=== PATIENT | male | born 1935 | race Caucasian/White ===

== ENCOUNTER 2017-04-18 11:27 | Inpatient (IN) | payer MEDICARE, OTHER ==
[~2017-04-18] VITALS: Ht 167.6 cm; Wt 62.1 kg
[2017-04-18] MEDS ORDERED: FURO20TA4 PO ×2 (16:57)
[2017-04-18] MEDS ORDERED: SENN-40 PO ×2 (16:57)
[2017-04-18] MEDS ORDERED: CARV3.122 PO ×2 (16:57)
[2017-04-18] MEDS ORDERED: FERR-74 PO ×2 (16:58)
[2017-04-18] MEDS ORDERED: C250T PO ×2 (16:58)
[2017-04-18] MEDS ORDERED: PANT40TA2 PO (16:58)
[2017-04-18] MEDS ORDERED: MULT1TAB69 PO ×2 (16:58)
[2017-04-18] MEDS ORDERED: MINO100C2 PO (16:58)
[2017-04-18] MEDS ORDERED: OMEP10CA4 PO (16:58)
[2017-04-18] MEDS ORDERED: ACID1TAB PO ×2 (16:58)
[2017-04-18] MEDS ORDERED: LOVA10TA PO ×2 (16:58)
--- NOTE | 2017-04-23 13:21 | Physical Therapy Evaluation ---
PT Evaluation-General Medical Diagnosis Admission Date April 23, 2017 Medical Diagnosis: right hip fracture Onset Date: Apr 21, 2017 Therapy Diagnosis Therapy Diagnosis: generalized weakness/debility Precautions Precautions/Isolations: Standard Precautions Weight Bear Status Weight Bearing Restriction: Weight Bearing/Tolerated Location Restriction: R LE Comments THR precautions Referral Physician: Agustín Reason for Referral: Evaluation/Treatment Medical History Additional Medical History per patient report, has had increase in weakness x 6-7 wks. Current History fall at [place] while getting into bed Reviewed History: Yes Social History Home: Single Level Current Living Status: Alone Entry Into Home: Stairs With Railing PT Steps Into Home: 5 Prior/Core FIM Prior Level of Function Functional [place] Measure 0=Not Assessed/NA 4=Minimal Assistance 1=Total Assistance 5=Supervision or Setup 2=Maximal Assistance 6=Modified [place] 3=Moderate Assistance 7=Complete [place] Bed Mobility: 7 Transfers (B,C,W/C) (FIM): 7 Gait: 7 PT Evaluation-Current Subjective Patient agrees to PT. Pain Numeric Pain Scale: 3 Location: Right Location Body Site: Hip Pain Description: Acute Objective Patient Orientation: Normal For Age Problem Solving: Good Attachments: Oxygen, Mckeon Catheter ROM/Strength ROM Lower Extremities right hip precautions left LE WNL Strenght Lower Extremities right LE grossly 3-/5 left LE 4/5 grossly Integumentary/Posture Integumentary refer to nursing notes Bowel Incontinence: No Bladder Incontinence: Mckeon Cath Posture kyphotic Neuromuscular (Tone, Coordination, Reflexes) diminished coordination with activity; sensation intact Sensory Vision: Wears Glasses Hearing: Hearing Aid/Aides Sensation Right Lower Extremit: Intact Sensation Left Lower Extremity: Intact Transfers Functional [place] Measure 0=Not Assessed/NA 4=Minimal Assistance 1=Total Assistance 5=Supervision or Setup 2=Maximal Assistance 6=Modified [place] 3=Moderate Assistance 7=Complete IndependenceIRFPAI Quality Coding Scale 6 Independent with activity with or without an assistive device 5 Patient requires set up or clean up by helper. Patient completes activity by themselves 4 Supervision or touching assist (CGA). [place] provide cues , steadying assist 3 The helper provides less than half the effort to complete the activity 2 The helper provides more than half the effort to complete the activity 1 Dependent. The helper does all the effort to complete an activity 7 Patient refused to complete or attempt activity 9 The patient did not perform the activity before the current illness or injury 88 Not attempted due to Medical conditions or safety concerns Transfers (B, C, W/C) (FIM): 3 Scootin Rollin Roll Left to Right (QC): 2 Supine to/from Sit: 3 Sit to/from Stand: 3 Sit to Lying (QC): 2 Lying to Sitting/Side of Bed(Q: 2 Sit to Stand (QC): 2 Chair/Amr-dd-Lbrfy Xfer(QC): 2 Car Transfer (QC): 88 Gait Does the Patient Walk?: Yes Mode of Locomotion: Walk Anticipated Mode of Locomotion: Walk Gait (FIM): 1 Distance (FIM): 1=up to 49 ft Walk 10 feet (QC): 4 Walk 50 ft with 2 Turns(QC): 88 Walk 150 ft (QC): 88 Walking 10ft/uneven surface-QC: 88 Distance: 40' x 6 Gait Level of Assist: 3 Gait Persons Needed: 1 Gait Assistive Device: FWW Comments/Gait Description bilateral ER LE; step to gait sequence Stairs Stairs (FIM): 1 #of Steps: 1 Level of Assist: 3 1 Step (curb) (QC): 2 4 Steps (QC): 88 Assistive Device: Walker 12 Steps (QC): 88 step to sequence Balance Sitting Static: Fair Sitting Dynamic: Fair Standing Static: Fair Standing Dynamic: Fair Treatment bilateral LE exercises 10 reps x 2 sets AP,LAQ Education with patient on safety awareness and hip precautions Gait training with FWW mod assist 40' x 6 with slow step to gait sequence Assessment/Needs 82 y.o. male, will benefit from skilled PT to address functional strength and mobility to improve current LOF and to safely return to home or care facility at maximum LOF. Patient will also benefit from skilled PT to address pulmonary function with exercise and ambulation. Patient is limited with pulmonary function with minimal activity requiring 2L O2 NC. Rehab Potential: Fair Post Rehab Potential-Barriers: age/status PT Care Home Goals Care Home Goals PT Test Analyst Goals Time Frame: May 11, 2017 Transfers (B,C,W/C) (FIM): 5 Sit to Lying (QC): 5 Lying-Sitting on Side/Bed(QC): 5 Sit to Stand (QC): 5 Rollin Roll Left to Right (QC): 5 Chair/Wdf-nx-Oxymj Xfer(QC): 5 Car Transfer (QC): 5 Does the Patient Walk: Yes Gait (FIM): 2 Gait distance (FIM): 7=413-92 ft Distance: 100' Walk 10 feet (QC): 4 Walk 10ft-Uneven Surface(QC): 4 Walk 50ft with 2 Turns (QC): 4 Walk 150 ft (QC): 88 Gait Level of Assist: 5 Gait Assistive Device: FWW Stairs (FIM): 2 # of Steps: 5 1 Step (curb) (QC): 4 4 Steps (QC): 4 12 Steps (QC): 88 Stairs Level Of Assist: 5 Picking up an Object (QC): 5 PT Plan Problem List Problem List: Activity Tolerance, Functional Strength, Balance, Gait, Transfer , Bed Mobility Treatment/Plan Treatment Plan: Continue Plan of Care Treatment Plan: Bed Mobility, Education, Functional Activity Garrett, Functional Strength, Group Therapy, Gait, Safety, Therapeutic Exercise, Transfers Treatment Duration: May 11, 2017 Frequency: At least 5-7 days/Wk (IRF) Estimated Hrs Per Day: 1.5 hours per day Patient and/or Family Agrees t: Yes Safety Risks/Education Patient Education: Correct Positioning, Safety Issues Teaching Recipient: Patient Teaching Methods: Demonstration, Discussion Response to Teaching: Verbalize Understanding, Return Demonstration Discharge Recommendations Therapy D/C Recommendations: Assisted Living, Half-Way Placement Time/GCodes Time In: 1220 Time Out: 1305 Total Billed Treatment Time: 45 Total Billed Treatment 1 visit EVLowC 25 min FA 20 min G Codes Necessary: EDGAR Montanez PT Apr 23, 2017 13:21
[2017-04-27] VITALS (13 sets, daily range): BP systolic 104–128; BP diastolic 65–93
--- NOTE | 2017-04-27 11:28 | History & Physical-Hospitalist ---
HPI History of Present Illness: HPI/Chief Complaint CC: Acute dyspnea HPI: This is an 82-year-old white male with a very complicated medical history with a recent hip fracture that was repaired but only after 6 consultants were managing the case due to acute on chronic renal failure, ureter stenosis with stent maintenance with chronic hematuria residual from colon cancer radiation, colon cancer with diverting colostomy maintenance and congestive heart failure that presents as a transfer up to the ICU from inpatient rehabilitation due to shortness of breath and tachypnea. He reports that he feels like his only breathing from the top part of his lungs and he has become hypoxic and uncomfortable. It is unfortunate because he had done so well even after so complicated medical problems that he has and underwent an uncomplicated hip fracture repair but today it abruptly affected his breathing was given 80 mg of Lasix IV by cardiology given 1 dose of metoprolol XL 50 mg by mouth 1 and started on an aspirin but he has had good urinary output from the 80 mg of Lasix but still not enough to be able to maintain in inpatient rehabilitation service transferred up to the ICU maintain on a partial code as he had discussed with Dr. Almanzar while he was in the ICU when he suffered a hip fracture. At this current time labs were reviewed no significant issues except for acute onset of congestive heart failure that he has ejection fraction that is suppressed. Source: patient Exam Limitations: no limitations Date Seen 04/27/17 Time Seen by Provider: 10:45 Attending Physician Rosi Gunter DO PCP Referring Physician Date of Admission Home Medications & Allergies Home Medications Reviewed patient Home Medication Reconciliation Form Allergies Allergies Coded Allergies Iodinated Contrast- Oral and IV Dye (Verified Allergy, Severe, ANAPHYLAXIS, ) patient reports throat became swollen, and code blue was called Penicillins (Verified Allergy, Mild, RASH, 04/18/17) ibuprofen (Verified Allergy, Mild, rash, 04/18/17) Past Ljfsjtd-Rxvqef-Wiammy Hx Patient Social History Marrital Status: single 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) Smoking Status: Never a Smoker Recent Foreign Travel: No Contact w/other who traveled: No Recent Hopitalizations: Yes Immunizations Up To Date Date of Pneumonia Vaccine: Apr 18, 2016 Seasonal Allergies Seasonal Allergies: No Surgeries HX Surgeries: Yes Surgeries: Abdominal Respiratory Hx Respiratory Disorders: No Cardiovascular Hx Cardiovascular Disorders: Yes Cardiac Disorders: Cardiomyopathy, Chronic Edema/Swelling, High Cholesterol, Hypertension Neurological Hx Neurological Disorders: Yes Neurological Disorders: Dementia Genitourinary Hx Genitourinary Disorders: Yes Genitourinary Disorders: Bladder Infection, Renal Failure, UTI-Chronic Gastrointestinal Hx Gastrointestinal Disorders: Yes Gastrointestinal Disorders: Gastroesophageal Reflux Musculoskeletal Hx Musculoskeletal Disorders: Yes Musculoskeletal Disorders: Arthritis Endocrine Hx Endocrine Disorders: No HEENT HX ENT Disorders: No Hearing Impairment: Hard of Hearing Cancer Hx Cancer: Yes Cancer: Colon Psychosocial Hx Psychiatric Problems: No Blood Transfusions Adverse Reaction to a Blood Tr: No Family Medical History Family Hx: Patient reports no known family medical history. Review of Systems Constitutional: see HPI, weakness EENTM: no symptoms reported Respiratory: dyspnea on exertion, short of breath, wheezing Cardiovascular: no symptoms reported Gastrointestinal: no symptoms reported Genitourinary: no symptoms reported Musculoskeletal: back pain Skin: no symptoms reported Psychiatric/Neurological: No Symptoms Reported All Other Systems Reviewed Negative Unless Noted: Yes Physical Exam Physical Exam Vital Signs Capillary Refill : General Appearance: WD/WN, Chronically ill, Mild Distress (due to tachypnea) Eyes: Bilateral Eye Normal Inspection, Bilateral Eye PERRL HEENT: PERRL/EOMI, Normal ENT Inspection, Pharynx Normal Neck: Full Range of Motion, Normal Inspection, Non Tender, Supple, Carotid Bruit Respiratory: Chest Non Tender, Lungs Clear, No Accessory Muscle Use, No Respiratory Distress, Decreased Breath Sounds Cardiovascular: No Edema, No Gallop, No JVD, No Murmur, Normal Peripheral Pulses, Tachycardia Gastrointestinal: Normal Bowel Sounds, No Organomegaly, No Pulsatile Mass, Non Tender, Soft Back: Normal Inspection, No CVA Tenderness, No Vertebral Tenderness Extremity: Normal Capillary Refill, Normal Inspection, Normal Range of Motion, Non Tender, No Calf Tenderness, No Pedal Edema Neurologic/Psychiatric: Alert, Oriented x3, No Motor/Sensory Deficits, Normal Mood/Affect Skin: Normal Color, Warm/Dry Lymphatic: No Adenopathy Assessment/Plan Admission Diagnosis Assessment: Acute on chronic congestive heart failure with volume overload and tachypnea and hypoxia Tachycardia with telemetry evidence of paroxysmal atrial fibrillation versus sinus tachycardia with PACs following hip surgery while in ICU Chronic renal failure creatinine usual 2.4-3.4 due to ureter stenosis status post stent placement complication from radiation treatment from colon cancer Colon cancer in remission from 10 years ago and status post revision with subsequent colostomy 4 years ago Chronic lower extremity edema Mild dementia Anemia of chronic illness and kidney disease Anemia of acute blood loss status post 2 units while in the ICU following hip fracture surgery Assessment and Plan Plan: Maintain partial code as he has maintained during hospital stay at via [facility] Oxygen Check ABG Check chest x-ray Monitor labs closely Maintain catheter and colostomy Prognosis guarded ROSI GUNTER DO Apr 27, 2017 11:28
[2017-04-27] MEDS ORDERED: CATHETER FLUSH 10 ML SYR IV PRN (13:45)
--- NOTE | 2017-04-27 14:22 | Diagnostic Imaging Report ---
INDICATION: Shortness of breath. Comparison with 04/22/2017 portable chest. FINDINGS: Very dense bilateral alveolar perihilar infiltrates remain present. There has been perhaps slight increase in density infiltrate when compared with previous exam. The heart remains mildly enlarged. I could not exclude small pleural effusion. IMPRESSION: 1. Dense perihilar alveolar infiltrate which do appear to be slightly more dense today than on previous exam. Dictated by: Dictated on workstation # [id number]
--- NOTE | 2017-04-27 14:23 | Progress Note-Cardiology ---
Cardiology SOAP Progress Note Subjective: Transferred to ICU per medical services this morning d/t sudden onset of increasing shortness of breath. He states he continues to feel short of breath , but feels it has improved from this morning. No c/o CP or palpitations. Objective: I&O/Vital Signs Vital Sign - Last 12Hours 04/27/17 04/27/17 04/27/17 04/27/17 12:40 12:40 12:47 13:00 Temp 99.0 Pulse 102 102 101 Resp 28 33 B/P (MAP) 108/65 108/65 Pulse Ox 94 97 O2 Delivery Nasal Cannula Nasal Cannula Nasal Cannula O2 Flow Rate 2.00 2.00 2.00 04/27/17 04/27/17 04/27/17 04/27/17 13:47 14:00 15:00 16:00 Temp 98.2 Pulse 108 115 Resp 31 28 B/P (MAP) 104/71 109/74 Pulse Ox 97 95 O2 Delivery Nasal Cannula Nasal Cannula Nasal Cannula O2 Flow Rate 2.00 3.00 3.00 04/27/17 04/27/17 04/27/17 16:00 16:21 16:25 Temp 98.6 Pulse 116 102 Resp 29 B/P (MAP) 112/93 Pulse Ox 95 93 O2 Delivery Nasal Cannula O2 Flow Rate 3.00 FiO2 32 Weight (Pounds): 151 Weight (Ounces): 3.0 Weight (Calculated Kilograms): 68.111818 Constitutional: AAO x 3 Respiratory: accessory muscle use, other (diminished lower lobes bilat) Cardiovascular: regular rate-rhythm, S1 and S2, systolic murmur Gastrointestional: No tender, soft, audible bowel sounds Genital/Rectal: other (urinary catheter to DD; clear yellow) Extremities: significant edema (bilat pitting lower extremity edema) Neurologic/Psychiatric: grossly intact Skin: No rash, ulcerations Results/Procedures: Labs Laboratory Tests 04/27/17 14:25: Blood Gas Puncture Site R RAD, Blood Gas Patient Temperature 98.2, Arterial Blood pH 7.44H, Arterial Blood Partial Pressure CO2 38, Arterial Blood Partial Pressure O2 64L, Arterial Blood HCO3 26, Arterial Blood Total CO2 26.9, Arterial Blood Oxygen Saturation 95, Arterial Blood Base Excess 1.9, Efrain Test YES-POS, Blood Gas Ventilator Setting NO, Blood Gas Inspired Oxygen 2 A/P: Assessment: Acute systolic CHF, worse today Sinus tach with PACs Echocardiogram of 04-19-[address] Biggs showed LVEF 20-25%. Hypokinesis of apical septal, apical lateral, apical myocardium. Mild MR. Mild to mod TR. PASP 65mmHg. Carried out during tachycardia. Not a suitable candidate for MONY (-) or ARB d/t existing stage III-IV CKD Right hip fracture, - s/p surgery Mildly positive cardiac enzymes (04-19-17 to 04-21-17) : serial troponin shows same level of troponin. [place] to be unlikely d/t ACS. Since mild elevation of troponin can occur in CHF especially with CKD and in a patient with tachycardia. Per Dr. Biggs CKD stage III-IV Tachycardia vs a-fib per EKG of 04-19-17 - felt to be tachycardia by 's note - treated with BB H/O colovesicular fistula d/t colon CA L ureteral stent - Dr. Alves following Plan: Decompensated systolic CHF - continue IV diuretics Monitor lab closely Sinus tachycardia - continue BB CXR pending ABG - pending Physician Assessment Physician Assessment Lungs: good air entry, but diminished at the bases Cor: reg Legs: mild edema A&R * As documented in out note above, that I updated at the time of this writing ( italics), and as documented below * There has been a deterioration in clinical status * Increase bb. Continue antiplatelet therapy. Increase diuretics * Monitor labs closely * I spoke with him in detail and answered questions LINDA GUERRERO ADVANCED MANUFACTURING TECHNICIAN Apr 27, 2017 14:22 NIKUNJ HOLM MD FACP [facility] Apr 27, 2017 18:26
[2017-04-27 14:31] LABS: ABG BASE EXCESS 1.9 MMOL/L (-2.5-2.5); ABG HCO3 26 MMOL/L (23-27); ABG OXYGEN SATURATION 95 % (94-100); ABG PCO2 38 MMHG (35-45); ABG PH 7.44 (7.37-7.43); ABG PO2 64 MMHG (79-93); ABG TCO2 26.9 MMOL/L (21.0-31.0)
[2017-04-27 14:32] LABS: ALLENS TEST YES-POS; PATIENT TEMP 98.2
[2017-04-27] MEDS ORDERED: RT-ALBUTEROL SULF 2.5 MG/3 ML PRE-MIX VIAL IH PRN (16:45)
[2017-04-27] MEDS: FUROSEMIDE 40 MG/4 ML INJ (LASIX) IVP SCH (17:07)
[2017-04-27] MEDS: CATHETER FLUSH 10 ML SYR IV SCH ×2 (17:07→21:00)
[2017-04-27] MEDS: RT-ALBUTEROL/IPRATROPIUM 3 ML (DUONEB) VIAL INH SCH ×2 (18:25→21:52)
[2017-04-27] MEDS ORDERED: meTOproloL SUCCINATE 50 MG (TOPROL XL) TAB PO NR (18:30)
[2017-04-27] MEDS ORDERED: ASPIRIN 81 MG CHEW (CHILDREN'S ASA) PO NR (18:30)
[2017-04-28] VITALS (25 sets, daily range): BP systolic 98–115; BP diastolic 59–84
[2017-04-28] MEDS: RT-ALBUTEROL/IPRATROPIUM 3 ML (DUONEB) VIAL INH SCH ×6 (02:03→23:22)
[2017-04-28 03:49] LABS: BASOPHILS % (AUTO) 0 % (0-10); EOSINOPHILS # (AUTO) 0.1 10^3/uL (0.0-0.3); EOSINOPHILS % (AUTO) 2 % (0-10); LYMPHOCYTES # (AUTO) 0.8 X 10^3 (1.0-4.0); LYMPHOCYTES % (AUTO) 10 % (12-44); MEAN CORPUSCULAR HEMOGLOBIN 30 PG (25-34); MEAN CORPUSCULAR HGB CONC 32 G/DL (32-36); MEAN CORPUSCULAR VOLUME 93 FL (80-99); MEAN PLATELET VOLUME 10.9 FL (7.4-10.4); MONOCYTES % (AUTO) 13 % (0-12); NEUTROPHILS # (AUTO) 5.7 X 10^3 (1.8-7.8); NEUTROPHILS % (AUTO) 75 % (42-75); PLATELET COUNT 399 10^3/uL (130-400); RED BLOOD COUNT 3.38 10^6/uL (4.35-5.85); RED CELL DISTRIBUTION WIDTH 17.4 % (10.0-14.5); WHITE BLOOD COUNT 7.6 10^3/uL (4.3-11.0)
[2017-04-28 04:07] LABS: ALBUMIN 2.5 GM/DL (3.2-4.5); BILIRUBIN,TOTAL 0.3 MG/DL (0.1-1.0); CREATININE SERUM 2.33 MG/DL (0.60-1.30); MAGNESIUM 1.7 MG/DL (1.8-2.4); PHOSPHORUS 4.2 MG/DL (2.3-4.7); POTASSIUM 4.1 MMOL/L (3.6-5.0); TOTAL PROTEIN 5.9 GM/DL (6.4-8.2)
[2017-04-28] MEDS: POTASSIUM CL 10MEQ/50ML IVPB 50 ML IV SCH (05:14)
[2017-04-28] MEDS: KCL 20 MEQ TAB (K-DUR) PO SCH (05:15)
[2017-04-28] MEDS: MAGNESIUM 1 GM/100 ML IVPB 100 ML IV SCH (05:15)
[2017-04-28] MEDS: CATHETER FLUSH 10 ML SYR IV SCH ×3 (06:00→21:20)
[2017-04-28] MEDS: FUROSEMIDE 40 MG/4 ML INJ (LASIX) IVP SCH ×2 (06:00→16:32)
--- NOTE | 2017-04-28 09:05 | Diagnostic Imaging Report ---
INDICATION: CHF COMPARISON: 04/27/17 FINDINGS: Single view of the chest demonstrates slightly worsening bilateral pulmonary infiltrates. Small effusions are stable. Heart remains enlarged. There is no pneumothorax. IMPRESSION: 1. Slightly worsening bilateral pulmonary infiltrates 2. Stable small effusions Dictated by: Dictated on workstation # [id number]
[2017-04-28] MEDS: meTOproloL SUCCINATE 50 MG (TOPROL XL) TAB PO SCH (09:59)
[2017-04-28] MEDS: ENOXAPARIN 30 MG/0.3 ML (LOVENOX) SYR SC SCH (09:59)
[2017-04-28] MEDS: ASPIRIN 81 MG CHEW (CHILDREN'S ASA) PO SCH (10:00)
--- NOTE | 2017-04-28 10:12 | Progress Note-Cardiology ---
Cardiology SOAP Progress Note Subjective: Still quite short of breath. No cp or palp or syncope Feels weak and tired Objective: I&O/Vital Signs Vital Sign - Last 12Hours 04/27/17 04/28/17 04/28/17 04/28/17 23:00 00:00 00:00 01:00 Temp 98.5 Pulse 110 109 105 Resp 23 B/P (MAP) 111/75 107/67 104/69 Pulse Ox 99 96 99 98 O2 Delivery Nasal Cannula Nasal Cannula Nasal Cannula Nasal Cannula O2 Flow Rate 3.00 3.00 3.00 3.00 04/28/17 04/28/17 04/28/17 04/28/17 01:00 02:00 02:03 03:00 Pulse 105 105 101 Resp 19 B/P (MAP) 103/64 110/65 Pulse Ox 99 97 100 O2 Delivery Nasal Cannula Nasal Cannula Nasal Cannula O2 Flow Rate 3.00 3.00 3.00 04/28/17 04/28/17 04/28/17 04/28/17 04:00 04:00 04:00 05:00 Temp 98.9 Pulse 105 101 Resp 24 B/P (MAP) 98/68 99/59 Pulse Ox 98 96 95 O2 Delivery Nasal Cannula Nasal Cannula Nasal Cannula O2 Flow Rate 3.00 3.00 3.00 04/28/17 04/28/17 04/28/17 04/28/17 06:00 06:40 07:00 07:00 Pulse 112 121 121 Resp 28 34 B/P (MAP) 104/70 115/84 Pulse Ox 99 96 96 O2 Delivery Nasal Cannula Nasal Cannula Nasal Cannula O2 Flow Rate 3.00 3.00 3.00 Intake and Output 04/28/17 00:00 Intake Total 480 ml Output Total 2325 ml Balance -1845 ml Weight (Pounds): 143 Weight (Ounces): 1.0 Weight (Calculated Kilograms): 64.899426 Constitutional: AAO x 3 Respiratory: accessory muscle use, other (diminished lower lobes bilat) Cardiovascular: regular rate-rhythm, S1 and S2, systolic murmur Gastrointestional: No tender, soft, audible bowel sounds Genital/Rectal: other (urinary catheter to DD; clear yellow) Extremities: significant edema (bilat pitting lower extremity edema) Neurologic/Psychiatric: grossly intact Skin: No rash, ulcerations Results/Procedures: Labs Laboratory Tests 04/27/17 14:25: Blood Gas Puncture Site R RAD, Blood Gas Patient Temperature 98.2, Arterial Blood pH 7.44H, Arterial Blood Partial Pressure CO2 38, Arterial Blood Partial Pressure O2 64L, Arterial Blood HCO3 26, Arterial Blood Total CO2 26.9, Arterial Blood Oxygen Saturation 95, Arterial Blood Base Excess 1.9, Efrain Test YES-POS, Blood Gas Ventilator Setting NO, Blood Gas Inspired Oxygen 2 04/28/17 03:29: White Blood Count 7.6, Red Blood Count 3.38L, Hemoglobin 10.0L, Hematocrit 31L, Mean Corpuscular Volume 93, Mean Corpuscular Hemoglobin 30, Mean Corpuscular Hemoglobin Concent 32, Red Cell Distribution Width 17.4H, Platelet Count 399, Mean Platelet Volume 10.9H, Neutrophils (%) (Auto) 75, Lymphocytes (%) (Auto) 10L, Monocytes (%) (Auto) 13H, Eosinophils (%) (Auto) 2, Basophils (%) (Auto) 0 , Neutrophils # (Auto) 5.7, Lymphocytes # (Auto) 0.8L, Monocytes # (Auto) 1.0, Eosinophils # (Auto) 0.1, Basophils # (Auto) 0.0, Sodium Level 138, Potassium Level 4.1, Chloride Level 102, Carbon Dioxide Level 22, Anion Gap 14, Blood Urea Nitrogen 51H, Creatinine 2.33H, Estimat Glomerular Filtration Rate 27, BUN/ Creatinine Ratio 22, Glucose Level 100, Calcium Level 8.0L, Phosphorus Level 4.2 , Magnesium Level 1.7L, Total Bilirubin 0.3, Aspartate Amino Transf (AST/SGOT) 32, Alanine Aminotransferase (ALT/SGPT) 25, Alkaline Phosphatase 74, Total Protein 5.9L, Albumin 2.5L Laboratory Tests 04/28/17 03:29 A/P: Assessment: Acute systolic CHF Sinus tach with PACs Echocardiogram of 04-19-[address] Biggs showed LVEF 20-25%. Hypokinesis of apical septal, apical lateral, apical myocardium. Mild MR. Mild to mod TR. PASP 65mmHg. Carried out during tachycardia. Not a suitable candidate for MONY (-) or ARB d/t existing stage III-IV CKD Right hip fracture, - s/p surgery Mildly positive cardiac enzymes (04-19-17 to 04-21-17) : serial troponin shows same level of troponin. [place] to be unlikely d/t ACS. Since mild elevation of troponin can occur in CHF especially with CKD and in a patient with tachycardia. Per Dr. Biggs CKD stage III-IV Tachycardia vs a-fib per EKG of 04-19-17 - felt to be tachycardia by 's note - treated with BB H/O colovesical fistula d/t colon CA L ureteral stent - Dr. Alves following Plan: Management complex due to multiple comorbidities (see above) Remain in decompensated acute CHF Renal function stable to slightly worse Conservative management appears to be the best option at time Continue heart failure treatment and treatment for suspected CAD Monitor lab closely Replenish lytes as needed NIKUNJ HOLM MD FACP [facility] Apr 28, 2017 10:12
[2017-04-28] MEDS ORDERED: MAGNESIUM 1 GM/100 ML IVPB 100 ML IV ONE (10:15)
--- NOTE | 2017-04-28 11:01 | Progress Note-Hospitalist ---
Subjective HPI/CC On Admission Date Seen by Provider: Apr 28, 2017 Time Seen by Provider: 08:45 CC: Acute dyspnea HPI: This is an 82-year-old white male with a very complicated medical history with a recent hip fracture that was repaired but only after 6 consultants were managing the case due to acute on chronic renal failure, ureter stenosis with stent maintenance with chronic hematuria residual from colon cancer radiation, colon cancer with diverting colostomy maintenance and congestive heart failure that presents as a transfer up to the ICU from inpatient rehabilitation due to shortness of breath and tachypnea. He reports that he feels like his only breathing from the top part of his lungs and he has become hypoxic and uncomfortable. It is unfortunate because he had done so well even after so complicated medical problems that he has and underwent an uncomplicated hip fracture repair but today it abruptly affected his breathing was given 80 mg of Lasix IV by cardiology given 1 dose of metoprolol XL 50 mg by mouth 1 and started on an aspirin but he has had good urinary output from the 80 mg of Lasix but still not enough to be able to maintain in inpatient rehabilitation service transferred up to the ICU maintain on a partial code as he had discussed with Dr. Almanzar while he was in the ICU when he suffered a hip fracture. At this current time labs were reviewed no significant issues except for acute onset of congestive heart failure that he has ejection fraction that is suppressed. Subjective/Events-last exam although still short of breath the patient reports this symptom has improved compared to yesterday. He denies chest pain. He has a cough that has been nonproductive. he denies chills or fever. Objective Exam Vital Signs Vital Sign - Last 12Hours 04/27/17 04/27/17 12:40 16:21 Temp 99.0 Pulse 102 Resp 28 B/P (MAP) 108/65 Pulse Ox 94 O2 Delivery Nasal Cannula O2 Flow Rate 2.00 FiO2 32 Capillary Refill : General Appearance: Anxious, Chronically ill, Cachetic, Mild Distress Respiratory: Other (rales the upper lung anderson noted without wheezing. Patient is a neck Restoril rate 22. At rest he is not using accessory muscles of respiration.) Cardiovascular: Other (heart sounds somewhat distant and difficult to hear over rales rhythm is regular no murmurs S3 or S4 appreciated.) Extremity: Other (Andrew edema with crinkling of the skin over the tibia suggesting recent severe edema and corroborated by the patient. Anus insufficiency changes noted with some erythema but no evidence for ulceration extremities are warm unable to appreciate pulses.) Neurologic/Psychiatric: Alert Results/Procedures Lab Laboratory Tests 04/28/17 03:29 Assessment/Plan Assessment and Plan Assess & Plan/Chief Complaint 1. Acute on chronic systolic heart failure due to underlying ischemic cardiomyopathy. There has been no evidence for acute coronary syndrome. In addition to an ejection fraction in 2024 percent patient did have findings compatible with severe pulmonary artery hypertension at the time of the study with a pulmonary artery systolic pressure estimated around 70 mmHg. 2. Stage IV chronic renal disease 3. Dehability multi-factorial. 4. History of colon cancer with colovesicular fistula and left ureteral stent. 5. Severe medical complexity due to severe renal and cardiac disease. Prognosis is poor OLGA LIDIA MENDOZA MD Apr 28, 2017 11:01
[2017-04-28] MEDS ORDERED: MELATONIN 3 MG TABLET PO ONE (22:29)
[2017-04-28] MEDS ORDERED: MELATONIN 3 MG TABLET PO PRN (23:45)
[2017-04-29] VITALS (23 sets, daily range): BP systolic 87–109; BP diastolic 50–82
[2017-04-29] MEDS: RT-ALBUTEROL/IPRATROPIUM 3 ML (DUONEB) VIAL INH SCH ×6 (03:10→21:44)
[2017-04-29 03:53] LABS: BASOPHILS % (AUTO) 0 % (0-10); EOSINOPHILS # (AUTO) 0.2 10^3/uL (0.0-0.3); EOSINOPHILS % (AUTO) 3 % (0-10); LYMPHOCYTES # (AUTO) 0.7 X 10^3 (1.0-4.0); LYMPHOCYTES % (AUTO) 10 % (12-44); MEAN CORPUSCULAR HEMOGLOBIN 29 PG (25-34); MEAN CORPUSCULAR HGB CONC 31 G/DL (32-36); MEAN CORPUSCULAR VOLUME 94 FL (80-99); MEAN PLATELET VOLUME 10.9 FL (7.4-10.4); MONOCYTES # (AUTO) 1.3 X 10^3 (0.0-1.0); MONOCYTES % (AUTO) 17 % (0-12); NEUTROPHILS # (AUTO) 5.2 X 10^3 (1.8-7.8); NEUTROPHILS % (AUTO) 70 % (42-75); PLATELET COUNT 383 10^3/uL (130-400); RED BLOOD COUNT 3.25 10^6/uL (4.35-5.85); RED CELL DISTRIBUTION WIDTH 17.3 % (10.0-14.5); WHITE BLOOD COUNT 7.4 10^3/uL (4.3-11.0)
[2017-04-29 04:15] LABS: CREATININE SERUM 2.25 MG/DL (0.60-1.30); MAGNESIUM 1.7 MG/DL (1.8-2.4); PHOSPHORUS 4.7 MG/DL (2.3-4.7); POTASSIUM 3.8 MMOL/L (3.6-5.0)
[2017-04-29] MEDS: POTASSIUM CL 10MEQ/50ML IVPB 50 ML IV SCH (05:23)
[2017-04-29] MEDS: KCL 20 MEQ TAB (K-DUR) PO SCH (05:24)
[2017-04-29] MEDS: FUROSEMIDE 40 MG/4 ML INJ (LASIX) IVP SCH ×2 (06:18→17:50)
[2017-04-29] MEDS: MAGNESIUM 1 GM/100 ML IVPB 100 ML IV SCH (06:18)
[2017-04-29] MEDS: CATHETER FLUSH 10 ML SYR IV SCH ×3 (06:18→22:30)
[2017-04-29] MEDS: ENOXAPARIN 30 MG/0.3 ML (LOVENOX) SYR SC SCH (09:58)
[2017-04-29] MEDS: ASPIRIN 81 MG CHEW (CHILDREN'S ASA) PO SCH (09:58)
[2017-04-29] MEDS: meTOproloL SUCCINATE 50 MG (TOPROL XL) TAB PO SCH (09:58)
--- NOTE | 2017-04-29 11:03 | Progress Note-Hospitalist ---
Subjective HPI/CC On Admission Date Seen by Provider: Apr 29, 2017 Time Seen by Provider: 07:50 CC: Acute dyspnea HPI: This is an 82-year-old white male with a very complicated medical history with a recent hip fracture that was repaired but only after 6 consultants were managing the case due to acute on chronic renal failure, ureter stenosis with stent maintenance with chronic hematuria residual from colon cancer radiation, colon cancer with diverting colostomy maintenance and congestive heart failure that presents as a transfer up to the ICU from inpatient rehabilitation due to shortness of breath and tachypnea. He reports that he feels like his only breathing from the top part of his lungs and he has become hypoxic and uncomfortable. It is unfortunate because he had done so well even after so complicated medical problems that he has and underwent an uncomplicated hip fracture repair but today it abruptly affected his breathing was given 80 mg of Lasix IV by cardiology given 1 dose of metoprolol XL 50 mg by mouth 1 and started on an aspirin but he has had good urinary output from the 80 mg of Lasix but still not enough to be able to maintain in inpatient rehabilitation service transferred up to the ICU maintain on a partial code as he had discussed with Dr. Almanzar while he was in the ICU when he suffered a hip fracture. At this current time labs were reviewed no significant issues except for acute onset of congestive heart failure that he has ejection fraction that is suppressed. Subjective/Events-last exam Mr. Lowery reports feeling better with no shortness of breath at rest improved from yesterday. He denies chest pain and reports improved appetite. He had a reasonable breakfast with no nausea. Objective Exam Vital Signs Vital Sign - Last 12Hours 04/27/17 04/27/17 12:40 16:21 Temp 99.0 Pulse 102 Resp 28 B/P (MAP) 108/65 Pulse Ox 94 O2 Delivery Nasal Cannula O2 Flow Rate 2.00 FiO2 32 Capillary Refill : Less Than 3 Seconds General Appearance: No Apparent Distress, Chronically ill Respiratory: Chest Non Tender, No Accessory Muscle Use, No Respiratory Distress , Other (tachypnea moderating fine rales to mid lung anderson noted definitely less respiratory distress and yesterday.) Cardiovascular: No Gallop, No Murmur, Tachycardia (sinus rate in the low 100 range) Skin: Pallor Results/Procedures Lab Laboratory Tests 04/29/17 03:36 Assessment/Plan Assessment and Plan Assess & Plan/Chief Complaint 1. Acute on chronic systolic heart failure due to underlying ischemic cardiomyopathy improving with resolving pedal edema.. There has been no evidence for acute coronary syndrome. In addition to an ejection fraction in 20 -25 percent patient did have findings compatible with severe pulmonary artery hypertension at the time of the study with a pulmonary artery systolic pressure estimated around 70 mmHg. 2. Stage IV chronic renal disease 3. Dehability multi-factorial. 4. History of colon cancer with colovesicular fistula and left ureteral stent. 5. Severe medical complexity due to severe renal and cardiac disease. Prognosis is poor plan up in chair today possible discharge back to acute rehabilitation tomorrow. OLGA LIDIA MENDOZA MD Apr 29, 2017 11:03
--- NOTE | 2017-04-29 11:42 | Diagnostic Imaging Report ---
INDICATION: CHF EXAMINATION: Chest 04/29/2017 Comparison is made to 04/28/2017 FINDINGS: Cardiomegaly and pulmonary vascular congestion is noted. Findings of edema seen throughout both lungs. Bibasilar infiltrates, right worse than left, as well as effusions are noted and slightly increased from previous imaging. No pneumothorax. IMPRESSION: 1. Pulmonary edema 2. Bibasilar infiltrates and effusions slightly increased from previous imaging. Dictated by: Dictated on workstation # [id number]
--- NOTE | 2017-04-29 12:24 | Progress Note-Cardiology ---
Cardiology SOAP Progress Note Subjective: Shortness of breath somewhat better No cp or palp or syncope Objective: I&O/Vital Signs Vital Sign - Last 12Hours 04/29/17 04/29/17 04/29/17 04/29/17 01:00 01:00 02:00 03:00 Pulse 102 104 102 98 Resp 27 26 27 B/P (MAP) 103/63 100/82 100/64 Pulse Ox 98 98 98 O2 Delivery Vapotherm Vapotherm Vapotherm O2 Flow Rate 40.00 40.00 40.00 15.00 15.00 15.00 04/29/17 04/29/17 04/29/17 04/29/17 03:10 04:00 04:00 05:00 Temp 98.0 Pulse 97 102 Resp 19 28 B/P (MAP) 94/66 102/63 Pulse Ox 92 98 O2 Delivery Vapotherm Vapotherm Vapotherm O2 Flow Rate 15.00 13.00 40.00 40.00 13.00 13.00 FiO2 40 40 04/29/17 04/29/17 04/29/17 04/29/17 06:00 06:42 07:00 08:00 Pulse 101 107 Resp 25 B/P (MAP) 107/68 Pulse Ox 95 98 O2 Delivery Vapotherm Vapotherm Vapotherm O2 Flow Rate 40.00 13.00 10.00 13.00 FiO2 40 40 04/29/17 04/29/17 04/29/17 04/29/17 08:00 09:00 10:00 10:20 Temp 98.9 Pulse 105 108 99 Resp 22 29 21 B/P (MAP) 102/64 101/61 102/66 Pulse Ox 100 100 100 100 O2 Delivery Vapotherm Vapotherm Nasal Cannula Vapotherm O2 Flow Rate 40.00 40.00 3.00 10.00 10.00 10.00 FiO2 40 04/29/17 04/29/17 04/29/17 11:00 11:55 12:00 Temp 98.4 Pulse 97 96 Resp 22 26 B/P (MAP) 104/65 89/58 Pulse Ox 100 100 O2 Delivery Nasal Cannula Nasal Cannula Nasal Cannula O2 Flow Rate 3.00 3.00 3.00 Intake and Output 04/29/17 00:00 Intake Total 900 ml Output Total 1375 ml Balance -475 ml Weight (Pounds): 143 Weight (Ounces): 9.0 Weight (Calculated Kilograms): [id number] Constitutional: AAO x 3 Respiratory: accessory muscle use, other (diminished lower lobes bilat) Cardiovascular: regular rate-rhythm, S1 and S2, systolic murmur Gastrointestional: No tender, soft, audible bowel sounds Genital/Rectal: other (urinary catheter to DD; clear yellow) Extremities: significant edema (bilat pitting lower extremity edema) Neurologic/Psychiatric: grossly intact Skin: No rash, ulcerations Results/Procedures: Labs Laboratory Tests 04/29/17 03:36: White Blood Count 7.4, Red Blood Count 3.25L, Hemoglobin 9.4L, Hematocrit 30L, Mean Corpuscular Volume 94, Mean Corpuscular Hemoglobin 29, Mean Corpuscular Hemoglobin Concent 31L, Red Cell Distribution Width 17.3H, Platelet Count 383, Mean Platelet Volume 10.9H, Neutrophils (%) (Auto) 70, Lymphocytes (%) (Auto) 10L, Monocytes (%) (Auto) 17H, Eosinophils (%) (Auto) 3, Basophils (%) (Auto) 0 , Neutrophils # (Auto) 5.2, Lymphocytes # (Auto) 0.7L, Monocytes # (Auto) 1.3H, Eosinophils # (Auto) 0.2, Basophils # (Auto) 0.0, Sodium Level 139, Potassium Level 3.8, Chloride Level 102, Carbon Dioxide Level 29, Anion Gap 8, Blood Urea Nitrogen 52H, Creatinine 2.25H, Estimat Glomerular Filtration Rate 28, BUN/ Creatinine Ratio 23, Glucose Level 102, Calcium Level 8.0L, Phosphorus Level 4.7 , Magnesium Level 1.7L Laboratory Tests 04/28/17 03:29 04/29/17 03:36 A/P: Assessment: Acute systolic CHF Sinus tach with PACs Echocardiogram of 04-19-[address] Biggs showed LVEF 20-25%. Hypokinesis of apical septal, apical lateral, apical myocardium. Mild MR. Mild to mod TR. PASP 65mmHg. Carried out during tachycardia. Not a suitable candidate for MONY (-) or ARB d/t existing stage III-IV CKD Right hip fracture, - s/p surgery Mildly positive cardiac enzymes (04-19-17 to 04-21-17) : serial troponin shows same level of troponin. [place] to be unlikely d/t ACS. Since mild elevation of troponin can occur in CHF especially with CKD and in a patient with tachycardia. Per Dr. Biggs CKD stage III-IV Tachycardia vs a-fib per EKG of 04-19-17 - felt to be tachycardia by 's note - treated with BB H/O colovesical fistula d/t colon CA L ureteral stent - Dr. Alves following Electrolyte abnormalities, likely due to diuretics Plan: Management complex due to multiple comorbidities (see above) Remain in decompensated acute CHF, with slow improvement Renal function seems relatively stable Replenish lytes Conservative management appears to be the best option at time Continue heart failure treatment and treatment for suspected CAD Monitor lab closely NIKUNJ HOLM MD FACP FAC CCDS Apr 29, 2017 12:24
[2017-04-30] VITALS (15 sets, daily range): BP systolic 86–113; BP diastolic 52–87
[2017-04-30] MEDS: RT-ALBUTEROL/IPRATROPIUM 3 ML (DUONEB) VIAL INH SCH ×6 (02:40→22:36)
[2017-04-30 05:07] LABS: BASOPHILS % (AUTO) 0 % (0-10); EOSINOPHILS # (AUTO) 0.2 10^3/uL (0.0-0.3); EOSINOPHILS % (AUTO) 3 % (0-10); LYMPHOCYTES # (AUTO) 0.7 X 10^3 (1.0-4.0); LYMPHOCYTES % (AUTO) 11 % (12-44); MEAN CORPUSCULAR HEMOGLOBIN 29 PG (25-34); MEAN CORPUSCULAR HGB CONC 31 G/DL (32-36); MEAN CORPUSCULAR VOLUME 93 FL (80-99); MEAN PLATELET VOLUME 10.7 FL (7.4-10.4); MONOCYTES # (AUTO) 1.1 X 10^3 (0.0-1.0); MONOCYTES % (AUTO) 18 % (0-12); NEUTROPHILS # (AUTO) 4.4 X 10^3 (1.8-7.8); NEUTROPHILS % (AUTO) 69 % (42-75); PLATELET COUNT 375 10^3/uL (130-400); RED BLOOD COUNT 3.32 10^6/uL (4.35-5.85); RED CELL DISTRIBUTION WIDTH 17.1 % (10.0-14.5); WHITE BLOOD COUNT 6.4 10^3/uL (4.3-11.0)
[2017-04-30 05:26] LABS: CALCIUM 7.6 MG/DL (8.5-10.1); CREATININE SERUM 1.99 MG/DL (0.60-1.30); MAGNESIUM 1.4 MG/DL (1.8-2.4); PHOSPHORUS 4.2 MG/DL (2.3-4.7); POTASSIUM 3.3 MMOL/L (3.6-5.0)
[2017-04-30] MEDS: POTASSIUM CL 10MEQ/50ML IVPB 50 ML IV SCH (06:00)
[2017-04-30] MEDS: KCL 20 MEQ TAB (K-DUR) PO SCH (06:00)
[2017-04-30] MEDS: MAGNESIUM 1 GM/100 ML IVPB 100 ML IV SCH ×2 (06:00→08:04)
[2017-04-30] MEDS: FUROSEMIDE 40 MG/4 ML INJ (LASIX) IVP SCH ×2 (07:11→17:19)
[2017-04-30] MEDS: CATHETER FLUSH 10 ML SYR IV SCH ×4 (07:11→22:08)
--- NOTE | 2017-04-30 07:12 | Pulmonary Consultation ---
History of Present Illness History of Present Illness Date of Consultation 04/30/17 07:05 Time Seen by Provider: 07:05 Date of Admission History of Present Illness 82yo WM with hx of colon cancer, CHF, and recent hip fracture presented to ICU from rehab secondary to CHFAE, and SOB. He has been on lasix 40mg daily while in rehab. He has been increased to lasix 80mg IV BID from lasix 40mg daily since ICU admission and his respiratory distress is now much improved. PT is planning on going back to rehab today. CXR and labs reviewed. I am consulted for pulmonary management. Allergies and Home Medications Allergies Coded Allergies: Iodinated Contrast- Oral and IV Dye (Verified Allergy, Severe, ANAPHYLAXIS , 04/18/17) patient reports throat became swollen, and code blue was called Penicillins (Verified Allergy, Mild, RASH, 04/18/17) ibuprofen (Verified Allergy, Mild, rash, 04/18/17) Home Medications Ascorbic Acid 250 Mg Tab, 250 MG PO DAILY, (Reported) Aspirin 81 Mg Tab.chew, 81 MG PO DAILY, #30 Prescribed by: PAULA GANDHI on 04/30/17951 Carvedilol 3.125 Mg Tablet, 3.125 MG PO DAILY, (Reported) Enoxaparin Sodium 30 Mg/0.3 Ml Syringe, 30 MG SC DAILY@0900 for 30 Days Prescribed by: PAULA GANDHI on 04/30/17951 Ferrous Sulfate 325 Mg Tablet, 325 MG PO DAILY, (Reported) Furosemide 20 Mg Tablet, 20 MG PO DAILY, (Reported) Furosemide 80 Mg Tablet, 80 MG PO BID for 30 Days Prescribed by: PAULA GANDHI on 04/30/17951 Ipratropium/Albuterol Sulfate 3 Ml Ampul.neb, 3 ML INH RTQ4HR for 30 Days Prescribed by: PAULA GANDHI on 04/30/17951 L. Acidophilus/Bulgaricus 1 Each Tablet, 2 TAB PO DAILY, (Reported) Lovastatin 10 Mg Tablet, 10 MG PO 1800, (Reported) Melatonin 3 Mg Tablet, 3 MG PO HS PRN for INSOMNIA for 30 Days Prescribed by: PAULA GANDHI on 04/30/17951 Metoprolol Succinate 50 Mg Tab.er.24h, 50 MG PO DAILY, #30 Prescribed by: PAULA GANDHI on 04/30/17951 Multivitamin 1 Each Tablet, 1 TAB PO DAILY, (Reported) Potassium Chloride 20 Meq Tab.er.prt, 40 MEQ PO DAILY@0600, #30 Prescribed by: PAULA GANDHI on 04/30/1752 Sennosides/Docusate Sodium 1 Each Tablet, 8.6 MG PO BID, (Reported) Past Fpphinz-Oilnmk-Ukrupw Hx Patient Social History Alcohol Use: Denies Use Recreational Drug Use: No Smoking Status: Never a Smoker Recent Foreign Travel: No Contact w/Someone Who Travel: No Recent Infectious Disease Expo: No Recent Hopitalizations: Yes Physical Abuse Screen: No Sexual Abuse: No Immunizations Up To Date Date of Pneumonia Vaccine: Apr 18, 2016 Seasonal Allergies Seasonal Allergies: No Surgeries HX Surgeries: Yes Surgeries: Abdominal Respiratory Hx Respiratory Disorders: No Cardiovascular Hx Cardiac Disorders: Yes Cardiac Disorders: Cardiomyopathy, Chronic Edema/Swelling, High Cholesterol, Hypertension Neurological Hx Neurological Disorders: Yes Neurological Disorders: Dementia Genitourinary Hx Genitourinary Disorders: Yes Genitourinary Disorders: Bladder Infection, Renal Failure, UTI-Chronic Gastrointestinal Hx Gastrointestinal Disorders: Yes Gastrointestinal Disorders: Gastroesophageal Reflux Musculoskeletal Hx Musculoskeletal Disorders: Yes Musculoskeletal Disorders: Arthritis Endocrine Hx Endocrine Disorders: No HEENT HX ENT Disorders: No Hearing Impairment: Hard of Hearing Cancer Hx Cancer: Yes Cancer: Colon Psychosocial Hx Psychiatric Problems: No Blood Transfusions Adverse Reaction to a Blood Tr: No Family Medical History Family Medial History: Patient reports no known family medical history. Review of Systems Time Seen by Provider: 07:28 Constitutional: Malaise, Weakness, No: Chills, Fever, Other, Sweats Eyes: No: Conjunctivae inflammation, Eyelid inflammation, Other, Pain, Redness , Vision change ENT: No: Ear discharge, Ear pain, Mouth pain, Mouth swelling, Nose congestion, Nose discharge, Nose pain, Other, Throat pain, Throat swelling Respiratory: Cough, Dry, SOB with excertion, Shortness of breath, Wheezing Cardiovascular: Edema, Orthopnea, Paroxysmal Noc. Dyspnea, No: Chest Pain, Lt Headedness, Other, Palpitations Gastrointestinal: No: Abdominal Pain, Constipation, Diarrhea, Hematochezia, Melena, Nausea, Other, Vomiting Neurological: Incoordination, Weakness Exam Exam Vital Signs Date Time Temp Pulse Resp B/P (MAP) Pulse Ox O2 Delivery O2 Flow Rate FiO2 7/31/17 06:58 100 Nasal Cannula 1.50 04/30/17 06:00 96 22 89/52 100 Nasal Cannula 1.00 04/30/17 05:00 94 22 86/53 100 Nasal Cannula 1.00 04/30/17 04:00 97.2 98 23 94/58 100 Nasal Cannula 1.00 04/30/17 04:00 Nasal Cannula 1.00 04/30/17 03:00 98 22 88/53 98 Nasal Cannula 1.00 04/30/17 02:40 100 Nasal Cannula 1.50 04/30/17 02:00 93 24 88/53 100 Nasal Cannula 1.50 04/30/17 01:00 96 04/30/17 01:00 95 20 91/55 100 Nasal Cannula 1.50 04/30/17 00:00 97.8 97 20 98/54 100 Nasal Cannula 1.50 04/30/17 00:00 Nasal Cannula 1.50 04/29/17 23:00 98 20 104/62 100 Nasal Cannula 1.50 04/29/17 22:00 101 28 106/61 100 Nasal Cannula 1.50 04/29/17 21:44 100 Nasal Cannula 2.00 04/29/17 21:00 97.8 114 20 106/63 100 Nasal Cannula 2.00 04/29/17 20:00 Nasal Cannula 2.00 04/29/17 20:00 101 31 98/59 100 Nasal Cannula 2.00 04/29/17 19:00 104 04/29/17 19:00 Nasal Cannula 2.00 04/29/17 19:00 101 28 91/57 100 Nasal Cannula 2.00 04/29/17 18:51 100 Nasal Cannula 3.00 04/29/17 18:00 102 26 109/70 100 Nasal Cannula 3.00 04/29/17 18:00 105 26 109/70 100 Nasal Cannula 3.00 04/29/17 17:00 99 30 107/71 100 Nasal Cannula 3.00 04/29/17 16:00 97.8 98 27 95/62 100 Nasal Cannula 3.00 04/29/17 15:52 Nasal Cannula 3.00 04/29/17 15:00 99 20 101/53 100 Nasal Cannula 3.00 04/29/17 14:05 95 Nasal Cannula 3.00 04/29/17 14:00 96 18 87/50 100 Nasal Cannula 3.00 04/29/17 13:00 93 17 109/53 100 Nasal Cannula 3.00 04/29/17 13:00 102 04/29/17 12:27 Nasal Cannula 3.00 04/29/17 12:00 98.4 96 26 89/58 100 Nasal Cannula 3.00 04/29/17 11:55 Nasal Cannula 3.00 04/29/17 11:00 97 22 104/65 100 Nasal Cannula 3.00 04/29/17 10:20 100 Vapotherm 10.00 40 04/29/17 10:00 99 21 102/66 100 Nasal Cannula 3.00 04/29/17 09:00 108 29 101/61 100 Vapotherm 40.00 10.00 04/29/17 08:00 98.9 105 22 102/64 100 Vapotherm 40.00 10.00 04/29/17 08:00 Vapotherm 10.00 40 I & O 04/30/17 07:00 Intake Total 1550 ml Output Total 2500 ml Balance -950 ml General Appearance: No Apparent Distress, Chronically ill HEENT: PERRL/EOMI, Normal ENT Inspection, Pharynx Normal Neck: Full Range of Motion, Normal Inspection, Non Tender, Supple, Carotid Bruit Respiratory: Chest Non Tender, No Accessory Muscle Use, No Respiratory Distress , Other (tachypnea moderating fine rales to mid lung anderson noted definitely less respiratory distress and yesterday.) Cardiovascular: No Gallop, No Murmur, Tachycardia (sinus rate in the low 100 range) Capillary Refill: Less Than 3 Seconds Gastrointestinal: non tender, soft, no pulsatile mass Extremity: Other (Andrew edema with crinkling of the skin over the tibia suggesting recent severe edema and corroborated by the patient. Anus insufficiency changes noted with some erythema but no evidence for ulceration extremities are warm unable to appreciate pulses.) Neurologic/Psychiatric: Alert, Oriented x3 Skin: Normal Color, Warm/Dry, Pallor Lymphatic: No Adenopathy Results Lab Laboratory Tests 04/29/17 03:36 04/30/17 04:50 Assessment/Plan Assessment/Plan CHFAE EF 20-25% -lasix 80mg BID -cardiology following S/P respiratory distress now improved. -Monitor S/p right hip fracture with repair CKD III-IV -monitor Hx of colovesicular fistula secondary to hx of colon ca Hypomagnesium, hypokalemia -replace 254 Clinical Quality Measures DVT/VTE Risk/Contraindication: Risk Factor Score Per Nursin RFS Level Per Nursing on Admit: 4+=Very High LILIANA MIJARES DO Apr 30, 2017 07:12
[2017-04-30] MEDS ORDERED: POTASSIUM CL 10MEQ/50ML IVPB 50 ML IV SCH (07:15)
--- NOTE | 2017-04-30 07:19 | Diagnostic Imaging Report ---
INDICATION: Congestive heart failure. 0421 hours Portable upright view of the chest is obtained with comparison made study of one day earlier. FINDINGS: Similar to previous study, there is bilateral airspace disease with central predominance with blunting of both costophrenic sulci. No pneumothorax is identified. Overall, there has been slight interval improvement in aeration of lungs. IMPRESSION: Bilateral airspace disease and pleural fluid likely related to congestive heart failure. Overall, there may be slight interval improvement in the degree of pulmonary edema. Dictated by: Dictated on workstation # [id number]
[2017-04-30] MEDS ORDERED: KCL 20 MEQ TAB (K-DUR) PO ONE (08:00)
[2017-04-30] MEDS: ENOXAPARIN 30 MG/0.3 ML (LOVENOX) SYR SC SCH (08:03)
[2017-04-30] MEDS: ASPIRIN 81 MG CHEW (CHILDREN'S ASA) PO SCH (08:03)
[2017-04-30] MEDS: meTOproloL SUCCINATE 50 MG (TOPROL XL) TAB PO SCH (08:03)
--- NOTE | 2017-04-30 09:12 | Progress Note-Cardiology ---
Cardiology SOAP Progress Note Subjective: Breathing much improved No cp or palp or syncope Objective: I&O/Vital Signs Vital Sign - Last 12Hours 04/29/17 04/29/17 04/29/17 04/30/17 21:44 22:00 23:00 00:00 Pulse 101 98 Resp 28 20 B/P (MAP) 106/61 104/62 Pulse Ox 100 100 100 O2 Delivery Nasal Cannula Nasal Cannula Nasal Cannula Nasal Cannula O2 Flow Rate 2.00 1.50 1.50 1.50 04/30/17 04/30/17 04/30/17 04/30/17 00:00 01:00 01:00 02:00 Temp 97.8 Pulse 97 95 96 93 Resp 20 20 24 B/P (MAP) 98/54 91/55 88/53 Pulse Ox 100 100 100 O2 Delivery Nasal Cannula Nasal Cannula Nasal Cannula O2 Flow Rate 1.50 1.50 1.50 04/30/17 04/30/17 04/30/17 04/30/17 02:40 03:00 04:00 04:00 Temp 97.2 Pulse 98 98 Resp 22 23 B/P (MAP) 88/53 94/58 Pulse Ox 100 98 100 O2 Delivery Nasal Cannula Nasal Cannula Nasal Cannula Nasal Cannula O2 Flow Rate 1.50 1.00 1.00 1.00 04/30/17 04/30/17 04/30/17 04/30/17 05:00 06:00 06:58 07:00 Pulse 94 96 96 Resp 22 22 B/P (MAP) 86/53 89/52 Pulse Ox 100 100 100 O2 Delivery Nasal Cannula Nasal Cannula Nasal Cannula O2 Flow Rate 1.00 1.00 1.50 04/30/17 04/30/17 07:15 08:03 Temp 98.2 B/P (MAP) O2 Delivery Nasal Cannula Nasal Cannula O2 Flow Rate 1.00 1.00 Intake and Output 04/30/17 00:00 Intake Total 1040 ml Output Total 1550 ml Balance -510 ml Weight (Pounds): 138 Weight (Ounces): 12.8 Weight (Calculated Kilograms): 62.008602 Constitutional: AAO x 3 Respiratory: accessory muscle use, other (diminished lower lobes bilat) Cardiovascular: regular rate-rhythm, S1 and S2, systolic murmur Gastrointestional: No tender, soft, audible bowel sounds Genital/Rectal: other (urinary catheter to DD; clear yellow) Extremities: significant edema (bilat pitting lower extremity edema) Neurologic/Psychiatric: grossly intact Skin: No rash, ulcerations Results/Procedures: Labs Laboratory Tests 04/30/17 04:50: White Blood Count 6.4, Red Blood Count 3.32L, Hemoglobin 9.6L, Hematocrit 31L, Mean Corpuscular Volume 93, Mean Corpuscular Hemoglobin 29, Mean Corpuscular Hemoglobin Concent 31L, Red Cell Distribution Width 17.1H, Platelet Count 375, Mean Platelet Volume 10.7H, Neutrophils (%) (Auto) 69, Lymphocytes (%) (Auto) 11L, Monocytes (%) (Auto) 18H, Eosinophils (%) (Auto) 3, Basophils (%) (Auto) 0 , Neutrophils # (Auto) 4.4, Lymphocytes # (Auto) 0.7L, Monocytes # (Auto) 1.1H, Eosinophils # (Auto) 0.2, Basophils # (Auto) 0.0, Sodium Level 139, Potassium Level 3.3L, Chloride Level 101, Carbon Dioxide Level 25, Anion Gap 13, Blood Urea Nitrogen 49H, Creatinine 1.99H, Estimat Glomerular Filtration Rate 32, BUN/ Creatinine Ratio 25, Glucose Level 104, Calcium Level 7.6L, Phosphorus Level 4.2 , Magnesium Level 1.4L Laboratory Tests 04/29/17 03:36 04/30/17 04:50 A/P: Assessment: Acute systolic CHF, improving Sinus tach with PACs, improving CKD stage III-IV, stable/ improving Elec abn due to diuretic therapy Echocardiogram of 04-19-[address] Biggs showed LVEF 20-25%. Hypokinesis of apical septal, apical lateral, apical myocardium. Mild MR. Mild to mod TR. PASP 65mmHg. Carried out during tachycardia. Not a suitable candidate for MONY (-) or ARB d/t existing stage III-IV CKD Right hip fracture, s/p surgery Mildly positive cardiac enzymes (04-19-17 to 04-21-17) : serial troponin shows same level of troponin. [place] to be unlikely d/t ACS. Since mild elevation of troponin can occur in CHF especially with CKD and in a patient with tachycardia. Per Dr. Biggs Tachycardia vs a-fib per EKG of 7-20-17 - felt to be tachycardia by 's note - treated with BB H/O colovesical fistula d/t colon CA L ureteral stent - Dr. Alves following Plan: Management complex due to multiple comorbidities (see above) Renal function seems relatively stable Replenish lytes Conservative management appears to be the best option at time Continue heart failure treatment and treatment for suspected CAD Increase ambulation NIKUNJ HOLM [facility] CCD[facility] Apr 30, 2017 09:12
[2017-04-30] MEDS ORDERED: IPRA3AMP INH ×2 (09:52)
[2017-04-30] MEDS ORDERED: FURO80TA83 PO ×2 (09:52)
[2017-04-30] MEDS ORDERED: ASPI-999 PO ×2 (09:52)
[2017-04-30] MEDS ORDERED: MELA3TAB PO ×2 (09:52)
[2017-04-30] MEDS ORDERED: ENOX30DI4 SC ×2 (09:52)
[2017-04-30] MEDS ORDERED: METO-272 PO ×2 (09:52)
[2017-04-30] MEDS ORDERED: POTA20TA8 PO ×2 (09:52)
--- NOTE | 2017-04-30 09:58 | Discharge Summary-Hospitalist ---
Diagnosis/Chief Complaint Date of Admission Apr 27, 2017 at 12:40 Date of Discharge Discharge Date: Apr 30, 2017 Admission Diagnosis Assessment: Acute on chronic congestive heart failure with volume overload and tachypnea and hypoxia Tachycardia with telemetry evidence of paroxysmal atrial fibrillation versus sinus tachycardia with PACs following hip surgery while in ICU Chronic renal failure creatinine usual 2.4-3.4 due to ureter stenosis status post stent placement complication from radiation treatment from colon cancer Colon cancer in remission from 10 years ago and status post revision with subsequent colostomy 4 years ago Chronic lower extremity edema Mild dementia Anemia of chronic illness and kidney disease Anemia of acute blood loss status post 2 units while in the ICU following hip fracture surgery Discharge Diagnosis Pt doing much better since moved to ICU from rehab. Increased his Lasix dose to 80mg PO BID so hopefully this will prevent volume overload in the future Pt denies any pain Colostomy working well Checked meds and labs and put DC orders in for IRU Lovenox for DVT Px AFVSS, Pleasant, O x 3, frail, thin Tachy 103 bpm, CTAB diminished in bases No edema Laboratory Tests 04/30/17 04:50 Assessment: Acute on chronic congestive heart failure with volume overload and tachypnea and hypoxia EF 25% on last ECHO Tachycardia with telemetry evidence of paroxysmal atrial fibrillation versus sinus tachycardia with PACs following hip surgery while in ICU Chronic renal failure creatinine usual 2.4-3.4 due to ureter stenosis status post stent placement complication from radiation treatment from colon cancer today 1.99 Colon cancer in remission from 10 years ago and status post revision 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 Chronic lower extremity edema Mild dementia Anemia of chronic illness and kidney disease Anemia of acute blood loss status post 2 units while in the ICU following hip fracture surgery Hypokalemia Plan: Maintain partial code as he has maintained during hospital stay at [facility] Lasix higher dose in IRU Maintain catheter and colostomy Prognosis guarded Reason Hospital Visit/Course CC: Acute dyspnea HPI: This is an 82-year-old white male with a very complicated medical history with a recent hip fracture that was repaired but only after 6 consultants were managing the case due to acute on chronic renal failure, ureter stenosis with stent maintenance with chronic hematuria residual from colon cancer radiation, colon cancer with diverting colostomy maintenance and congestive heart failure that presents as a transfer up to the ICU from inpatient rehabilitation due to shortness of breath and tachypnea. He reports that he feels like his only breathing from the top part of his lungs and he has become hypoxic and uncomfortable. It is unfortunate because he had done so well even after so complicated medical problems that he has and underwent an uncomplicated hip fracture repair but today it abruptly affected his breathing was given 80 mg of Lasix IV by cardiology given 1 dose of metoprolol XL 50 mg by mouth 1 and started on an aspirin but he has had good urinary output from the 80 mg of Lasix but still not enough to be able to maintain in inpatient rehabilitation service transferred up to the ICU maintain on a partial code as he had discussed with Dr. Almanzar while he was in the ICU when he suffered a hip fracture. At this current time labs were reviewed no significant issues except for acute onset of congestive heart failure that he has ejection fraction that is suppressed. Hospital course: Patient a brief hospital course over the weekend in the ICU due to volume overload and severe tachypnea. ABG reviewed and patient was maintain on high-dose IV Lasix of 80 MG twice daily along with oxygen and nebulized treatments. Laboratory was monitored closely and all remained stable including creatinine improved at 1.99. Overall his prognosis remains poor that he was deemed stable for inpatient rehabilitation transfer and those orders were completed. Discharge Summary Discharge Physical Examination Allergies: Coded Allergies: Iodinated Contrast- Oral and IV Dye (Verified Allergy, Severe, ANAPHYLAXIS , 04/18/17) patient reports throat became swollen, and code blue was called Penicillins (Verified Allergy, Mild, RASH, 04/18/17) ibuprofen (Verified Allergy, Mild, rash, 04/18/17) Vitals & I&Os Vital Signs Date Time Temp Pulse Resp B/P (MAP) Pulse Ox O2 Delivery O2 Flow Rate FiO2 04/30/17 08:03 Nasal Cannula 1.00 04/30/17 07:15 98.2 04/30/17 07:00 96 04/30/17 06:58 100 04/30/17 06:00 22 04/29/17 10:20 40 Hospital Course Labs (last 24 hrs) Laboratory Tests 04/30/17 04:50: White Blood Count 6.4, Red Blood Count 3.32L, Hemoglobin 9.6L, Hematocrit 31L, Mean Corpuscular Volume 93, Mean Corpuscular Hemoglobin 29, Mean Corpuscular Hemoglobin Concent 31L, Red Cell Distribution Width 17.1H, Platelet Count 375, Mean Platelet Volume 10.7H, Neutrophils (%) (Auto) 69, Lymphocytes (%) (Auto) 11L, Monocytes (%) (Auto) 18H, Eosinophils (%) (Auto) 3, Basophils (%) (Auto) 0 , Neutrophils # (Auto) 4.4, Lymphocytes # (Auto) 0.7L, Monocytes # (Auto) 1.1H, Eosinophils # (Auto) 0.2, Basophils # (Auto) 0.0, Sodium Level 139, Potassium Level 3.3L, Chloride Level 101, Carbon Dioxide Level 25, Anion Gap 13, Blood Urea Nitrogen 49H, Creatinine 1.99H, Estimat Glomerular Filtration Rate 32, BUN/ Creatinine Ratio 25, Glucose Level 104, Calcium Level 7.6L, Phosphorus Level 4.2 , Magnesium Level 1.4L Pending Labs Laboratory Tests 04/30/17 04:50: White Blood Count 6.4, Red Blood Count 3.32, Hemoglobin 9.6, Hematocrit 31, Mean Corpuscular Volume 93, Mean Corpuscular Hemoglobin 29, Mean Corpuscular Hemoglobin Concent 31, Red Cell Distribution Width 17.1, Platelet Count 375, Mean Platelet Volume 10.7, Neutrophils (%) (Auto) 69, Lymphocytes (%) (Auto) 11 , Monocytes (%) (Auto) 18, Eosinophils (%) (Auto) 3, Basophils (%) (Auto) 0, Neutrophils # (Auto) 4.4, Lymphocytes # (Auto) 0.7, Monocytes # (Auto) 1.1, Eosinophils # (Auto) 0.2, Basophils # (Auto) 0.0, Sodium Level 139, Potassium Level 3.3, Chloride Level 101, Carbon Dioxide Level 25, Anion Gap 13, Blood Urea Nitrogen 49, Creatinine 1.99, Estimat Glomerular Filtration Rate 32, BUN/ Creatinine Ratio 25, Glucose Level 104, Calcium Level 7.6, Phosphorus Level 4.2 , Magnesium Level 1.4 Discharge Home Medications: Active Scripts Active Lasix (Furosemide) 80 Mg Tablet 80 Mg PO BID 30 Days Melatonin 3 Mg Tablet 3 Mg PO HS PRN 30 Days Klor-Con M20 (Potassium Chloride) 20 Meq Tab.er.prt 40 Meq PO DAILY@0600 Aspirin 81 Mg Tab.chew 81 Mg PO DAILY Iprat-Albut 0.5-3(2.5) mg/3 ml (Ipratropium/Albuterol Sulfate) 3 Ml Ampul.neb 3 Ml INH RTQ4HR 30 Days Enoxaparin Sodium 30 Mg/0.3 Ml Syringe 30 Mg SC DAILY@0900 30 Days Metoprolol Succinate 50 Mg Tab.er.24h 50 Mg PO DAILY Reported Lovastatin 10 Mg Tablet 10 Mg PO 1800 Multivitamins (Multivitamin) 1 Each Tablet 1 Tab PO DAILY Floranex Tablet (L. Acidophilus/Bulgaricus) 1 Each Tablet 2 Tab PO DAILY Ferrous Sulfate 325 Mg Tablet 325 Mg PO DAILY Vitamin C (Ascorbic Acid) 250 Mg Tab 250 Mg PO DAILY Senokot-S Tablet (Sennosides/Docusate Sodium) 1 Each Tablet 8.6 Mg PO BID Furosemide 20 Mg Tablet 20 Mg PO DAILY Carvedilol 3.125 Mg Tablet 3.125 Mg PO DAILY Instructions to patient/family Please see electonic discharge instructions given to patient. Clinical Quality Measures DVT/VTE Risk/Contraindication: Risk Factor Score Per Nursin RFS Level Per Nursing on Admit: 4+=Very High PAULA GANDHI DO Apr 30, 2017 09:58
--- NOTE | 2017-04-30 13:58 | Physical Therapy Evaluation ---
PT Evaluation-General Medical Diagnosis Admission Date Apr 27, 2017 at 12:40 Medical Diagnosis: right hip fracture Onset Date: Apr 21, 2017 Therapy Diagnosis Therapy Diagnosis: general debility/weakness Height/Weight Height (Feet): 5 Height (Inches): 6.00 Weight (Pounds): 138 Weight (Ounces): 12.8 Precautions Precautions/Isolations: Fall Prevention, Standard Precautions Weight Bear Status Weight Bearing Restriction: Weight Bearing/Tolerated Location Restriction: R LE Referral Physician: Julio Cesar Reason for Referral: Evaluation/Treatment Medical History Pertinent Medical History: Arthritis, Dementia, GERD, Heart Failure, HTN, Renal Insufficiency Additional Medical History recent ARU stay Current History increase in SOA and HR resulting in transfer to ICU due to CHF Reviewed History: Yes Social History Home: Single Level Current Living Status: Alone Entry Into Home: Stairs With Railing PT Steps Into Home: 5 Prior/Core FIM Prior Level of Function Functional [place] Measure 0=Not Assessed/NA 4=Minimal Assistance 1=Total Assistance 5=Supervision or Setup 2=Maximal Assistance 6=Modified [place] 3=Moderate Assistance 7=Complete [place] Bed Mobility: 4 Transfers (B,C,W/C) (FIM): 4 Gait: 4 PT Evaluation-Current Subjective Patient reports he still does not have much energy. Pain Numeric Pain Scale: 5-Moderate Pain Location: Right Location Body Site: Hip Pain Description: Acute Objective Patient Orientation: Normal For Age Problem Solving: Fair Attachments: Oxygen, Mckeon Catheter ROM/Strength ROM Lower Extremities bilateral LE WNL Strenght Lower Extremities bilateral LE 3/5 grossly Integumentary/Posture Integumentary refer to nursing notes Bowel Incontinence: No Bladder Incontinence: Mckeon Cath Posture kyphotic Neuromuscular (Tone, Coordination, Reflexes) diminished coordination due to inactivity and weakness Sensory Vision: Wears Glasses Hearing: Hearing Aid/Aides Sensation Right Lower Extremit: Intact Sensation Left Lower Extremity: Intact Transfers Functional [place] Measure 0=Not Assessed/NA 4=Minimal Assistance 1=Total Assistance 5=Supervision or Setup 2=Maximal Assistance 6=Modified [place] 3=Moderate Assistance 7=Complete [place] Transfers (B, C, W/C) (FIM): 4 Scootin Rollin Supine to/from Sit: 4 Sit to/from Stand: 4 Gait Mode of Locomotion: Walk Anticipated Mode of Locomotion: Walk Gait (FIM): 4 Distance (FIM): 3=150 ft Distance: 150' Gait Level of Assist: 4 Gait Persons Needed: 1 Gait Assistive Device: FWW Comments/Gait Description noted increase in SOA with minimal activity/functional gait sequence with frequent standing recovery periods due to SOA. Balance Sitting Static: Fair Sitting Dynamic: Fair Standing Static: Fair Standing Dynamic: Fair Assessment/Needs 82 y.o. male, will benefit from skilled PT to address functional strength and mobility. Per report, patient will transfer to [facility] in a.m. for continued care. Rehab Potential: Guarded Post Rehab Potential-Barriers: heart failure PT Polymerization Kettle Operator Goals Polymerization Kettle Operator Goals PT Shelter Goals Time Frame: May 11, 2017 Transfers (B,C,W/C) (FIM): 5 Gait (FIM): 5 Gait distance (FIM): 2=056-19 ft Distance: 200' Gait Level of Assist: 5 Gait Assistive Device: FWW Stairs (FIM): 2 # of Steps: 5 Stairs Level Of Assist: 5 PT Plan Problem List Problem List: Activity Tolerance, Functional Strength, Balance, Gait, Transfer , Bed Mobility Treatment/Plan Treatment Plan: Continue Plan of Care Treatment Plan: Bed Mobility, Education, Functional Activity Garrett, Functional Strength, Group Therapy, Gait, Safety, Therapeutic Exercise, Transfers Treatment Duration: May 11, 2017 Frequency: Twice Daily Estimated Hrs Per Day: .5 hour per day Patient and/or Family Agrees t: Yes Time/GCodes Time In: 1305 Time Out: 1335 Total Billed Treatment Time: 30 Total Billed Treatment 1 visit EVModC 30 min EDGAR KERNS PT Apr 30, 2017 13:58
[2017-05-01] VITALS: BP 101/60
[2017-05-01] MEDS: RT-ALBUTEROL/IPRATROPIUM 3 ML (DUONEB) VIAL INH SCH ×2 (02:44→06:50)
[2017-05-01 04:00] VITALS: BP 97/81
[2017-05-01 04:11] LABS: BASOPHILS % (AUTO) 0 % (0-10); EOSINOPHILS # (AUTO) 0.2 10^3/uL (0.0-0.3); EOSINOPHILS % (AUTO) 2 % (0-10); LYMPHOCYTES # (AUTO) 0.8 X 10^3 (1.0-4.0); LYMPHOCYTES % (AUTO) 11 % (12-44); MEAN CORPUSCULAR HEMOGLOBIN 29 PG (25-34); MEAN CORPUSCULAR HGB CONC 31 G/DL (32-36); MEAN CORPUSCULAR VOLUME 93 FL (80-99); MEAN PLATELET VOLUME 10.9 FL (7.4-10.4); MONOCYTES # (AUTO) 1.2 X 10^3 (0.0-1.0); MONOCYTES % (AUTO) 17 % (0-12); NEUTROPHILS # (AUTO) 4.9 X 10^3 (1.8-7.8); NEUTROPHILS % (AUTO) 70 % (42-75); PLATELET COUNT 446 10^3/uL (130-400); RED BLOOD COUNT 3.64 10^6/uL (4.35-5.85); RED CELL DISTRIBUTION WIDTH 17.1 % (10.0-14.5)
[2017-05-01 04:30] LABS: CREATININE SERUM 1.88 MG/DL (0.60-1.30); MAGNESIUM 1.9 MG/DL (1.8-2.4); PHOSPHORUS 3.7 MG/DL (2.3-4.7); POTASSIUM 3.8 MMOL/L (3.6-5.0)
[2017-05-01] MEDS: KCL 20 MEQ TAB (K-DUR) PO SCH (06:29)
[2017-05-01] MEDS: POTASSIUM CL 10MEQ/50ML IVPB 50 ML IV SCH (06:29)
[2017-05-01] MEDS: CATHETER FLUSH 10 ML SYR IV SCH (06:29)
[2017-05-01] MEDS: MAGNESIUM 1 GM/100 ML IVPB 100 ML IV SCH (06:29)
[2017-05-01] MEDS: FUROSEMIDE 40 MG/4 ML INJ (LASIX) IVP SCH (06:36)
[2017-05-01 06:51] VITALS: BP 97/81
--- NOTE | 2017-05-01 07:34 | Pulmonary Progress Note ---
Subjective Time Seen by Provider: 07:32 Subjective/Events-last exam PT feels improved and wants to go back to rehab. Exam Exam Vital Signs Date Time Temp Pulse Resp B/P (MAP) Pulse Ox O2 Delivery O2 Flow Rate FiO2 05/01/17 06:51 90 Room Air 05/01/17 04:00 Room Air 05/01/17 04:00 101 26 97/81 Room Air 05/01/17 02:44 100 Room Air 05/01/17 01:00 101 05/01/17 00:00 100 18 101/60 Room Air 05/01/17 00:00 Room Air 04/30/17 22:36 95 Room Air 04/30/17 20:00 Room Air 04/30/17 20:00 100 27 96/66 97 Room Air 04/30/17 19:00 102 04/30/17 18:52 100 Room Air 04/30/17 16:00 104 24 110/66 100 Room Air 04/30/17 16:00 Room Air 04/30/17 14:11 100 Nasal Cannula 1.00 04/30/17 13:37 95 04/30/17 12:10 97.2 Nasal Cannula 1.00 04/30/17 12:10 Nasal Cannula 1.00 04/30/17 12:00 105 31 107/81 100 Nasal Cannula 1.00 04/30/17 11:00 98 17 93/67 Nasal Cannula 1.00 04/30/17 10:32 100 Nasal Cannula 1.50 04/30/17 10:00 108 113/72 100 Nasal Cannula 1.00 04/30/17 09:00 101 31 95/87 100 Nasal Cannula 1.00 04/30/17 08:03 Nasal Cannula 1.00 04/30/17 08:00 108 24 99/72 100 Nasal Cannula 1.00 I & O 05/01/17 07:00 Intake Total 1320 ml Output Total 2650 ml Balance -1330 ml General Appearance: No Apparent Distress, Chronically ill HEENT: PERRL/EOMI, Normal ENT Inspection, Pharynx Normal Neck: Full Range of Motion, Normal Inspection, Non Tender, Supple, Carotid Bruit Respiratory: Chest Non Tender, No Accessory Muscle Use, No Respiratory Distress , Other (tachypnea moderating fine rales to mid lung anderson noted definitely less respiratory distress and yesterday.) Cardiovascular: No Gallop, No Murmur, Tachycardia (sinus rate in the low 100 range) Capillary Refill: Less Than 3 Seconds Gastrointestinal: non tender, soft, no pulsatile mass Extremity: Other (Andrew edema with crinkling of the skin over the tibia suggesting recent severe edema and corroborated by the patient. Anus insufficiency changes noted with some erythema but no evidence for ulceration extremities are warm unable to appreciate pulses.) Neurologic/Psychiatric: Alert, Oriented x3 Skin: Normal Color, Warm/Dry, Pallor Lymphatic: No Adenopathy Results Lab Laboratory Tests 04/30/17 04:50 05/01/17 03:52 Assessment/Plan Assessment/Plan CHFAE EF 20-25% -lasix 80mg BID -cardiology following S/P respiratory distress now improved. 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
[2017-05-01 08:00] VITALS: BP 103/57
[2017-05-01] MEDS: ASPIRIN 81 MG CHEW (CHILDREN'S ASA) PO SCH (08:03)
[2017-05-01] MEDS: meTOproloL SUCCINATE 50 MG (TOPROL XL) TAB PO SCH (08:03)
[2017-05-01] MEDS: ENOXAPARIN 30 MG/0.3 ML (LOVENOX) SYR SC SCH (08:03)
[2017-05-01] MEDS ORDERED: LOVA10TA PO (15:14)
[2017-05-01] MEDS ORDERED: FERR-65 PO (15:14)
[2017-05-01] MEDS ORDERED: MINO100C2 PO (15:14)
[2017-05-01] MEDS ORDERED: PANT40TA2 PO (15:14)
[2017-05-01] MEDS ORDERED: FURO20TA4 PO (15:14)
[2017-05-01] MEDS ORDERED: CARV3.122 PO (15:14)
[2017-05-01] MEDS ORDERED: OMEP10CA4 PO (15:14)
== END 2017-05-01 08:15 | DRG 292 ==
LOC: MERGE 15:12 → ICU 04-27 12:40
PROVIDERS: ADMIT Internal Medicine; ATTEND Internal Medicine
DX: I50.23 Acute on chronic systolic (congestive) heart failure (principal); I25.5 Ischemic cardiomyopathy; I12.9 Hypertensive chronic kidney disease with stage 1 through stage 4 chronic kidney disease, or unspecified chronic kidney disease; N18.4 Chronic kidney disease, stage 4 (severe); N32.1 Vesicointestinal fistula; N13.5 Crossing vessel and stricture of ureter without hydronephrosis; I25.10 Atherosclerotic heart disease of native coronary artery without angina pectoris; I49.1 Atrial premature depolarization; I08.1 Rheumatic disorders of both mitral and tricuspid valves; E78.00 Pure hypercholesterolemia, unspecified; E87.6 Hypokalemia; E83.42 Hypomagnesemia; I27.2 Other secondary pulmonary hypertension; D63.1 Anemia in chronic kidney disease; D63.8 Anemia in other chronic diseases classified elsewhere; F03.90 Unspecified dementia, unspecified severity, without behavioral disturbance, psychotic disturbance, mood disturbance, and anxiety; K21.9 Gastro-esophageal reflux disease without esophagitis; M19.91 Primary osteoarthritis, unspecified site; H91.90 Unspecified hearing loss, unspecified ear; T50.1X5A Adverse effect of loop [high-ceiling] diuretics, initial encounter; W88.1XXS Exposure to radioactive isotopes, sequela; Z85.038 Personal history of other malignant neoplasm of large intestine; Z93.3 Colostomy status; Z96.0 Presence of urogenital implants; Z98.890 Other specified postprocedural states
CPT/HCPCS: 36415; 71010; 80048; 80053; 82805; 83735; 84100; 85025; 85027; 93005; 94640; 94664; 94760

== ENCOUNTER 2017-04-18 15:43 | Inpatient (IN) | payer MEDICARE, OTHER ==
[~2017-04-18] VITALS: Ht 167.6 cm; Wt 64.9 kg
[2017-04-18] MEDS ORDERED: fentaNYL INJECTION 100 MCG/2 ML AMP IVP PRN (16:00)
[2017-04-18] MEDS ORDERED: ONDANSETRON 4 MG/2 ML (SDV) Z0FRAN IVP PRN (16:00)
[2017-04-18] MEDS ORDERED: ALPRAZolam 0.25 MG (XANAX) TAB PO PRN (16:00)
[2017-04-18 16:32] LABS: BASOPHILS % (AUTO) 0 % (0-10); EOSINOPHILS % (AUTO) 0 % (0-10); LYMPHOCYTES # (AUTO) 1.3 X 10^3 (1.0-4.0); LYMPHOCYTES % (AUTO) 10 % (12-44); MEAN CORPUSCULAR HEMOGLOBIN 29 PG (25-34); MEAN CORPUSCULAR HGB CONC 31 G/DL (32-36); MEAN CORPUSCULAR VOLUME 93 FL (80-99); MEAN PLATELET VOLUME 10.5 FL (7.4-10.4); MONOCYTES # (AUTO) 2.1 X 10^3 (0.0-1.0); MONOCYTES % (AUTO) 16 % (0-12); NEUTROPHILS # (AUTO) 9.9 X 10^3 (1.8-7.8); NEUTROPHILS % (AUTO) 75 % (42-75); PLATELET COUNT 470 10^3/uL (130-400); RED CELL DISTRIBUTION WIDTH 18.3 % (10.0-14.5); WHITE BLOOD COUNT 13.3 10^3/uL (4.3-11.0)
[2017-04-18 16:53] LABS: ALBUMIN 3.1 GM/DL (3.2-4.5); BILIRUBIN,TOTAL 0.4 MG/DL (0.1-1.0); CALCIUM 7.5 MG/DL (8.5-10.1); CREATININE SERUM 3.45 MG/DL (0.60-1.30); POTASSIUM 4.4 MMOL/L (3.6-5.0); TOTAL PROTEIN 7.5 GM/DL (6.4-8.2)
[2017-04-18] MEDS ORDERED: SENN-40 PO (16:57)
[2017-04-18] MEDS ORDERED: FURO20TA4 PO (16:57)
[2017-04-18] MEDS ORDERED: CARV3.122 PO (16:57)
[2017-04-18] MEDS ORDERED: FERR-74 PO (16:58)
[2017-04-18] MEDS ORDERED: OMEP10CA4 PO (16:58)
[2017-04-18] MEDS ORDERED: LOVA10TA PO (16:58)
[2017-04-18] MEDS ORDERED: C250T PO (16:58)
[2017-04-18] MEDS ORDERED: PANT40TA2 PO (16:58)
[2017-04-18] MEDS ORDERED: MINO100C2 PO (16:58)
[2017-04-18] MEDS ORDERED: ACID1TAB PO (16:58)
[2017-04-18] MEDS ORDERED: MULT1TAB69 PO (16:58)
[2017-04-18] MEDS ORDERED: CATHETER FLUSH 10 ML SYR IV PRN (17:00)
[2017-04-18] MEDS: NS IV 1000 ML 1,000 ML IV SCH (17:12)
[2017-04-18] MEDS: SIMvastatin 10 MG (ZOCOR) TAB PO SCH (18:00)
[2017-04-18] MEDS ORDERED: NON-FORMULARY MEDICATION 1 EA EA (Lovastatin 10 MG) PO SCH (18:00)
--- NOTE | 2017-04-18 18:35 | Diagnostic Imaging Report ---
EXAM: CHEST 1 VIEW, AP/PA ONLY INDICATION: Shortness of air. COMPARISON: Chest radiograph 07/23/2013. FINDINGS: Consolidation in the right lung base. Normal heart size and pulmonary vascularity. Small right pleural effusion. Calcified aorta. No pneumothorax. Chronic left rib fractures. No acute osseous findings. IMPRESSION: Consolidation in the right lung base and small right pleural effusion are new since prior exam. Dictated by: Dictated on workstation # [id number]
--- NOTE | 2017-04-18 19:14 | Diagnostic Imaging Report ---
EXAM: ABDOMEN/KUB 1VIEW INDICATION: Ureteral stent. COMPARISON: Abdominal radiograph 03/09/2014. FINDINGS: There is a left ureteral stent. Comparing to the 2014 exam, the superior loop of the stent is located inferiorly compared to the prior exam. This is currently located at the L3-L4 level, previously the L2-L3 level. Nonspecific bowel gas pattern. Advanced degenerative changes in the visualized spine. IMPRESSION: A left ureteral stent is located lower in position than on the comparison 2014 ureteral stent radiograph described above. Dictated by: Dictated on workstation # [id number]
[2017-04-18] MEDS: RT-ALBUTEROL SULF 2.5 MG/3 ML PRE-MIX VIAL IH SCH (20:00)
[2017-04-18] MEDS ORDERED: HYDROcodone/APAP 7.5 MG/325 MG (LORTAB, LORCET PLUS) TABLET PO PRN (20:15)
[2017-04-18] MEDS: SENNA W/DOCUSATE (SENOKOT S) TABLET PO SCH (20:28)
[2017-04-18] MEDS: fentaNYL INJECTION 100 MCG/2 ML AMP IVP PRN ×2 (20:28→21:51)
[2017-04-18 20:50] VITALS: BP 90/51
[2017-04-18] MEDS: CATHETER FLUSH 10 ML SYR IV SCH (21:00)
[2017-04-18] MEDS ORDERED: CIPROFLOXACIN IV 400MG/200ML 200 ML IV SCH (21:00)
[2017-04-18] MEDS: metroNIDAZOLE 500MG/100ML IVPB 100 ML IV SCH (21:51)
[2017-04-19] VITALS (35 sets, daily range): BP systolic 87–113; BP diastolic 50–76
[2017-04-19 04:44] LABS: BASOPHILS % (AUTO) 0 % (0-10); EOSINOPHILS # (AUTO) 0.2 10^3/uL (0.0-0.3); EOSINOPHILS % (AUTO) 2 % (0-10); LYMPHOCYTES # (AUTO) 0.7 X 10^3 (1.0-4.0); LYMPHOCYTES % (AUTO) 9 % (12-44); MEAN CORPUSCULAR HEMOGLOBIN 29 PG (25-34); MEAN CORPUSCULAR HGB CONC 32 G/DL (32-36); MEAN CORPUSCULAR VOLUME 92 FL (80-99); MEAN PLATELET VOLUME 10.8 FL (7.4-10.4); MONOCYTES # (AUTO) 1.4 X 10^3 (0.0-1.0); MONOCYTES % (AUTO) 17 % (0-12); NEUTROPHILS % (AUTO) 72 % (42-75); PLATELET COUNT 337 10^3/uL (130-400); RED BLOOD COUNT 2.63 10^6/uL (4.35-5.85); RED CELL DISTRIBUTION WIDTH 17.8 % (10.0-14.5); WHITE BLOOD COUNT 8.3 10^3/uL (4.3-11.0)
[2017-04-19 04:58] LABS: ALBUMIN 2.6 GM/DL (3.2-4.5); BILIRUBIN,TOTAL 0.5 MG/DL (0.1-1.0); CALCIUM 7.3 MG/DL (8.5-10.1); CREATININE SERUM 3.45 MG/DL (0.60-1.30); POTASSIUM 4.1 MMOL/L (3.6-5.0); TOTAL PROTEIN 6.4 GM/DL (6.4-8.2)
[2017-04-19] MEDS: CATHETER FLUSH 10 ML SYR IV SCH ×3 (06:12→23:03)
--- NOTE | 2017-04-19 06:44 | Pulmonary Consultation ---
History of Present Illness History of Present Illness Date of Consultation 04/19/17 06:35 Time Seen by Provider: 06:36 Date of Admission History of Present Illness 82yo from [facility] admitted to 4th floor secondary to fall resulting in hip fracture. Pt was transferred to ICU secondary to Afib RVR and hypotension last night. Currently HR is 120 and BP responded to IVF. Pt denies pain and does not appear to be in any distress. Surgery is planned for tomorrow morning. Pt has a hx of colovesicular fistula, and colon cancer which is currently in remission. Allergies and Home Medications Allergies Coded Allergies: Iodinated Contrast- Oral and IV Dye (Verified Allergy, Severe, ANAPHYLAXIS , 04/18/17) patient reports throat became swollen, and code blue was called Penicillins (Verified Allergy, Mild, RASH, 04/18/17) ibuprofen (Verified Allergy, Mild, rash, 04/18/17) Home Medications Ascorbic Acid 250 Mg Tab, 250 MG PO DAILY, (Reported) Carvedilol 3.125 Mg Tablet, 3.125 MG PO DAILY, (Reported) Ferrous Sulfate 325 Mg Tablet, 325 MG PO DAILY, (Reported) Furosemide 20 Mg Tablet, 20 MG PO DAILY, (Reported) L. Acidophilus/Bulgaricus 1 Each Tablet, 2 TAB PO DAILY, (Reported) Lovastatin 10 Mg Tablet, 10 MG PO 1800, (Reported) Minocycline HCl 100 Mg Capsule, 100 MG PO DAILY, (Reported) Multivitamin 1 Each Tablet, 1 TAB PO DAILY, (Reported) Omeprazole 10 Mg Capsule.dr, 10 MG PO DAILY, (Reported) Pantoprazole Sodium 40 Mg Tablet.dr, 40 MG PO DAILY, (Reported) Sennosides/Docusate Sodium 1 Each Tablet, 8.6 MG PO BID, (Reported) Past Gglkmrf-Hkrcyo-Yeixhc Hx Patient Social History Alcohol Use: Occasionally Uses Recreational Drug Use: No Smoking Status: Never a Smoker Recent Foreign Travel: No Contact w/Someone Who Travel: No Recent Infectious Disease Expo: No Recent Hopitalizations: Yes Physical Abuse Screen: No Sexual Abuse: No Immunizations Up To Date Date of Pneumonia Vaccine: Apr 18, 2016 Seasonal Allergies Seasonal Allergies: No Genitourinary Genitourinary Disorders: Renal Failure, UTI-Chronic Gastrointestinal Gastrointestinal Disorders: Gastroesophageal Reflux Musculoskeletal Musculoskeletal Disorders: Arthritis HEENT Hearing Impairment: Hard of Hearing Cancer Cancer: Colon Blood Transfusions Adverse Reaction to a Blood Tr: No Review of Systems Constitutional: Malaise, Weakness, No: Chills, Fever, Other, Sweats Eyes: No: Conjunctivae inflammation, Eyelid inflammation, Other, Pain, Redness , Vision change ENT: No: Ear discharge, Ear pain, Mouth pain, Mouth swelling, Nose congestion, Nose discharge, Nose pain, Other, Throat pain, Throat swelling Respiratory: No: Cough, Dry, Hemoptysis, Other, Pleuritic Pain, SOB with excertion, Shortness of breath, Sputum, Wheezing, Wheezing Cardiovascular: Palpitations, No: Chest Pain, Orthopnea, Paroxysmal Noc. Dyspnea Exam Exam Vital Signs Date Time Temp Pulse Resp B/P (MAP) Pulse Ox O2 Delivery O2 Flow Rate FiO2 04/19/17 05:00 120 24 106/69 96 Nasal Cannula 3.50 04/19/17 04:30 120 27 103/66 95 Nasal Cannula 3.50 04/19/17 04:00 123 29 100/64 96 Nasal Cannula 3.50 04/19/17 04:00 Nasal Cannula 3.50 04/19/17 03:30 131 25 108/65 95 Nasal Cannula 3.50 04/19/17 03:00 122 22 97/62 96 Nasal Cannula 3.50 04/19/17 02:45 115 26 93/68 96 Nasal Cannula 3.50 04/19/17 02:30 118 30 94/60 96 Nasal Cannula 3.50 04/19/17 02:15 121 26 102/63 96 Nasal Cannula 3.50 04/19/17 02:00 122 27 98/64 97 Nasal Cannula 3.50 04/19/17 01:45 133 28 100/66 96 Nasal Cannula 3.50 04/19/17 01:30 123 27 97/68 96 Nasal Cannula 3.50 04/19/17 01:15 125 30 94/70 95 Nasal Cannula 3.50 04/19/17 01:00 134 36 102/68 94 Nasal Cannula 3.50 04/19/17 00:15 134 19 87/50 94 Nasal Cannula 4.00 04/19/17 00:00 97.4 133 19 87/54 94 Nasal Cannula 4.00 04/18/17 20:50 99.4 129 30 90/51 94 Nasal Cannula 4.00 04/18/17 20:30 Nasal Cannula 2.00 04/18/17 20:26 151 04/18/17 20:00 97 Nasal Cannula 2.50 04/18/17 17:01 92 Nasal Cannula 4.00 04/18/17 16:26 83 I & O 04/19/17 07:00 Intake Total 360 ml Balance 360 ml General Appearance: No Apparent Distress, WD/WN Respiratory: Chest Non Tender, Lungs Clear, Normal Breath Sounds, No Accessory Muscle Use, No Respiratory Distress Cardiovascular: Regular Rate, Rhythm, No Edema, No Gallop, No JVD Gastrointestinal: normal bowel sounds, non tender Extremity: Normal Capillary Refill, Normal Inspection, Non Tender, No Calf Tenderness Neurologic/Psychiatric: Alert, Oriented x3 Results Lab Laboratory Tests 04/18/17 16:20 04/19/17 04:05 Assessment/Plan Assessment/Plan s/p hip fracture - s/p fall last Sunday -Pain control - pt states that he has no pain -Orthopedic surgery following - plan is for surgery tomorrow morning Sepsis with pneumonia RLL and probable UTI -irizarry cultures -UA with C&S -Continue cipro and flagyl Atlectasis with small right pleural effusion -monitor -IS, SVNs Afib RVR with elevated troponin -Cardiology is following -Echo pending Hypotension - improved with IVF Anemia -Transfuse one unit and repeat H&H -Monitor -occult stool chronic (?acute on chronic) renal failure with metabolic acidosis -gentle hydration -Will place on bicarb gtt 1/2 NS with 2amps of HC03 at 75cc/hr -Lactic acid is normal -Dr. Gunter is working on obtaining previous records from [facility] colovesicular fistula with probable chronic UTI Hx of colon cancer - currently in remission - Left ureteral stent secondary to complications of radiation hx -Urology is consulted I discussed with patient, Fr. Haresh Higuera (DOPA), and Dr. Gunter regarding patients current medical condition and medical plan. Surgery is currently planned for tomorrow morning. Dr. Gunter said she is going to be discussing surgical options with Dr. Marie. Pt is a No CODE BLUE (No chest compressions , No shocking) he is ok with short term ventilation if required for surgery and post op. 120min spent with patient and medical team. - Clinical Quality Measures DVT/VTE Risk/Contraindication: Risk Factor Score Per Nursin RFS Level Per Nursing on Admit: 4+=Very High Contraindications-Pharm: Other *list below* Other: surgery LILIANA MIJARES DO Apr 19, 2017 06:44
[2017-04-19] MEDS ORDERED: PANTOPRAZOLE 20 MG TABLET (PROTONIX) PO SCH ×2 (07:00)
[2017-04-19] MEDS: NS IV 1000 ML 1,000 ML IV SCH (07:13)
[2017-04-19 07:59] LABS: BILIRUBIN,URINE NEGATIVE (NEGATIVE); KETONES,URINE 1+ (NEGATIVE); LEUKOCYTE ESTERASE ,URINE 3+ (NEGATIVE); NITRITE,URINE NEGATIVE (NEGATIVE); PH,URINE 6 (5-9); PROTEIN,URINE 3+ (NEGATIVE); UROBILINOGEN,URINE NORMAL (NORMAL)
[2017-04-19 08:07] LABS: WBC,URINE TNTC /HPF
[2017-04-19] MEDS: SODIUM BICARBONATE 8.4% VIAL 100 MEQ in 1/2 NS IV SOLUTION 1,000 ML IV SCH ×2 (08:40→21:40)
[2017-04-19] MEDS: MULTIVIT W/MINERALS TAB (THERAGRAN M) PO SCH (08:41)
[2017-04-19] MEDS: ASCORBIC ACID (VIT C) 500 MG TABLET PO SCH (08:41)
[2017-04-19] MEDS: PANTOPRAZOLE 40 MG (PROTONIX) TAB PO SCH (08:41)
[2017-04-19] MEDS: FERROUS SULF 325 MG (IRON) TAB PO SCH (08:42)
--- NOTE | 2017-04-19 08:43 | Diagnostic Imaging Report ---
INDICATION: Dyspnea. Exam compared 04/18/2017. FINDINGS: There has likely been increased vascular congestion and pulmonary edema. More localized infiltrate in the right lung base could reflect an element of pneumonia superimposed. Correlate clinically. Small pleural effusions not grossly changed. IMPRESSION: Increased edema and likely increased pleural fluid. Dictated by: Dictated on workstation # [id number]
[2017-04-19] MEDS: RT-ALBUTEROL SULF 2.5 MG/3 ML PRE-MIX VIAL IH SCH ×3 (08:58→19:47)
[2017-04-19] MEDS: FUROSEMIDE 20 MG (LASIX) TAB PO SCH (08:59)
[2017-04-19] MEDS: CARVEDILOL 3.125 MG (COREG) TABLET PO SCH (08:59)
[2017-04-19] MEDS: LACTOBACILLUS Acidoph/Bulgar (LACTINEX/FLORANEX) TAB PO SCH (08:59)
[2017-04-19] MEDS ORDERED: NON-FORMULARY MEDICATION 1 EA EA (Minocycline HCl 100 MG) PO SCH (09:00)
[2017-04-19] MEDS ORDERED: LEVOFLOXACIN 750 MG/150 ML IV 150 ML IV NR (09:00)
--- NOTE | 2017-04-19 09:17 | CONSULTATION REPORT ---
DATE OF ADMISSION: 04/18/2017 DATE OF CONSULTATION: 04/18/2017 ADMITTING PHYSICIAN: Dr. Gunter ATTENDING PRIMARY CARE PHYSICIAN: Dr. Smith in [place], [place]. 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 This gentleman has had a Parish in [place] as well as in surrounding areas, however, did retire approximately 15 years ago. He states that he is originally from [place], [place]; however, has been residing [place], [place] for the past several years. He reports that approximately 6 weeks ago he developed nausea and vomiting and it sounds as though he had some form of partial small bowel obstruction and after IV fluids and NG tube decompression this resolved on its own. This gentleman also has a history of colon cancer and underwent what sounds to be a low anterior colorectal resection around 2006 at [facility] in [place]. After the surgery he also underwent 6 weeks of chemotherapy as well as radiation. Over time, he developed what sounds to be a stricture and underwent an end colostomy, as well as a Viky pouch. This was done in 2012 due to the radiation. He also developed ureteral stricture requiring placement of left ureteral stent. This was done approximately 2015. He also has had recurrent urinary tract infections and was evaluated by gastroenterology in [place] and found to have a colovesicular fistula. He reports that he does have intermittent episodes of cloudy urine, as well as urinary tract infections. Due to these recurrent infections as well as general debility he was eventually admitted for rehabilitation. During the process of rehabilitation he felt weak and fell on his right side and sustained a right femur fracture. Upon further questioning he does report that he does have a significant amount of rectal anal drainage. He reports that he has a clear drainage by having a bowel movement approximately 4 times a day, as well as mild amount of blood, which is abnormal for a small Viky pouch. He states that this has not been evaluated in the past. At this time, his clinical course is complex. With his colovesicular fistula there is always a risk of infection. He also does have a right hip fracture, which he would like to have repaired. We feel that after adequate work-up and no infection, as well as asepsis is identified, as well as clearance from internal medicine as well as cardiology he may then proceed with repair of the fracture. He states that with his work-up and [place] with his physicians he was scheduled to have replacement of the left ureteral stent, as well as repair of the colovesicular fistula. While in patient he was offered further evaluation of the Viky pouch drainage either through contrast enema, gastrografin contrast enema through the Viky pouch as well as a CT scan. For right now we will keep him comfortable and continue with IV hydration as well as nutritional support to increase his protein stores, as well as antibiotics to treat or prevent any potential infections. PAST MEDICAL HISTORY: 1. Left-sided colon cancer. 2. Recurrent urinary tract infections. 3. Left ureteral stricture. 4. Hypertension. 5. Hypercholesterolemia. 6. Peripheral vascular disease. PAST SURGERIES: 1. Left colon resection 2006 followed by 6 weeks of chemotherapy and radiation. 2. End colostomy 2012. 3. Left ureteral stent placement 2015. 4. Tonsillectomy. 5. Right carotid endarterectomy. ALLERGIES: 1. PENICILLIN 2. IBUPROFEN. 3. IVP DYE SOCIAL HISTORY: Negative smoke. He does drink one glass of wine daily. FAMILY HISTORY: Brother brain cancer. Father coronary artery disease in his 50s. MEDICATIONS: 1. Carvedilol 3.125 mg daily. 2. Iron 325 mg daily. 3. Furosemide 20 mg daily. 4. Lovastatin 10 mg daily. 5. Minocycline 100 mg daily. 6. Protonix 40 mg daily. 7. Senokot b.i.d. 8. Vitamin C daily. VITAL SIGNS: Pulse oximetry 92% on 4 liters nasal cannula. REVIEW OF SYSTEMS: This is a well-nourished elderly male who is awake and alert. He is not experiencing any shortness of breath or difficulty breathing. No cough or sputum production. No nausea, vomiting, no hematemesis, or coffee-ground emesis. 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 This was easily reducible. No fever, chills, with some weight loss in the past several weeks. All other review of systems negative. PHYSICAL EXAMINATION: CHEST: Good breath sounds bilaterally. Clear. HEART: Regular. No murmurs. EXTREMITIES: No lower extremity edema. Negative Homans sign. HEENT: No scleral icterus. No cervical lymphadenopathy. ABDOMEN: Soft. There is a functional colostomy with a parastomal hernia which is easily reducible. SKIN: Warm and dry. LABS: WBC 13.3, hemoglobin 9.0, hematocrit 29, platelets 470, BUN 59, creatinine 3.45. ASSESSMENT AND PLAN: This is an 82-year-old male with multiple medical problems. He has a history of colon cancer requiring what sounds to be a low anterior resection following radiation chemotherapy. He developed anastomotic stricture requiring an end colostomy as well as Viky pouch. He has had issues with nausea and vomiting approximately 6 weeks ago and had a partial small bowel obstruction. However, resolved on its own with medical management. He has also had recurrent urinary tract infections and was recently worked up and found to have what sounds to be a colovesicular fistula. He also reports copious amounts of Viky pouch and drainage anus 4 times a day, which is usually with small amounts of blood tinge on occasion. He was eventually transferred to rehab; however, recently fell and sustained a right hip fracture. At this time, we will await the recommendations of further consultants, including cardiology, orthopedic surgery as well as urology. He also does have a right ureteral stricture with a stent placed. He also does have underlying renal insufficiency, as well as history of peripheral vascular disease. If there is no contraindications to surgery or no signs of infection from an orthopedic standpoint, this may be addressed. He states that the colovesicular fistula has been worked up and there were plans to proceed with the repair of this as well as replacement of the ureteral stent in the near future. The copious Green pouch anal drainage has not been addressed, which may indicate some form of fistulization, however, cannot exclude the presence of a recurrent cancer. This may be of further evaluated by CT scan, followed by a small amount of contrast in the anus. If this does not yield anything a flexible sigmoidoscopy versus proctoscope may be warranted. For now we will proceed with pain control, as well as infection prophylaxis with IV antibiotics. Job ID: [id number] Dictated Date: 04/18/2017 20:11:44 Laboratory Director Date: 04/19/2017 08:48:53/onel MULTANI
[2017-04-19] MEDS ORDERED: FUROSEMIDE 40 MG/4 ML INJ (LASIX) IVP NR ×2 (09:45→12:00)
--- NOTE | 2017-04-19 10:14 | Consultation-Cardiology ---
HPI-Cardiology Cardiology Consultation: Date of Consultation 04/19/17 Date of Admission Attending Physician Rosi Gunter DO Admitting Physician Unknown Consulting Physician Cyndee BIGGS MD HPI: Time Seen by Provider: 09:30 Chief Complaint: Hip fracture This is a 82-year-old gentleman who had a fall on Sunday night. She did not seek medical attention. He presented yesterday. He has history of congestive heart failure. He presented with shortness of breath. He also has previous history of CK D. The patient denies any chest pain, syncope, near syncope, palpitation. Review of Systems-Cardiology Review of Systems Constitutional: No As described under HPI, No no symptoms reported, No chills, No fever, No lightheadedness, No malaise, No tiredness, No weight loss, No weight gain, No other Eyes: No As described under HPI, No no symptoms reported, No blindness, No blurred vision, No contact lenses, No drainage, No decreased acuity, No foreign body sensation, No glasses, No inflammation, No pain, No photophobia, No previous injury, No shadows, No tunnel vision, No other, No vision change Ears/Nose/Throat: No As described under HPI, No no symptoms reported, No chronic hearing loss, No epistaxis, No ear discharge, No ear pain, No loose teeth, No mouth pain, No mouth swelling, No nasal drainage, No nose pain, No recent hearing loss, No throat pain, No throat swelling, No ulcerations, No other Respiratory: shortness of breath Cardiovascular: No no symptoms reported, No As described under HPI, No chest pain, No edema, No irregular heart rate, No lightheadedness, No palpitations, No syncope, No other Gastrointestinal: No no symptoms reported, No As described under HPI, No abdomen distended, No abdominal pain, No blood streaked bowels, No constipation , No diarrhea, No difficulty swallowing, No nausea, No poor appetite, No poor fluid intake, No rectal bleeding, No vomiting, No other, No nausea/vomiting/ diarrhea, No stool coloration changes Genitourinary: No no symptoms reported, No As described under HPI, No burning, No dysuria, No discharge, No frequency, No flank pain, No hematuria, No incontinence, No pain, No urgency, No other, No urine frequency changes, No urine coloration changes Musculoskeletal: joint pain Skin: No no symptoms reported, No As described under HPI, No change in color, No change in hair/nails, No dryness, No lesions, No lumps, No rash, No other, No skin related problems, No ulcerations, No rash on exposed areas, No ulcerations on exposed areas Psychiatric/Neurological: No As described under HPI, No anxiety, No depression , No emotional problems, No focal weakness, No headache, No no symptoms reported , No numbness, No other, No pre-existing deficit, No seizure, No syncope, No tingling, No tremors, No weakness KNB-Mdnxer-Glbilx Hx Patient Social History Alcohol Use: Occasionally Uses Recreational Drug Use: No Smoking Status: Never a Smoker Recent Foreign Travel: No Recent Infectious Disease Expo: No Hospitalization with Isolation: Denies Physical Abuse Screen: No Sexual Abuse: No Immunizations Up To Date Date of Pneumonia Vaccine: Apr 18, 2016 Past Medical History PMH As described under Assessment. Allergies and Home Medications Allergies Coded Allergies: Iodinated Contrast- Oral and IV Dye (Verified Allergy, Severe, ANAPHYLAXIS , 04/18/17) patient reports throat became swollen, and code blue was called Penicillins (Verified Allergy, Mild, RASH, 04/18/17) ibuprofen (Verified Allergy, Mild, rash, 04/18/17) Home Medications Ascorbic Acid 250 Mg Tab, 250 MG PO DAILY, (Reported) Carvedilol 3.125 Mg Tablet, 3.125 MG PO DAILY, (Reported) Ferrous Sulfate 325 Mg Tablet, 325 MG PO DAILY, (Reported) Furosemide 20 Mg Tablet, 20 MG PO DAILY, (Reported) L. Acidophilus/Bulgaricus 1 Each Tablet, 2 TAB PO DAILY, (Reported) Lovastatin 10 Mg Tablet, 10 MG PO 1800, (Reported) Minocycline HCl 100 Mg Capsule, 100 MG PO DAILY, (Reported) Multivitamin 1 Each Tablet, 1 TAB PO DAILY, (Reported) Omeprazole 10 Mg Capsule.dr, 10 MG PO DAILY, (Reported) Pantoprazole Sodium 40 Mg Tablet.dr, 40 MG PO DAILY, (Reported) Sennosides/Docusate Sodium 1 Each Tablet, 8.6 MG PO BID, (Reported) Physical Exam-Cardiology Physical Exam Vital Signs/I&O Vital Sign - Last 12Hours 04/19/17 04/19/17 04/19/17 04/19/17 03:30 04:00 04:00 04:30 Pulse 131 123 120 Resp 25 29 27 B/P (MAP) 108/65 100/64 103/66 Pulse Ox 95 96 95 O2 Delivery Nasal Cannula Nasal Cannula Nasal Cannula Nasal Cannula O2 Flow Rate 3.50 3.50 3.50 3.50 04/19/17 04/19/17 04/19/17 04/19/17 05:00 06:00 07:00 07:00 Pulse 120 118 130 130 Resp 24 22 28 B/P (MAP) 106/69 108/67 106/64 Pulse Ox 96 95 94 O2 Delivery Nasal Cannula Nasal Cannula Nasal Cannula O2 Flow Rate 3.50 3.50 3.50 04/19/17 04/19/17 04/19/17 04/19/17 08:00 08:58 09:00 10:00 Pulse 126 122 122 Resp 27 23 32 B/P (MAP) 108/73 105/71 107/65 Pulse Ox 94 96 98 91 O2 Delivery Nasal Cannula Nasal Cannula Nasal Cannula Nasal Cannula O2 Flow Rate 3.50 4.00 3.50 3.50 04/19/17 04/19/17 04/19/17 10:38 10:53 14:52 Temp 98.0 97.6 Pulse 114 110 Resp 20 24 B/P (MAP) 107/65 94/65 Pulse Ox 96 100 96 O2 Delivery Nasal Cannula Nasal Cannula Nasal Cannula O2 Flow Rate 4.00 4.00 4.00 Intake and Output 04/19/17 00:00 Intake Total 360 ml Balance 360 ml Capillary Refill : Less Than 3 Seconds Constitutional: No appears stated age, No AAO x 3, No apparent distress, No PERRL, No well-developed, No well-nourished, No other HEENT: No PERRL, No normal ENT inspection, No TMs normal, No pharynx normal, No scleral icterus (R), No scleral icterus (L), No pale conjunctivae (R), No pale conjunctivae (L), No photophobia, No TM abnormal (R), No TM abnormal (L), No pharyngeal erythema, No tonsillar exudate, No other, No discharge, No EOMI, No hearing is well preserved, No hard of hearing, No oral hygience is good, No ulceration, No xanthelasmas are seen Neck: No non-tender, No full range of motion, No supple, No normal inspection, No carotid bruit, No limited range of motion, No lymphadenopathy (R), No lymphadenopathy (L), No tender lateral, No tender midline, No thyromegaly, No other, No carotid pulses are 2 + bilaterally, No with good upstrokes Respiratory: other (mild crackles) Cardiovascular: tachycardia, S1 and S2 Gastrointestinal: No tender, No soft, No round, No distended, No pulsatile mass , No organomegaly, No guarding, No rebound, No tenderness, No hernia, No mass, No audible bowel sounds, No abnormal bowel sounds, No abdominal bruits, No spleenomegaly, No other Rectal: deferred Extremities: No normal range of motion, No non-tender, No normal inspection, No pedal edema, No calf tenderness, No normal capillary refill, No pelvis stable , No calf tenderness, No inflammation, No pedal edema, No slow capillary refill , No swelling, No other, No abrasion, No clubbing, No cyanosis, No ecchymosis, No laceration, No no lower extremity edema bilateral, No significant edema, No tenderness, No wound Neurologic/Psychiatric: No art sales consultant II-XII nml as tested, No no motor/sensory deficits, No alert, No normal mood/affect, No oriented x 3, No abnormal cerebellar tests, No abnormal art sales consultant II-XII, No abnormal gait, No aphasia, No EOM palsy, No facial droop, No motor weakness, No sensory deficit, No depressed affect, No disoriented x 3, No other, No grossly intact, No power is 5/5 both on sides Skin: No normal color, No warm/dry, No cyanosis, No cool, No diaphoresis, No damp, No ecchymosis, No jaundice, No mottled, No pallor, No rash, No tattoos/ piercings, No ulcerations, No rash on exposed areas, No ulcerations on exposed areas, No other Data Review Labs Laboratory Tests 04/18/17 16:20: White Blood Count 13.3H, Red Blood Count 3.10L, Hemoglobin 9.0L, Hematocrit 29L , Mean Corpuscular Volume 93, Mean Corpuscular Hemoglobin 29, Mean Corpuscular Hemoglobin Concent 31L, Red Cell Distribution Width 18.3H, Platelet Count 470H, Mean Platelet Volume 10.5H, Neutrophils (%) (Auto) 75, Lymphocytes (%) (Auto) 10L, Monocytes (%) (Auto) 16H, Eosinophils (%) (Auto) 0, Basophils (%) (Auto) 0 , Neutrophils # (Auto) 9.9H, Lymphocytes # (Auto) 1.3, Monocytes # (Auto) 2.1H, Eosinophils # (Auto) 0.0, Basophils # (Auto) 0.0, Sodium Level 137, Potassium Level 4.4, Chloride Level 105, Carbon Dioxide Level 14L, Anion Gap 18H, Blood Urea Nitrogen 59H, Creatinine 3.45H, Estimat Glomerular Filtration Rate 17, BUN/ Creatinine Ratio 17, Glucose Level 165H, Calcium Level 7.5L, Total Bilirubin 0.4 , Aspartate Amino Transf (AST/SGOT) 113H, Alanine Aminotransferase (ALT/SGPT) 65H, Alkaline Phosphatase 128, B-Type Natriuretic Peptide 6116.2H, Total Protein 7.5, Albumin 3.1L 04/19/17 01:08: Lactic Acid Level 1.45, Troponin I 0.93*H 04/19/17 04:05: White Blood Count 8.3, Red Blood Count 2.63L, Hemoglobin 7.6L, Hematocrit 24L, Mean Corpuscular Volume 92, Mean Corpuscular Hemoglobin 29, Mean Corpuscular Hemoglobin Concent 32, Red Cell Distribution Width 17.8H, Platelet Count 337, Mean Platelet Volume 10.8H, Neutrophils (%) (Auto) 72, Lymphocytes (%) (Auto) 9L , Monocytes (%) (Auto) 17H, Eosinophils (%) (Auto) 2, Basophils (%) (Auto) 0, Neutrophils # (Auto) 6.0, Lymphocytes # (Auto) 0.7L, Monocytes # (Auto) 1.4H, Eosinophils # (Auto) 0.2, Basophils # (Auto) 0.0, Sodium Level 136, Potassium Level 4.1, Chloride Level 107, Carbon Dioxide Level 13L, Anion Gap 16H, Blood Urea Nitrogen 59H, Creatinine 3.45H, Estimat Glomerular Filtration Rate 17, BUN/ Creatinine Ratio 17, Glucose Level 103, Calcium Level 7.3L, Total Bilirubin 0.5 , Aspartate Amino Transf (AST/SGOT) 92H, Alanine Aminotransferase (ALT/SGPT) 59H , Alkaline Phosphatase 115, Total Protein 6.4, Albumin 2.6L 04/19/17 06:30: Urine Color BROWNH, Urine Clarity VERY CLOUDYH, Urine pH 6, Urine Specific [place] 1.015L, Urine Protein 3+H, Urine Glucose (UA) NEGATIVE, Urine Ketones 1+ H, Urine Nitrite NEGATIVE, Urine Bilirubin NEGATIVE, Urine Urobilinogen NORMAL, Urine Leukocyte Esterase 3+H, Urine RBC (Auto) 5+H, Urine RBC 50-100H, Urine WBC TNTCH, Urine Crystals NONE, Urine Bacteria MODERATEH, Urine Casts NONE, Urine Mucus NEGATIVE, Urine Culture Indicated YES 04/19/17 08:20: D-Dimer 3.79H, Lactic Acid Level 1.84, Troponin I 0.90*H 04/19/17 14:10: Troponin I 0.78*H ECG Impression ECG Comment difficult to discern p waves - differential include atrial fibrillation vs ectopic atrial tachycardia vs sinus tachycardia A/P-Cardiology Assessment/Admission Diagnosis Right hip fracture, pending surgery. Congestive heart failure. Positive cardiac enzymes. CKD tachycardia Plan Right hip fracture, pending surgery. The patient will be considered to be at moderate to high risk for perioperative major adverse cardiac events undergoing a moderate risk noncardiac surgery. Acute systolic Congestive heart failure: IV lasix 40mg now. Significantly elevated BNP. Echocardiogram shows severe LV systolic dysfunction. with IV lasix 40mg , no significant increase in urine output. I have recommended a bear catheter and giving lasix iv 80mg. Due to CKD her kidneys are resistent to low dose lasix, therefore we may have to give higher doses. strict I/O. may require lasix infusion, if no significant response to 80mg. Positive cardiac enzymes: serial troponin shows same level of troponin. this is very unlikely ACS. Since mild elevation of troponin can occur in CHF especially with CKD and in a patient with tachycardia. CKD: defer to primary team. previous creatinine from [facility] was also 3. tachycardia: unclear etiology on EKG. P waves are difficult discern. Differential include afib vs atrial tachycardia vs sinus tachycardia. positive D dimer: will defer to IM and Pulmonary. PE/DVT needs to be ruled out. Thank you for your consultation. Please call me if you have any questions. Ramírez Biggs MD, FACP, FACC, FSCAI, FHRS, CCDS Interventional Cardiology Cardiac Electrophysiology Vascular Medicine and Endovascular Interventions Clinical Quality Measures DVT/VTE Risk/Contraindication: Risk Factor Score Per Nursin RFS Level Per Nursing on Admit: 4+=Very High Contraindications-Pharm: Other *list below* Other: surgery Cyndee BIGGS MD Apr 19, 2017 10:14 am
[2017-04-19] MEDS: SENNA W/DOCUSATE (SENOKOT S) TABLET PO SCH ×2 (10:27→21:35)
[2017-04-19] MEDS: metroNIDAZOLE 500MG/100ML IVPB 100 ML IV SCH ×2 (10:27→21:35)
--- NOTE | 2017-04-19 11:08 | History & Physical-Hospitalist ---
HPI History of Present Illness: HPI/Chief Complaint CC: Right hip fracture HPI: This is a 82 yoWM pt who presents with right hip fracture. Creat 3.5 which labs show is chronically elevated, heart failure indicated, BNP 6116. Plans to relieve pain with hip fracture repair are underway patternmaker all around: Pt is on Flagyl and Levaquin empirically Dr. Biggs added troponin and d-dimer to labs. He is not yet sure on EKG b/c it appears to be sinus tachy but then P-waves disappear so may be PAF. A unit of blood will be given per Dr Almanzar Hold of on DVT anti-coagulation. Dr Marie needs consulted prior to this because spinal anesthesia will be attempted and could prevent that. Labs not received from [facility] yet Dr. Alves is on board for stent in ureter. 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 When he woke he called for help at [place] Dr. Marie will perform surgery tomorrow and Cardiology has deemed him high risk but unable to modify risk factors and the only change he has for any quality of life is the surgery. Pt was moved to ICU last night. Pt believes he has a bladder infection Pt is experiencing SOB, but has no current chest pain or palpitations. Dr. 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 Marie. Pt was informed that I am working with many different specialties to make sure he is okay. Pt denies pain currently, but confirms pain with movement. Bladder infection discussed. Pt was informed that his BP was low so I moved him to ICU Physical exam stable. BP and O2 look good Pt was informed that he will be given a unit of blood Scribed by Riya Casarez under the direct supervision of Dr. Gandhi. Source: patient Exam Limitations: no limitations Date Seen 04/19/17 Time Seen by Provider: 09:30 Attending Physician Rosi Gandhi DO PCP Unknown Referring Physician Date of Admission Apr 18, 2017 at 15:43 Home Medications & Allergies Home Medications Reviewed patient Home Medication Reconciliation Form Allergies Allergies Coded Allergies Iodinated Contrast- Oral and IV Dye (Verified Allergy, Severe, ANAPHYLAXIS, ) patient reports throat became swollen, and code blue was called Penicillins (Verified Allergy, Mild, RASH, 04/18/17) ibuprofen (Verified Allergy, Mild, rash, 04/18/17) Past [id number] Hx Patient Social History Marrital Status: single 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) Alcohol Use: Occasionally Uses Recreational Drug Use: No Smoking Status: Never a Smoker Physical Abuse Screen: No Sexual Abuse: No Recent Foreign Travel: No Contact w/other who traveled: No Recent Hopitalizations: Yes Recent Infectious Disease Expo: No Immunizations Up To Date Date of Pneumonia Vaccine: Apr 18, 2016 Seasonal Allergies Seasonal Allergies: No Surgeries HX Surgeries: Yes Surgeries: Abdominal (colon cancer) Respiratory Hx Respiratory Disorders: No Cardiovascular Hx Cardiovascular Disorders: Yes Cardiac Disorders: Chronic Edema/Swelling, High Cholesterol, Hypertension Neurological Hx Neurological Disorders: Yes Neurological Disorders: Dementia Genitourinary Hx Genitourinary Disorders: Yes Genitourinary Disorders: Bladder Infection, Renal Failure, UTI-Chronic Gastrointestinal Hx Gastrointestinal Disorders: Yes Gastrointestinal Disorders: Gastroesophageal Reflux Musculoskeletal Hx Musculoskeletal Disorders: Yes Musculoskeletal Disorders: Arthritis Endocrine Hx Endocrine Disorders: No HEENT HX ENT Disorders: No Hearing Impairment: Hard of Hearing Cancer Hx Cancer: Yes Cancer: Colon Psychosocial Hx Psychiatric Problems: No Blood Transfusions Adverse Reaction to a Blood Tr: No Reviewed Nursing Assessment Reviewed/Agree w Nursing PMH: Yes Review of Systems Constitutional: see HPI EENTM: no symptoms reported Respiratory: short of breath Cardiovascular: edema Gastrointestinal: no symptoms reported Genitourinary: hesitancy Musculoskeletal: joint pain Skin: no symptoms reported Psychiatric/Neurological: Anxiety All Other Systems Reviewed Negative Unless Noted: Yes Physical Exam Physical Exam Vital Signs Vital Sign - Last 12Hours 04/18/17 04/18/17 04/18/17 04/18/17 16:26 17:01 20:26 20:50 Temp 99.4 Pulse 151 Resp 30 B/P (MAP) 90/51 Pulse Ox 83 O2 Delivery Nasal Cannula O2 Flow Rate 4.00 Capillary Refill : Less Than 3 Seconds General Appearance: No Apparent Distress, WD/WN, Chronically ill, Thin Eyes: Bilateral Eye Normal Inspection, Bilateral Eye PERRL HEENT: PERRL/EOMI, Normal ENT Inspection, Pharynx Normal Neck: Full Range of Motion, Normal Inspection, Non Tender, Supple, Carotid Bruit Respiratory: Chest Non Tender, Lungs Clear, Normal Breath Sounds, No Accessory Muscle Use, No Respiratory Distress Cardiovascular: No Gallop, No JVD, No Murmur, Normal Peripheral Pulses, Irregularly Irregular Gastrointestinal: Normal Bowel Sounds, No Organomegaly, No Pulsatile Mass, Non Tender, Soft Back: Normal Inspection, No CVA Tenderness, No Vertebral Tenderness Extremity: Normal Capillary Refill, Normal Inspection, Normal Range of Motion ( decreased due to hip pain right), Non Tender, No Calf Tenderness, No Pedal Edema Neurologic/Psychiatric: Alert, Oriented x3, No Motor/Sensory Deficits, Normal Mood/Affect Skin: Normal Color, Warm/Dry Lymphatic: No Adenopathy Results Results/Procedures Lab Laboratory Tests 04/18/17 16:20 04/19/17 04:05 Assessment/Plan Admission Diagnosis Assessment: Right displaced femoral fracture due to fall 6 days ago at detention after multiple x-ray was negative for fracture 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.[address] consulting urology to evaluate the need for replacement of stent Severe volume overload causing dyspnea and elevated BNP of 6100 Colon cancer 10 years ago and resection 4 years ago currently in remission Chronic debility Severe anemia mostly due to chronic kidney disease and chronic illness but likely acute blood loss from hip fracture 6 days ago receiving 1 unit of transfusion today preoperatively Sinus tachycardia superimposed with paroxysmal atrial fibrillation Acute on chronic UTI placed on antibiotics empirically Abdominal pain highly suspicious for diverticulitis mild episode general surgery Dr. Vásquez consulted Assessment and Plan Plan: Surgery tomorrow am with Dr. Marie even though Cardiology has deemed him high risk but unable to modify risk factors and the only change he has for any quality of life is the surgery. Monitor pt closely in ICU Appreciate all consultants in the management of this very complex patient: cardiology , general surgery Dr. Vásquez, pulmonology critical care Dr. Almanzar, urology Dr. Alves. [facility] labs from 04/14/17 revealed creat 3.4 and hgb 8.2 so chronic numbers confirmed. Prognosis is very guarded and patient and DPOA are both aware but will proceed with the plan tomorrow Clinical Quality Measures DVT/VTE Risk/Contraindication: Risk Factor Score Per Nursin RFS Level Per Nursing on Admit: 4+=Very High Contraindications-Pharm: Other *list below* Other: surgery ROSI GANDHI DO Apr 19, 2017 11:08
--- NOTE | 2017-04-19 11:44 | CONSULTATION REPORT ---
DATE OF CONSULTATION: 04/19/2017 ATTENDING PHYSICIAN: Dr. Gunter. 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 He has a stent on the left side placed by urologist at [facility] in [place]. They were contemplating surgery on the stricture as well as on the fistula; however, the patient was in poor medical condition to sustain the operation and developed other medical issues. He was admitted here in the hospital and I was consulted by Dr. Gunter regarding the urological issue. 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 RECOMMENDATION: No urological intervention at this point. Once he is ready to see his urologist and general surgery in [place], refer back to them. Job ID: [id number] Dictated Date: 04/19/2017 11:21:20 Tourist Escort Date: 04/19/2017 11:37:47/emeli
--- NOTE | 2017-04-19 16:25 | Progress Note (SOAP) ---
Subjective Date Seen by Provider: Apr 19, 2017 Time Seen by Provider: 16:00 Subjective/Events-last exam Patient seen with Dr. Vásquez. Patient reports doing well. tolerating diet. No N/ V. Colostomy functioning. No fever/chills. Patient reports minimal right hip pain, mostly with movement. Does reports shortness of breathe. Scheduled for surgery tomorrow. Review of Systems General: No Chills, No Night Sweats Cardiovascular: Edema Gastrointestinal: No: Abdominal Pain, Nausea, Vomiting Musculoskeletal: other (minimal right hip pain) Objective Exam Vital Signs Date Time Temp Pulse Resp B/P (MAP) Pulse Ox O2 Delivery O2 Flow Rate FiO2 04/19/17 14:52 96 Nasal Cannula 4.00 04/19/17 14:00 97.7 114 25 99/67 97 Nasal Cannula 4.00 04/19/17 13:00 126 04/19/17 10:53 97.6 110 24 94/65 100 Nasal Cannula 4.00 04/19/17 10:38 98.0 114 20 107/65 96 Nasal Cannula 4.00 04/19/17 10:00 122 32 107/65 91 Nasal Cannula 3.50 04/19/17 09:00 122 23 105/71 98 Nasal Cannula 3.50 04/19/17 08:58 96 Nasal Cannula 4.00 04/19/17 08:00 126 27 108/73 94 Nasal Cannula 3.50 04/19/17 07:00 130 04/19/17 07:00 130 28 106/64 94 Nasal Cannula 3.50 04/19/17 06:00 118 22 108/67 95 Nasal Cannula 3.50 04/19/17 05:00 120 24 106/69 96 Nasal Cannula 3.50 04/19/17 04:30 120 27 103/66 95 Nasal Cannula 3.50 04/19/17 04:00 123 29 100/64 96 Nasal Cannula 3.50 04/19/17 04:00 Nasal Cannula 3.50 04/19/17 03:30 131 25 108/65 95 Nasal Cannula 3.50 04/19/17 03:00 122 22 97/62 96 Nasal Cannula 3.50 04/19/17 02:45 115 26 93/68 96 Nasal Cannula 3.50 04/19/17 02:30 118 30 94/60 96 Nasal Cannula 3.50 04/19/17 02:15 121 26 102/63 96 Nasal Cannula 3.50 04/19/17 02:00 122 27 98/64 97 Nasal Cannula 3.50 04/19/17 01:45 133 28 100/66 96 Nasal Cannula 3.50 04/19/17 01:30 123 27 97/68 96 Nasal Cannula 3.50 04/19/17 01:15 125 30 94/70 95 Nasal Cannula 3.50 04/19/17 01:00 134 36 102/68 94 Nasal Cannula 3.50 04/19/17 00:15 134 19 87/50 94 Nasal Cannula 4.00 04/19/17 00:00 97.4 133 19 87/54 94 Nasal Cannula 4.00 04/18/17 20:50 99.4 129 30 90/51 94 Nasal Cannula 4.00 04/18/17 20:30 Nasal Cannula 2.00 04/18/17 20:26 151 04/18/17 20:00 97 Nasal Cannula 2.50 04/18/17 17:01 92 Nasal Cannula 4.00 04/18/17 16:26 83 I & O 04/19/17 07:00 Intake Total 360 ml Balance 360 ml Capillary Refill : Less Than 3 Seconds General Appearance: No Apparent Distress, WD/WN HEENT: PERRL/EOMI Neck: Full Range of Motion, Normal Inspection, Non Tender, Supple Respiratory: Chest Non Tender, Lungs Clear, Normal Breath Sounds, No Accessory Muscle Use, No Respiratory Distress Cardiovascular: Regular Rate, Rhythm, No Murmur, Irregularly Irregular Gastrointestinal: normal bowel sounds, non tender, soft Extremity: Normal Capillary Refill, Normal Inspection, Normal Range of Motion ( limited ROM due to right hip pain.), Non Tender, No Calf Tenderness Neurologic/Psychiatric: Alert, Oriented x3 Skin: Normal Color, Warm/Dry Lymphatic: No Adenopathy Results Lab Laboratory Tests 04/19/17 01:08: Lactic Acid Level 1.45, Troponin I 0.93*H 04/19/17 04:05: White Blood Count 8.3, Red Blood Count 2.63L, Hemoglobin 7.6L, Hematocrit 24L, Mean Corpuscular Volume 92, Mean Corpuscular Hemoglobin 29, Mean Corpuscular Hemoglobin Concent 32, Red Cell Distribution Width 17.8H, Platelet Count 337, Mean Platelet Volume 10.8H, Neutrophils (%) (Auto) 72, Lymphocytes (%) (Auto) 9L , Monocytes (%) (Auto) 17H, Eosinophils (%) (Auto) 2, Basophils (%) (Auto) 0, Neutrophils # (Auto) 6.0, Lymphocytes # (Auto) 0.7L, Monocytes # (Auto) 1.4H, Eosinophils # (Auto) 0.2, Basophils # (Auto) 0.0, Sodium Level 136, Potassium Level 4.1, Chloride Level 107, Carbon Dioxide Level 13L, Anion Gap 16H, Blood Urea Nitrogen 59H, Creatinine 3.45H, Estimat Glomerular Filtration Rate 17, BUN/ Creatinine Ratio 17, Glucose Level 103, Calcium Level 7.3L, Total Bilirubin 0.5 , Aspartate Amino Transf (AST/SGOT) 92H, Alanine Aminotransferase (ALT/SGPT) 59H , Alkaline Phosphatase 115, Total Protein 6.4, Albumin 2.6L 04/19/17 06:30: Urine Color BROWNH, Urine Clarity VERY CLOUDYH, Urine pH 6, Urine Specific [place] 1.015L, Urine Protein 3+H, Urine Glucose (UA) NEGATIVE, Urine Ketones 1+ H, Urine Nitrite NEGATIVE, Urine Bilirubin NEGATIVE, Urine Urobilinogen NORMAL, Urine Leukocyte Esterase 3+H, Urine RBC (Auto) 5+H, Urine RBC 50-100H, Urine WBC TNTCH, Urine Crystals NONE, Urine Bacteria MODERATEH, Urine Casts NONE, Urine Mucus NEGATIVE, Urine Culture Indicated YES 04/19/17 08:20: Lactic Acid Level 1.84, Troponin I 0.90*H, D-Dimer 3.79H 04/19/17 14:10: Troponin I 0.78*H 04/19/17 15:43: Hemoglobin 9.2#L, Hematocrit 29L Assessment/Plan Assessment/Plan Assess & Plan/Chief Complaint An 82 year old male with Right displaced femoral fracture due to fall 6 days ago at half-way after multiple x-ray was negative for fracture. This patient does have multiple medical issues. Continue with medical management and pain medication prn. Will await surgical intervention by ortho tomorrow. Clinical Quality Measures DVT/VTE Risk/Contraindication: Risk Factor Score Per Nursin RFS Level Per Nursing on Admit: 4+=Very High Contraindications-Pharm: Other *list below* Other: surgery ERIN GIBBONS PHOTOGRAPHIC ARTIST Apr 19, 2017 16:25
[2017-04-19 16:27] LABS: INR 1.4 (0.8-1.4); PROTHROMBIN TIME PATIENT 16.6 SEC (12.2-14.7)
[2017-04-19] MEDS: SIMvastatin 10 MG (ZOCOR) TAB PO SCH (17:58)
[2017-04-20] VITALS (26 sets, daily range): BP systolic 96–139; BP diastolic 41–71
[2017-04-20 06:30] LABS: MEAN PLATELET VOLUME 10.5 FL (7.4-10.4); RED BLOOD COUNT 2.94 10^6/uL (4.35-5.85); WHITE BLOOD COUNT 7.8 10^3/uL (4.3-11.0)
[2017-04-20 06:51] LABS: ALBUMIN 2.6 GM/DL (3.2-4.5); BILIRUBIN,TOTAL 0.5 MG/DL (0.1-1.0); CALCIUM 6.9 MG/DL (8.5-10.1); CREATININE SERUM 3.12 MG/DL (0.60-1.30); PHOSPHORUS 5.5 MG/DL (2.3-4.7); POTASSIUM 3.3 MMOL/L (3.6-5.0)
[2017-04-20] MEDS: CATHETER FLUSH 10 ML SYR IV SCH ×3 (06:53→22:36)
[2017-04-20] MEDS: PANTOPRAZOLE 40 MG (PROTONIX) TAB PO SCH (06:53)
[2017-04-20] MEDS: ASCORBIC ACID (VIT C) 500 MG TABLET PO SCH (06:53)
[2017-04-20] MEDS: MULTIVIT W/MINERALS TAB (THERAGRAN M) PO SCH (06:54)
[2017-04-20 06:55] LABS: MAGNESIUM 0.9 MG/DL (1.8-2.4)
[2017-04-20] MEDS ORDERED: MAGNESIUM 1 GM/100 ML IVPB 400 ML IV ONE (06:58)
[2017-04-20] MEDS ORDERED: POTASSIUM CL 10MEQ/50ML IVPB 200 ML IV ONE (06:58)
[2017-04-20] MEDS: MAGNESIUM 1 GM/100 ML IVPB 100 ML IV SCH ×4 (07:10→08:55)
--- NOTE | 2017-04-20 07:14 | Pulmonary Progress Note ---
Subjective Time Seen by Provider: 07:14 Subjective/Events-last exam No complications noted. Pt denies symptoms. Exam Exam Vital Signs Date Time Temp Pulse Resp B/P (MAP) Pulse Ox O2 Delivery O2 Flow Rate FiO2 04/20/17 06:00 104 31 114/69 98 Nasal Cannula 3.50 04/20/17 05:00 105 27 107/68 98 Nasal Cannula 3.50 04/20/17 04:00 97.6 04/20/17 04:00 105 18 96/64 97 Nasal Cannula 3.50 04/20/17 04:00 Nasal Cannula 3.50 04/20/17 03:00 104 24 102/68 98 Nasal Cannula 3.50 04/20/17 02:00 106 28 97/71 98 Nasal Cannula 3.50 04/20/17 01:00 107 26 107/67 98 Nasal Cannula 3.50 04/20/17 01:00 101 04/20/17 00:00 98.2 04/20/17 00:00 Nasal Cannula 3.50 04/19/17 23:00 112 28 98/73 97 Nasal Cannula 3.50 04/19/17 22:00 120 37 113/70 96 Nasal Cannula 3.50 04/19/17 21:00 112 32 100/64 97 Nasal Cannula 3.50 04/19/17 20:00 Nasal Cannula 3.50 04/19/17 20:00 98.0 04/19/17 20:00 114 34 103/65 97 Nasal Cannula 3.50 04/19/17 19:47 97 Nasal Cannula 4.00 04/19/17 19:00 120 26 113/76 99 Nasal Cannula 3.50 04/19/17 19:00 118 04/19/17 18:00 118 30 104/71 99 Nasal Cannula 3.50 04/19/17 17:00 118 36 107/71 97 Nasal Cannula 3.50 04/19/17 16:00 Nasal Cannula 3.50 04/19/17 16:00 116 34 104/71 95 Nasal Cannula 3.50 04/19/17 16:00 97.0 Nasal Cannula 3.50 04/19/17 15:00 112 27 90/56 99 Nasal Cannula 3.50 04/19/17 14:52 96 Nasal Cannula 4.00 04/19/17 14:00 97.7 114 25 99/67 97 Nasal Cannula 4.00 04/19/17 14:00 115 37 99/67 97 Nasal Cannula 3.50 04/19/17 13:00 126 04/19/17 13:00 126 42 111/73 93 Nasal Cannula 3.50 04/19/17 12:00 Nasal Cannula 3.50 04/19/17 12:00 98.0 Nasal Cannula 3.50 04/19/17 12:00 112 35 87/59 100 Nasal Cannula 3.50 04/19/17 11:00 110 29 94/65 98 Nasal Cannula 3.50 04/19/17 10:53 97.6 110 24 94/65 100 Nasal Cannula 4.00 04/19/17 10:38 98.0 114 20 107/65 96 Nasal Cannula 4.00 04/19/17 10:00 122 32 107/65 91 Nasal Cannula 3.50 04/19/17 09:00 122 23 105/71 98 Nasal Cannula 3.50 04/19/17 08:58 96 Nasal Cannula 4.00 04/19/17 08:00 126 27 108/73 94 Nasal Cannula 3.50 04/19/17 08:00 Nasal Cannula 3.50 04/19/17 08:00 97.7 Nasal Cannula 3.50 I & O 04/20/17 07:00 Intake Total 1740 ml Output Total 1850 ml Balance -110 ml General Appearance: No Apparent Distress, WD/WN HEENT: PERRL/EOMI Neck: Full Range of Motion, Normal Inspection, Non Tender, Supple Respiratory: Chest Non Tender, Lungs Clear, Normal Breath Sounds, No Accessory Muscle Use, No Respiratory Distress Cardiovascular: Regular Rate, Rhythm, No Murmur, Irregularly Irregular Gastrointestinal: normal bowel sounds, non tender, soft Extremity: Normal Capillary Refill, Normal Inspection, Normal Range of Motion ( limited ROM due to right hip pain.), Non Tender, No Calf Tenderness Neurologic/Psychiatric: Alert, Oriented x3 Skin: Normal Color, Warm/Dry Lymphatic: No Adenopathy Results Lab Laboratory Tests 04/18/17 16:20 04/19/17 04:05 04/19/17 15:43 04/20/17 06:24 Assessment/Plan Assessment/Plan s/p hip fracture - s/p fall last Sunday -Pain control - pt states that he has no pain -Orthopedic surgery following - plan is for surgery this AM Sepsis with pneumonia RLL and probable UTI -irizarry cultures -UA with C&S -Continue Levaquin and flagyl Atlectasis with small right pleural effusion -monitor -IS, SVNs -KVO IVF secondary secondary to pulmonary edema Afib RVR with elevated troponin -Cardiology is following -Echo pending Severe hypomagnesium -replace 4gms over 1.5 hrs then recheck 1hr after infusion Hypokalemia -replace 40meq over 4hrs Anemia -Transfuse one unit and repeat H&H -Monitor -occult stool chronic (?acute on chronic) renal failure with metabolic acidosis -gentle hydration -Will place on bicarb gtt 1/2 NS with 2amps of HC03 at KVO -Lactic acid is normal -Dr. 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
[2017-04-20] MEDS: RT-ALBUTEROL SULF 2.5 MG/3 ML PRE-MIX VIAL IH SCH ×3 (07:28→20:12)
--- NOTE | 2017-04-20 07:45 | Diagnostic Imaging Report ---
Portable upright radiograph of the chest. INDICATION: A. fib. Shortness of breath. FINDINGS: The lungs demonstrate worsening mixed interstitial and airspace opacities suggestive of worsening pulmonary edema. The heart size is borderline enlarged. There is a small bilateral effusion. No pneumothorax. The mediastinum and benita appear stable. IMPRESSION: Worsening bilateral mixed interstitial and airspace opacities likely related to pulmonary edema. Dictated by: Dictated on workstation # [id number]
[2017-04-20] MEDS: POTASSIUM CL 10MEQ/50ML IVPB 50 ML IV SCH ×4 (07:49→10:43)
[2017-04-20] MEDS ORDERED: FUROSEMIDE 40 MG/4 ML INJ (LASIX) IVP ONE (08:45)
[2017-04-20] MEDS: SENNA W/DOCUSATE (SENOKOT S) TABLET PO SCH ×2 (09:00→21:56)
[2017-04-20] MEDS: CARVEDILOL 3.125 MG (COREG) TABLET PO SCH (09:00)
[2017-04-20] MEDS: FUROSEMIDE 20 MG (LASIX) TAB PO SCH (09:00)
[2017-04-20] MEDS: LACTOBACILLUS Acidoph/Bulgar (LACTINEX/FLORANEX) TAB PO SCH (09:00)
[2017-04-20] MEDS ORDERED: fentaNYL INJECTION 100 MCG/2 ML AMP ONE (09:06)
[2017-04-20] MEDS ORDERED: ONDANSETRON 4 MG/2 ML (SDV) Z0FRAN ONE (09:06)
[2017-04-20] MEDS ORDERED: SEVOFLURANE (ULTANE) 15 ML INHAL SOLN ONE (09:06)
[2017-04-20] MEDS ORDERED: DEXAMETHASONE PF 10 MG/ML (DECADRON) VIAL ONE (09:06)
[2017-04-20] MEDS ORDERED: proPOfol 200 MG/20 ML (DIPRIVAN) VIAL IV ONE (09:06)
[2017-04-20] MEDS ORDERED: MIDAZOLAM 2 MG/2 ML (VERSED) VIAL ONE ×2 (09:06→13:29)
[2017-04-20] MEDS ORDERED: LACTATED RINGERS 0 ML IV ONE (09:06)
[2017-04-20] MEDS ORDERED: LIDOCAINE 2% 20 ML (XYLOCAINE) VIAL ONE (09:06)
[2017-04-20] MEDS: FERROUS SULF 325 MG (IRON) TAB PO SCH (09:23)
[2017-04-20] MEDS: metroNIDAZOLE 500MG/100ML IVPB 100 ML IV SCH ×2 (09:25→21:58)
[2017-04-20] MEDS ORDERED: NEO/POLY/BAC (NEOSPORIN) OINT 15 GM TUBE ONE (10:33)
[2017-04-20] MEDS ORDERED: GENTAMICIN 40 MG/ML 2 ML INJ SDV ONE (10:33)
--- NOTE | 2017-04-20 10:45 | History & Physical-Surgical ---
HPO-Surgical History of Present Illness Chief Complaint: fell last week at assisted living facility. Was sent to Dr. Marie's office and was dx with displaced right femoral neck fracture on 04/18/17. Has multiple other co morbidities. Diagnosis/Surgical Indication: displaced right femoral neck fracture Procedure: Right hip bipolar femoral hemiarthroplasty Date of Surgery: Apr 20, 2017 Weight (Pounds): 136 Weight (Ounces): 0.4 Height (Feet): 5 Height (Inches): 6.00 Allergies and Home Medications Allergies Coded Allergies: Iodinated Contrast- Oral and IV Dye (Verified Allergy, Severe, ANAPHYLAXIS , 04/18/17) patient reports throat became swollen, and code blue was called Penicillins (Verified Allergy, Mild, RASH, 04/18/17) ibuprofen (Verified Allergy, Mild, rash, 04/18/17) Home Medications Ascorbic Acid 250 Mg Tab, 250 MG PO DAILY, (Reported) Carvedilol 3.125 Mg Tablet, 3.125 MG PO DAILY, (Reported) Ferrous Sulfate 325 Mg Tablet, 325 MG PO DAILY, (Reported) Furosemide 20 Mg Tablet, 20 MG PO DAILY, (Reported) L. Acidophilus/Bulgaricus 1 Each Tablet, 2 TAB PO DAILY, (Reported) Lovastatin 10 Mg Tablet, 10 MG PO 1800, (Reported) Minocycline HCl 100 Mg Capsule, 100 MG PO DAILY, (Reported) Multivitamin 1 Each Tablet, 1 TAB PO DAILY, (Reported) Omeprazole 10 Mg Capsule.dr, 10 MG PO DAILY, (Reported) Pantoprazole Sodium 40 Mg Tablet.dr, 40 MG PO DAILY, (Reported) Sennosides/Docusate Sodium 1 Each Tablet, 8.6 MG PO BID, (Reported) Past [id number] Hx Patient Social History Marrital Status: single Employed/Student: retired Alcohol Use: Occasionally Uses Recreational Drug Use: No Smoking Status: Never a Smoker Physical Abuse Screen: No Sexual Abuse: No Recent Foreign Travel: No Contact w/other who traveled: No Recent Hopitalizations: Yes Recent Infectious Disease Expo: No Immunizations Up To Date Date of Pneumonia Vaccine: Apr 18, 2016 Seasonal Allergies Seasonal Allergies: No Surgeries HX Surgeries: Yes Surgeries: Abdominal Respiratory Hx Respiratory Disorders: No Cardiovascular Hx Cardiovascular Disorders: Yes Cardiac Disorders: Chronic Edema/Swelling, High Cholesterol, Hypertension Neurological Hx Neurological Disorders: Yes Neurological Disorders: Dementia Genitourinary Hx Genitourinary Disorders: Yes Genitourinary Disorders: Bladder Infection, Renal Failure, UTI-Chronic Gastrointestinal Hx Gastrointestinal Disorders: Yes Gastrointestinal Disorders: Gastroesophageal Reflux Musculoskeletal Hx Musculoskeletal Disorders: Yes Musculoskeletal Disorders: Arthritis Endocrine Hx Endocrine Disorders: No HEENT HX ENT Disorders: No Hearing Impairment: Hard of Hearing Cancer Hx Cancer: Yes Cancer: Colon Psychosocial Hx Psychiatric Problems: No Blood Transfusions Adverse Reaction to a Blood Tr: No Reviewed Nursing Assessment Reviewed/Agree w Nursing PMH: Yes Exam Vital Signs Vital Signs 04/20/17 04/20/17 04/20/17 06:00 07:00 07:28 Pulse 105 Resp 31 B/P (MAP) 114/69 Pulse Ox 100 O2 Delivery Nasal Cannula O2 Flow Rate 3.00 Capillary Refill : Less Than 3 Seconds Labs Laboratory Tests Test 04/19/17 14:10 04/19/17 15:43 04/20/17 06:24 Range/Units Troponin I 0.78 *H <0.30 NG/ML Hemoglobin 9.2 #L 8.7 L 13.3-17.7 G/DL Hematocrit 29 L 26 L 40-54 % Prothrombin Time 16.6 H 12.2-14.7 SEC INR Comment 1.4 0.8-1.4 White Blood Count 7.8 4.3-11.0 10^3/uL Red Blood Count 2.94 L 4.35-5.85 10^6/uL Mean Corpuscular Volume 89 80-99 FL Mean Corpuscular Hemoglobin 30 25-34 PG Mean Corpuscular Hemoglobin Concent 33 32-36 G/DL Red Cell Distribution Width 17.0 H 10.0-14.5 % Platelet Count 351 130-400 10^3/uL Mean Platelet Volume 10.5 H 7.4-10.4 FL Sodium Level 140 135-145 MMOL/L Potassium Level 3.3 L 3.6-5.0 MMOL/L Chloride Level 107 98-107 MMOL/L Carbon Dioxide Level 14 L 21-32 MMOL/L Anion Gap 19 H 5-14 MMOL/L Blood Urea Nitrogen 63 H 7-18 MG/DL Creatinine 3.12 H 0.60-1.30 MG/DL Estimat Glomerular Filtration Rate 19 BUN/Creatinine Ratio 20 Glucose Level 82 70-105 MG/DL Calcium Level 6.9 L 8.5-10.1 MG/DL Phosphorus Level 5.5 H 2.3-4.7 MG/DL Magnesium Level 0.9 *L 1.8-2.4 MG/DL Total Bilirubin 0.5 0.1-1.0 MG/DL Aspartate Amino Transf (AST/SGOT) 55 H 5-34 U/L Alanine Aminotransferase (ALT/SGPT) 49 0-55 U/L Alkaline Phosphatase 103 40-136 U/L Total Protein 6.0 L 6.4-8.2 GM/DL Albumin 2.6 L 3.2-4.5 GM/DL General Appearance: Oriented X3 HEENT: PERRLA Cardiovascular: Regular Rate Abdominal: Soft, No Tenderness Skin: No Rashes, No Breakdown Neuro: Other (R leg shortenend and externally rotated, tenderness to right hip with swelling and ecchymosis) Psych/Mental Status: Mental Status NL Assessment/Plan Assessment and Plan A: displaced right femoral neck fracture chronic anemia chronic renal failure urinary tract infection hx of carotid stenosis hx of TIA P: right hip bipolar femoral nisreen arthroplasty, IM, and pulmonology to manage comorbidities post op in ICU. Plan to eventually transfer to the floor then hopefully [facility] or [facility]. Problems: ROSE HERNANDEZ APRN Apr 20, 2017 10:45 am
--- NOTE | 2017-04-20 10:50 | Progress Note-Pre Operative ---
Pre-Operative Progress Note H&P Reviewed The H&P was reviewed, patient examined and no changes noted. Date Seen by Provider: Apr 20, 2017 Time Seen by Provider: 10:50 Date H&P Reviewed: Apr 20, 2017 Time H&P Reviewed: 10:50 Pre-Operative Diagnosis: Displaced right femoral neck fracture TIM VALDEZ DO Apr 20, 2017 10:50 am
--- NOTE | 2017-04-20 11:14 | Progress Note-Hospitalist ---
Progress Note HPI/CC on Admission CC: Right hip fracture HPI: This is a 82 yoWM pt who presents with right hip fracture. Creat 3.5 which labs show is chronically elevated, heart failure indicated, BNP 6116. Plans to relieve pain with hip fracture repair are underway foot specialist: Pt is on Flagyl and Levaquin empirically Dr. Biggs added troponin and d-dimer to labs. He is not yet sure on EKG b/c it appears to be sinus tachy but then P-waves disappear so may be PAF. A unit of blood will be given per Dr Almanzar Hold of on DVT anti-coagulation. Dr Marie needs consulted prior to this because spinal anesthesia will be attempted and could prevent that. Labs not received from [facility] yet Dr. Alves is on board for stent in ureter. 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 When he woke he called for help at [facility] Marie will perform surgery tomorrow and Cardiology has deemed him high risk but unable to modify risk factors and the only change he has for any quality of life is the surgery. Pt was moved to ICU last night. Pt believes he has a bladder infection Pt is experiencing SOB, but has no current chest pain or palpitations. Dr. 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 Marie. Pt was informed that I am working with many different specialties to make sure he is okay. Pt denies pain currently, but confirms pain with movement. Bladder infection discussed. Pt was informed that his BP was low so I moved him to ICU Physical exam stable. BP and O2 look good Pt was informed that he will be given a unit of blood Scribed by Riya Casarez under the direct supervision of Dr. Gandhi. 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.[address] consulting urology to evaluate the need for replacement of stent Severe volume overload causing dyspnea and elevated BNP of 6100 Colon cancer 10 years ago and resection 4 years ago currently in remission Chronic debility Severe anemia mostly due to chronic kidney disease and chronic illness but likely acute blood loss from hip fracture 6 days ago receiving 1 unit of transfusion today preoperatively Sinus tachycardia superimposed with paroxysmal atrial fibrillation Acute on chronic UTI placed on antibiotics empirically Abdominal pain highly suspicious for diverticulitis mild episode general surgery Dr. Vásquez consulted Diagonsis/Assessment & Plan Patient ready for surgery and unable to modify any risk factors so we'll proceed on his plan and I appreciate all consultants help in managing their expertise due to the complexity of his medical problems I did confer with cardiology and he is deemed moderate to high risk for postoperative complications but unable to modify and lower the risk Magnesium is very low at 0.9 so being supplemented currently prior to surgery I did confer with orthopedic surgery yesterday and updated that service on the prognosis but it appears the benefits outweigh risk at this current time due to the severity of his hip fracture pain currently and after repair the pain will improve and help his quality of life although prognosis is very poor Reviewed all meds Creatinine down to 3.1 and receiving large dose of Lasix prior to surgery due to volume overload Received 1 unit of packed red blood cell transfusion yesterday hemoglobin went up to 9.2 now back to baseline at 8.7 No fever, vital signs stable, pleasant, improved, debilitated but overall in no distress Tachycardic at 110 bpm Clear to auscultation bilaterally but diminished in the bases No edema Laboratory Tests 04/19/17 15:43 04/20/17 06:24 Assessment: Right displaced femoral fracture due to fall 6 days ago at [facility] after multiple x-ray was negative for fracture proceeding on with surgery this morning per Dr Marie to have any chance of a quality of life without severe hip fracture pain 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.[address] s/p urology consultation stating to maintain stent and no changes are required Hypokalemia and Hypomagnesemia Severe volume overload causing dyspnea and elevated BNP of 6100 received large dose of Lasix this morning prior to surgery Colon cancer 10 years ago and resection 4 years ago currently in remission Chronic debility Severe anemia mostly due to chronic kidney disease and chronic illness but likely acute blood loss from hip fracture 7 days ago received 1 unit of transfusion yesterday preoperatively Sinus tachycardia superimposed with paroxysmal atrial fibrillation cardiology on board Acute on chronic UTI placed on antibiotics empirically Abdominal pain highly suspicious for diverticulitis mild episode general surgery Dr. Vásquez consulted Plan: Surgery today with Dr. Marie even though Cardiology has deemed him high risk but unable to modify risk factors and the only change he has for any quality of life is the surgery. Monitor pt closely in ICU post-operatively Appreciate all consultants in the management of this very complex patient: cardiology , general surgery Dr. Vásquez, pulmonology critical care Dr. Almanzar, urology Dr. Alves. [facility] labs from 04/14/17 revealed creat 3.4 and hgb 8.2 so chronic numbers confirmed. Prognosis is very guarded and patient and DPOA are both aware but will proceed with the plan Replaced mag and potassium PAULA GANDHI DO Apr 20, 2017 11:13
[2017-04-20] MEDS ORDERED: PHENYLEPHRINE INJ 10 MG/ML (NEO-SYNEPHRINE 1%) ONE (12:05)
[2017-04-20] MEDS ORDERED: meTOprolol 5 MG/5 ML (LOPRESSOR) VIAL ONE (12:11)
--- NOTE | 2017-04-20 12:33 | Cardiology Progress Note ---
Cardiology SOAP Progress Note Subjective: Still has mild shortness of breath Objective: I&O/Vital Signs Vital Sign - Last 12Hours 04/20/17 04/20/17 04/20/17 04/20/17 01:00 01:00 02:00 03:00 Pulse 101 107 106 104 Resp 26 28 24 B/P (MAP) 107/67 97/71 102/68 Pulse Ox 98 98 98 O2 Delivery Nasal Cannula Nasal Cannula Nasal Cannula O2 Flow Rate 3.50 3.50 3.50 04/20/17 04/20/17 04/20/17 04/20/17 04:00 04:00 04:00 05:00 Temp 97.6 Pulse 105 105 Resp 18 27 B/P (MAP) 96/64 107/68 Pulse Ox 97 98 O2 Delivery Nasal Cannula Nasal Cannula Nasal Cannula O2 Flow Rate 3.50 3.50 3.50 04/20/17 04/20/17 04/20/17 04/20/17 06:00 07:00 07:28 08:00 Pulse 104 105 Resp 31 B/P (MAP) 114/69 Pulse Ox 98 100 O2 Delivery Nasal Cannula Nasal Cannula Nasal Cannula O2 Flow Rate 3.50 3.00 3.50 04/20/17 04/20/17 08:00 12:00 Temp 98.0 O2 Delivery Nasal Cannula Nasal Cannula O2 Flow Rate 3.50 3.50 Intake and Output 04/20/17 00:00 Intake Total 540 ml Output Total 1150 ml Balance -610 ml Weight (Pounds): 136 Weight (Ounces): 0.4 Weight (Calculated Kilograms): [id number] Constitutional: No appears stated age, No AAO x 3, No apparent distress, No PERRL, No well-developed, No well-nourished, No other Respiratory: other (mild crackles) Cardiovascular: tachycardia, S1 and S2 Gastrointestional: No tender, No soft, No round, No distended, No pulsatile mass, No organomegaly, No guarding, No rebound, No tenderness, No hernia, No mass, No audible bowel sounds, No abnormal bowel sounds, No abdominal bruits, No spleenomegaly, No other Extremities: No normal range of motion, No non-tender, No normal inspection, No pedal edema, No calf tenderness, No normal capillary refill, No pelvis stable , No calf tenderness, No inflammation, No pedal edema, No slow capillary refill , No swelling, No other, No abrasion, No clubbing, No cyanosis, No ecchymosis, No laceration, No no lower extremity edema bilateral, No significant edema, No tenderness, No wound Neurologic/Psychiatric: No student outreach coordinator II-XII nml as tested, No no motor/sensory deficits, No alert, No normal mood/affect, No oriented x 3, No abnormal cerebellar tests, No abnormal student outreach coordinator II-XII, No abnormal gait, No aphasia, No EOM palsy, No facial droop, No motor weakness, No sensory deficit, No depressed affect, No disoriented x 3, No other, No grossly intact, No power is 5/5 both on sides Skin: No normal color, No warm/dry, No cyanosis, No cool, No diaphoresis, No damp, No ecchymosis, No jaundice, No mottled, No pallor, No rash, No tattoos/ piercings, No ulcerations, No rash on exposed areas, No ulcerations on exposed areas, No other Results/Procedures: Labs Laboratory Tests 04/19/17 14:10: Troponin I 0.78*H 04/19/17 15:43: Hemoglobin 9.2#L, Hematocrit 29L, Prothrombin Time 16.6H, INR Comment 1.4 04/20/17 06:24: Hemoglobin 8.7L, Hematocrit 26L, White Blood Count 7.8, Red Blood Count 2.94L, Mean Corpuscular Volume 89, Mean Corpuscular Hemoglobin 30, Mean Corpuscular Hemoglobin Concent 33, Red Cell Distribution Width 17.0H, Platelet Count 351, Mean Platelet Volume 10.5H, Sodium Level 140, Potassium Level 3.3L, Chloride Level 107, Carbon Dioxide Level 14L, Anion Gap 19H, Blood Urea Nitrogen 63H, Creatinine 3.12H, Estimat Glomerular Filtration Rate 19, BUN/Creatinine Ratio 20 , Glucose Level 82, Calcium Level 6.9L, Phosphorus Level 5.5H, Magnesium Level 0.9*L, Total Bilirubin 0.5, Aspartate Amino Transf (AST/SGOT) 55H, Alanine Aminotransferase (ALT/SGPT) 49, Alkaline Phosphatase 103, Total Protein 6.0L, Albumin 2.6L Microbiology 04/19/17 Blood Culture - Preliminary, Resulted No growth 04/19/17 Urine Culture - Preliminary, Resulted Staphylococcus Species A/P: Assessment/Dx: Right hip fracture, pending surgery. Congestive heart failure. Positive cardiac enzymes. CKD tachycardia Plan: Right hip fracture, pending surgery. The patient will be considered to be atleast moderate to high risk for perioperative major adverse cardiac events undergoing a moderate risk noncardiac surgery. Acute systolic Congestive heart failure: Mckeon catheter placed yesterday. Lasix IV 160 mg this morning. Severe LV systolic dysfunction. Positive cardiac enzymes: serial troponin shows same level of troponin. this is very unlikely ACS. Since mild elevation of troponin can occur in CHF especially with CKD and in a patient with tachycardia. CKD: defer to primary team. previous creatinine from [facility] was also 3. tachycardia: unclear etiology on EKG. P waves are difficult discern. Differential include afib vs atrial tachycardia vs sinus tachycardia. positive D dimer: will defer to IM and Pulmonary. . Thank you for your consultation. Please call me if you have any questions. Ramírez Bigsg MD, FACP, FACC, FSCAI, FHRS, CCDS Interventional Cardiology Cardiac Electrophysiology Vascular Medicine and Endovascular Interventions Cyndee BIGGS MD Apr 20, 2017 12:33
[2017-04-20] MEDS ORDERED: LACTATED RINGERS 1,000 ML IV ONE (13:07)
[2017-04-20] MEDS ORDERED: GLYCOPYRROLATE 0.2 MG/ML (ROBINUL) 2 ML VIAL ONE (13:07)
[2017-04-20] MEDS ORDERED: NEOSTIGMINE (BLOXIVERZ ) 1 MG/1ML 10 ML VIAL ONE (13:07)
[2017-04-20] MEDS ORDERED: NS (IVPB) 100 ML ONE (13:07)
[2017-04-20] MEDS ORDERED: ROCURONIUM 50 MG/5 ML (ZEMURON) VIAL IV ONE (13:29)
--- NOTE | 2017-04-20 14:07 | Progress Note-Post Operative ---
Post-Operative Progess Note Surgeon (s)/Cleaner Assistant (s) Surgeon TIM VALDEZ DO Cleaner Assistant: Chepe Titus ADVERTISING DISPLAY ROTATOR-c Pre-Operative Diagnosis Displaced right femoral neck fracture Post-Operative Diagnosis same Procedure & Operative Findings Date of Procedure 04/20/17 Procedure Performed/Findings Biomet bipolar prosthesis Anesthesia Type General Estimated Blood Loss Estimated blood loss (mL): 100 ml Specimens/Packing Specimens Removed femoral head not sent to pathology TIM VALDEZ DO Apr 20, 2017 2:07 pm
--- NOTE | 2017-04-20 14:16 | Diagnostic Imaging Report ---
INDICATION: ET tube placement. FINDINGS: An ET tube is present. The tip is approximately 1 cm above the brissa overlying the tracheal shadow. The heart is enlarged. The lungs are well-aerated. There are diffuse infiltrates throughout both lungs. There are bilateral pleural effusions. IMPRESSION: 1. The ET tube placement is in the lower trachea although is above the brissa. 2. Cardiomegaly with diffuse infiltrates throughout both lungs. Dictated by: Dictated on workstation # [id number]
[2017-04-20] MEDS: SODIUM BICARBONATE 8.4% VIAL 100 MEQ in 1/2 NS IV SOLUTION 1,000 ML IV SCH (15:20)
[2017-04-20] MEDS ORDERED: fentaNYL INJECTION 100 MCG/2 ML AMP IV PRN (15:45)
[2017-04-20 16:08] LABS: ALBUMIN 1.9 GM/DL (3.2-4.5); BILIRUBIN,TOTAL 0.5 MG/DL (0.1-1.0); CREATININE SERUM 2.04 MG/DL (0.60-1.30); POTASSIUM 3.2 MMOL/L (3.6-5.0); TOTAL PROTEIN 4.3 GM/DL (6.4-8.2)
--- NOTE | 2017-04-20 16:20 | Diagnostic Imaging Report ---
CHEST 1 VIEW, AP/PA ONLY. INDICATION: OG tube placement. COMPARISON: Earlier same day at 02:03 p.m. FINDINGS: Support Devices: Stable ET tube with tip approximately 3 cm above the brissa. Enteric tube has tip coiled in the region of the proximal stomach. Chest: Unchanged diffuse bilateral ill-defined pulmonary opacities. Probable small bilateral layering pleural effusions are unchanged. No pneumothorax. Stable mild cardiomegaly. IMPRESSION: 1. Enteric tube has tip overlying the region of the proximal stomach. 2. Unchanged diffuse bilateral pulmonary opacities and small pleural effusions suggestive of pulmonary edema. This could represent ARDS in the appropriate setting. Dictated by: Dictated on workstation # [id number]
--- NOTE | 2017-04-20 16:25 | Diagnostic Imaging Report ---
INDICATION: Status post right hip arthroplasty. COMPARISON: None available. TECHNIQUE: AP view of the pelvis. Findings: Right hip hemiarthroplasty with femoral component the position. No acute periprosthetic fracture. Expected post operative soft tissue gas and swelling along the lateral aspect of the right hip. There is a double-J nephroureteral stent visualized in the lower abdomen and pelvis. Degenerative changes in the lumbar spine are noted. IMPRESSION: Status post right hip hemiarthroplasty without evidence of immediate complication on this single frontal view of the pelvis. Dictated by: Dictated on workstation # [id number]
[2017-04-20] MEDS: PROPOFOL DRIP (ICU) 100 ML IV SCH (16:37)
[2017-04-20 16:39] LABS: ABG BASE EXCESS -8.5 MMOL/L (-2.5-2.5); ABG OXYGEN SATURATION 98 % (94-100); ABG PCO2 36 MMHG (35-45); ABG PH 7.29 (7.37-7.43); ABG PO2 115 MMHG (79-93); ABG TCO2 18.2 MMOL/L (21.0-31.0)
[2017-04-20 16:40] LABS: ABG HCO3 17 MMOL/L (23-27); PATIENT TEMP 97.1
[2017-04-20 17:52] LABS: INR 1.6 (0.8-1.4); PROTHROMBIN TIME PATIENT 18.4 SEC (12.2-14.7)
[2017-04-20 18:03] LABS: CREATININE SERUM 2.46 MG/DL (0.60-1.30); MAGNESIUM 1.5 MG/DL (1.8-2.4); POTASSIUM 3.4 MMOL/L (3.6-5.0)
[2017-04-20 18:12] LABS: CALCIUM 5.7 MG/DL (8.5-10.1)
[2017-04-20] MEDS: SIMvastatin 10 MG (ZOCOR) TAB PO SCH (19:24)
[2017-04-20] MEDS: MAGNESIUM 1 GM/D5W 100 ML IVPB IV SCH ×2 (19:41→20:48)
[2017-04-20] MEDS: POTASSIUM CL 10 MEQ/50 ML IVPB (PRE-MIX) IV SCH ×4 (19:41→21:56)
[2017-04-20] MEDS: SODIUM BICARBONATE 8.4% VIAL 150 MEQ in D5W 1000 ML IV SOLUTION 1,000 ML IV SCH (19:47)
[2017-04-20 19:51] LABS: ABG BASE EXCESS -6.8 MMOL/L (-2.5-2.5); ABG HCO3 18 MMOL/L (23-27); ABG OXYGEN SATURATION 99 % (94-100); ABG PCO2 32 MMHG (35-45); ABG PH 7.36 (7.37-7.43); ABG PO2 109 MMHG (79-93); ABG TCO2 18.8 MMOL/L (21.0-31.0)
[2017-04-20 19:52] LABS: PATIENT TEMP 97
[2017-04-20 23:50] LABS: CALCIUM 7.3 MG/DL (8.5-10.1); CREATININE SERUM 3.23 MG/DL (0.60-1.30); POTASSIUM 4.5 MMOL/L (3.6-5.0)
[2017-04-21] VITALS (29 sets, daily range): BP systolic 85–119; BP diastolic 37–69
[2017-04-21] MEDS: inSUlin (REGULAR) HUMAN 1 UNIT/0.01 ML (CHARGE PER UNIT) SC SCH ×3 (00:24→12:56)
[2017-04-21 04:29] LABS: ABG BASE EXCESS -1.8 MMOL/L (-2.5-2.5); ABG HCO3 21 MMOL/L (23-27); ABG OXYGEN SATURATION 99 % (94-100); ABG PCO2 28 MMHG (35-45); ABG PH 7.49 (7.37-7.43); ABG PO2 92 MMHG (79-93); ABG TCO2 22.1 MMOL/L (21.0-31.0); ALLENS TEST ART LINE; PATIENT TEMP 97.3
[2017-04-21 04:50] LABS: BASOPHILS % (AUTO) 0 % (0-10); EOSINOPHILS % (AUTO) 0 % (0-10); LYMPHOCYTES # (AUTO) 0.2 X 10^3 (1.0-4.0); LYMPHOCYTES % (AUTO) 2 % (12-44); MEAN CORPUSCULAR HEMOGLOBIN 29 PG (25-34); MEAN CORPUSCULAR HGB CONC 33 G/DL (32-36); MEAN CORPUSCULAR VOLUME 88 FL (80-99); MEAN PLATELET VOLUME 10.6 FL (7.4-10.4); MONOCYTES # (AUTO) 0.5 X 10^3 (0.0-1.0); MONOCYTES % (AUTO) 7 % (0-12); NEUTROPHILS # (AUTO) 7.4 X 10^3 (1.8-7.8); NEUTROPHILS % (AUTO) 92 % (42-75); PLATELET COUNT 359 10^3/uL (130-400); RED BLOOD COUNT 2.93 10^6/uL (4.35-5.85); RED CELL DISTRIBUTION WIDTH 16.8 % (10.0-14.5); WHITE BLOOD COUNT 8.1 10^3/uL (4.3-11.0)
[2017-04-21 05:17] LABS: ALBUMIN 2.4 GM/DL (3.2-4.5); BILIRUBIN,TOTAL 0.3 MG/DL (0.1-1.0); CALCIUM 7.5 MG/DL (8.5-10.1); CREATININE SERUM 3.22 MG/DL (0.60-1.30); TOTAL PROTEIN 5.7 GM/DL (6.4-8.2)
[2017-04-21] MEDS: PROPOFOL DRIP (ICU) 100 ML IV SCH (06:31)
[2017-04-21] MEDS: CATHETER FLUSH 10 ML SYR IV SCH ×2 (06:32→15:24)
[2017-04-21] MEDS: KCL 20 MEQ TAB (K-DUR) PO SCH (06:32)
[2017-04-21] MEDS: POTASSIUM CL 10MEQ/50ML IVPB 50 ML IV SCH (06:32)
[2017-04-21] MEDS: MAGNESIUM 1 GM/100 ML IVPB 100 ML IV SCH (06:32)
[2017-04-21] MEDS: RT-ALBUTEROL SULF 2.5 MG/3 ML PRE-MIX VIAL IH SCH ×3 (06:56→20:44)
[2017-04-21] MEDS: ASCORBIC ACID (VIT C) 500 MG TABLET PO SCH (07:06)
[2017-04-21] MEDS: PANTOPRAZOLE 40 MG (PROTONIX) TAB PO SCH (07:06)
[2017-04-21] MEDS: MULTIVIT W/MINERALS TAB (THERAGRAN M) PO SCH (07:06)
--- NOTE | 2017-04-21 07:51 | Diagnostic Imaging Report ---
INDICATION: Respiratory failure. Portable chest 4:46 AM. There are bilateral perihilar alveolar infiltrates which appear to be more centrally located compared to the previous day. ET tube and NG tube remain in stable position. IMPRESSION: Improving bilateral perihilar alveolar infiltrates. Dictated by: Dictated on workstation # [id number]
--- NOTE | 2017-04-21 08:00 | Pulmonary Progress Note ---
Subjective Time Seen by Provider: 08:27 Subjective/Events-last exam PT is doing well post surgery. will proceed with extubation. No complications noted. Exam Exam Vital Signs Date Time Temp Pulse Resp B/P (MAP) Pulse Ox O2 Delivery O2 Flow Rate FiO2 04/21/17 06:56 92 18 100 25 04/21/17 06:06 92 18 89/54 100 Mechanical Ventilator 30.00 04/21/17 05:06 96 20 92/55 100 Mechanical Ventilator 30.00 04/21/17 04:18 94 23 100 30 04/21/17 04:12 90 24 100 30 04/21/17 04:04 91 23 102/48 100 Mechanical Ventilator 30.00 04/21/17 04:00 Mechanical Ventilator 30 04/21/17 03:23 90 20 109/55 100 Mechanical Ventilator 30.00 100/61 04/21/17 02:19 83 18 98 30 04/21/17 02:03 85 17 103/40 100 Mechanical Ventilator 30.00 04/21/17 01:00 84 04/21/17 01:00 84 22 101/43 100 Mechanical Ventilator 30.00 04/21/17 00:33 89 19 100 30 04/21/17 00:23 93 22 100 Mechanical Ventilator 30.00 102/64 04/21/17 00:00 Mechanical Ventilator 30 04/21/17 00:00 97.0 04/20/17 23:14 92 21 105/41 98 Mechanical Ventilator 30.00 04/20/17 22:17 93 23 100 40 04/20/17 22:12 98 23 127/45 100 Mechanical Ventilator 40.00 04/20/17 21:20 91 20 112/41 100 Mechanical Ventilator 40.00 04/20/17 20:13 88 22 100 40 04/20/17 20:00 Mechanical Ventilator 40 04/20/17 20:00 97.7 04/20/17 20:00 85 17 105/46 100 Mechanical Ventilator 40.00 98/62 04/20/17 19:00 84 04/20/17 19:00 87 22 108/47 100 Mechanical Ventilator 40.00 04/20/17 18:33 89 21 100 40 04/20/17 18:13 109/49 04/20/17 18:00 89 20 107/49 100 Mechanical Ventilator 40.00 04/20/17 17:00 Mechanical Ventilator 40.00 04/20/17 17:00 90 16 113/47 100 Mechanical Ventilator 40.00 04/20/17 16:37 122/51 Mechanical Ventilator 04/20/17 16:12 98 21 100 50 04/20/17 16:00 100 18 134/55 100 Mechanical Ventilator 50.00 04/20/17 16:00 97.1 Mechanical Ventilator 50.00 04/20/17 16:00 Mechanical Ventilator 50 04/20/17 15:00 103 13 133/53 99 Mechanical Ventilator 50.00 04/20/17 14:45 105 15 100 60 04/20/17 14:45 Mechanical Ventilator 50.00 04/20/17 14:27 101 04/20/17 14:15 Mechanical Ventilator 60.00 04/20/17 14:00 93 11 108/53 100 Mechanical Ventilator 100.00 04/20/17 13:55 97.6 Mechanical Ventilator 100.00 04/20/17 13:55 Mechanical Ventilator 100.00 04/20/17 13:30 85 18 100 100 04/20/17 12:00 Nasal Cannula 3.50 04/20/17 10:00 107 27 108/65 96 Nasal Cannula 3.50 04/20/17 09:00 105 26 104/66 99 Nasal Cannula 3.50 04/20/17 08:00 103 23 103/63 100 Nasal Cannula 3.50 04/20/17 08:00 98.0 Nasal Cannula 3.50 04/20/17 08:00 Nasal Cannula 3.50 I & O 04/21/17 07:00 Intake Total 700 ml Output Total 1875 ml Balance -1175 ml General Appearance: No Apparent Distress, WD/WN HEENT: PERRL/EOMI Neck: Full Range of Motion, Normal Inspection, Non Tender, Supple Respiratory: Chest Non Tender, Lungs Clear, Normal Breath Sounds, No Accessory Muscle Use, No Respiratory Distress Cardiovascular: Regular Rate, Rhythm, No Murmur, Irregularly Irregular Capillary Refill: Less Than 3 Seconds Gastrointestinal: normal bowel sounds, non tender, soft Extremity: Normal Capillary Refill, Normal Inspection, Normal Range of Motion ( limited ROM due to right hip pain.), Non Tender, No Calf Tenderness Neurologic/Psychiatric: Alert, Oriented x3 Skin: Normal Color, Warm/Dry Lymphatic: No Adenopathy Results Lab Laboratory Tests 04/19/17 15:43 04/20/17 06:24 04/20/17 15:40 04/20/17 17:30 04/20/17 23:25 04/21/17 04:20 Assessment/Plan Assessment/Plan s/p hip fracture - s/p repair -Ventilator support post surgery -PT is doing well. Will proceed with extubation -Weaning parameters reviewed and are good -Pt is only requiring 25% Fi02 on ventilator and minimal secretions -Start CLD advance as tolerated after extubation -Pain control - pt states that he has no pain -Orthopedic surgery following - Sepsis with pneumonia RLL and probable UTI -irizarry cultures - reviewed -UA with C&S -Continue Levaquin and flagyl Metabolic acidosis -bicarb gtt with d51/2NS decrease to 50cc/hr Atlectasis with small right pleural effusion -monitor -IS, SVNs Afib RVR with elevated troponin -Cardiology is following -Echo pending Anemia s/p 1 unit of PRBC -Monitor -occult stool chronic renal failure with metabolic acidosis -gentle hydration - bicarb gtt 1/2 NS with 2amps of HC03 50cc/hr -Lactic acid is normal -Dr. 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 Marie. -SCDs labs and CXR revewed 233 Clinical Quality Measures DVT/VTE Risk/Contraindication: Risk Factor Score Per Nursin RFS Level Per Nursing on Admit: 4+=Very High Contraindications-Pharm: Other *list below* Other: surgery LILIANA MIJARES DO Apr 21, 2017 08:00
[2017-04-21] MEDS: SODIUM BICARBONATE 8.4% VIAL 150 MEQ in D5W 1000 ML IV SOLUTION 1,000 ML IV SCH (09:25)
[2017-04-21] MEDS ORDERED: ENOXAPARIN 30 MG/0.3 ML (LOVENOX) SYR SC SCH (09:45)
[2017-04-21] MEDS: LEVOFLOXACIN 500 MG/100 ML IV 100 ML IV SCH (10:05)
[2017-04-21] MEDS: SENNA W/DOCUSATE (SENOKOT S) TABLET PO SCH ×2 (10:05→21:26)
[2017-04-21] MEDS: FERROUS SULF 325 MG (IRON) TAB PO SCH (10:05)
[2017-04-21] MEDS: LACTOBACILLUS Acidoph/Bulgar (LACTINEX/FLORANEX) TAB PO SCH (10:05)
[2017-04-21] MEDS: metroNIDAZOLE 500MG/100ML IVPB 100 ML IV SCH ×2 (10:05→21:27)
[2017-04-21] MEDS: ENOXAPARIN 30 MG/0.3 ML (LOVENOX) SYR SC SCH (10:05)
[2017-04-21] MEDS: FUROSEMIDE 20 MG (LASIX) TAB PO SCH (10:54)
--- NOTE | 2017-04-21 11:00 | Progress Note (SOAP) ---
Subjective Date Seen by Provider: Apr 21, 2017 Time Seen by Provider: 10:45 Subjective/Events-last exam doing well. normal colostomy output. pain controlled. good urine output. no fever/chills Objective Exam Vital Signs Date Time Temp Pulse Resp B/P (MAP) Pulse Ox O2 Delivery O2 Flow Rate FiO2 04/21/17 08:15 98.1 Nasal Cannula 2.00 04/21/17 08:05 Nasal Cannula 2.00 04/21/17 08:02 99 Nasal Cannula 2.00 04/21/17 07:00 102 04/21/17 06:56 92 18 100 25 04/21/17 06:06 92 18 89/54 100 Mechanical Ventilator 30.00 04/21/17 05:06 96 20 92/55 100 Mechanical Ventilator 30.00 04/21/17 04:18 94 23 100 30 04/21/17 04:12 90 24 100 30 04/21/17 04:04 91 23 102/48 100 Mechanical Ventilator 30.00 04/21/17 04:00 Mechanical Ventilator 30 04/21/17 03:23 90 20 109/55 100 Mechanical Ventilator 30.00 100/61 04/21/17 02:19 83 18 98 30 04/21/17 02:03 85 17 103/40 100 Mechanical Ventilator 30.00 04/21/17 01:00 84 04/21/17 01:00 84 22 101/43 100 Mechanical Ventilator 30.00 04/21/17 00:33 89 19 100 30 04/21/17 00:23 93 22 100 Mechanical Ventilator 30.00 102/64 04/21/17 00:00 Mechanical Ventilator 30 04/21/17 00:00 97.0 04/20/17 23:14 92 21 105/41 98 Mechanical Ventilator 30.00 04/20/17 22:17 93 23 100 40 04/20/17 22:12 98 23 127/45 100 Mechanical Ventilator 40.00 04/20/17 21:20 91 20 112/41 100 Mechanical Ventilator 40.00 04/20/17 20:13 88 22 100 40 04/20/17 20:00 Mechanical Ventilator 40 04/20/17 20:00 97.7 04/20/17 20:00 85 17 105/46 100 Mechanical Ventilator 40.00 98/62 04/20/17 19:00 84 04/20/17 19:00 87 22 108/47 100 Mechanical Ventilator 40.00 04/20/17 18:33 89 21 100 40 04/20/17 18:13 109/49 04/20/17 18:00 89 20 107/49 100 Mechanical Ventilator 40.00 04/20/17 17:00 Mechanical Ventilator 40.00 04/20/17 17:00 90 16 113/47 100 Mechanical Ventilator 40.00 04/20/17 16:37 122/51 Mechanical Ventilator 04/20/17 16:12 98 21 100 50 04/20/17 16:00 100 18 134/55 100 Mechanical Ventilator 50.00 04/20/17 16:00 97.1 Mechanical Ventilator 50.00 04/20/17 16:00 Mechanical Ventilator 50 04/20/17 15:00 103 13 133/53 99 Mechanical Ventilator 50.00 04/20/17 14:45 105 15 100 60 04/20/17 14:45 Mechanical Ventilator 50.00 04/20/17 14:27 101 04/20/17 14:15 Mechanical Ventilator 60.00 04/20/17 14:00 93 11 108/53 100 Mechanical Ventilator 100.00 04/20/17 13:55 97.6 Mechanical Ventilator 100.00 04/20/17 13:55 Mechanical Ventilator 100.00 04/20/17 13:30 85 18 100 100 04/20/17 12:00 Nasal Cannula 3.50 I & O 04/21/17 07:00 Intake Total 700 ml Output Total 1875 ml Balance -1175 ml Capillary Refill : Less Than 3 SecondsLess Than 3 Seconds General Appearance: No Apparent Distress HEENT: PERRL/EOMI Neck: Full Range of Motion Respiratory: Chest Non Tender, Lungs Clear, Normal Breath Sounds Cardiovascular: Regular Rate, Rhythm Gastrointestinal: normal bowel sounds Extremity: Normal Capillary Refill Neurologic/Psychiatric: Alert, Oriented x3 Skin: Normal Color Lymphatic: No Adenopathy Results Lab Laboratory Tests 04/20/17 15:30: Blood Gas Puncture Site RT. ARTLINE, Blood Gas Patient Temperature 97.1, Arterial Blood pH 7.29*L, Arterial Blood Partial Pressure CO2 36, Arterial Blood Partial Pressure O2 115H, Arterial Blood HCO3 17*L, Arterial Blood Total CO2 18.2L, Arterial Blood Oxygen Saturation 98, Arterial Blood Base Excess -8.5L , Efrain Test NA, Blood Gas Ventilator Setting YES, Blood Gas Inspired Oxygen 50% 04/20/17 15:40: Hemoglobin 6.8#*L, Hematocrit 21L, Sodium Level 140, Potassium Level 3.2L, Chloride Level 117#H, Carbon Dioxide Level 11L, Anion Gap 12, Blood Urea Nitrogen 48H, Creatinine 2.04H, Estimat Glomerular Filtration Rate 31, BUN/ Creatinine Ratio 24, Glucose Level 121H, Calcium Level 5.0#*L, Total Bilirubin 0.5, Aspartate Amino Transf (AST/SGOT) 51H, Alanine Aminotransferase (ALT/SGPT) 43, Alkaline Phosphatase 79, Total Protein 4.3L, Albumin 1.9L 04/20/17 17:30: Hemoglobin 7.8L, Hematocrit 24L, Sodium Level 139, Potassium Level 3.4L, Chloride Level 112H, Carbon Dioxide Level 11L, Anion Gap 16H, Blood Urea Nitrogen 56H, Creatinine 2.46H, Estimat Glomerular Filtration Rate 25, BUN/ Creatinine Ratio 23, Glucose Level 137H, Calcium Level 5.7*L, Prothrombin Time 18.4H, INR Comment 1.6H, Magnesium Level 1.5L 04/20/17 19:05: Lactic Acid Level 0.68 04/20/17 19:35: Blood Gas Puncture Site ARTLINE, Blood Gas Patient Temperature 97, Arterial Blood pH 7.36L, Arterial Blood Partial Pressure CO2 32L, Arterial Blood Partial Pressure O2 109H, Arterial Blood HCO3 18L, Arterial Blood Total CO2 18.8L, Arterial Blood Oxygen Saturation 99, Arterial Blood Base Excess -6.8L, Efrain Test NA, Blood Gas Ventilator Setting YES, Blood Gas Inspired Oxygen 40% 04/20/17 23:25: Sodium Level 136, Potassium Level 4.5, Chloride Level 103, Carbon Dioxide Level 16L, Anion Gap 17H, Blood Urea Nitrogen 66H, Creatinine 3.23#H, Estimat Glomerular Filtration Rate 18, BUN/Creatinine Ratio 20, Glucose Level 229H, Calcium Level 7.3L, Magnesium Level 2.4 04/21/17 04:20: Blood Gas Puncture Site [place], Blood Gas Patient Temperature 97.3, Arterial Blood pH 7.49H, Arterial Blood Partial Pressure CO2 28L, Arterial Blood Partial Pressure O2 92, Arterial Blood HCO3 21L, Arterial Blood Total CO2 22.1, Arterial Blood Oxygen Saturation 99, Arterial Blood Base Excess -1.8, Efrain Test ART LINE, Blood Gas Ventilator Setting YES, Blood Gas Inspired Oxygen 30%, Sodium Level 137, Potassium Level 4.0, Chloride Level 101, Carbon Dioxide Level 19L, Anion Gap 17H, Blood Urea Nitrogen 66H, Creatinine 3.22H, Estimat Glomerular Filtration Rate 18, BUN/Creatinine Ratio 20, Glucose Level 245H, Calcium Level 7.5L, Magnesium Level 2.2, White Blood Count 8.1, Red Blood Count 2.93L, Hemoglobin 8.5L, Hematocrit 26L, Mean Corpuscular Volume 88, Mean Corpuscular Hemoglobin 29, Mean Corpuscular Hemoglobin Concent 33, Red Cell Distribution Width 16.8H, Platelet Count 359, Mean Platelet Volume 10.6H, Neutrophils (%) (Auto) 92H, Lymphocytes (%) (Auto) 2L, Monocytes (%) (Auto) 7, Eosinophils (%) (Auto) 0, Basophils (%) (Auto) 0, Neutrophils # (Auto) 7.4, Lymphocytes # (Auto) 0.2L, Monocytes # (Auto) 0.5, Eosinophils # (Auto) 0.0, Basophils # (Auto) 0.0, Total Bilirubin 0.3, Aspartate Amino Transf (AST/SGOT) 58H, Alanine Aminotransferase (ALT/SGPT) 49, Alkaline Phosphatase 90, Total Protein 5.7L, Albumin 2.4L 04/21/17 09:25: B-Type Natriuretic Peptide 4976.0H Microbiology 04/19/17 Blood Culture - Preliminary, Resulted No growth 04/19/17 Urine Culture - Preliminary, Resulted Staph, Coag Neg (Fresh Foods Clerk) Gram Positive Cocci Assessment/Plan Assessment/Plan Assess & Plan/Chief Complaint fall with right hip fracture s/p ORIF. colovesicular fistula and hx colon cancer. doing well. ambulate. continue current care. ok for floor per general surgery and eventual IRB Clinical Quality Measures DVT/VTE Risk/Contraindication: Risk Factor Score Per Nursin RFS Level Per Nursing on Admit: 4+=Very High Contraindications-Pharm: Other *list below* Other: surgery ALETHEA MYERS MD Apr 21, 2017 11:00
[2017-04-21] MEDS ORDERED: FUROSEMIDE 40 MG/4 ML INJ (LASIX) IVP NR (11:04)
--- NOTE | 2017-04-21 11:49 | Progress Note (SOAP) ---
Subjective Date Seen by Provider: Apr 21, 2017 Time Seen by Provider: 11:50 Subjective/Events-last exam POD 1 Patient wake and without complaints. Was in the setting in the chair earlier this morning and now back in bed. Review of Systems General: No Chills, No Night Sweats, No Fatigue, No Malaise HEENT: No Head Aches, No Eye Pain, No Ear Pain, No Dysphasia, No Sinus Congestion, No Post Nasal Drip, No Sore Throat Musculoskeletal: No: arm pain, back pain, foot pain, hand pain, leg pain, neck pain, other, shoulder pain Neurological: No: Change in speech, Confusion, Incoordination, Numbness, Other , Seizures, Weakness Objective Exam Vital Signs Date Time Temp Pulse Resp B/P (MAP) Pulse Ox O2 Delivery O2 Flow Rate FiO2 04/21/17 08:15 98.1 Nasal Cannula 2.00 04/21/17 08:05 Nasal Cannula 2.00 04/21/17 08:02 99 Nasal Cannula 2.00 04/21/17 07:00 102 04/21/17 06:56 92 18 100 25 04/21/17 06:06 92 18 89/54 100 Mechanical Ventilator 30.00 04/21/17 05:06 96 20 92/55 100 Mechanical Ventilator 30.00 04/21/17 04:18 94 23 100 30 04/21/17 04:12 90 24 100 30 04/21/17 04:04 91 23 102/48 100 Mechanical Ventilator 30.00 04/21/17 04:00 Mechanical Ventilator 30 04/21/17 03:23 90 20 109/55 100 Mechanical Ventilator 30.00 100/61 04/21/17 02:19 83 18 98 30 04/21/17 02:03 85 17 103/40 100 Mechanical Ventilator 30.00 04/21/17 01:00 84 04/21/17 01:00 84 22 101/43 100 Mechanical Ventilator 30.00 04/21/17 00:33 89 19 100 30 04/21/17 00:23 93 22 100 Mechanical Ventilator 30.00 102/64 04/21/17 00:00 Mechanical Ventilator 30 04/21/17 00:00 97.0 04/20/17 23:14 92 21 105/41 98 Mechanical Ventilator 30.00 04/20/17 22:17 93 23 100 40 04/20/17 22:12 98 23 127/45 100 Mechanical Ventilator 40.00 04/20/17 21:20 91 20 112/41 100 Mechanical Ventilator 40.00 04/20/17 20:13 88 22 100 40 04/20/17 20:00 Mechanical Ventilator 40 04/20/17 20:00 97.7 04/20/17 20:00 85 17 105/46 100 Mechanical Ventilator 40.00 98/62 04/20/17 19:00 84 04/20/17 19:00 87 22 108/47 100 Mechanical Ventilator 40.00 04/20/17 18:33 89 21 100 40 04/20/17 18:13 109/49 04/20/17 18:00 89 20 107/49 100 Mechanical Ventilator 40.00 04/20/17 17:00 Mechanical Ventilator 40.00 04/20/17 17:00 90 16 113/47 100 Mechanical Ventilator 40.00 04/20/17 16:37 122/51 Mechanical Ventilator 04/20/17 16:12 98 21 100 50 04/20/17 16:00 100 18 134/55 100 Mechanical Ventilator 50.00 04/20/17 16:00 97.1 Mechanical Ventilator 50.00 04/20/17 16:00 Mechanical Ventilator 50 04/20/17 15:00 103 13 133/53 99 Mechanical Ventilator 50.00 04/20/17 14:45 105 15 100 60 04/20/17 14:45 Mechanical Ventilator 50.00 04/20/17 14:27 101 04/20/17 14:15 Mechanical Ventilator 60.00 04/20/17 14:00 93 11 108/53 100 Mechanical Ventilator 100.00 04/20/17 13:55 97.6 Mechanical Ventilator 100.00 04/20/17 13:55 Mechanical Ventilator 100.00 04/20/17 13:30 85 18 100 100 04/20/17 12:00 Nasal Cannula 3.50 I & O 04/21/17 07:00 Intake Total 700 ml Output Total 1875 ml Balance -1175 ml Capillary Refill : Less Than 3 SecondsLess Than 3 Seconds General Appearance: No Apparent Distress Respiratory: No Respiratory Distress Peripheral Pulses: 4+ Dorsalis Pedis (R) Extremity: Other (Incision looks good, dry clean and intact. N/V/M/I) Neurologic/Psychiatric: Alert, Oriented x3, No Motor/Sensory Deficits Skin: Normal Color, Warm/Dry Results Lab Laboratory Tests 04/20/17 15:30: Blood Gas Puncture Site RT. [facility], Blood Gas Patient Temperature 97.1, Arterial Blood pH 7.29*L, Arterial Blood Partial Pressure CO2 36, Arterial Blood Partial Pressure O2 115H, Arterial Blood HCO3 17*L, Arterial Blood Total CO2 18.2L, Arterial Blood Oxygen Saturation 98, Arterial Blood Base Excess -8.5L , Efrain Test NA, Blood Gas Ventilator Setting YES, Blood Gas Inspired Oxygen 50% 04/20/17 15:40: Hemoglobin 6.8#*L, Hematocrit 21L, Sodium Level 140, Potassium Level 3.2L, Chloride Level 117#H, Carbon Dioxide Level 11L, Anion Gap 12, Blood Urea Nitrogen 48H, Creatinine 2.04H, Estimat Glomerular Filtration Rate 31, BUN/ Creatinine Ratio 24, Glucose Level 121H, Calcium Level 5.0#*L, Total Bilirubin 0.5, Aspartate Amino Transf (AST/SGOT) 51H, Alanine Aminotransferase (ALT/SGPT) 43, Alkaline Phosphatase 79, Total Protein 4.3L, Albumin 1.9L 04/20/17 17:30: Hemoglobin 7.8L, Hematocrit 24L, Sodium Level 139, Potassium Level 3.4L, Chloride Level 112H, Carbon Dioxide Level 11L, Anion Gap 16H, Blood Urea Nitrogen 56H, Creatinine 2.46H, Estimat Glomerular Filtration Rate 25, BUN/ Creatinine Ratio 23, Glucose Level 137H, Calcium Level 5.7*L, Prothrombin Time 18.4H, INR Comment 1.6H, Magnesium Level 1.5L 04/20/17 19:05: Lactic Acid Level 0.68 04/20/17 19:35: Blood Gas Puncture Site [facility], Blood Gas Patient Temperature 97, Arterial Blood pH 7.36L, Arterial Blood Partial Pressure CO2 32L, Arterial Blood Partial Pressure O2 109H, Arterial Blood HCO3 18L, Arterial Blood Total CO2 18.8L, Arterial Blood Oxygen Saturation 99, Arterial Blood Base Excess -6.8L, Efrain Test NA, Blood Gas Ventilator Setting YES, Blood Gas Inspired Oxygen 40% 04/20/17 23:25: Sodium Level 136, Potassium Level 4.5, Chloride Level 103, Carbon Dioxide Level 16L, Anion Gap 17H, Blood Urea Nitrogen 66H, Creatinine 3.23#H, Estimat Glomerular Filtration Rate 18, BUN/Creatinine Ratio 20, Glucose Level 229H, Calcium Level 7.3L, Magnesium Level 2.4 04/21/17 04:20: Blood Gas Puncture Site [facility], Blood Gas Patient Temperature 97.3, Arterial Blood pH 7.49H, Arterial Blood Partial Pressure CO2 28L, Arterial Blood Partial Pressure O2 92, Arterial Blood HCO3 21L, Arterial Blood Total CO2 22.1, Arterial Blood Oxygen Saturation 99, Arterial Blood Base Excess -1.8, Efrain Test ART LINE, Blood Gas Ventilator Setting YES, Blood Gas Inspired Oxygen 30%, Sodium Level 137, Potassium Level 4.0, Chloride Level 101, Carbon Dioxide Level 19L, Anion Gap 17H, Blood Urea Nitrogen 66H, Creatinine 3.22H, Estimat Glomerular Filtration Rate 18, BUN/Creatinine Ratio 20, Glucose Level 245H, Calcium Level 7.5L, Magnesium Level 2.2, White Blood Count 8.1, Red Blood Count 2.93L, Hemoglobin 8.5L, Hematocrit 26L, Mean Corpuscular Volume 88, Mean Corpuscular Hemoglobin 29, Mean Corpuscular Hemoglobin Concent 33, Red Cell Distribution Width 16.8H, Platelet Count 359, Mean Platelet Volume 10.6H, Neutrophils (%) (Auto) 92H, Lymphocytes (%) (Auto) 2L, Monocytes (%) (Auto) 7, Eosinophils (%) (Auto) 0, Basophils (%) (Auto) 0, Neutrophils # (Auto) 7.4, Lymphocytes # (Auto) 0.2L, Monocytes # (Auto) 0.5, Eosinophils # (Auto) 0.0, Basophils # (Auto) 0.0, Total Bilirubin 0.3, Aspartate Amino Transf (AST/SGOT) 58H, Alanine Aminotransferase (ALT/SGPT) 49, Alkaline Phosphatase 90, Troponin I 0.43*H, Total Protein 5.7L, Albumin 2.4L 04/21/17 09:25: B-Type Natriuretic Peptide 4976.0H Microbiology 04/19/17 Blood Culture - Preliminary, Resulted No growth 04/19/17 Urine Culture - Preliminary, Resulted Staph, Coag Neg (Doctor Assistant) Gram Positive Cocci Assessment/Plan Assessment/Plan Assess & Plan/Chief Complaint A: S/P right MISSY P: will continue working with ambulation and daily dressing changes. Clinical Quality Measures DVT/VTE Risk/Contraindication: Risk Factor Score Per Nursin RFS Level Per Nursing on Admit: 4+=Very High Contraindications-Pharm: Other *list below* Other: surgery PAGE HAND Apr 21, 2017 11:49
[2017-04-21] MEDS: meTOprolol TARTRATE 25 MG (LOPRESSOR) TABLET PO SCH ×2 (12:08→21:26)
[2017-04-21] MEDS: ACETAMINOPHEN 500 MG TAB (TYLENOL) PO PRN (12:10)
--- NOTE | 2017-04-21 12:41 | Progress Note-Hospitalist ---
Progress Note HPI/CC on Admission CC: Right hip fracture HPI: This is a 82 yoWM pt who presents with right hip fracture. Creat 3.5 which labs show is chronically elevated, heart failure indicated, BNP 6116. Plans to relieve pain with hip fracture repair are underway tester sound: Pt is on Flagyl and Levaquin empirically Dr. Biggs added troponin and d-dimer to labs. He is not yet sure on EKG b/c it appears to be sinus tachy but then P-waves disappear so may be PAF. A unit of blood will be given per Dr Almanzar Hold of on DVT anti-coagulation. Dr Marie needs consulted prior to this because spinal anesthesia will be attempted and could prevent that. Labs not received from [facility] yet Dr. Alves is on board for stent in ureter. 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 When he woke he called for help at [facility] Dr. Marie will perform surgery tomorrow and Cardiology has deemed him high risk but unable to modify risk factors and the only change he has for any quality of life is the surgery. Pt was moved to ICU last night. Pt believes he has a bladder infection Pt is experiencing SOB, but has no current chest pain or palpitations. Dr. 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 Marie. Pt was informed that I am working with many different specialties to make sure he is okay. Pt denies pain currently, but confirms pain with movement. Bladder infection discussed. Pt was informed that his BP was low so I moved him to ICU Physical exam stable. BP and O2 look good Pt was informed that he will be given a unit of blood Scribed by Riya Casarez under the direct supervision of Dr. Gandhi. 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.[address] consulting urology to evaluate the need for replacement of stent Severe volume overload causing dyspnea and elevated BNP of 6100 Colon cancer 10 years ago and resection 4 years ago currently in remission Chronic debility Severe anemia mostly due to chronic kidney disease and chronic illness but likely acute blood loss from hip fracture 6 days ago receiving 1 unit of transfusion today preoperatively Sinus tachycardia superimposed with paroxysmal atrial fibrillation Acute on chronic UTI placed on antibiotics empirically Abdominal pain highly suspicious for diverticulitis mild episode general surgery Dr. Vásquez consulted Diagonsis/Assessment & Plan Patient had an uncomplicated hip fracture repair in late yesterday afternoon and remain intubated but now extubated without difficulty Dr. Almanzar updated me and was pleased with his recovery Up in chair and doing much better Denies any pain Labs reviewed Creatinine noted to be stable BNP 4000 No fever, vital signs stable, pleasant, improved, debilitated but overall in no distress Tachycardic at 110 bpm Clear to auscultation bilaterally but diminished in the bases No edema Laboratory Tests 04/20/17 15:40 04/20/17 17:30 04/20/17 23:25 04/21/17 04:20 Assessment: Right displaced femoral fracture due to fall 7 days ago at halfway after multiple x-ray was negative for fracture proceeding on with surgery yesterday per Dr Marie uncomplicated to have any chance of a quality of life without severe hip fracture pain Respiratory failure requiring reintubation and maintained intubation overnight and extubated without difficulties by Dr. 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 and Flagyl empirically Hypokalemia and Hypomagnesemia Severe volume overload causing dyspnea and elevated BNP of 6100 received large dose of Lasix yesterday morning prior to surgery now 4600 Colon cancer 10 years ago and resection 4 years ago currently in remission Chronic debility Severe anemia mostly due to chronic kidney disease and chronic illness but likely acute blood loss from hip fracture 7 days ago received 1 unit of transfusion 2 days ago preoperatively Sinus tachycardia superimposed with paroxysmal atrial fibrillation cardiology on board Acute on chronic UTI placed on antibiotics empirically Abdominal pain highly suspicious for fistula infection mild episode general surgery Dr. Vásquez consulted Plan: Monitor pt closely in ICU today likely move out tomorrow Appreciate all consultants in the management of this very complex patient: cardiology , general surgery Dr. Vásquez, pulmonology critical care Dr. Almanzar, urology Dr. Alves. [facility] labs from 04/14/17 revealed creat 3.4 and hgb 8.2 so chronic numbers confirmed. Prognosis is very guarded and patient and DPOA are both aware but will proceed with the plan Replaced mag and potassium OOB with PT IS PAULA GANDHI DO Apr 21, 2017 12:41
--- NOTE | 2017-04-21 13:05 | Physical Therapy Evaluation ---
PT Evaluation-General Medical Diagnosis Admission Date Apr 18, 2017 at 15:43 Medical Diagnosis: right MISSY Onset Date: Apr 20, 2017 Therapy Diagnosis Therapy Diagnosis: impaired mobility, strength, endurance Height/Weight Height (Feet): 5 Height (Inches): 6.00 Weight (Pounds): 143 Weight (Ounces): 0.4 Precautions Precautions/Isolations: Fall Prevention, Standard Precautions Weight Bear Status Weight Bearing Restriction: Weight Bearing/Tolerated Location Restriction: R LE Comments patient has total hip precautions Referral Physician: Chepe Titus APRN Reason for Referral: Evaluation/Treatment Medical History Pertinent Medical History: Arthritis, Dementia, GERD, HTN Additional Medical History chronic edema, high cholesterol, bladder infection, renal failure, UTI-chronic, TAKOTNA, surg (abdominal) Current History right total hip arthroplasty Reviewed History: Yes Social History Home: Single Level Current Living Status: Alone Entry Into Home: Stairs With Railing PT Steps Into Home: 5 Prior/Core FIM Prior Level of Function Functional [place] Measure 0=Not Assessed/NA 4=Minimal Assistance 1=Total Assistance 5=Supervision or Setup 2=Maximal Assistance 6=Modified [place] 3=Moderate Assistance 7=Complete [place] Bed Mobility: 6 Transfers (B,C,W/C) (FIM): 6 Gait: 6 Patient states that at one point he was using a single point cane PT Evaluation-Current Subjective Patient in bed pre tx, agrees to PT. He has no complaints of pain. His nurse states that she just put him back to bed, he had been sitting in the chair for quite a while, she said it was difficult to get him back to bed and she would like him to go back to bed when we were done. Pt/Family Goals to be able to go back home and take care of himself Objective Patient Orientation: Person, Place, Situation Attachments: Mckeon Catheter, IV patient has an abduction pillow ROM/Strength ROM Lower Extremities NT Strenght Lower Extremities NT Integumentary/Posture Bladder Incontinence: Mckeon Cath Neuromuscular (Tone, Coordination, Reflexes) WNL Sensory Vision: Wears Glasses Hearing: Impaired Sensation Right Lower Extremit: Intact Sensation Left Lower Extremity: Intact Sensation Lower Extremities Patient states that he has no numbness or tingling. Transfers Functional [place] Measure 0=Not Assessed/NA 4=Minimal Assistance 1=Total Assistance 5=Supervision or Setup 2=Maximal Assistance 6=Modified [place] 3=Moderate Assistance 7=Complete [place] Transfers (B, C, W/C) (FIM): 2 Scootin Rollin Supine to/from Sit: 2 Sit to/from Stand: 4 Patient performed bed mobility and supine to sit with max assist but was able to stand with min assist. Gait Mode of Locomotion: Walk Anticipated Mode of Locomotion: Walk Gait (FIM): 1 Distance: 10' Gait Level of Assist: 4 Gait Persons Needed: 1 Gait Assistive Device: FWW Comments/Gait Description Patient was able to ambulate forward and back about 10' total, he was able to bear weight on his right leg, slow and antalgic ambulation, he did need some assist with balance because he was a little retropulsive but he says he had no dizziness. Balance Sitting Static: Fair Sitting Dynamic: Fair Standing Static: Poor Standing Dynamic: Poor Treatment seated exercises x15 (AP, LAQ) Assessment/Needs Patient has impaired mobility, strength, endurance post right MISSY Rehab Potential: Fair PT Long-Term Goals Long-Term Goals PT Long-Term Goals Time Frame: Apr 28, 2017 Transfers (B,C,W/C) (FIM): 4 Gait (FIM): 2 Distance: 50' Gait Level of Assist: 4 Gait Assistive Device: FWW PT Plan Problem List Problem List: Activity Tolerance, Functional Strength, Safety, Balance, Gait, Transfer, Bed Mobility, ROM Treatment/Plan Treatment Plan: Continue Plan of Care Treatment Plan: Bed Mobility, Education, Functional Activity Garrett, Functional Strength, Gait, Safety, Therapeutic Exercise, Transfers Treatment Duration: Apr 28, 2017 Frequency: Twice Daily (except just once daily on the weekends) Estimated Hrs Per Day: .25 hour per day (15-30 min per day) Patient and/or Family Agrees t: Yes Safety Risks/Education Patient Education: Gait Training, Transfer Techniques, Correct Positioning, Safety Issues Teaching Recipient: Patient Teaching Methods: Demonstration, Discussion Response to Teaching: Reinforcement Needed Discharge Recommendations Plan Patient will perform bed mobility and transfer training, balance and endurance training, functional strengthening, stair training, gait training, and education to improve functional mobility and independence at home. Therapy D/C Recommendations: Home w/ Family Support, [facility] Time/GCodes Time In: 1235 Time Out: 1255 Total Billed Treatment Time: 20 Total Billed Treatment 1 visit EVL 20' CRISTEL PINO PT Apr 21, 2017 13:04
--- NOTE | 2017-04-21 13:09 | Cardiology Progress Note ---
Cardiology SOAP Progress Note Subjective: post surgery. feeling better Objective: I&O/Vital Signs Vital Sign - Last 12Hours 04/21/17 04/21/17 04/21/17 04/21/17 02:03 02:19 03:23 04:00 Pulse 85 83 90 Resp 17 18 20 B/P (MAP) 103/40 109/55 100/61 Pulse Ox 100 98 100 O2 Delivery Mechanical Ventilator Mechanical Ventilator Mechanical Ventilator O2 Flow Rate 30.00 30.00 FiO2 30 30 04/21/17 04/21/17 04/21/17 04/21/17 04:04 04:12 04:18 05:06 Pulse 91 90 94 96 Resp 23 24 23 20 B/P (MAP) 102/48 92/55 Pulse Ox 100 100 100 100 O2 Delivery Mechanical Ventilator Mechanical Ventilator O2 Flow Rate 30.00 30.00 FiO2 30 30 04/21/17 04/21/17 04/21/17 04/21/17 06:06 06:56 07:00 07:00 Pulse 92 92 102 92 Resp 18 18 19 B/P (MAP) 89/54 85/38 Pulse Ox 100 100 100 O2 Delivery Mechanical Ventilator Mechanical Ventilator O2 Flow Rate 30.00 30.00 FiO2 25 04/21/17 04/21/17 04/21/17 04/21/17 08:00 08:02 08:05 08:15 Temp 98.1 Pulse 98 Resp 29 B/P (MAP) 87/67 100/66 Pulse Ox 97 99 O2 Delivery Mechanical Ventilator Nasal Cannula Nasal Cannula Nasal Cannula O2 Flow Rate 30.00 2.00 2.00 2.00 04/21/17 04/21/17 04/21/17 04/21/17 09:00 10:00 11:00 12:39 Pulse 105 111 116 Resp 25 22 38 B/P (MAP) 114/65 99/60 90/58 Pulse Ox 99 96 98 O2 Delivery Nasal Cannula Nasal Cannula Nasal Cannula Room Air O2 Flow Rate 2.00 2.00 2.00 Intake and Output 04/21/17 00:00 Intake Total 50 ml Output Total 825 ml Balance -775 ml Weight (Pounds): 143 Weight (Ounces): 0.4 Weight (Calculated Kilograms): [id number] Constitutional: No appears stated age, No AAO x 3, No apparent distress, No PERRL, No well-developed, No well-nourished, No other Respiratory: No accessory muscle use, No respiratory distress, No chest tender , No chest expansion is symmetric, No chest is bilaterally symmetric, No lungs clear to percussion, No lungs clear to auscultation, No crackles, No rhonchi, No rales, No stridor, No wheezing, No pleural rub, other (mild crackles) Cardiovascular: regular rate-rhythm, tachycardia, S1 and S2 Gastrointestional: No tender, No soft, No round, No distended, No pulsatile mass, No organomegaly, No guarding, No rebound, No tenderness, No hernia, No mass, No audible bowel sounds, No abnormal bowel sounds, No abdominal bruits, No spleenomegaly, No other Extremities: No normal range of motion, No non-tender, No normal inspection, No pedal edema, No calf tenderness, No normal capillary refill, No pelvis stable , No calf tenderness, No inflammation, No pedal edema, No slow capillary refill , No swelling, No other, No abrasion, No clubbing, No cyanosis, No ecchymosis, No laceration, No no lower extremity edema bilateral, No significant edema, No tenderness, No wound Neurologic/Psychiatric: No journeyman lineman II-XII nml as tested, No no motor/sensory deficits, No alert, No normal mood/affect, No oriented x 3, No abnormal cerebellar tests, No abnormal journeyman lineman II-XII, No abnormal gait, No aphasia, No EOM palsy, No facial droop, No motor weakness, No sensory deficit, No depressed affect, No disoriented x 3, No other, No grossly intact, No power is 5/5 both on sides Skin: No normal color, No warm/dry, No cyanosis, No cool, No diaphoresis, No damp, No ecchymosis, No jaundice, No mottled, No pallor, No rash, No tattoos/ piercings, No ulcerations, No rash on exposed areas, No ulcerations on exposed areas, No other Results/Procedures: Labs Laboratory Tests 04/20/17 15:30: Blood Gas Puncture Site RT. ARTLINE, Blood Gas Patient Temperature 97.1, Arterial Blood pH 7.29*L, Arterial Blood Partial Pressure CO2 36, Arterial Blood Partial Pressure O2 115H, Arterial Blood HCO3 17*L, Arterial Blood Total CO2 18.2L, Arterial Blood Oxygen Saturation 98, Arterial Blood Base Excess -8.5L , Efrain Test NA, Blood Gas Ventilator Setting YES, Blood Gas Inspired Oxygen 50% 04/20/17 15:40: Hemoglobin 6.8#*L, Hematocrit 21L, Sodium Level 140, Potassium Level 3.2L, Chloride Level 117#H, Carbon Dioxide Level 11L, Anion Gap 12, Blood Urea Nitrogen 48H, Creatinine 2.04H, Estimat Glomerular Filtration Rate 31, BUN/ Creatinine Ratio 24, Glucose Level 121H, Calcium Level 5.0#*L, Total Bilirubin 0.5, Aspartate Amino Transf (AST/SGOT) 51H, Alanine Aminotransferase (ALT/SGPT) 43, Alkaline Phosphatase 79, Total Protein 4.3L, Albumin 1.9L 04/20/17 17:30: Hemoglobin 7.8L, Hematocrit 24L, Sodium Level 139, Potassium Level 3.4L, Chloride Level 112H, Carbon Dioxide Level 11L, Anion Gap 16H, Blood Urea Nitrogen 56H, Creatinine 2.46H, Estimat Glomerular Filtration Rate 25, BUN/ Creatinine Ratio 23, Glucose Level 137H, Calcium Level 5.7*L, Prothrombin Time 18.4H, INR Comment 1.6H, Magnesium Level 1.5L 04/20/17 19:05: Lactic Acid Level 0.68 04/20/17 19:35: Blood Gas Puncture Site [facility], Blood Gas Patient Temperature 97, Arterial Blood pH 7.36L, Arterial Blood Partial Pressure CO2 32L, Arterial Blood Partial Pressure O2 109H, Arterial Blood HCO3 18L, Arterial Blood Total CO2 18.8L, Arterial Blood Oxygen Saturation 99, Arterial Blood Base Excess -6.8L, Efrain Test NA, Blood Gas Ventilator Setting YES, Blood Gas Inspired Oxygen 40% 04/20/17 23:25: Sodium Level 136, Potassium Level 4.5, Chloride Level 103, Carbon Dioxide Level 16L, Anion Gap 17H, Blood Urea Nitrogen 66H, Creatinine 3.23#H, Estimat Glomerular Filtration Rate 18, BUN/Creatinine Ratio 20, Glucose Level 229H, Calcium Level 7.3L, Magnesium Level 2.4 04/21/17 04:20: Blood Gas Puncture Site [facility], Blood Gas Patient Temperature 97.3, Arterial Blood pH 7.49H, Arterial Blood Partial Pressure CO2 28L, Arterial Blood Partial Pressure O2 92, Arterial Blood HCO3 21L, Arterial Blood Total CO2 22.1, Arterial Blood Oxygen Saturation 99, Arterial Blood Base Excess -1.8, Efrain Test ART LINE, Blood Gas Ventilator Setting YES, Blood Gas Inspired Oxygen 30%, Sodium Level 137, Potassium Level 4.0, Chloride Level 101, Carbon Dioxide Level 19L, Anion Gap 17H, Blood Urea Nitrogen 66H, Creatinine 3.22H, Estimat Glomerular Filtration Rate 18, BUN/Creatinine Ratio 20, Glucose Level 245H, Calcium Level 7.5L, Magnesium Level 2.2, White Blood Count 8.1, Red Blood Count 2.93L, Hemoglobin 8.5L, Hematocrit 26L, Mean Corpuscular Volume 88, Mean Corpuscular Hemoglobin 29, Mean Corpuscular Hemoglobin Concent 33, Red Cell Distribution Width 16.8H, Platelet Count 359, Mean Platelet Volume 10.6H, Neutrophils (%) (Auto) 92H, Lymphocytes (%) (Auto) 2L, Monocytes (%) (Auto) 7, Eosinophils (%) (Auto) 0, Basophils (%) (Auto) 0, Neutrophils # (Auto) 7.4, Lymphocytes # (Auto) 0.2L, Monocytes # (Auto) 0.5, Eosinophils # (Auto) 0.0, Basophils # (Auto) 0.0, Total Bilirubin 0.3, Aspartate Amino Transf (AST/SGOT) 58H, Alanine Aminotransferase (ALT/SGPT) 49, Alkaline Phosphatase 90, Troponin I 0.43*H, Total Protein 5.7L, Albumin 2.4L 04/21/17 09:25: B-Type Natriuretic Peptide 4976.0H 04/21/17 12:52: Glucometer 181H Microbiology 04/19/17 Blood Culture - Preliminary, Resulted No growth 04/19/17 Urine Culture - Preliminary, Resulted Staph, Coag Neg (Health Officer) Gram Positive Cocci A/P: Assessment/Dx: Right hip fracture, pending surgery. Congestive heart failure. Positive cardiac enzymes. CKD tachycardia Plan: Right hip fracture, - surgery performed yesterday. Acute systolic Congestive heart failure: Mckeon catheter placed yesterday. Severe LV systolic dysfunction. Continue lasix 160mg iv daily. better BNP. lungs better on auscultation. Oxygen saturation 94% on RA. Positive cardiac enzymes: serial troponin shows same level of troponin. this is very unlikely ACS. Since mild elevation of troponin can occur in CHF especially with CKD and in a patient with tachycardia. CKD: defer to primary team. previous creatinine from [facility] was also 3. tachycardia: unclear etiology on EKG. P waves are difficult discern. Differential include afib vs atrial tachycardia vs sinus tachycardia. change coreg to metoprolol 25mg twice daily. Thank you for your consultation. Please call me if you have any questions. Ramírez Biggs MD, FACP, FACC, FSCAI, FHRS, CCDS Interventional Cardiology Cardiac Electrophysiology Vascular Medicine and Endovascular Interventions Cyndee BIGGS MD Apr 21, 2017 1:09 pm
--- NOTE | 2017-04-21 14:00 | Anesthesia-General Post-Op ---
General Patient Condition Mental Status/LOC: Same as Preop Cardiovascular: Satisfactory Nausea/Vomiting: Absent Respiratory: Satisfactory Pain: Controlled Complications: Absent Post Op Complications Complications None Follow Up Care/Instructions Patient Instructions None needed. Anesthesia/Patient Condition Patient Condition Patient is doing well, no complaints, stable vital signs, no apparent adverse anesthesia problems. No complications reported per nursing. SILVESTRE LOVE CRNA Apr 21, 2017 13:59
[2017-04-21] MEDS: SIMvastatin 10 MG (ZOCOR) TAB PO SCH (21:26)
[2017-04-22] VITALS (22 sets, daily range): BP systolic 76–107; BP diastolic 48–77
[2017-04-22] MEDS: ACETAMINOPHEN 500 MG TAB (TYLENOL) PO PRN ×2 (00:19→08:57)
[2017-04-22] MEDS ORDERED: NS IV 500 ML 500 ML IV SCH (03:15)
[2017-04-22] MEDS: CATHETER FLUSH 10 ML SYR IV SCH ×4 (04:01→20:33)
[2017-04-22 04:18] LABS: BASOPHILS % (AUTO) 0 % (0-10); EOSINOPHILS % (AUTO) 0 % (0-10); LYMPHOCYTES # (AUTO) 0.6 X 10^3 (1.0-4.0); LYMPHOCYTES % (AUTO) 5 % (12-44); MEAN CORPUSCULAR HEMOGLOBIN 29 PG (25-34); MEAN CORPUSCULAR HGB CONC 33 G/DL (32-36); MEAN CORPUSCULAR VOLUME 89 FL (80-99); MEAN PLATELET VOLUME 10.8 FL (7.4-10.4); MONOCYTES # (AUTO) 1.1 X 10^3 (0.0-1.0); MONOCYTES % (AUTO) 10 % (0-12); NEUTROPHILS # (AUTO) 8.8 X 10^3 (1.8-7.8); NEUTROPHILS % (AUTO) 84 % (42-75); PLATELET COUNT 351 10^3/uL (130-400); RED BLOOD COUNT 2.67 10^6/uL (4.35-5.85); RED CELL DISTRIBUTION WIDTH 16.8 % (10.0-14.5); WHITE BLOOD COUNT 10.4 10^3/uL (4.3-11.0)
[2017-04-22 04:33] LABS: ALBUMIN 2.4 GM/DL (3.2-4.5); BILIRUBIN,TOTAL 0.3 MG/DL (0.1-1.0); CALCIUM 7.3 MG/DL (8.5-10.1); CREATININE SERUM 3.13 MG/DL (0.60-1.30); POTASSIUM 3.2 MMOL/L (3.6-5.0); TOTAL PROTEIN 5.4 GM/DL (6.4-8.2)
[2017-04-22] MEDS: MAGNESIUM 1 GM/100 ML IVPB 100 ML IV SCH (05:53)
[2017-04-22] MEDS: POTASSIUM CL 10MEQ/50ML IVPB 50 ML IV SCH ×5 (05:53→08:58)
[2017-04-22] MEDS: KCL 20 MEQ TAB (K-DUR) PO SCH (05:53)
[2017-04-22] MEDS: inSUlin (REGULAR) HUMAN 1 UNIT/0.01 ML (CHARGE PER UNIT) SC SCH ×4 (06:33→18:34)
[2017-04-22] MEDS: MULTIVIT W/MINERALS TAB (THERAGRAN M) PO SCH (06:35)
[2017-04-22] MEDS: PANTOPRAZOLE 40 MG (PROTONIX) TAB PO SCH (06:35)
[2017-04-22] MEDS: ASCORBIC ACID (VIT C) 500 MG TABLET PO SCH (06:35)
[2017-04-22] MEDS: SODIUM BICARBONATE 8.4% VIAL 150 MEQ in D5W 1000 ML IV SOLUTION 1,000 ML IV SCH (06:35)
[2017-04-22] MEDS: RT-ALBUTEROL SULF 2.5 MG/3 ML PRE-MIX VIAL IH SCH ×4 (08:12→19:16)
--- NOTE | 2017-04-22 08:39 | Progress Note (SOAP) ---
Subjective Date Seen by Provider: Apr 22, 2017 Time Seen by Provider: 08:34 Subjective/Events-last exam POD 2: Patient doing well no pain. Sitting in bed reading his bible with no complaints. Review of Systems General: No Chills, No Night Sweats, No Fatigue, No Malaise HEENT: No Head Aches, No Eye Pain, No Ear Pain, No Dysphasia, No Sinus Congestion, No Post Nasal Drip, No Sore Throat Pulmonary: No Dyspnea, No Cough, No Pleuritic Chest Pain Cardiovascular: No: Chest Pain, Edema, Lt Headedness, Orthopnea, Palpitations, Paroxysmal Noc. Dyspnea Gastrointestinal: No: Abdominal Pain, Constipation, Diarrhea, Hematochezia, Melena, Nausea, Vomiting Genitourinary: No Dysuria, No Frequency, No Incontinence, No Hematuria, No Retention Musculoskeletal: No: arm pain, back pain, foot pain, hand pain, leg pain, neck pain, other, shoulder pain Neurological: No: Change in speech, Confusion, Incoordination, Numbness, Other , Seizures, Weakness Objective Exam Vital Signs Date Time Temp Pulse Resp B/P (MAP) Pulse Ox O2 Delivery O2 Flow Rate FiO2 04/22/17 08:17 100 04/22/17 08:12 100 Room Air 04/22/17 08:00 102 27 102/64 100 Room Air 04/22/17 07:00 97 22 93/58 100 Room Air 04/22/17 07:00 97 04/22/17 06:00 91 20 96/59 100 Room Air 04/22/17 05:00 93 24 95/68 100 Room Air 04/22/17 04:00 87 18 91/58 100 Room Air 04/22/17 04:00 98 Room Air 04/22/17 03:00 86 88/55 100 Room Air 04/22/17 02:00 90 87/61 100 Room Air 04/22/17 01:00 95 87/57 100 Room Air 04/22/17 01:00 95 04/22/17 00:00 98 Room Air 04/22/17 00:00 93 89/57 100 Room Air 04/21/17 23:00 98 94/50 100 Room Air 04/21/17 22:00 103 29 100/65 100 Room Air 04/21/17 21:00 107 27 98/60 95 Room Air 04/21/17 20:44 91 Room Air 04/21/17 20:00 97.8 04/21/17 20:00 109 15 87/55 98 Room Air 04/21/17 20:00 98 Room Air 04/21/17 19:00 119 23 97/64 96 Room Air 04/21/17 19:00 119 04/21/17 18:00 106 30 101/63 91 Room Air 04/21/17 17:00 102 22 94/65 94 Room Air 04/21/17 16:38 98.0 Room Air 04/21/17 16:02 98 Room Air 04/21/17 16:00 100 25 90/59 90 Room Air 04/21/17 15:00 98 22 94/60 94 Room Air 04/21/17 14:30 94 Room Air 04/21/17 14:00 94 19 93/68 90 Room Air 04/21/17 13:00 94 04/21/17 13:00 111 32 102/63 94 Room Air 04/21/17 12:39 98 Room Air 04/21/17 12:20 98.2 Room Air 04/21/17 12:00 112 23 105/69 96 Room Air 04/21/17 11:00 116 38 99/60 96 Nasal Cannula 2.00 04/21/17 10:00 111 22 114/65 Nasal Cannula 2.00 04/21/17 09:00 105 25 99 Nasal Cannula 2.00 90/58 I & O 04/22/17 07:00 Intake Total 2200 ml Output Total 1705 ml Balance 495 ml Capillary Refill : Less Than 3 SecondsLess Than 3 Seconds General Appearance: No Apparent Distress, WD/WN Neck: Full Range of Motion Respiratory: No Respiratory Distress Peripheral Pulses: 4+ Dorsalis Pedis (R) Gastrointestinal: non tender, soft Extremity: Other (Incision looks good. D/C/I , M/V/M/I. ) Neurologic/Psychiatric: Alert, Oriented x3 Skin: Normal Color, Warm/Dry Results Lab Laboratory Tests 04/21/17 09:25: B-Type Natriuretic Peptide 4976.0H 04/21/17 12:52: Glucometer 181H 04/21/17 17:06: Glucometer 144H 04/22/17 03:42: White Blood Count 10.4, Red Blood Count 2.67L, Hemoglobin 7.8L, Hematocrit 24L, Mean Corpuscular Volume 89, Mean Corpuscular Hemoglobin 29, Mean Corpuscular Hemoglobin Concent 33, Red Cell Distribution Width 16.8H, Platelet Count 351, Mean Platelet Volume 10.8H, Neutrophils (%) (Auto) 84H, Lymphocytes (%) (Auto) 5L, Monocytes (%) (Auto) 10, Eosinophils (%) (Auto) 0, Basophils (%) (Auto) 0, Neutrophils # (Auto) 8.8H, Lymphocytes # (Auto) 0.6L, Monocytes # (Auto) 1.1H, Eosinophils # (Auto) 0.0, Basophils # (Auto) 0.0, Sodium Level 138, Potassium Level 3.2L, Chloride Level 98, Carbon Dioxide Level 21, Anion Gap 19H, Blood Urea Nitrogen 69H, Creatinine 3.13H, Estimat Glomerular Filtration Rate 19, BUN/ Creatinine Ratio 22, Glucose Level 131H, Calcium Level 7.3L, Magnesium Level 1.8 , Total Bilirubin 0.3, Aspartate Amino Transf (AST/SGOT) 35H, Alanine Aminotransferase (ALT/SGPT) 40, Alkaline Phosphatase 85, Total Protein 5.4L, Albumin 2.4L Microbiology 04/19/17 Blood Culture - Preliminary, Resulted No growth 04/19/17 Urine Culture - Preliminary, Resulted Staph, Coag Neg (Program Technician) Gram Positive Cocci Assessment/Plan Assessment/Plan Assess & Plan/Chief Complaint A: S/P right MISSY P: will continue working with ambulation and daily dressing changes. Clinical Quality Measures DVT/VTE Risk/Contraindication: Risk Factor Score Per Nursin RFS Level Per Nursing on Admit: 4+=Very High Contraindications-Pharm: Other *list below* Other: surgery PAGE HAND Apr 22, 2017 08:39
[2017-04-22] MEDS: SENNA W/DOCUSATE (SENOKOT S) TABLET PO SCH ×2 (08:57→20:26)
[2017-04-22] MEDS: FERROUS SULF 325 MG (IRON) TAB PO SCH (08:57)
[2017-04-22] MEDS: LACTOBACILLUS Acidoph/Bulgar (LACTINEX/FLORANEX) TAB PO SCH (08:57)
[2017-04-22] MEDS: meTOprolol TARTRATE 25 MG (LOPRESSOR) TABLET PO SCH ×2 (08:57→20:26)
[2017-04-22] MEDS: ENOXAPARIN 30 MG/0.3 ML (LOVENOX) SYR SC SCH (08:58)
[2017-04-22] MEDS ORDERED: RT-ALBUTEROL SULF 2.5 MG/3 ML PRE-MIX VIAL IH PRN (09:00)
--- NOTE | 2017-04-22 09:21 | Physical Therapy Daily Note ---
PT Daily Note-Current Subjective Patient in bed pre tx, agrees to PT, denies any pain. Appearance Patient in chair at bedside post tx, legs elevated, has nurse call, phone, tray , all needs met. Mental Status Patient Orientation: Person, Place, Situation Attachments: Mckeon Catheter, IV Transfers Functional [place] Measure 0=Not Assessed/NA 4=Minimal Assistance 1=Total Assistance 5=Supervision or Setup 2=Maximal Assistance 6=Modified [place] 3=Moderate Assistance 7=Complete IndependenceIRFPAI Quality Coding Scale 6 Independent with activity with or without an assistive device 5 Patient requires set up or clean up by helper. Patient completes activity by themselves 4 Supervision or touching assist (CGA). [place] provide cues , steadying assist 3 The helper provides less than half the effort to complete the activity 2 The helper provides more than half the effort to complete the activity 1 Dependent. The helper does all the effort to complete an activity 7 Patient refused to complete or attempt activity 9 The patient did not perform the activity before the current illness or injury 88 Not attempted due to Medical conditions or safety concerns Transfers (B, C, W/C) (FIM): 2 Scootin Rollin Supine to/from Sit: 2 Sit to/from Stand: 4 Patient performed bed mobility and supine to sit with max assist but was able to stand with min assist Gait Training Gait (FIM): 1 Distance: 20' Gait Level of Assist: 4 Gait Persons Needed: 1 Gait Assistive Device: FWW slow, antalgic, does not flex right knee Exercises Seated Therapy Exercises: Ankle pumps, Long arc quads, Hip abd/add Seated Reps: 10 Treatments bed mobility and transfers, ambulation, functional strengthening Assessment Current Status: Fair Progress improved ambulation PT Group Home Goals Contractor [employer] Hauling Goals PT Contractor Field Hauling Goals Time Frame: Apr 28, 2017 Transfers (B,C,W/C) (FIM): 4 Gait (FIM): 2 Distance: 50' Gait Level of Assist: 4 Gait Assistive Device: FWW PT Plan Problem List Problem List: Activity Tolerance, Functional Strength, Safety, Balance, Gait, Transfer, Bed Mobility, ROM Treatment/Plan Treatment Plan: Continue Plan of Care Treatment Plan: Bed Mobility, Education, Functional Activity [place], Functional Strength, Gait, Safety, Therapeutic Exercise, Transfers Treatment Duration: Apr 28, 2017 Frequency: Twice Daily (except just once daily on the weekends) Estimated Hrs Per Day: .25 hour per day (15-30 min per day) Patient and/or Family Agrees t: Yes Safety Risks/Education Patient Education: Gait Training, Transfer Techniques, Correct Positioning, Safety Issues Teaching Recipient: Patient Teaching Methods: Demonstration, Discussion Response to Teaching: Reinforcement Needed Time/GCodes Time In: 905 Time Out: 920 Total Billed Treatment Time: 15 Total Billed Treatment 1 visit GT 15' CRISTEL PINO PT Apr 22, 2017 09:21
--- NOTE | 2017-04-22 09:37 | Progress Note (SOAP) ---
Subjective Date Seen by Provider: Apr 22, 2017 Time Seen by Provider: 09:30 Subjective/Events-last exam Patient seen with Dr. Vásquez. Patient reports doing well. Denies any pain. No N/ V. No Fever/chills. Ambulating. Tolerating diet. functioning colostomy. Review of Systems General: No Chills, No Night Sweats Gastrointestinal: No: Abdominal Pain, Nausea, Vomiting Objective Exam Vital Signs Date Time Temp Pulse Resp B/P (MAP) Pulse Ox O2 Delivery O2 Flow Rate FiO2 04/22/17 08:17 100 04/22/17 08:12 100 Room Air 04/22/17 08:00 102 27 102/64 100 Room Air 04/22/17 07:00 97 22 93/58 100 Room Air 04/22/17 07:00 97 04/22/17 06:00 91 20 96/59 100 Room Air 04/22/17 05:00 93 24 95/68 100 Room Air 04/22/17 04:00 87 18 91/58 100 Room Air 04/22/17 04:00 98 Room Air 04/22/17 03:00 86 88/55 100 Room Air 04/22/17 02:00 90 87/61 100 Room Air 04/22/17 01:00 95 87/57 100 Room Air 04/22/17 01:00 95 04/22/17 00:00 98 Room Air 04/22/17 00:00 93 89/57 100 Room Air 04/21/17 23:00 98 94/50 100 Room Air 04/21/17 22:00 103 29 100/65 100 Room Air 04/21/17 21:00 107 27 98/60 95 Room Air 04/21/17 20:44 91 Room Air 04/21/17 20:00 97.8 04/21/17 20:00 109 15 87/55 98 Room Air 04/21/17 20:00 98 Room Air 04/21/17 19:00 119 23 97/64 96 Room Air 04/21/17 19:00 119 04/21/17 18:00 106 30 101/63 91 Room Air 04/21/17 17:00 102 22 94/65 94 Room Air 04/21/17 16:38 98.0 Room Air 04/21/17 16:02 98 Room Air 04/21/17 16:00 100 25 90/59 90 Room Air 04/21/17 15:00 98 22 94/60 94 Room Air 04/21/17 14:30 94 Room Air 04/21/17 14:00 94 19 93/68 90 Room Air 04/21/17 13:00 94 04/21/17 13:00 111 32 102/63 94 Room Air 04/21/17 12:39 98 Room Air 04/21/17 12:20 98.2 Room Air 04/21/17 12:00 112 23 105/69 96 Room Air 04/21/17 11:00 116 38 99/60 96 Nasal Cannula 2.00 04/21/17 10:00 111 22 114/65 Nasal Cannula 2.00 I & O 04/22/17 07:00 Intake Total 2200 ml Output Total 1705 ml Balance 495 ml Capillary Refill : Less Than 3 SecondsLess Than 3 Seconds General Appearance: No Apparent Distress, WD/WN HEENT: PERRL/EOMI Neck: Full Range of Motion, Normal Inspection, Non Tender, Supple Respiratory: Chest Non Tender, Normal Breath Sounds, No Accessory Muscle Use, No Respiratory Distress Cardiovascular: Regular Rate, Rhythm, No Murmur Gastrointestinal: normal bowel sounds, non tender, soft Extremity: Normal Capillary Refill, Normal Inspection, Normal Range of Motion, Non Tender, No Calf Tenderness, No Pedal Edema Neurologic/Psychiatric: Alert, Oriented x3 Skin: Normal Color, Warm/Dry Results Lab Laboratory Tests 04/21/17 12:52: Glucometer 181H 04/21/17 17:06: Glucometer 144H 04/22/17 03:42: White Blood Count 10.4, Red Blood Count 2.67L, Hemoglobin 7.8L, Hematocrit 24L, Mean Corpuscular Volume 89, Mean Corpuscular Hemoglobin 29, Mean Corpuscular Hemoglobin Concent 33, Red Cell Distribution Width 16.8H, Platelet Count 351, Mean Platelet Volume 10.8H, Neutrophils (%) (Auto) 84H, Lymphocytes (%) (Auto) 5L, Monocytes (%) (Auto) 10, Eosinophils (%) (Auto) 0, Basophils (%) (Auto) 0, Neutrophils # (Auto) 8.8H, Lymphocytes # (Auto) 0.6L, Monocytes # (Auto) 1.1H, Eosinophils # (Auto) 0.0, Basophils # (Auto) 0.0, Sodium Level 138, Potassium Level 3.2L, Chloride Level 98, Carbon Dioxide Level 21, Anion Gap 19H, Blood Urea Nitrogen 69H, Creatinine 3.13H, Estimat Glomerular Filtration Rate 19, BUN/ Creatinine Ratio 22, Glucose Level 131H, Calcium Level 7.3L, Magnesium Level 1.8 , Total Bilirubin 0.3, Aspartate Amino Transf (AST/SGOT) 35H, Alanine Aminotransferase (ALT/SGPT) 40, Alkaline Phosphatase 85, Total Protein 5.4L, Albumin 2.4L Microbiology 04/19/17 Blood Culture - Preliminary, Resulted No growth 04/19/17 Urine Culture - Preliminary, Resulted Staph, Coag Neg (Marriage Counselor) Gram Positive Cocci Assessment/Plan Assessment/Plan Assess & Plan/Chief Complaint An 82 year old male s/p fall with right hip fracture s/p ORIF. colovesicular fistula and hx colon cancer. doing well. ambulate. continue current care. ok for floor per general surgery and eventual IRB Clinical Quality Measures DVT/VTE Risk/Contraindication: Risk Factor Score Per Nursin RFS Level Per Nursing on Admit: 4+=Very High Contraindications-Pharm: Other *list below* Other: surgery ERIN GIBBONS [employer] Apr 22, 2017 09:37
--- NOTE | 2017-04-22 10:04 | Diagnostic Imaging Report ---
INDICATION: Respiratory failure. EXAM: Portable chest at 5:31 AM FINDINGS: Heart size and pulmonary vascularity are normal. There are bilateral perihilar alveolar infiltrates which have improved from the previous day. IMPRESSION: Improving bilateral perihilar infiltrates which likely represent pulmonary edema. Dictated by: Dictated on workstation # [id number]
[2017-04-22] MEDS ORDERED: NS IV 500 ML 500 ML ONE (10:14)
[2017-04-22] MEDS: NS IV 500 ML 500 ML IV SCH (10:15)
--- NOTE | 2017-04-22 10:19 | Cardiology Progress Note ---
Cardiology SOAP Progress Note Subjective: He does not c/o any significant shortness of breath Objective: I&O/Vital Signs Vital Sign - Last 12Hours 04/21/17 04/22/17 04/22/17 04/22/17 23:00 00:00 00:00 01:00 Pulse 98 93 95 B/P (MAP) 94/50 89/57 Pulse Ox 100 100 98 O2 Delivery Room Air Room Air Room Air 04/22/17 04/22/17 04/22/17 04/22/17 01:00 02:00 03:00 04:00 Pulse 95 90 86 B/P (MAP) 87/57 87/61 88/55 Pulse Ox 100 100 100 98 O2 Delivery Room Air Room Air Room Air Room Air 04/22/17 04/22/17 04/22/17 04/22/17 04:00 05:00 06:00 07:00 Pulse 87 93 91 97 Resp 18 24 20 B/P (MAP) 91/58 95/68 96/59 Pulse Ox 100 100 100 O2 Delivery Room Air Room Air Room Air 04/22/17 04/22/17 04/22/17 04/22/17 07:00 08:00 08:12 08:17 Pulse 97 102 Resp 22 27 B/P (MAP) 93/58 102/64 Pulse Ox 100 100 100 100 O2 Delivery Room Air Room Air Room Air Intake and Output 04/22/17 00:00 Intake Total 800 ml Output Total 1005 ml Balance -205 ml Weight (Pounds): 145 Weight (Ounces): 0.4 Weight (Calculated Kilograms): 65.830246 Constitutional: No appears stated age, No AAO x 3, No apparent distress, No PERRL, No well-developed, No well-nourished, No other Respiratory: No accessory muscle use, No respiratory distress, No chest tender , No chest expansion is symmetric, No chest is bilaterally symmetric, No lungs clear to percussion, No lungs clear to auscultation, No crackles, No rhonchi, No rales, No stridor, No wheezing, No pleural rub, other (coarse breath sounds) Cardiovascular: regular rate-rhythm, S1 and S2 Gastrointestional: No tender, No soft, No round, No distended, No pulsatile mass, No organomegaly, No guarding, No rebound, No tenderness, No hernia, No mass, No audible bowel sounds, No abnormal bowel sounds, No abdominal bruits, No spleenomegaly, No other Extremities: No normal range of motion, No non-tender, No normal inspection, No pedal edema, No calf tenderness, No normal capillary refill, No pelvis stable , No calf tenderness, No inflammation, No pedal edema, No slow capillary refill , No swelling, No other, No abrasion, No clubbing, No cyanosis, No ecchymosis, No laceration, No no lower extremity edema bilateral, No significant edema, No tenderness, No wound Neurologic/Psychiatric: No outside cutter hand II-XII nml as tested, No no motor/sensory deficits, No alert, No normal mood/affect, No oriented x 3, No abnormal cerebellar tests, No abnormal outside cutter hand II-XII, No abnormal gait, No aphasia, No EOM palsy, No facial droop, No motor weakness, No sensory deficit, No depressed affect, No disoriented x 3, No other, No grossly intact, No power is 5/5 both on sides Skin: No normal color, No warm/dry, No cyanosis, No cool, No diaphoresis, No damp, No ecchymosis, No jaundice, No mottled, No pallor, No rash, No tattoos/ piercings, No ulcerations, No rash on exposed areas, No ulcerations on exposed areas, No other Results/Procedures: Labs Laboratory Tests 04/21/17 12:52: Glucometer 181H 04/21/17 17:06: Glucometer 144H 04/22/17 03:42: White Blood Count 10.4, Red Blood Count 2.67L, Hemoglobin 7.8L, Hematocrit 24L, Mean Corpuscular Volume 89, Mean Corpuscular Hemoglobin 29, Mean Corpuscular Hemoglobin Concent 33, Red Cell Distribution Width 16.8H, Platelet Count 351, Mean Platelet Volume 10.8H, Neutrophils (%) (Auto) 84H, Lymphocytes (%) (Auto) 5L, Monocytes (%) (Auto) 10, Eosinophils (%) (Auto) 0, Basophils (%) (Auto) 0, Neutrophils # (Auto) 8.8H, Lymphocytes # (Auto) 0.6L, Monocytes # (Auto) 1.1H, Eosinophils # (Auto) 0.0, Basophils # (Auto) 0.0, Sodium Level 138, Potassium Level 3.2L, Chloride Level 98, Carbon Dioxide Level 21, Anion Gap 19H, Blood Urea Nitrogen 69H, Creatinine 3.13H, Estimat Glomerular Filtration Rate 19, BUN/ Creatinine Ratio 22, Glucose Level 131H, Calcium Level 7.3L, Magnesium Level 1.8 , Total Bilirubin 0.3, Aspartate Amino Transf (AST/SGOT) 35H, Alanine Aminotransferase (ALT/SGPT) 40, Alkaline Phosphatase 85, Total Protein 5.4L, Albumin 2.4L Microbiology 04/19/17 Blood Culture - Preliminary, Resulted No growth 04/19/17 Urine Culture - Preliminary, Resulted Staph, Coag Neg (Furnace Tender) Gram Positive Cocci A/P: Assessment/Dx: Right hip fracture, pending surgery. Congestive heart failure. Positive cardiac enzymes. CKD tachycardia Plan: Right hip fracture, - s/p surgery Acute systolic Congestive heart failure: Severe LV systolic dysfunction. Improved shortness of breath. Oxygen saturation 98% on RA. Continue PO lasix. better BNP. lungs better on auscultation. I/O slightly negative yesterday. Positive cardiac enzymes: serial troponin shows same level of troponin. this is very unlikely ACS. Since mild elevation of troponin can occur in CHF especially with CKD and in a patient with tachycardia. CKD: defer to primary team. previous creatinine from [facility] was also 3. tachycardia: better controlled. continue metoprolol. Thank you for your consultation. Please call me if you have any questions. Ramírez Biggs MD, FACP, FACC, FSCAI, FHRS, CCDS Interventional Cardiology Cardiac Electrophysiology Vascular Medicine and Endovascular Interventions Cyndee BIGGS MD Apr 22, 2017 10:19 am
--- NOTE | 2017-04-22 12:45 | Progress Note-Hospitalist ---
Progress Note HPI/CC on Admission CC: Right hip fracture HPI: This is a 82 yoWM pt who presents with right hip fracture. Creat 3.5 which labs show is chronically elevated, heart failure indicated, BNP 6116. Plans to relieve pain with hip fracture repair are underway communications consultant: Pt is on Flagyl and Levaquin empirically Dr. Biggs added troponin and d-dimer to labs. He is not yet sure on EKG b/c it appears to be sinus tachy but then P-waves disappear so may be PAF. A unit of blood will be given per Dr Almanzar Hold of on DVT anti-coagulation. Dr Marie needs consulted prior to this because spinal anesthesia will be attempted and could prevent that. Labs not received from [facility] yet Dr. Alves is on board for stent in ureter. 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 When he woke he called for help at [place] Dr. Marie will perform surgery tomorrow and Cardiology has deemed him high risk but unable to modify risk factors and the only change he has for any quality of life is the surgery. Pt was moved to ICU last night. Pt believes he has a bladder infection Pt is experiencing SOB, but has no current chest pain or palpitations. Dr. 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 Marie. Pt was informed that I am working with many different specialties to make sure he is okay. Pt denies pain currently, but confirms pain with movement. Bladder infection discussed. Pt was informed that his BP was low so I moved him to ICU Physical exam stable. BP and O2 look good Pt was informed that he will be given a unit of blood Scribed by Riya Casarez under the direct supervision of Dr. Gandhi. 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.[address] consulting urology to evaluate the need for replacement of stent Severe volume overload causing dyspnea and elevated BNP of 6100 Colon cancer 10 years ago and resection 4 years ago currently in remission Chronic debility Severe anemia mostly due to chronic kidney disease and chronic illness but likely acute blood loss from hip fracture 6 days ago receiving 1 unit of transfusion today preoperatively Sinus tachycardia superimposed with paroxysmal atrial fibrillation Acute on chronic UTI placed on antibiotics empirically Abdominal pain highly suspicious for diverticulitis mild episode general surgery Dr. Vásquez consulted Diagonsis/Assessment & Plan Patient doing much better but blood pressure was low prompting 1 unit of transfusion that is almost completed Transferring to the floor Reviewed labs and all are about stable except for low hemoglobin Checked meds and tanning consultant's notes No colostomy production so will start bowel regimen No fever, vital signs stable, pleasant, improved, debilitated but overall in no distress, sitting in chair Tachycardic at 94 bpm Clear to auscultation bilaterally but diminished in the bases No edema Laboratory Tests 04/22/17 03:42 Assessment: Right displaced femoral fracture due to fall 8 days ago at [facility]term after multiple x-ray was negative for fracture proceeding on with surgery Sunday per Dr Marie uncomplicated to have any chance of a quality of life without severe hip fracture pain Respiratory failure requiring reintubation and maintained intubation night of surgery s/p extubated yesterday morning without difficulties by Dr. 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 and Flagyl empirically Hypokalemia and Hypomagnesemia Severe volume overload causing dyspnea and elevated BNP of 6100 received large dose of Lasix prior to surgery Colon cancer 10 years ago and resection 4 years ago currently in remission Chronic debility Severe anemia mostly due to chronic kidney disease and chronic illness but likely acute blood loss from hip fracture 8 days ago received 1 unit of transfusion 3 days ago preoperatively and repeating transfusion today Sinus tachycardia superimposed with paroxysmal atrial fibrillation cardiology on board Acute on chronic UTI placed on antibiotics empirically Abdominal pain highly suspicious for fistula infection mild episode general surgery Dr. Vásquez consulted Plan: Monitor pt closely and move to floor today Appreciate all consultants in the management of this very complex patient: cardiology , general surgery Dr. Vásquez, pulmonology critical care Dr. Almanzar, urology Dr. Alves. [facility] from 04/14/17 revealed creat 3.4 and hgb 8.2 so chronic numbers confirmed. Prognosis is very guarded and patient and DPOA are both aware Replaced mag and potassium OOB with PT IS Dispo soon PAULA GANDHI DO Apr 22, 2017 12:45
[2017-04-22] MEDS: metroNIDAZOLE 500MG/100ML IVPB 100 ML IV SCH ×2 (13:07→20:26)
[2017-04-22] MEDS: FUROSEMIDE 20 MG (LASIX) TAB PO SCH (15:21)
[2017-04-22 15:55] LABS: CALCIUM IONIZED 0.82 mmol/L (1.16-1.32); CORRECTED IONIZED CALCIUM 0.79 mmol/L (1.16-1.32)
[2017-04-22] MEDS: SIMvastatin 10 MG (ZOCOR) TAB PO SCH (18:32)
[2017-04-23] VITALS: BP 100/65
[2017-04-23] MEDS: inSUlin (REGULAR) HUMAN 1 UNIT/0.01 ML (CHARGE PER UNIT) SC SCH ×2 (00:46→05:46)
[2017-04-23 04:00] VITALS: BP 96/52
[2017-04-23] MEDS: NS IV 500 ML 500 ML IV SCH (04:17)
[2017-04-23] MEDS: MAGNESIUM 1 GM/100 ML IVPB 100 ML IV SCH (04:56)
[2017-04-23] MEDS: KCL 20 MEQ TAB (K-DUR) PO SCH (04:56)
[2017-04-23] MEDS: POTASSIUM CL 10MEQ/50ML IVPB 50 ML IV SCH (04:56)
[2017-04-23 04:57] LABS: BASOPHILS % (AUTO) 0 % (0-10); EOSINOPHILS # (AUTO) 0.1 10^3/uL (0.0-0.3); EOSINOPHILS % (AUTO) 1 % (0-10); LYMPHOCYTES # (AUTO) 0.5 X 10^3 (1.0-4.0); LYMPHOCYTES % (AUTO) 6 % (12-44); MEAN CORPUSCULAR HEMOGLOBIN 29 PG (25-34); MEAN CORPUSCULAR HGB CONC 32 G/DL (32-36); MEAN CORPUSCULAR VOLUME 90 FL (80-99); MEAN PLATELET VOLUME 10.8 FL (7.4-10.4); MONOCYTES % (AUTO) 12 % (0-12); NEUTROPHILS # (AUTO) 7.1 X 10^3 (1.8-7.8); NEUTROPHILS % (AUTO) 82 % (42-75); PLATELET COUNT 339 10^3/uL (130-400); RED BLOOD COUNT 3.31 10^6/uL (4.35-5.85); RED CELL DISTRIBUTION WIDTH 17.4 % (10.0-14.5); WHITE BLOOD COUNT 8.7 10^3/uL (4.3-11.0)
[2017-04-23 05:23] LABS: ALBUMIN 2.4 GM/DL (3.2-4.5); BILIRUBIN,TOTAL 0.3 MG/DL (0.1-1.0); CALCIUM 7.5 MG/DL (8.5-10.1); CREATININE SERUM 3.05 MG/DL (0.60-1.30); MAGNESIUM 1.7 MG/DL (1.8-2.4); POTASSIUM 3.4 MMOL/L (3.6-5.0); TOTAL PROTEIN 5.6 GM/DL (6.4-8.2)
[2017-04-23] MEDS: MULTIVIT W/MINERALS TAB (THERAGRAN M) PO SCH (06:15)
[2017-04-23] MEDS: ASCORBIC ACID (VIT C) 500 MG TABLET PO SCH (06:15)
[2017-04-23] MEDS: PANTOPRAZOLE 40 MG (PROTONIX) TAB PO SCH (06:15)
[2017-04-23] MEDS: CATHETER FLUSH 10 ML SYR IV SCH (06:15)
[2017-04-23] MEDS: RT-ALBUTEROL SULF 2.5 MG/3 ML PRE-MIX VIAL IH SCH ×2 (07:14→11:13)
--- NOTE | 2017-04-23 07:17 | Pulmonary Progress Note ---
Subjective Time Seen by Provider: 07:14 Subjective/Events-last exam Pt is doing much better. Exam Exam Vital Signs Date Time Temp Pulse Resp B/P (MAP) Pulse Ox O2 Delivery O2 Flow Rate FiO2 04/23/17 04:00 97.7 92 18 96/52 97 Nasal Cannula 2.00 04/23/17 01:00 105 04/23/17 00:00 98.0 104 20 100/65 95 Nasal Cannula 2.00 04/22/17 23:44 95 Nasal Cannula 2.00 04/22/17 21:00 Room Air 04/22/17 20:33 109 101/63 04/22/17 20:14 95 Nasal Cannula 2.00 04/22/17 20:02 98.6 100 36 87/51 90 Room Air 04/22/17 19:18 95 Room Air 04/22/17 19:00 113 04/22/17 16:15 98.6 96 36 101/59 94 Room Air 04/22/17 15:00 98 24 98/60 95 Room Air 04/22/17 14:48 100 Room Air 04/22/17 14:00 100 26 100/58 100 Room Air 04/22/17 13:00 98 28 107/66 100 Room Air 04/22/17 13:00 100 04/22/17 12:59 100 Room Air 04/22/17 12:30 97.7 Room Air 04/22/17 12:25 97.2 93 23 92/58 100 Room Air 04/22/17 12:00 92 26 91/58 100 Room Air 04/22/17 11:00 89 18 86/57 100 Room Air 04/22/17 10:40 97.7 90 16 83/54 100 Room Air 04/22/17 10:22 98.1 91 15 76/48 100 Room Air 04/22/17 10:00 92 25 78/51 100 Room Air 04/22/17 09:00 104 24 96/77 100 Room Air 04/22/17 08:57 100 Room Air 04/22/17 08:17 100 04/22/17 08:12 100 Room Air 04/22/17 08:00 102 27 102/64 100 Room Air 04/22/17 08:00 98.4 Room Air I & O 04/23/17 07:00 Intake Total 1240 ml Output Total 1250 ml Balance -10 ml General Appearance: No Apparent Distress, WD/WN HEENT: PERRL/EOMI Neck: Full Range of Motion, Normal Inspection, Non Tender, Supple Respiratory: Chest Non Tender, Normal Breath Sounds, No Accessory Muscle Use, No Respiratory Distress Cardiovascular: Regular Rate, Rhythm, No Murmur Capillary Refill: Less Than 3 Seconds Peripheral Pulses: 4+ Dorsalis Pedis (R) Gastrointestinal: normal bowel sounds, non tender, soft Extremity: Normal Capillary Refill, Normal Inspection, Normal Range of Motion, Non Tender, No Calf Tenderness, No Pedal Edema Neurologic/Psychiatric: Alert, Oriented x3 Skin: Normal Color, Warm/Dry Lymphatic: No Adenopathy Results Lab Laboratory Tests 04/22/17 03:42 04/23/17 04:27 Assessment/Plan Assessment/Plan S/p hip fracture - s/p repair Sepsis with pneumonia RLL and probable UTI -irizarry cultures - reviewed -UA with C&S -Continue Levaquin and flagyl Atlectasis with small right pleural effusion -monitor -IS, SVNs Afib RVR with elevated troponin -Cardiology is following -Echo pending chronic renal failure with metabolic acidosis -gentle hydration 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 Marie. -SCDs labs and CXR reviewed 232 Clinical Quality Measures DVT/VTE Risk/Contraindication: Risk Factor Score Per Nursin RFS Level Per Nursing on Admit: 4+=Very High Contraindications-Pharm: Other *list below* Other: surgery LILIANA MIJARES DO Apr 23, 2017 07:17
[2017-04-23 08:00] VITALS: BP 103/59
[2017-04-23 08:03] LABS: CALCIUM PH 7.35
[2017-04-23] MEDS: LEVOFLOXACIN 500 MG/100 ML IV 100 ML IV SCH (09:55)
[2017-04-23] MEDS: metroNIDAZOLE 500MG/100ML IVPB 100 ML IV SCH (09:55)
[2017-04-23] MEDS: ENOXAPARIN 30 MG/0.3 ML (LOVENOX) SYR SC SCH (09:55)
[2017-04-23] MEDS: FERROUS SULF 325 MG (IRON) TAB PO SCH (09:55)
[2017-04-23] MEDS: SENNA W/DOCUSATE (SENOKOT S) TABLET PO SCH (09:59)
[2017-04-23] MEDS: meTOprolol TARTRATE 25 MG (LOPRESSOR) TABLET PO SCH (09:59)
[2017-04-23] MEDS: FUROSEMIDE 20 MG (LASIX) TAB PO SCH (09:59)
[2017-04-23] MEDS: LACTOBACILLUS Acidoph/Bulgar (LACTINEX/FLORANEX) TAB PO SCH (09:59)
--- NOTE | 2017-04-23 10:37 | Progress Note (SOAP) ---
Subjective Date Seen by Provider: Apr 23, 2017 Time Seen by Provider: 10:33 Subjective/Events-last exam Awake and aler No complaints Review of Systems Dressing dry right hip Objective Exam Vital Signs Date Time Temp Pulse Resp B/P (MAP) Pulse Ox O2 Delivery O2 Flow Rate FiO2 04/23/17 08:00 98.4 115 24 103/59 95 Nasal Cannula 2.00 04/23/17 07:14 94 Nasal Cannula 2.00 04/23/17 04:00 97.7 92 18 96/52 97 Nasal Cannula 2.00 04/23/17 01:00 105 04/23/17 00:00 98.0 104 20 100/65 95 Nasal Cannula 2.00 04/22/17 23:44 95 Nasal Cannula 2.00 04/22/17 21:00 Room Air 04/22/17 20:33 109 101/63 04/22/17 20:14 95 Nasal Cannula 2.00 04/22/17 20:02 98.6 100 36 87/51 90 Room Air 04/22/17 19:18 95 Room Air 04/22/17 19:00 113 04/22/17 16:15 98.6 96 36 101/59 94 Room Air 04/22/17 15:00 98 24 98/60 95 Room Air 04/22/17 14:48 100 Room Air 04/22/17 14:00 100 26 100/58 100 Room Air 04/22/17 13:00 98 28 107/66 100 Room Air 04/22/17 13:00 100 04/22/17 12:59 100 Room Air 04/22/17 12:30 97.7 Room Air 04/22/17 12:25 97.2 93 23 92/58 100 Room Air 04/22/17 12:00 92 26 91/58 100 Room Air 04/22/17 11:00 89 18 86/57 100 Room Air 04/22/17 10:40 97.7 90 16 83/54 100 Room Air I & O 04/23/17 07:00 Intake Total 1240 ml Output Total 1250 ml Balance -10 ml Capillary Refill : Less Than 3 SecondsLess Than 3 Seconds General Appearance: No Apparent Distress Peripheral Pulses: 2+ Dorsalis Pedis (R) (Right hip dressing dry) Results Lab Laboratory Tests 04/22/17 18:33: Glucometer 103 04/22/17 22:15: Stool Occult Blood Immunoassay NEGATIVE 04/23/17 00:28: Glucometer 118H 04/23/17 04:27: White Blood Count 8.7, Red Blood Count 3.31L, Hemoglobin 9.5#L, Hematocrit 30L, Mean Corpuscular Volume 90, Mean Corpuscular Hemoglobin 29, Mean Corpuscular Hemoglobin Concent 32, Red Cell Distribution Width 17.4H, Platelet Count 339, Mean Platelet Volume 10.8H, Neutrophils (%) (Auto) 82H, Lymphocytes (%) (Auto) 6L, Monocytes (%) (Auto) 12, Eosinophils (%) (Auto) 1, Basophils (%) (Auto) 0, Neutrophils # (Auto) 7.1, Lymphocytes # (Auto) 0.5L, Monocytes # (Auto) 1.0, Eosinophils # (Auto) 0.1, Basophils # (Auto) 0.0, Sodium Level 139, Potassium Level 3.4L, Chloride Level 100, Carbon Dioxide Level 25, Anion Gap 14, Blood Urea Nitrogen 72H, Creatinine 3.05H, Estimat Glomerular Filtration Rate 20, BUN/ Creatinine Ratio 24, Glucose Level 96, Calcium Level 7.5L, Magnesium Level 1.7L , Total Bilirubin 0.3, Aspartate Amino Transf (AST/SGOT) 28, Alanine Aminotransferase (ALT/SGPT) 33, Alkaline Phosphatase 82, Total Protein 5.6L, Albumin 2.4L Microbiology 04/19/17 Blood Culture - Preliminary, Resulted No growth 04/19/17 Urine Culture - Final, Complete Nonenterococcus (Chains Cocci) Staph, Coag Neg (Anesthesiology Faculty) Procedures Status post bipolar femoral hemiarthroplasty right hip Assessment/Plan Assessment/Plan Assess & Plan/Chief Complaint Status post bipolar femoral hemiarthroplasty right hip Final Diagnosis Displaced femoral neck fx right hip Clinical Quality Measures DVT/VTE Risk/Contraindication: Risk Factor Score Per Nursin RFS Level Per Nursing on Admit: 4+=Very High Contraindications-Pharm: Other *list below* Other: surgery TIM VALDEZ DO Apr 23, 2017 10:37 am
--- NOTE | 2017-04-23 11:09 | Cardiology Progress Note ---
Cardiology SOAP Progress Note Subjective: Improved shortness of breath Objective: I&O/Vital Signs Vital Sign - Last 12Hours 04/22/17 04/23/17 04/23/17 04/23/17 23:44 00:00 01:00 04:00 Temp 98.0 97.7 Pulse 104 105 92 Resp 20 18 B/P (MAP) 100/65 96/52 Pulse Ox 95 95 97 O2 Delivery Nasal Cannula Nasal Cannula Nasal Cannula O2 Flow Rate 2.00 2.00 2.00 04/23/17 04/23/17 04/23/17 07:14 08:00 08:00 Temp 98.4 Pulse 115 Resp 24 B/P (MAP) 103/59 Pulse Ox 94 95 95 O2 Delivery Nasal Cannula Nasal Cannula Room Air O2 Flow Rate 2.00 2.00 2.00 Intake and Output 04/23/17 00:00 Intake Total 690 ml Output Total 625 ml Balance 65 ml Weight (Pounds): 143 Weight (Ounces): 0.4 Weight (Calculated Kilograms): 64.240873 Constitutional: No appears stated age, No AAO x 3, No apparent distress, No PERRL, No well-developed, No well-nourished, No other Respiratory: No accessory muscle use, No respiratory distress, No chest tender , No chest expansion is symmetric, No chest is bilaterally symmetric, No lungs clear to percussion, No lungs clear to auscultation, No crackles, No rhonchi, No rales, No stridor, No wheezing, No pleural rub, other (coarse breath sounds) Cardiovascular: regular rate-rhythm, S1 and S2 Gastrointestional: No tender, No soft, No round, No distended, No pulsatile mass, No organomegaly, No guarding, No rebound, No tenderness, No hernia, No mass, No audible bowel sounds, No abnormal bowel sounds, No abdominal bruits, No spleenomegaly, No other Extremities: No normal range of motion, No non-tender, No normal inspection, No pedal edema, No calf tenderness, No normal capillary refill, No pelvis stable , No calf tenderness, No inflammation, No pedal edema, No slow capillary refill , No swelling, No other, No abrasion, No clubbing, No cyanosis, No ecchymosis, No laceration, No no lower extremity edema bilateral, No significant edema, No tenderness, No wound Neurologic/Psychiatric: No manager regional II-XII nml as tested, No no motor/sensory deficits, No alert, No normal mood/affect, No oriented x 3, No abnormal cerebellar tests, No abnormal manager regional II-XII, No abnormal gait, No aphasia, No EOM palsy, No facial droop, No motor weakness, No sensory deficit, No depressed affect, No disoriented x 3, No other, No grossly intact, No power is 5/5 both on sides Skin: No normal color, No warm/dry, No cyanosis, No cool, No diaphoresis, No damp, No ecchymosis, No jaundice, No mottled, No pallor, No rash, No tattoos/ piercings, No ulcerations, No rash on exposed areas, No ulcerations on exposed areas, No other Results/Procedures: Labs Laboratory Tests 04/22/17 18:33: Glucometer 103 04/22/17 22:15: Stool Occult Blood Immunoassay NEGATIVE 04/23/17 00:28: Glucometer 118H 04/23/17 04:27: White Blood Count 8.7, Red Blood Count 3.31L, Hemoglobin 9.5#L, Hematocrit 30L, Mean Corpuscular Volume 90, Mean Corpuscular Hemoglobin 29, Mean Corpuscular Hemoglobin Concent 32, Red Cell Distribution Width 17.4H, Platelet Count 339, Mean Platelet Volume 10.8H, Neutrophils (%) (Auto) 82H, Lymphocytes (%) (Auto) 6L, Monocytes (%) (Auto) 12, Eosinophils (%) (Auto) 1, Basophils (%) (Auto) 0, Neutrophils # (Auto) 7.1, Lymphocytes # (Auto) 0.5L, Monocytes # (Auto) 1.0, Eosinophils # (Auto) 0.1, Basophils # (Auto) 0.0, Sodium Level 139, Potassium Level 3.4L, Chloride Level 100, Carbon Dioxide Level 25, Anion Gap 14, Blood Urea Nitrogen 72H, Creatinine 3.05H, Estimat Glomerular Filtration Rate 20, BUN/ Creatinine Ratio 24, Glucose Level 96, Calcium Level 7.5L, Magnesium Level 1.7L , Total Bilirubin 0.3, Aspartate Amino Transf (AST/SGOT) 28, Alanine Aminotransferase (ALT/SGPT) 33, Alkaline Phosphatase 82, Total Protein 5.6L, Albumin 2.4L Microbiology 04/19/17 Blood Culture - Preliminary, Resulted No growth 04/19/17 Urine Culture - Final, Complete Nonenterococcus (Chains Cocci) Staph, Coag Neg (Clerical And Office Support Workers) A/P: Assessment/Dx: Right hip fracture, pending surgery. Congestive heart failure. Positive cardiac enzymes. CKD tachycardia Plan: Right hip fracture, - s/p surgery Acute systolic Congestive heart failure: Severe LV systolic dysfunction. Improved shortness of breath. Oxygen saturation 98% on RA. Continue PO lasix. better BNP. lungs better on auscultation. I/O slightly negative yesterday. Positive cardiac enzymes: serial troponin shows same level of troponin. this is very unlikely ACS. Since mild elevation of troponin can occur in CHF especially with CKD and in a patient with tachycardia. CKD: defer to primary team. previous creatinine from [facility] was also 3. tachycardia: better controlled. continue metoprolol. Thank you for your consultation. Please call me if you have any questions. Ramírez Biggs MD, FACP, FACC, FSCAI, FHRS, CCDS Interventional Cardiology Cardiac Electrophysiology Vascular Medicine and Endovascular Interventions Cyndee BIGGS MD Apr 23, 2017 11:09
--- NOTE | 2017-04-23 11:45 | Progress Note-Hospitalist ---
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.[address] consulting urology to evaluate the need for replacement of stent Severe volume overload causing dyspnea and elevated BNP of 6100 Colon cancer 10 years ago and resection 4 years ago currently in remission Chronic debility Severe anemia mostly due to chronic kidney disease and chronic illness but likely acute blood loss from hip fracture 6 days ago receiving 1 unit of transfusion today preoperatively Sinus tachycardia superimposed with paroxysmal atrial fibrillation Acute on chronic UTI placed on antibiotics empirically Abdominal pain highly suspicious for diverticulitis mild episode general surgery Dr. 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 Multiple plain films have been taken of the hip without clear diagnosis of fracture. He underwent operative repair of a femoral neck fracture and had an eventful postoperative period including several days in the ICU and ventilator requirements. He is fragile but has been making progress and will be dismissed and admitted to the inpatient rehabilitation facility today. Physical exam: He is in his room and working with physical therapist William. He has just stood from the bed and is using the walker. He is pleasant but very hard of hearing. Lungs show distant breath sounds. CV is poorly heard. Ankles show no pedal edema. Impression: Status post operative repair right femoral neck fracture. 2.COPD. 3.multiple morbidities. Plan: Discharge and transfer to [facility]. [employer] Labs Laboratory Tests 04/22/17 03:42 04/23/17 04:27 JAYSON ARANDA MD Apr 23, 2017 11:45
--- NOTE | 2017-04-23 11:47 | OPERATIVE REPORT ---
PROCEDURE PHYSICIAN: TIM MARIE DATE OF PROCEDURE: 04/20/2017 DICTATING PHYSICIAN: Tim Marie DO. PREOPERATIVE DIAGNOSIS: Displaced femoral neck fracture, right hip. POSTOPERATIVE DIAGNOSIS: 1. Displaced femoral neck fracture, right hip. 2. Chronic abductor tendon tear, right hip. PROCEDURE: 1. Bipolar femoral hemiarthroplasty, right hip. 2. Repair abductor tendons, right hip. SURGEON: Frank ORNELASMANAGER STORE: MAJO Mcmahan Surgical nurse's assistant duties Chepe Titus surgical garment fitter was utilized throughout the entire procedure patient positioning, retraction, placement of metallic implants, wound closure, dressing application and patient transfer. ANESTHESIA: General. INDICATIONS AND FINDINGS: The patient is an 82-year-old male who was at [facility] when he slipped and fell on the Sunday prior preceding this Sunday exam. He continued to have persistent pain in the mobile unit. X-rays were obtained of the right hip revealing a displaced femoral neck fracture on the right. The patient has a number of medical problems that were treated. He was taken to surgery where a bipolar femoral hemiarthroplasty was performed on the right utilizing the Biomet hip system with a 14 mm press-fit Taperloc primary femoral press-fit stem with a 52 mm outer diameter RingLoc bipolar acetabular cuff with A -6 mm Biomet modular head component. On entering the patient's hip he had chronic tearing of this gluteus medius tendon from the trochanter. This was repaired utilizing multiple drill holes through the trochanter. PROCEDURE IN DETAIL: The patient was transported the operating room, where general inhalation anesthetic was performed after placing arterial line palpation in the patient. The patient was placed in a left lateral decubitus position secured the operating table with the pegboard system. A ChloraPrep and sterile drape of the right hip and the right lower extremity was performed. A ChloraPrep and sterile drape of the right hip and the right lower extremity was performed. A lateral longitudinal incision was then made centered over the greater trochanter at the right hip. The incision was deepened down to the iliotibial band which was divided longitudinally under direct visualization. The patient demonstrated chronic tearing of the gluteus medius tendon from the abductor. A modified Fair approach was then performed utilizing electrocautery dividing the vastus lateralis fascia as well as the gluteus minimus tendon reflecting the capsule off the anterior aspect of the femoral head and neck. The fracture was identified. The hip was externally rotated and flexed. The femoral head was then harvested from the acetabulum with an awl and measured 52.5 mm in diameter. The fracture extended down into the inferior aspect of the femoral neck and a box chisel was used to open the proximal femur. A canal finder was then used and the proximal femur was broached up to a 14 mm stem. The hip was provisionally reduced with a -6 mm modular head component and a 52 mm head and was found to be stable with satisfactory soft tissue balancing and symmetric leg lengths. The broach was removed. A 14 mm Taperloc stem was impacted into position. Bone was harvested from the head and used to graft the area proximal femur anterior to the femoral stem. The bipolar components were then assembled and cold welded onto the stem. The hip was reduced taken through a range of motion and found to be stable. Throughout the procedure, the hip was irrigated extensively with normal saline solution containing gentamicin. Multiple drill holes were then placed in the greater tuberosity. Number 2 Tycron suture was then placed through the drill holes in a [id number] fashion pulling the medius tendon back down to the greater trochanter. The division through the vastus lateralis was closed with interrupted as well as a running suture of number 2 Tycron. The iliotibial band was closed with a running suture of number 1 Vicryl. The subcutaneous tissues were closed with 0 and 2-0 Vicryl suture and the skin was closed with stainless steel samantha. An Adaptic Neosporin bulky dressing was placed about the right hip. The patient was awakened and was transported to ICU in satisfactory condition. Job ID: [id number] Dictated Date: 04/23/2017 10:05:02 Experimental Machinist Date: 04/23/2017 11:27:54 / onel
--- NOTE | 2017-04-23 11:54 | Physical Therapy Daily Note ---
PT Daily Note-Current Subjective Patient agrees to PT. Pain Numeric Pain Scale: 5-Moderate Pain Location: Right Location Body Site: Hip Pain Description: Acute Mental Status Patient Orientation: Normal For Age Attachments: Oxygen, Mckeon Catheter, IV Transfers Functional Millen Measure 0=Not Assessed/NA 4=Minimal Assistance 1=Total Assistance 5=Supervision or Setup 2=Maximal Assistance 6=Modified Millen 3=Moderate Assistance 7=Complete IndependenceIRFPAI Quality Coding Scale 6 Independent with activity with or without an assistive device 5 Patient requires set up or clean up by helper. Patient completes activity by themselves 4 Supervision or touching assist (CGA). [place] provide cues , steadying assist 3 The helper provides less than half the effort to complete the activity 2 The helper provides more than half the effort to complete the activity 1 Dependent. The helper does all the effort to complete an activity 7 Patient refused to complete or attempt activity 9 The patient did not perform the activity before the current illness or injury 88 Not attempted due to Medical conditions or safety concerns Transfers (B, C, W/C) (FIM): 3 Scootin Rollin Supine to/from Sit: 3 Sit to/from Stand: 3 Weight Bearing Weight Bearing Restriction: Weight Bearing/Tolerated Location Restriction: R LE Gait Training Gait (FIM): 1 Distance (FIM): 1=up to 49 ft Distance: 30' Gait Level of Assist: 3 Gait Persons Needed: 1 Gait Assistive Device: FWW slight retropulsion in stand and ambulating with FWW; mod assist for safety; step to gait sequence Exercises Supine Ex: Ankle pumps, Quad Set, Heel Slides Supine Reps: 10 (AAROM right LE) Seated Therapy Exercises: Ankle pumps, Long arc quads Seated Reps: 10 Assessment Patient tolerated minimal activity and is up in w/c with needs met. Patient will transfer to ARU on this date. PT Assistant Technician Goals Assisted Goals PT Assisted Goals Time Frame: Apr 28, 2017 Transfers (B,C,W/C) (FIM): 4 Gait (FIM): 2 Distance: 50' Gait Level of Assist: 4 Gait Assistive Device: FWW PT Plan Treatment/Plan Treatment Plan: Continue Plan of Care Treatment Plan: Bed Mobility, Education, Functional Activity Garrett, Functional Strength, Gait, Safety, Therapeutic Exercise, Transfers Treatment Duration: Apr 28, 2017 Frequency: Twice Daily (except just once daily on the weekends) Estimated Hrs Per Day: .25 hour per day (15-30 min per day) Patient and/or Family Agrees t: Yes Time/GCodes Time In: 1105 Time Out: 1130 Total Billed Treatment Time: 25 Total Billed Treatment 1 visit GT 15 min EX 10 min EDGAR KERNS PT Apr 23, 2017 11:54
[2017-04-23 12:30] VITALS: BP 103/59
== END 2017-04-23 12:30 | DRG 469 ==
LOC: 4TH 15:43 → ICU 04-19 00:50 → 4TH 04-22 13:30
PROVIDERS: ADMIT Internal Medicine; ATTEND Internal Medicine
PROC: 0LQJ0ZZ Repair Right Hip Tendon, Open Approach (ICD-10-PCS; 2017-04-20)
PROC: 5A1935Z Respiratory Ventilation, Less than 24 Consecutive Hours (ICD-10-PCS; 2017-04-20)
PROC: 0SRR01A Replacement of Right Hip Joint, Femoral Surface with Metal Synthetic Substitute, Uncemented, Open Approach (ICD-10-PCS; principal; 2017-04-20 10:55)
DX: S72.001A Fracture of unspecified part of neck of right femur, initial encounter for closed fracture (principal); A41.9 Sepsis, unspecified organism; J18.9 Pneumonia, unspecified organism; I13.0 Hypertensive heart and chronic kidney disease with heart failure and stage 1 through stage 4 chronic kidney disease, or unspecified chronic kidney disease; I50.21 Acute systolic (congestive) heart failure; D62 Acute posthemorrhagic anemia; N39.0 Urinary tract infection, site not specified; N32.1 Vesicointestinal fistula; J98.11 Atelectasis; N18.9 Chronic kidney disease, unspecified; I48.0 Paroxysmal atrial fibrillation; E78.00 Pure hypercholesterolemia, unspecified; K21.9 Gastro-esophageal reflux disease without esophagitis; M19.91 Primary osteoarthritis, unspecified site; F41.9 Anxiety disorder, unspecified; H91.90 Unspecified hearing loss, unspecified ear; F03.90 Unspecified dementia, unspecified severity, without behavioral disturbance, psychotic disturbance, mood disturbance, and anxiety; D63.1 Anemia in chronic kidney disease; D63.8 Anemia in other chronic diseases classified elsewhere; N13.5 Crossing vessel and stricture of ureter without hydronephrosis; R00.0 Tachycardia, unspecified; E87.6 Hypokalemia; E83.42 Hypomagnesemia; W88.1XXS Exposure to radioactive isotopes, sequela; W19.XXXA Unspecified fall, initial encounter; Y92.129 Unspecified place in nursing home as the place of occurrence of the external cause; Z85.038 Personal history of other malignant neoplasm of large intestine; Z93.3 Colostomy status; Z96.0 Presence of urogenital implants
CPT/HCPCS: 36415; 71010; 72170; 74000; 80048; 80053; 81000; 82274; 82330; 82805; 82962; 83605; 83735; 83880; 84100; 84484; 85014; 85018; 85025; 85027; 85379; 85610; 86850; 86900; 86901; 86920; 87040; 87088; 93005; 93306; 94002; 94003; 94640; 94664; 94760

== ENCOUNTER 2017-04-23 12:31 | Inpatient (IN) | payer MEDICARE, OTHER ==
[~2017-04-23] VITALS: Ht 167.6 cm; Wt 68.6 kg
[~2017-04-23 12:31] MED LIST: ACID1TAB PO; C250T PO; CARV3.122 PO; FERR-74 PO; FURO20TA4 PO; LOVA10TA PO; MINO100C2 PO; MULT1TAB69 PO; OMEP10CA4 PO; PANT40TA2 PO; SENN-40 PO
[2017-04-23 12:40] VITALS: BP 123/69
[2017-04-23] MEDS ORDERED: HYDROcodone/APAP 7.5 MG/325 MG (LORTAB, LORCET PLUS) TABLET PO PRN (14:15)
[2017-04-23] MEDS ORDERED: RT-ALBUTEROL SULF 2.5 MG/3 ML PRE-MIX VIAL IH PRN (14:15)
[2017-04-23] MEDS ORDERED: ACETAMINOPHEN 500 MG TAB (TYLENOL) PO PRN (14:15)
[2017-04-23] MEDS ORDERED: ALPRAZolam 0.25 MG (XANAX) TAB PO PRN (14:15)
[2017-04-23] MEDS ORDERED: ONDANSETRON 4 MG/2 ML (SDV) Z0FRAN IVP PRN (14:15)
--- NOTE | 2017-04-23 14:27 | Occ Therapy Progress Note ---
Therapy Progress Note OT evaluation has been initiated prior to 1:00. OK for pt to go to OT/PT group. ELIO DELGADO OT Apr 23, 2017 14:27
[2017-04-23] MEDS ORDERED: CATHETER FLUSH 10 ML SYR IV PRN (15:15)
--- NOTE | 2017-04-23 15:30 | Occupational Therapy Eval ---
OT Evaluation-General/PLF Medical Diagnosis Admission Date Apr 23, 2017 at 12:31 Medical Diagnosis: R hip fx Onset Date: Apr 18, 2017 Therapy Diagnosis Therapy Diagnosis: decr self care, weakness, decr funct mobility, decr activity mason Height/Weight Height (Feet): 5 Height (Inches): 6.00 Weight (Pounds): 143 Weight (Ounces): 0.4 Precautions Precautions/Isolations: Fall Prevention, Standard Precautions Weight Bear Status Weight Bearing Restriction: Weight Bearing/Tolerated Location Restriction: R LE HIP PRECAUTIONS Referral Physician: Agustín Referral Reason: Evaluation/Treatment Medical History Pertinent Medical History: Arthritis, Dementia, GERD, HTN Additional Medical History Hx colon cancer 10 years ago, colostomy 4 years ago. 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 Chronic edema, chronic UTI. Dementia Current History Pt wa at [facility] for debility after a recent illness. Admitted there April 14 - that night he fell. Hip fx diagnosed and he was admitted to acute care on 04-18-17. Surgery 04-20 for R total hip arthroplasty. Reviewed History: Yes Social History Home: Single Level Current Living Status: Alone ADL-Prior Level of Function ADL PLOF Comments Pt reported that he was previously able to manage all of his basic self care needs. He cooked, cleaned, did laundry. Still drove. 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 No pain mentioned. Appearance Alert, cooperative Mental Status/Objective Patient Orientation: Person, Place, Time, Situation Attachments: Central Line, Colostomy/Ileostomy, Mckeon Catheter, Oxygen, Telemetry Current Glasses/Contacts: Yes Hearing Aids: Yes Dentures/Partials: No Hand Dominance: Right Upper Extremity ROM Grossly WFl bilat. Arthritic changes in fingers Upper Extremity Coordination WFL per pt report Upper Extremity Strength grossly 4/5 bilat ADL-Treatment ADL-Current Pt has colostomy but reported oozing from rectum and said he usually wears paper briefs because f this. He also has a Mckeon catheter. BSC in room for toilet transfers if needed. Pt is able to feed himself without difficulty, per his report. Pt would prefer to shower and dress in am. Functional [place] Measure 0=Not Assessed/NA 4=Minimal Assistance 1=Total Assistance 5=Supervision or Setup 2=Maximal Assistance 6=Modified [place] 3=Moderate Assistance 7=Complete IndependenceIRFPAI Quality Coding Scale 6 Independent with activity with or without an assistive device 5 Patient requires set up or clean up by helper. Patient completes activity by themselves 4 Supervision or touching assist (CGA). [place] provide cues , steadying assist 3 The helper provides less than half the effort to complete the activity 2 The helper provides more than half the effort to complete the activity 1 Dependent. The helper does all the effort to complete an activity 7 Patient refused to complete or attempt activity 9 The patient did not perform the activity before the current illness or injury 88 Not attempted due to Medical conditions or safety concerns Eating (FIM): 7 Eating (QC): 6 Other Treatments Pt left up in recliner, all needs met. Education OT Patient Education: Purpose of tx/functional activities, Reviewed precautions (Hip precautions, written), Rehab process Teaching Recipient: Patient Teaching Methods: Demonstration, Discussion Response to Teaching: Verbalize Understanding, Reinforcement Needed OT Short Term Goals Short Term Goals Time Frame: Apr 30, 2017 Grooming(FIM): 6 Lower Body Dressing(FIM): 3 Toilet/Commode Transfer(FIM): 3 Additional Short Term Goals: 1-Demonstrate ADL Tasks, 2-Verbalize Understanding , 3-ImproveStrength/Garrett 1=Demonstrate adherence to instructed precautions during ADL tasks. 2=Patient will verbalize/demonstrate understanding of assistive devices/ modifications for ADL. 3=Patient will improve strength/tolerance for activity to enable patient to perform ADL's. OT Nursing Home Goals Licensed Funeral Director Goals Time Frame: May 14, 2017 Eating (FIM): 7 Eating (QC): 6 Groomin Oral Hygiene (QC): 6 Bathing(FIM): 6 Shower/Bathe Self (QC): 6 Upper Body Dressing(FIM): 6 Upper Body Dressing (QC): 6 Lower Body Dressing(FIM): 6 Lower Body Dressing (QC): 6 On/Off Footwear (QC): 6 Toileting(FIM): 6 Toileting Hygiene (QC): 6 Toilet/Commode Transfer(FIM): 6 Toilet/Commode Transfer (QC): 6 Shower Transfer(FIM): 6 Additional Goals: 1-Demonstrate ADL Tasks, 2-Verbalize Understanding, 3- ImproveStrength/Garrett 1=Demonstrate adherence to instructed precautions during ADL tasks. 2=Patient will verbalize/demonstrate understanding of assistive devices/ modifications for ADL. 3=Patient will improve strength/tolerance for activity to enable patient to perform ADL's. OT Education/Plan Problem List/Assessment Assessment: Decreased Activ Tolerance, Decreased UE Strength, Dependent Transfers, Impaired Funct Balance, Impaired Self-Care Skills Pt would benefit from skilled OT to increase his independence in basic self care to allow him to safely return to his home. Discharge Recommendations Plan/Recommendations: Continue POC Barriers to Progress hip precautions Target Placement home Treatment Plan/Plan of Care Treatment,Training & Education: Yes Patient would benefit from OT for education, treatment and training to promote independence in ADL's, mobility, safety and/or upper extremity function for ADL' s. Plan of Care: ADL Retraining, Functional Mobility, Group Exercise/Act as Ind ( education, exercise, funct mobility, activ tolerance, funct activities), UE Funct Exercise/Act, UE Neuromus Re-Ed/Coord Treatment Duration: May 14, 2017 Frequency: Twice Daily (5-6 days a week) Estimated Hrs Per Day: 1.5 hours per day Agreement: Yes Rehab Potential: Fair Time/GCodes Start Time: 14:35 Stop Time: 15:20 Total Time Billed (hr/min): 45 Billed Treatment Time visit, evaluation moderate intensity 15 minutes, ADL 30 minutes ELIO DELGADO OT Apr 23, 2017 15:30
[2017-04-23] MEDS: RT-ALBUTEROL SULF 2.5 MG/3 ML PRE-MIX VIAL IH SCH ×2 (15:32→19:45)
--- NOTE | 2017-04-23 15:50 | Therapy Group Daily Note ---
Therapy Daily Group Note Patient Education Topic Other List Below (pain) Exercises LE Seated Exercise, UE Exercise, Other (breathing) Other/Notes Pt transported to OT/PT group via w/c. OT/PT group consisted of introductions ( name, place living, what do you do to relax), speaker for pain education, breathing techniques and UE/LE seated exercises. Pt was attentive throughout group. Contributed to discussions by giving personal examples of how to work through pain. Pt was appropriate with introductions and interactions with other group members. Pt verbalized understanding of pain education. Pt was able to complete breathing techniques appropriately. Able to complete UE/LE seated exercises. After therapy, mod A for transfers to recliner. Call light/ phone in reach. All needs met in room. Start Time: 13:00 Stop Time: 14:05 Total Billed Treatment Time: 65 Total Billed Treatment 1-GRP MARY MATHEW Apr 23, 2017 15:50
--- NOTE | 2017-04-23 16:11 | Physical Therapy Daily Note ---
PT Daily Note-Current Subjective Pt. ready to return to room after group agrees to gait and TRFs. Pt. states he is fatigued Pain Numeric Pain Scale: 0-No Pain Mental Status Patient Orientation: Normal For Age Attachments: Mckeon Catheter Transfers Functional [place] Measure 0=Not Assessed/NA 4=Minimal Assistance 1=Total Assistance 5=Supervision or Setup 2=Maximal Assistance 6=Modified [place] 3=Moderate Assistance 7=Complete IndependenceIRFPAI Quality Coding Scale 6 Independent with activity with or without an assistive device 5 Patient requires set up or clean up by helper. Patient completes activity by themselves 4 Supervision or touching assist (CGA). [place] provide cues , steadying assist 3 The helper provides less than half the effort to complete the activity 2 The helper provides more than half the effort to complete the activity 1 Dependent. The helper does all the effort to complete an activity 7 Patient refused to complete or attempt activity 9 The patient did not perform the activity before the current illness or injury 88 Not attempted due to Medical conditions or safety concerns Transfers (B, C, W/C) (FIM): 3 Scootin Rollin Supine to/from Sit: 3 Sit to/from Stand: 3 lists left and requires mod assist for gait and TRFs Gait Training Does the Patient Walk?: Yes Gait (FIM): 1 Distance (FIM): 1=up to 49 ft (12ftx2) Gait Level of Assist: 3 Gait Persons Needed: 1 Gait Assistive Device: FWW needs assist of 2nd person to push w/c Exercises Seated Therapy Exercises: Ankle pumps, Sit to stand, Long arc quads Seated Reps: 10 Treatments emphasis on TRFs stephanie sit to stand Assessment Current Status: Fair Progress PT Plan Treatment/Plan Treatment Plan: Continue Plan of Care Treatment Plan: Bed Mobility, Education, Functional Activity Garrett, Functional Strength, Group Therapy, Gait, Safety, Therapeutic Exercise, Transfers Treatment Duration: May 18, 2017 Frequency: At least 5-7 days/Wk (IRF) Estimated Hrs Per Day: 1.5 hours per day Patient and/or Family Agrees t: Yes Safety Risks/Education Patient Education: Gait Training, Transfer Techniques, Correct Positioning, Safety Issues Teaching Recipient: Patient Teaching Methods: Demonstration, Discussion Response to Teaching: Verbalize Understanding, Return Demonstration, Reinforcement Needed Time/GCodes Time In: 1305 Time Out: 1335 Total Billed Treatment Time: 30 Total Billed Treatment 1,FA 30m G Codes Necessary: No LUEBBER, CORNELL A FOLDER INSPECTOR Apr 23, 2017 16:11
[2017-04-23 18:23] VITALS: BP 111/63
[2017-04-23] MEDS: SIMvastatin 10 MG (ZOCOR) TAB PO SCH (18:43)
[2017-04-23] MEDS: SENNA W/DOCUSATE (SENOKOT S) TABLET PO SCH (20:36)
[2017-04-23] MEDS: metroNIDAZOLE 500MG/100ML IVPB 100 ML IV SCH (20:36)
[2017-04-23] MEDS: CATHETER FLUSH 10 ML SYR IV SCH (20:36)
[2017-04-23] MEDS: meTOprolol TARTRATE 25 MG (LOPRESSOR) TABLET PO SCH (20:36)
[2017-04-24 04:15] VITALS: BP 107/69
[2017-04-24] MEDS: RT-ALBUTEROL SULF 2.5 MG/3 ML PRE-MIX VIAL IH SCH ×4 (06:26→19:06)
[2017-04-24] MEDS: MULTIVIT W/MINERALS TAB (THERAGRAN M) PO SCH (06:43)
[2017-04-24] MEDS: CATHETER FLUSH 10 ML SYR IV SCH ×3 (06:45→21:08)
[2017-04-24] MEDS: ASCORBIC ACID (VIT C) 500 MG TABLET PO SCH (06:45)
[2017-04-24 07:26] LABS: BASOPHILS % (AUTO) 0 % (0-10); EOSINOPHILS # (AUTO) 0.2 10^3/uL (0.0-0.3); EOSINOPHILS % (AUTO) 2 % (0-10); LYMPHOCYTES % (AUTO) 10 % (12-44); MEAN CORPUSCULAR HEMOGLOBIN 29 PG (25-34); MEAN CORPUSCULAR HGB CONC 31 G/DL (32-36); MEAN CORPUSCULAR VOLUME 92 FL (80-99); MEAN PLATELET VOLUME 10.9 FL (7.4-10.4); MONOCYTES # (AUTO) 1.2 X 10^3 (0.0-1.0); MONOCYTES % (AUTO) 13 % (0-12); NEUTROPHILS # (AUTO) 7.2 X 10^3 (1.8-7.8); NEUTROPHILS % (AUTO) 75 % (42-75); PLATELET COUNT 405 10^3/uL (130-400); RED BLOOD COUNT 3.95 10^6/uL (4.35-5.85); RED CELL DISTRIBUTION WIDTH 17.6 % (10.0-14.5); WHITE BLOOD COUNT 9.6 10^3/uL (4.3-11.0)
[2017-04-24 07:47] LABS: ALBUMIN 2.9 GM/DL (3.2-4.5); BILIRUBIN,TOTAL 0.4 MG/DL (0.1-1.0); CREATININE SERUM 2.77 MG/DL (0.60-1.30); POTASSIUM 3.3 MMOL/L (3.6-5.0); TOTAL PROTEIN 6.7 GM/DL (6.4-8.2)
[2017-04-24 08:06] VITALS: BP 109/61
[2017-04-24] MEDS: metroNIDAZOLE 500MG/100ML IVPB 100 ML IV SCH (08:11)
[2017-04-24] MEDS: FERROUS SULF 325 MG (IRON) TAB PO SCH (08:12)
[2017-04-24] MEDS: meTOprolol TARTRATE 25 MG (LOPRESSOR) TABLET PO SCH ×2 (08:12→21:08)
[2017-04-24] MEDS: FUROSEMIDE 20 MG (LASIX) TAB PO SCH (08:12)
[2017-04-24] MEDS: LACTOBACILLUS Acidoph/Bulgar (LACTINEX/FLORANEX) TAB PO SCH (08:12)
[2017-04-24] MEDS: ENOXAPARIN 30 MG/0.3 ML (LOVENOX) SYR SC SCH (08:13)
[2017-04-24] MEDS: SENNA W/DOCUSATE (SENOKOT S) TABLET PO SCH ×2 (08:14→21:08)
--- NOTE | 2017-04-24 08:16 | PM&R Post Admission Assessment ---
Post Admission Physician Asses The preadmission screen agrees with the post admission assessment that the patient is a good candidate for inpatient rehabilitation. The patient will have a comprehensive program of inpatient rehabilitation with a goal of maximizing level of functional independence prior to [facility] to [facility] or to a [facility]. The patient will have PT/OT ninety minutes per day, each discipline, five days a week for gait, strengthening, conditioning, balance, ADLs, any patient/family/caregiver training as necessary. Speech therapy to do cognitive assessment and treat as indicated. Rehabilitation nursing to assist with bowel, bladder, skin, wound care, medication administration, pain management. Sales Research Analyst to assist with discharge planning, community reentry. SCD's for DVT prophylaxis. He appears to be well motivated to participate in three hours of therapy a day. He should be able to tolerate three hours of therapy a day from a medical and surgical standpoint. He should benefit from the three hours of therapy a day. He has a reasonable discharge plan, reasonable discharge rehabilitation goals and a supportive rastafarian family. He has various comorbidities that need to be closely monitored with medications and treatments adjusted on a daily basis as needed. 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 Risks for this patient include: 1. Fall 2. Fracture 3. DVT 4. Pulmonary embolism 5. Wound infection 6. Skin breakdown 7. Contractures 8. Poorly controlled pain 9. Urinary retention 10. UTI 11. Respiratory infection 12. Aspiration 13. Worsening Resp failure 14. Poorly controlled HTN 15. CHF 16. Tachycardia Estimated Length of Stay: []days Prognosis: Rehab prognosis appears good for goal of discharge home with [family ] modified independent to supervision for ADLs and mobility skills. SHAHIDA VANEGAS MD Apr 24, 2017 08:16
[2017-04-24] MEDS ORDERED: CARVEDILOL 3.125 MG (COREG) TABLET PO SCH (09:00)
--- NOTE | 2017-04-24 10:08 | ST Cognitive Linguistic Eval ---
Speech Evaluation-General Medical Diagnosis R Hip Fx Onset Date: Apr 18, 2017 Therapy Diagnosis Therapy Diagnosis: Cognitive Linguistic Skills WNL Precautions Precautions/Isolations: Fall Prevention, Standard Precautions, Pressure Ulcer Referral Referring Physician: Dr. Jorge Randolph Reason for Referral: Evaluation/Treatment Cognitive Evaluation Medical History Pertinent Medical History: Arthritis, Dementia, GERD, HTN Reviewed History: Yes Social History Current Living Status: Alone Speech PLF-Current Status Prior Level of Function The patient denied challenges with cognition, speech, or language prior to or following his recent hospitalization. Subjective The patient was recently admitted to [facility] with a diagnosis of a right hip fracture. The patient greeted the clinician appropriately and was agreeable to participation in the cognitive evaluation. Language Eval: Auditory Comprehends Simple Yes/No Ques: Functional Indent/Objects Multiple Aguirre: Functional Ident/Pics in Multiple Aguirre: Functional Follows 1-Step Commands: Functional Follows Complex Directions: Functional Follows General Conversations: Functional Language Eval: Verbal Language Completes Spontaneous Greeting: Functional Produces Auto, Serial Info: Functional Imitates Simple Words/Phrases: Functional Word Finding: Functional Requests Basic Needs: Functional States Basic Personal Info: Functional Expresses Complex Ideas: Functional Cognitive Patient Orientation The patient is oriented to month, day, date, and year (independently). Objective Cognitive Domain Attention: WNL Memory: Mild Problem Solving: Functional Objective Impression The patient demonstrated cognitive linguistic skills grossly within normal limits and appropriate for completion of ADL's. Communication/Social Cognition Comprehension: 6 Expression: 6 Social Interaction: 6 Problem Solvin Memory: 5 Speech Patient Assess Expression of Ideas/Wants: Expression (4) Understanding Vebal Content: Understands (4) Brief Interview-Mental Status: Yes Repetition of Three Words: Three (3) Temporal Orientation: Year: Correct (3) Temporal Orientation: Month: Accurate within 5 days(2) Temporal Orientation: Day: Correct (1) Recall : Wear to say "Sock": Yes,after cueing (1) Recall : Color: Yes, no cue required (2) Recall : Bed: Yes,after cueing (1) Speech-Plan Treatment Plan Speech Therapy Treatment Plan: Discontinue ST Evaluation, only. Frequency: Modified Program (IRF) Estimated Hrs Per Day: .25 hour per day (The patient will not receive skilled speech pathology services throughout his admission.) Rehab Potential: Fair Safety Risks/Education Teaching Recipient: Patient Teaching Methods: Discussion Response to Teaching: Verbalize Understanding Education Topics Provided: Results, Recommendations, Plan of Care Time Speech Therapy Time In: 08:54 Speech Therapy Time Out: 09:09 Total Billed Time: 15 Billed Treatment Time 1, TRISTEN DOVE Apr 24, 2017 10:08
--- NOTE | 2017-04-24 10:39 | Progress Note-Hospitalist ---
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.[address] s/p urology consultation Severe volume overload causing dyspnea and elevated BNP of 6100 Colon cancer 10 years ago and resection 4 years ago currently in remission Chronic debility Severe anemia mostly due to chronic kidney disease and chronic illness but likely acute blood loss from hip fracture 6 days ago receiving 1 unit of transfusion today preoperatively Sinus tachycardia superimposed with paroxysmal atrial fibrillation Acute on chronic UTI s/p antibiotics empirically Abdominal pain highly suspicious for diverticulitis mild episode general surgery Dr. Vásquez consulted Plan: Doing well PAULA DURON DO Apr 24, 2017 10:39
--- NOTE | 2017-04-24 11:30 | HISTORY AND PHYSICAL ---
DATE OF ADMISSION: 04/23/2017 CHIEF COMPLAINT: Difficulty with walking. 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 He went to [facility] in [place] for ongoing therapies. Unfortunately, the evening of his admission, he fell and sustained a displaced femoral neck fracture of the right hip. 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 He underwent a bipolar femoral hemiarthroplasty and a repair of the abductor tendon, right hip with Dr. Marie on 04/28/2017. He was followed by cardiology and pulmonology and hospitalist service due to medical concerns including postoperative anemia as well as acute systolic congestive heart failure, severe anemia, most likely due to chronic kidney disease but with exacerbation due to acute blood loss from the hip fracture, sinus tachycardia superimposed with paroxysmal atrial fibrillation and acute on chronic UTI, placed on antibiotics empirically. He does have a colovesicalar ostomy status post surgery for colon cancer in the past. He was seen by Dr. Alves as well urologist. He has had a decline in his functional independence due to all of this and is now referred to Inpatient Rehabilitation Unit. He is right-hand dominant. He has arthritic changes in his fingers but functional wellness consultant strength. He is modified independent for eating and grooming. Mod assist for lower body dressing. He is mod assist for transfers, and ambulation short distances with a front wheeled walker. PAST MEDICAL HISTORY: 1. Chronic kidney disease. 2. Congestive heart failure. 3. Colon cancer. 4. Status post colostomy. PAST SURGICAL HISTORY: As per above. ALLERGIES: 1. Iodinated contrast. 2. Oral and IV dye. 3. Penicillin. 4. Ibuprofen. FAMILY HISTORY: Noncontributory. SOCIAL HISTORY: Occasional alcohol. No tobacco. 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 REVIEW OF SYSTEMS: Ten-point review of systems significant for hip pain, falls. Currently on O2, postoperatively. Some shortness of breath. Some slight bowel incontinence leakage. MEDICATIONS: 1. Levaquin IV every 48 hours. 2. Lovenox 30 mg subcutaneous daily for DVT prophylaxis. 3. Furosemide 20 mg p.o. daily. 4. Lactinex 2 tablets p.o. daily. 5. Ferrous sulfate 325 mg p.o. daily. 6. Vitamin C 250 mg p.o. daily. 7. Multivitamins with minerals 1 tablet p.o. daily. 8. Metronidazole or Flagyl every 12 hours. 9. Senokot-S 1 tablet p.o. b.i.d. 10. Lopressor 25 mg p.o. b.i.d. 11. Zocor 5 mg p.o. at bedtime. 12. Proventil inhalations q.i.d. 13. Xanax 0.25 mg p.o. q.8 hours p.r.n. anxiety. 14. Tylenol 500 mg p.o. q.4 hours p.r.n. mild pain. 15. Hydrocodone APAP. 16. Lortab 1 tablet p.o. q.4 hours p.r.n. moderate pain. PHYSICAL EXAMINATION: Significant for a pleasant male, appearing his stated age, alert and oriented in no acute distress. VITAL SIGNS: He is afebrile. Pulse is 99, respirations 18, blood pressure 111/63, O2 sat 95% on 3 liters O2 by nasal cannula. HEENT: Vision, speech, hearing, grossly intact. No oral lesion is noted. O2 by nasal cannula placed. NECK: Supple. No mass. HEART: Regular rhythm. LUNGS: Clear. ABDOMEN: Soft, nontender. Bowel sounds present. Colostomy site intact, functioning. EXTREMITIES: Trace edema right ankle. No calf tenderness. MUSCULOSKELETAL: He has 4/5 strength both upper extremities with some arthritic changes in both hands but with functional wellness consultant. Strength of the left lower extremity 4/5. Right lower extremity limited with some guarding at the right hip due to recent fracture and repair good 4-4/5 strength. Cognition appears grossly intact. Sensation intact to touch in all 4 limbs. IMPRESSION: 1. Ambulatory dysfunction secondary to fall, fracture, status post fall with displaced femoral neck fracture, right hip and chronic abductor tendon tear, right hip, status post bipolar femoral hemiarthroplasty right hip and repair, Dr. Marie 04/18/2017, weight-bearing as tolerated. 2. History of colon cancer, status post colostomy. 3. Postoperative anemia. 4. Postop tachycardia, resolved. 5. Acute systolic congestive heart failure associated with Severe LV systolic dysfunction, treated by Dr. Biggs. 6. Tachycardia related to above, improving. 7. 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 8. Acute on chronic UTI on antibiotic. 9. Osteoarthritis of the hands. PLAN: The patient is admitted to Inpatient Rehabilitation Unit for a comprehensive program of orthopedic rehabilitation with goal of maximizing level of functional independence prior to discharge, most likely back to [facility] nursing unit. The patient will have PT/OT 90 minutes per day, each discipline, 5 days a week for 2 weeks for gait, strengthening, conditioning, balance, ADLs, any patient/family/caregiver training necessary, any adaptive equipment and training necessary. Speech therapy do cognitive assessment and treat as indicated. Rehabilitation nursing to assist with bowel, bladder, colostomy care, pain management, medication administration. 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 It may certainly be difficult for him to return home to [place], [place] unless it is a group type situation. Follow-up with Dr. Gunter, Long, Jenelle, Dian, and Frank as per their schedules. ESTIMATED LENGTH OF STAY: Two weeks. PROGNOSIS: Rehab prognosis appears good for goal of discharging hopefully at modified independent to supervision level for ADLs and mobility skills. DIET: Regular. CODE STATUS: Full code. Job ID: [id number] Dictated Date: 04/23/2017 19:08:12 Loss Control Manager Date: 04/24/2017 10:56:41/emeli MULTANI
--- NOTE | 2017-04-24 11:59 | Physical Therapy Daily Note ---
PT Daily Note-Current Subjective Patient in recliner pre tx, agrees to PT, patient states he has no pain. Appearance Patient in recliner post tx with nurse call, phone, tray, all needs met. Mental Status Patient Orientation: Normal For Age Transfers Functional Danese Measure 0=Not Assessed/NA 4=Minimal Assistance 1=Total Assistance 5=Supervision or Setup 2=Maximal Assistance 6=Modified Danese 3=Moderate Assistance 7=Complete IndependenceIRFPAI Quality Coding Scale 6 Independent with activity with or without an assistive device 5 Patient requires set up or clean up by helper. Patient completes activity by themselves 4 Supervision or touching assist (CGA). [place] provide cues , steadying assist 3 The helper provides less than half the effort to complete the activity 2 The helper provides more than half the effort to complete the activity 1 Dependent. The helper does all the effort to complete an activity 7 Patient refused to complete or attempt activity 9 The patient did not perform the activity before the current illness or injury 88 Not attempted due to Medical conditions or safety concerns Transfers (B, C, W/C) (FIM): 4 Sit to/from Stand: 4 Bed to/from Chair: 4 Patient needs min assist for sit to stand, he tends to be retropulsive, needs more assist from lower surfaces. Needs cues for safety and hand placement. Gait Training Gait (FIM): 2 Distance: 100', 30x2' Gait Level of Assist: 4 Gait Persons Needed: 1 Gait Assistive Device: FWW Wheelchair follow. Patient ambulates very slowly and with a stiff right leg, very little knee flexion. He tends to lean a lot to the left side. Wheelchair Training Does the Pt Use a Wheelchair?: Yes Wheelchair (FIM): 5 Distance: 150' Wheelchair Level of Assist: 5 Type of Wheelchair: Manual Exercises Standing: Hip Abduction, Hamstring curls, Heel/toe raises, Mini squats Standing Reps: 15 LAQ alternating for 5 min Treatments transfers, ambulation, wheelchair mobility, functional strengthening Assessment Current Status: Fair Progress improving endurance PT Correction Goals Correction Goals Rollin PT Plan Problem List Problem List: Activity Tolerance, Functional Strength, Safety, Balance, Gait, Transfer, Bed Mobility, ROM Treatment/Plan Treatment Plan: Continue Plan of Care Treatment Plan: Bed Mobility, Education, Functional Activity Garrett, Functional Strength, Group Therapy, Gait, Safety, Therapeutic Exercise, Transfers Treatment Duration: May 18, 2017 Frequency: At least 5-7 days/Wk (IRF) Estimated Hrs Per Day: 1.5 hours per day Patient and/or Family Agrees t: Yes Safety Risks/Education Patient Education: Gait Training, Transfer Techniques, Correct Positioning, W/ C Management, Safety Issues Teaching Recipient: Patient Teaching Methods: Demonstration, Discussion Response to Teaching: Reinforcement Needed Time/GCodes Time In: 1100 Time Out: 1200 Total Billed Treatment Time: 60 Total Billed Treatment 1 visit GT 30' WC 10' EX 20' CRISTEL PINO PT Apr 24, 2017 11:59
--- NOTE | 2017-04-24 12:48 | Cardiology Progress Note ---
Cardiology SOAP Progress Note Subjective: Improved shortness of breath Objective: I&O/Vital Signs Vital Sign - Last 12Hours 04/24/17 04/24/17 04/24/17 04/24/17 01:00 04:15 06:26 08:06 Temp 97.8 Pulse 91 94 89 Resp 18 20 B/P (MAP) 107/69 109/61 Pulse Ox 94 95 96 O2 Delivery Nasal Cannula Nasal Cannula Nasal Cannula O2 Flow Rate 3.00 2.00 1.00 04/24/17 04/24/17 08:24 10:23 Pulse Ox 95 O2 Delivery Nasal Cannula Room Air O2 Flow Rate 1.00 Intake and Output 04/24/17 00:00 Intake Total 700 ml Output Total 650 ml Balance 50 ml Weight (Pounds): 143 Weight (Ounces): 0.4 Weight (Calculated Kilograms): [id number] Constitutional: No appears stated age, No AAO x 3, No apparent distress, No PERRL, No well-developed, No well-nourished, No other Respiratory: No accessory muscle use, No respiratory distress, No chest tender , No chest expansion is symmetric, No chest is bilaterally symmetric, No lungs clear to percussion, No lungs clear to auscultation, No crackles, No rhonchi, No rales, No stridor, No wheezing, No pleural rub, No other Cardiovascular: No regular rate-rhythm, No irregularly irregular, No extra beats, No parasternal heave is noted, No JVD, No edema, No bradycardia, No tachycardia, No point of maximal impulse, No cardiac thrills are palpable, No S1 and S2, No gallop/S3, No gallop/S4, No diastolic murmur, No systolic murmur, No friction rub, No click, No other Gastrointestional: No tender, No soft, No round, No distended, No pulsatile mass, No organomegaly, No guarding, No rebound, No tenderness, No hernia, No mass, No audible bowel sounds, No abnormal bowel sounds, No abdominal bruits, No spleenomegaly, No other Extremities: No normal range of motion, No non-tender, No normal inspection, pedal edema, No calf tenderness, No normal capillary refill, No pelvis stable, No calf tenderness, No inflammation, No pedal edema, No slow capillary refill, No swelling, No other, No abrasion, No clubbing, No cyanosis, No ecchymosis, No laceration, No no lower extremity edema bilateral, No significant edema, No tenderness, No wound Neurologic/Psychiatric: No dining room maid II-XII nml as tested, No no motor/sensory deficits, No alert, No normal mood/affect, No oriented x 3, No abnormal cerebellar tests, No abnormal dining room maid II-XII, No abnormal gait, No aphasia, No EOM palsy, No facial droop, No motor weakness, No sensory deficit, No depressed affect, No disoriented x 3, No other, No grossly intact, No power is 5/5 both on sides Skin: No normal color, No warm/dry, No cyanosis, No cool, No diaphoresis, No damp, No ecchymosis, No jaundice, No mottled, No pallor, No rash, No tattoos/ piercings, No ulcerations, No rash on exposed areas, No ulcerations on exposed areas, No other Results/Procedures: Labs Laboratory Tests 04/24/17 07:00: White Blood Count 9.6, Red Blood Count 3.95L, Hemoglobin 11.4L, Hematocrit 36L, Mean Corpuscular Volume 92, Mean Corpuscular Hemoglobin 29, Mean Corpuscular Hemoglobin Concent 31L, Red Cell Distribution Width 17.6H, Platelet Count 405H, Mean Platelet Volume 10.9H, Neutrophils (%) (Auto) 75, Lymphocytes (%) (Auto) 10L, Monocytes (%) (Auto) 13H, Eosinophils (%) (Auto) 2, Basophils (%) (Auto) 0 , Neutrophils # (Auto) 7.2, Lymphocytes # (Auto) 1.0, Monocytes # (Auto) 1.2H, Eosinophils # (Auto) 0.2, Basophils # (Auto) 0.0, Sodium Level 138, Potassium Level 3.3L, Chloride Level 100, Carbon Dioxide Level 22, Anion Gap 16H, Blood Urea Nitrogen 63H, Creatinine 2.77H, Estimat Glomerular Filtration Rate 22, BUN/ Creatinine Ratio 23, Glucose Level 92, Calcium Level 8.0L, Total Bilirubin 0.4, Aspartate Amino Transf (AST/SGOT) 31, Alanine Aminotransferase (ALT/SGPT) 32, Alkaline Phosphatase 91, Total Protein 6.7, Albumin 2.9L A/P: Assessment/Dx: Assessment/Dx: Right hip fracture,post surgery Congestive heart failure. Positive cardiac enzymes. CKD tachycardia Plan: Plan: Right hip fracture, - s/p surgery Acute systolic Congestive heart failure: Severe LV systolic dysfunction. Improved shortness of breath. Oxygen saturation 98% on RA. Continue PO lasix. better BNP. lungs better on auscultation. I/O slightly negative yesterday. Mild swelling noted lower extremities. Continue Lasix. Positive cardiac enzymes: serial troponin shows same level of troponin. this is very unlikely ACS. Since mild elevation of troponin can occur in CHF especially with CKD and in a patient with tachycardia. CKD: defer to primary team. previous creatinine from [facility] was also 3. tachycardia: better controlled. continue metoprolol. Thank you for your consultation. Please call me if you have any questions. Ramírez Biggs MD, FACP, FACC, FSCAI, FHRS, CCDS Interventional Cardiology Cardiac Electrophysiology Vascular Medicine and Endovascular Interventions Cyndee BIGGS MD Apr 24, 2017 12:48
--- NOTE | 2017-04-24 12:49 | Physical Therapy Evaluation ---
PT Evaluation-General Medical Diagnosis Admission Date Apr 23, 2017 at 12:31 Medical Diagnosis: R Hip Fx Onset Date: Apr 18, 2017 Therapy Diagnosis Therapy Diagnosis: generalized weakness/debility Height/Weight Height (Feet): 5 Height (Inches): 6.00 Weight (Pounds): 143 Weight (Ounces): 0.4 Precautions Precautions/Isolations: Fall Prevention, Standard Precautions, Pressure Ulcer Weight Bear Status Weight Bearing Restriction: Weight Bearing/Tolerated Location Restriction: R LE Referral Physician: Agustín Reason for Referral: Evaluation/Treatment Medical History Pertinent Medical History: Arthritis, Dementia, GERD, HTN Additional Medical History per patient report, has had increase in weakness x 6-7 wks Current History fall at [facility] while getting in bed Reviewed History: Yes Social History Home: Single Level Current Living Status: Alone Entry Into Home: Stairs With Railing PT Steps Into Home: 5 Prior/Core FIM Prior Level of Function Functional [place] Measure 0=Not Assessed/NA 4=Minimal Assistance 1=Total Assistance 5=Supervision or Setup 2=Maximal Assistance 6=Modified [place] 3=Moderate Assistance 7=Complete [place] Bed Mobility: 7 Transfers (B,C,W/C) (FIM): 7 Gait: 7 PT Evaluation-Current Subjective Agrees to PT. Pain Numeric Pain Scale: 3 Location: Right Location Body Site: Hip Pain Description: Acute Objective Patient Orientation: Normal For Age Problem Solving: Good Attachments: Oxygen, Mckeon Catheter ROM/Strength ROM Lower Extremities left LE WNL right hip precautions Strenght Lower Extremities right LE grossly 3-/5 left LE 4/5 grossly Integumentary/Posture Integumentary refer to nursing notes Bowel Incontinence: No Posture slightly kyphotic Neuromuscular (Tone, Coordination, Reflexes) diminished coordination with activity; sensation intact Sensory Vision: Wears Glasses Hearing: Hearing Aid/Aides Hand Dominance: Right Sensation Right Lower Extremit: Intact Sensation Left Lower Extremity: Intact Transfers Functional Forest Measure 0=Not Assessed/NA 4=Minimal Assistance 1=Total Assistance 5=Supervision or Setup 2=Maximal Assistance 6=Modified [place] 3=Moderate Assistance 7=Complete IndependenceIRFPAI Quality Coding Scale 6 Independent with activity with or without an assistive device 5 Patient requires set up or clean up by helper. Patient completes activity by themselves 4 Supervision or touching assist (CGA). [place] provide cues , steadying assist 3 The helper provides less than half the effort to complete the activity 2 The helper provides more than half the effort to complete the activity 1 Dependent. The helper does all the effort to complete an activity 7 Patient refused to complete or attempt activity 9 The patient did not perform the activity before the current illness or injury 88 Not attempted due to Medical conditions or safety concerns Transfers (B, C, W/C) (FIM): 3 Scootin Rollin Roll Left to Right (QC): 2 Supine to/from Sit: 3 Sit to/from Stand: 3 Sit to Lying (QC): 2 Lying to Sitting/Side of Bed(Q: 2 Sit to Stand (QC): 2 Chair/Lsl-si-Mvijd Xfer(QC): 2 Car Transfer (QC): 88 Gait Does the Patient Walk?: Yes Mode of Locomotion: Walk Anticipated Mode of Locomotion: Walk Gait (FIM): 1 Distance (FIM): 1=up to 49 ft Walk 10 feet (QC): 4 Walk 50 ft with 2 Turns(QC): 88 Walk 150 ft (QC): 88 Walking 10ft/uneven surface-QC: 88 Distance: 40' x 6 Gait Level of Assist: 3 Gait Persons Needed: 1 Gait Assistive Device: FWW Comments/Gait Description bilateral ER LE; step to gait sequence Stairs Stairs (FIM): 1 #of Steps: 1 Level of Assist: 3 1 Step (curb) (QC): 2 4 Steps (QC): 88 Assistive Device: Walker 12 Steps (QC): 88 Balance Sitting Static: Fair Sitting Dynamic: Fair Standing Static: Fair Standing Dynamic: Fair Treatment bilateral LE exercises 10 reps x 2 sets AP, LAQ Education with patient on safety awareness and hip precautions Gait training with FWW mod assist 40' x 6 with slow, step to gait sequence Assessment/Needs 82 y.o. male, will benefit from skilled PT to address functional strength and mobility to improve current LOF and to safely return to home or care facility at maximum LOF. Patient will also benefit from skilled PT to address pulmonary function with exercise and ambulation. Patient is limited with pulmonary function with minimal activity requiring 2L O2 NC. Rehab Potential: Fair Post Rehab Potential-Barriers: age/status PT Short Term Goals Short Term Goals Wheelchair Distance: 150' PT Snf Goals Snf Goals PT Snf Goals Time Frame: May 18, 2017 Transfers (B,C,W/C) (FIM): 5 Sit to Lying (QC): 5 Lying-Sitting on Side/Bed(QC): 5 Sit to Stand (QC): 5 Rollin Roll Left to Right (QC): 5 Chair/Pro-aw-Grzxh Xfer(QC): 5 Car Transfer (QC): 5 Does the Patient Walk: Yes Gait (FIM): 3 Gait distance (FIM): 3=150 ft Distance: 150' Walk 10 feet (QC): 5 Walk 10ft-Uneven Surface(QC): 5 Walk 50ft with 2 Turns (QC): 5 Walk 150 ft (QC): 5 Gait Level of Assist: 5 Gait Assistive Device: FWW Stairs (FIM): 2 # of Steps: 5 1 Step (curb) (QC): 4 4 Steps (QC): 4 12 Steps (QC): 88 Stairs Level Of Assist: 5 Picking up an Object (QC): 5 PT Plan Problem List Problem List: Activity Tolerance, Functional Strength, Safety, Balance, Gait, Transfer, Bed Mobility Treatment/Plan Treatment Plan: Continue Plan of Care Treatment Plan: Bed Mobility, Education, Functional Activity Garrett, Functional Strength, Group Therapy, Gait, Safety, Therapeutic Exercise, Transfers Treatment Duration: May 18, 2017 Frequency: At least 5-7 days/Wk (IRF) Estimated Hrs Per Day: 1.5 hours per day Patient and/or Family Agrees t: Yes Safety Risks/Education Patient Education: Correct Positioning, Safety Issues Teaching Recipient: Patient Teaching Methods: Demonstration, Discussion Response to Teaching: Verbalize Understanding, Return Demonstration Discharge Recommendations Therapy D/C Recommendations: Assisted Living, Fdc Placement Time/GCodes Time In: 1220 Time Out: 1305 Total Billed Treatment Time: 45 Total Billed Treatment 1 visit EVLowC 25 min FA 20 min Evaluation was performed and written 04/23/17 (on the wrong pre-account) and rewritten on this date on correct account. EDGAR KERNS PT Apr 24, 2017 12:49
--- NOTE | 2017-04-24 13:45 | Occupational Ther Daily Note ---
OT Current Status-Daily Note Subjective No pain reported. Appearance Pt. agreed to shower. Mental Status/Objective Patient Orientation: Person, Place Functional Gordon Measure 0=Not Assessed/NA 4=Minimal Assistance 1=Total Assistance 5=Supervision or Setup 2=Maximal Assistance 6=Modified [place] 3=Moderate Assistance 7=Complete [place] Attachments: Colostomy/Ileostomy, Mckeon Catheter, IV ADL-Treatment Functional [place] Measure 0=Not Assessed/NA 4=Minimal Assistance 1=Total Assistance 5=Supervision or Setup 2=Maximal Assistance 6=Modified [place] 3=Moderate Assistance 7=Complete IndependenceIRFPAI Quality Coding Scale 6 Independent with activity with or without an assistive device 5 Patient requires set up or clean up by helper. Patient completes activity by themselves 4 Supervision or touching assist (CGA). [place] provide cues , steadying assist 3 The helper provides less than half the effort to complete the activity 2 The helper provides more than half the effort to complete the activity 1 Dependent. The helper does all the effort to complete an activity 7 Patient refused to complete or attempt activity 9 The patient did not perform the activity before the current illness or injury 88 Not attempted due to Medical conditions or safety concerns Grooming (FIM): 5 (Set up to comb hair.) Bathing (FIM): 4 (Min assist to wash rear erin area in stance.) Shower/Bathe Self (QC): 4 Lower Body Dressing (FIM): 3 (Pt. able to doff socks with AE, but required assistance to don them. Did not have room to don socks in shower, and fatigued after shower.) Lower Body Dressing (QC): 3 On/Off Footwear (QC): 2 Transfers (B, C, W/C) (FIM): 4 Other Treatment Pt. tolerated treatment well. Stated, "this shower feels good." No street clothing available. Education OT Patient Education: Correct positioning, Energy conservation, Modified ADL techniques, Progress toward Goal/Update tx plan, Purpose of tx/functional activities, Reviewed precautions, Rehab process, Transfer techniques, Use of adapted equipment Teaching Recipient: Patient Teaching Methods: Demonstration, Discussion Response to Teaching: Verbalize Understanding, Return Demonstration OT Short Term Goals Short Term Goals Time Frame: Apr 30, 2017 Grooming(FIM): 6 Lower Body Dressing(FIM): 3 Toilet/Commode Transfer(FIM): 3 Additional Short Term Goals: 1-Demonstrate ADL Tasks, 2-Verbalize Understanding , 3-ImproveStrength/Garrett 1=Demonstrate adherence to instructed precautions during ADL tasks. 2=Patient will verbalize/demonstrate understanding of assistive devices/ modifications for ADL. 3=Patient will improve strength/tolerance for activity to enable patient to perform ADL's. OT Retirement Goals Cell Cleaner Goals Time Frame: May 14, 2017 Eating (FIM): 7 Eating (QC): 6 Groomin Oral Hygiene (QC): 6 Bathing(FIM): 6 Shower/Bathe Self (QC): 6 Upper Body Dressing(FIM): 6 Upper Body Dressing (QC): 6 Lower Body Dressing(FIM): 6 Lower Body Dressing (QC): 6 On/Off Footwear (QC): 6 Toileting(FIM): 6 Toileting Hygiene (QC): 6 Toilet/Commode Transfer(FIM): 6 Toilet/Commode Transfer (QC): 6 Shower Transfer(FIM): 6 Additional Goals: 1-Demonstrate ADL Tasks, 2-Verbalize Understanding, 3- ImproveStrength/Garrett 1=Demonstrate adherence to instructed precautions during ADL tasks. 2=Patient will verbalize/demonstrate understanding of assistive devices/ modifications for ADL. 3=Patient will improve strength/tolerance for activity to enable patient to perform ADL's. OT Education/Plan Problem List/Assessment Assessment: Decreased Activ Tolerance, Decreased UE Strength, Impaired Bed Mobility, Impaired Funct Balance, Impaired I ADL's, Impaired Self-Care Skills Pt would benefit from skilled OT to increase his independence in basic self care to allow him to safely return to his home. Discharge Recommendations Plan/Recommendations: Continue POC Therapy D/C Recommendations: Home w/ Family Support, Occupational Therapy Home Care Equpiment Recommendations-D/C: Hip Kit Treatment Plan/Plan of Care Treatment,Training & Education: Yes Patient would benefit from OT for education, treatment and training to promote independence in ADL's, mobility, safety and/or upper extremity function for ADL' s. Plan of Care: ADL Retraining, Functional Mobility, Group Exercise/Act as Ind ( education, exercise, funct mobility, activ tolerance, funct activities), UE Funct Exercise/Act, UE Neuromus Re-Ed/Coord Treatment Duration: May 14, 2017 Frequency: At least 5-7 days/Wk (IRF) (5-6 days a week) Estimated Hrs Per Day: 1.5 hours per day Agreement: Yes Rehab Potential: Good Time/GCodes Start Time: 09:20 Stop Time: 10:20 Total Time Billed (hr/min): 60 Billed Treatment Time 1, ADL x 4 LENA GUEVARA OT Apr 24, 2017 13:44
--- NOTE | 2017-04-24 14:17 | PM & R (SOAP) Progress Note ---
Subjective Time Seen by Provider: 08:05 Subjective/Events-last exam Patient was seen in his room this AM Adfjusting well to unit Serum K low Replacement ordered Appreciate DR Ribera note Patient min assist for transfers Bladder managed with Indwelling Mckeon catheter Review of Systems Pulmonary: Dyspnea Musculoskeletal: leg pain Objective Exam Last Set of Vital Signs Vital Signs Date Time Temp Pulse Resp B/P (MAP) Pulse Ox O2 Delivery O2 Flow Rate FiO2 04/24/17 10:23 95 Room Air 04/24/17 08:24 1.00 04/24/17 08:06 89 20 109/61 04/24/17 04:15 97.8 Capillary Refill : I&O Bad tableGeneral: Alert, Oriented X3, Cooperative, No Acute Distress HEENT: Atraumatic, PERRLA, EOMI, Mucous Memb Moist/[place] Neck: Supple, No JVD Lungs: Clear to Auscultation Heart: Regular Rate Abdomen: Normal Bowel Sounds, Soft, No Tenderness, Other (colovesicular ostomy funftioning) Extremities: Other (trace edema in ankles) Neuro: Other (Strength RLE 3-/5 groosly and Left LE 4/5) Results Lab Laboratory Tests 04/24/17 07:00: White Blood Count 9.6, Red Blood Count 3.95L, Hemoglobin 11.4L, Hematocrit 36L, Mean Corpuscular Volume 92, Mean Corpuscular Hemoglobin 29, Mean Corpuscular Hemoglobin Concent 31L, Red Cell Distribution Width 17.6H, Platelet Count 405H, Mean Platelet Volume 10.9H, Neutrophils (%) (Auto) 75, Lymphocytes (%) (Auto) 10L, Monocytes (%) (Auto) 13H, Eosinophils (%) (Auto) 2, Basophils (%) (Auto) 0 , Neutrophils # (Auto) 7.2, Lymphocytes # (Auto) 1.0, Monocytes # (Auto) 1.2H, Eosinophils # (Auto) 0.2, Basophils # (Auto) 0.0, Sodium Level 138, Potassium Level 3.3L, Chloride Level 100, Carbon Dioxide Level 22, Anion Gap 16H, Blood Urea Nitrogen 63H, Creatinine 2.77H, Estimat Glomerular Filtration Rate 22, BUN/ Creatinine Ratio 23, Glucose Level 92, Calcium Level 8.0L, Total Bilirubin 0.4, Aspartate Amino Transf (AST/SGOT) 31, Alanine Aminotransferase (ALT/SGPT) 32, Alkaline Phosphatase 91, Total Protein 6.7, Albumin 2.9L Assessment/Plan Assessment s/p repair rt displaced femoral neck frx s/p fall Dr Mraie CRI s/p ureter stent secondary to stenosis s/p RT for Colon ca Colvesicular Ostomy Recurrent UTIS with Mckeon catheter in place to dependent drainage at this time Postop anemia Postop tachycardia follwed by Dr Biggs on metoprolol Acute on chronic Systolic CHF treated being treated by Dr Biggs Resp insufficiency on supplemental o2 Plan Continue PT/OT ST has signed off Team Conference tomorrow F/U with CArdiology,and Hospitalist and DR Alves as per their schedule SHAHIDA VANEGAS MD Apr 24, 2017 14:16
--- NOTE | 2017-04-24 15:20 | Therapy Group Daily Note ---
Therapy Daily Group Note Patient Education Topic Home Safety Other/Notes Pt was propelled to Group in [facility]. Group consisted of Introduction (Name, Where you are from and what you use to make home safer or easier to accomplish tasks) , ARU meeting description and Home Safety education and discussion. Education consisted of ambulating stairs and how to do so safely, how to ambulate around house & avoid tripping hazards as well as proper/safe way to sit or stand from seated surface. Pt participated in group discussion. Pt was propelled back to room to rest, SPT into recliner at end of Group with all needs met. Start Time: 13:00 Stop Time: 14:15 Total Billed Treatment Time: 75 Total Billed Treatment 1,GRP YOLANDA KRAUSE [employer] Apr 24, 2017 15:20
[2017-04-24] MEDS: SIMvastatin 10 MG (ZOCOR) TAB PO SCH (17:41)
[2017-04-24 18:29] VITALS: BP 121/78
[2017-04-25 06:10] VITALS: BP 102/60
[2017-04-25] MEDS: MULTIVIT W/MINERALS TAB (THERAGRAN M) PO SCH (06:34)
[2017-04-25] MEDS: KCL 20 MEQ TAB (K-DUR) PO SCH (06:34)
[2017-04-25] MEDS: CATHETER FLUSH 10 ML SYR IV SCH ×3 (06:34→20:51)
[2017-04-25] MEDS: ASCORBIC ACID (VIT C) 500 MG TABLET PO SCH (06:34)
[2017-04-25] MEDS: RT-ALBUTEROL SULF 2.5 MG/3 ML PRE-MIX VIAL IH SCH ×4 (07:06→18:53)
--- NOTE | 2017-04-25 08:09 | PM & R (SOAP) Progress Note ---
Subjective Time Seen by Provider: 07:40 Subjective/Events-last exam Patient was seen in his room this AMPatient had some concerns re anal leakage which is long standing since Colon surgery.Patient uses paper for protection Patient Min assist for transfers Appreciate DR Ramírez note Objective Exam Last Set of Vital Signs Vital Signs Date Time Temp Pulse Resp B/P (MAP) Pulse Ox O2 Delivery O2 Flow Rate FiO2 04/25/17 07:06 Room Air 04/25/17 06:10 98.9 69 18 102/60 92 04/24/17 08:24 1.00 Capillary Refill : I&O Intake and Output 04/25/17 00:00 Intake Total 1450 ml Output Total 2120 ml Balance -670 ml Intake Oral 1450 ml Output Urine Total 1370 ml Stool Total 750 ml General: Alert, Oriented X3, Cooperative, No Acute Distress HEENT: Atraumatic, PERRLA, EOMI, Mucous Memb Moist/[place] Neck: Supple, No JVD Lungs: Clear to Auscultation Heart: Regular Rate Abdomen: Normal Bowel Sounds, Soft, No Tenderness, Other (colovesicular ostomy funftioning) Extremities: Other (trace edema in ankles) Neuro: Other (Strength RLE 3-/5 groosly and Left LE 4/5) Results Lab Laboratory Tests 04/24/17 07:00: White Blood Count 9.6, Red Blood Count 3.95L, Hemoglobin 11.4L, Hematocrit 36L, Mean Corpuscular Volume 92, Mean Corpuscular Hemoglobin 29, Mean Corpuscular Hemoglobin Concent 31L, Red Cell Distribution Width 17.6H, Platelet Count 405H, Mean Platelet Volume 10.9H, Neutrophils (%) (Auto) 75, Lymphocytes (%) (Auto) 10L, Monocytes (%) (Auto) 13H, Eosinophils (%) (Auto) 2, Basophils (%) (Auto) 0 , Neutrophils # (Auto) 7.2, Lymphocytes # (Auto) 1.0, Monocytes # (Auto) 1.2H, Eosinophils # (Auto) 0.2, Basophils # (Auto) 0.0, Sodium Level 138, Potassium Level 3.3L, Chloride Level 100, Carbon Dioxide Level 22, Anion Gap 16H, Blood Urea Nitrogen 63H, Creatinine 2.77H, Estimat Glomerular Filtration Rate 22, BUN/ Creatinine Ratio 23, Glucose Level 92, Calcium Level 8.0L, Total Bilirubin 0.4, Aspartate Amino Transf (AST/SGOT) 31, Alanine Aminotransferase (ALT/SGPT) 32, Alkaline Phosphatase 91, Total Protein 6.7, Albumin 2.9L Assessment/Plan Assessment s/p repair rt displaced femoral neck frx s/p fall Dr Marie CRI s/p ureter stent secondary to stenosis s/p RT for Colon ca Colvesicular Ostomy Recurrent UTIS with Mckeon catheter in place to dependent drainage at this time Postop anemia Postop tachycardia follwed by Dr Biggs on metoprolol Acute on chronic Systolic CHF treated being treated by Dr Biggs Resp insufficiency on supplemental o2 Plan Continue PT/OT ST has signed off Team Conference later today-See report for full funmctional update and POC and ELOS F/U with CArdiology,and Hospitalist and DR Alves as per their schedule F/U when Mckeon catheter can be d/cd and duration of antibiotic SHAHIDA VANEGAS MD Apr 25, 2017 08:09
--- NOTE | 2017-04-25 08:19 | Individualized Plan of Care ---
Individualized Plan of Care Rehab Nursing IPOC Order Admission Date Apr 23, 2017 at 12:31 Current Orders Orders Patient Visit (04/24/17 ) Speech Sound Lang Comp (04/24/17 ) Patient Visit (04/24/17 ) Gait Training, Ea 15 Min (04/24/17 ) Exercise Therap, Ea 15 Min (04/24/17 ) Wheelchair Mgmt/Propulsn 15min (04/24/17 ) Patient Visit (04/24/17 ) Therapeutic, Group (04/24/17 ) Other Nursing Orders: Mckeon catheter care PT IPOC Problem List: Activity Tolerance, Functional Strength, Safety, Balance, Gait, Transfer, Bed Mobility Treatment Plan: Continue Plan of Care Bed Mobility, Education, Functional Activity Garrett, Functional Strength, Group Therapy, Gait, Safety, Therapeutic Exercise, Transfers Treatment Duration: May 18, 2017 Frequency: At least 5-7 days/Wk (IRF) Estimated Hrs Per Day: 1.5 hours per day OT IPOC Problems: Decreased Activ Tolerance, Decreased UE Strength, Impaired Bed Mobility, Impaired Funct Balance, Impaired I ADL's, Impaired Self-Care Skills OT Problems Pt would benefit from skilled OT to increase his independence in basic self care to allow him to safely return to his home. Plan of Care: ADL Retraining, Functional Mobility, Group Exercise/Act as Ind ( education, exercise, funct mobility, activ tolerance, funct activities), UE Funct Exercise/Act, UE Neuromus Re-Ed/Coord Treatment Duration: May 14, 2017 Frequency: At least 5-7 days/Wk (IRF) (5-6 days a week) Estimated Hrs Per Day: 1.[address] IPOC Speech Therapy Treatment Plan: Discontinue ST Frequency: Modified Program (IRF) Estimated Hrs Per Day: .25 hour per day (The patient will not receive skilled speech pathology services throughout his admission.) Physician IPOC Medical Issues being managed closely and that require the 24 hour availability of a physician: Acute on chronic uti,Post op anemia, Chronic renal insufficiency Medical Issues: Bowel/Bladder Function, DVT Prophylaxis, Falls Precautions, Fluid/Electrolyte/Nutrition Balance, Infection Protection, Pain Management, Wound Care, Other (List) (as per above) Brief Synthesis of Preadmission Screen, Post-Admission Evaluation, and Therapy Evaluations: 82 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 with a recent admission to [facility] for ongoing care who fell at that facility with a resulting rt hip frx repaired by Orthopedics.Currently with Indwelling Mckeon catheter due to recurrent UTIS and on IV Levaquin being followed by .Also being followed by Hospitalist and Cardiology for CHF now compensated PMH significant for colon CA s/p Colovesicular ostomy with 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 SHAHIDA VANEGAS MD Apr 25, 2017 08:19
[2017-04-25] MEDS: FERROUS SULF 325 MG (IRON) TAB PO SCH (08:58)
[2017-04-25] MEDS: ENOXAPARIN 30 MG/0.3 ML (LOVENOX) SYR SC SCH (08:58)
[2017-04-25] MEDS: meTOprolol TARTRATE 25 MG (LOPRESSOR) TABLET PO SCH ×2 (08:59→20:51)
[2017-04-25] MEDS: FUROSEMIDE 20 MG (LASIX) TAB PO SCH (08:59)
[2017-04-25] MEDS: LACTOBACILLUS Acidoph/Bulgar (LACTINEX/FLORANEX) TAB PO SCH (08:59)
[2017-04-25] MEDS ORDERED: LEVOFLOXACIN 500 MG/100 ML IV 100 ML IV SCH (09:00)
[2017-04-25] MEDS: SENNA W/DOCUSATE (SENOKOT S) TABLET PO SCH ×2 (09:26→20:51)
--- NOTE | 2017-04-25 10:39 | Occupational Ther Daily Note ---
OT Current Status-Daily Note Subjective No pain reported. Appearance Pt. up in chair. Pt. declines showering, as he did this yesterday. However, agrees to get dressed with AE. Mental Status/Objective Patient Orientation: Person, Place, Time Functional [place] Measure 0=Not Assessed/NA 4=Minimal Assistance 1=Total Assistance 5=Supervision or Setup 2=Maximal Assistance 6=Modified [place] 3=Moderate Assistance 7=Complete [place] ADL-Treatment Functional [place] Measure 0=Not Assessed/NA 4=Minimal Assistance 1=Total Assistance 5=Supervision or Setup 2=Maximal Assistance 6=Modified [place] 3=Moderate Assistance 7=Complete IndependenceIRFPAI Quality Coding Scale 6 Independent with activity with or without an assistive device 5 Patient requires set up or clean up by helper. Patient completes activity by themselves 4 Supervision or touching assist (CGA). [place] provide cues , steadying assist 3 The helper provides less than half the effort to complete the activity 2 The helper provides more than half the effort to complete the activity 1 Dependent. The helper does all the effort to complete an activity 7 Patient refused to complete or attempt activity 9 The patient did not perform the activity before the current illness or injury 88 Not attempted due to Medical conditions or safety concerns Grooming (FIM): 5 (Pt. is able to comb hair from wheelchair level at sink.) Upper Body (FIM): 5 Upper Body Dressing (QC): 5 Lower Body Dressing (FIM): 3 (Pt. utilized adaptive equipment. Required mod assistance to don socks with AE. Was able to doff socks with dressing stick. Required min assistance overall to don pants with dressing stick. Min assist in stance to trap puller hips.) Lower Body Dressing (QC): 3 On/Off Footwear (QC): 3 Toileting (FIM): 1 (Pt. is dependent with colostomy and catheter.) Transfers (B, C, W/C) (FIM): 4 (Pt. requires min assistance to stand out of chair, and to transfer to wheelchair. Min assist for supine-sit.) Other Treatment After ADLs, pt. ambulated to wheelchair with min assist, (10 feet) with walker. Went to therapy gym. Tolerated 11 minutes on armbike to increase overall strength and endurance, and then donned 1 lb. wrist weights and completed UE activity with arm arc back and forth. Pt. educated need to continue with UE strength due to providing assist with transfers. Pt. verbalizes understanding. Went back to room via wheelchair. All needs met. Pt. is able to follow hip precautions throughout treatment. Education OT Patient Education: Correct positioning, Exercise program, Modified ADL techniques, Progress toward Goal/Update tx plan, Purpose of tx/functional activities, Reviewed precautions, Rehab process, Transfer techniques Teaching Recipient: Patient Teaching Methods: Demonstration, Discussion Response to Teaching: Verbalize Understanding, Return Demonstration OT Short Term Goals Short Term Goals Time Frame: Apr 30, 2017 Grooming(FIM): 6 Lower Body Dressing(FIM): 3 Toilet/Commode Transfer(FIM): 3 Additional Short Term Goals: 1-Demonstrate ADL Tasks, 2-Verbalize Understanding , 3-ImproveStrength/Garrett 1=Demonstrate adherence to instructed precautions during ADL tasks. 2=Patient will verbalize/demonstrate understanding of assistive devices/ modifications for ADL. 3=Patient will improve strength/tolerance for activity to enable patient to perform ADL's. OT Loading Dock Hand Goals Jail Goals Time Frame: May 14, 2017 Eating (FIM): 7 Eating (QC): 6 Groomin Oral Hygiene (QC): 6 Bathing(FIM): 6 Shower/Bathe Self (QC): 6 Upper Body Dressing(FIM): 6 Upper Body Dressing (QC): 6 Lower Body Dressing(FIM): 6 Lower Body Dressing (QC): 6 On/Off Footwear (QC): 6 Toileting(FIM): 6 Toileting Hygiene (QC): 6 Toilet/Commode Transfer(FIM): 6 Toilet/Commode Transfer (QC): 6 Shower Transfer(FIM): 6 Additional Goals: 1-Demonstrate ADL Tasks, 2-Verbalize Understanding, 3- ImproveStrength/Garrett 1=Demonstrate adherence to instructed precautions during ADL tasks. 2=Patient will verbalize/demonstrate understanding of assistive devices/ modifications for ADL. 3=Patient will improve strength/tolerance for activity to enable patient to perform ADL's. OT Education/Plan Problem List/Assessment Assessment: Decreased Activ Tolerance, Decreased UE Strength, Dependent Transfers, Impaired Bed Mobility, Impaired Funct Balance, Impaired I ADL's, Impaired Self-Care Skills Pt would benefit from skilled OT to increase his independence in basic self care to allow him to safely return to his home. Discharge Recommendations Plan/Recommendations: Continue POC Therapy D/C Recommendations: Assisted Living, Occupational Therapy Home Care Equpiment Recommendations-D/C: Bath Chair, Hip Kit Target Placement Pt. plans to return home. States that his goal is to return home independently. Treatment Plan/Plan of Care Treatment,Training & Education: Yes Patient would benefit from OT for education, treatment and training to promote independence in ADL's, mobility, safety and/or upper extremity function for ADL' s. Plan of Care: ADL Retraining, Functional Mobility, Group Exercise/Act as Ind ( education, exercise, funct mobility, activ tolerance, funct activities), UE Funct Exercise/Act, UE Neuromus Re-Ed/Coord Treatment Duration: May 14, 2017 Frequency: At least 5-7 days/Wk (IRF) (5-6 days a week) Estimated Hrs Per Day: 1.5 hours per day Agreement: Yes Rehab Potential: Good Time/GCodes Start Time: 08:15 Stop Time: 09:15 Total Time Billed (hr/min): 60 Billed Treatment Time 1, ADL x 30minutes, Ex x 30minutes LENA GUEVARA OT Apr 25, 2017 10:39
--- NOTE | 2017-04-25 10:40 | Progress Note-Cardiology ---
Cardiology SOAP Progress Note Subjective: Sitting up in a chair at the bedside. States he feels good this morning. Legs are still swollen, but he feels they have improved. No c/o CP, palpitations, syncope or near syncope. Objective: I&O/Vital Signs Vital Sign - Last 12Hours 04/25/17 04/25/17 04/25/17 04/25/17 01:00 06:10 07:06 10:23 Temp 98.9 Pulse 101 69 Resp 18 B/P (MAP) 102/60 Pulse Ox 92 O2 Delivery Room Air Room Air Intake and Output 04/25/17 00:00 Intake Total 850 ml Output Total 1070 ml Balance -220 ml Weight (Pounds): 143 Weight (Ounces): 0.4 Weight (Calculated Kilograms): [id number] Constitutional: AAO x 3 Respiratory: chest expansion is symmetric, chest is bilaterally symmetric, lungs clear to auscultation Cardiovascular: regular rate-rhythm Gastrointestional: tender, soft, audible bowel sounds Genital/Rectal: other (Urinary catheter to DD; clear, yellow) Extremities: pedal edema, significant edema (bilat 3 (+) LE edema) Neurologic/Psychiatric: grossly intact Skin: No rash, No ulcerations Results/Procedures: Labs Laboratory Tests 04/25/17 11:15: White Blood Count 9.1, Red Blood Count 3.69L, Hemoglobin 10.7L, Hematocrit 34L, Mean Corpuscular Volume 92, Mean Corpuscular Hemoglobin 29, Mean Corpuscular Hemoglobin Concent 31L, Red Cell Distribution Width 17.8H, Platelet Count 440H, Mean Platelet Volume 10.4 A/P: Assessment: Right hip fracture, - s/p surgery Echocardiogram of 04-19-[address] Biggs showed LVEF 20-25%. Hypokinesis of apical septal, apical lateral, apical myocardium. Mild MR. Mild to mod TR. PASP 65mmHg. Carried out during tachycardia. Systolic CHF - clinically improved Not a suitable candidate for MONY (-) or ARB d/t existing stage III-IV CKD Mildly positive cardiac enzymes (04-19-17 to 04-21-17) : serial troponin shows same level of troponin. [place] to be unlikely d/t ACS. Since mild elevation of troponin can occur in CHF especially with CKD and in a patient with tachycardia. Per Dr. Biggs CKD stage III-IV Tachycardia vs a-fib per EKG of 04-19-17 - felt to be tachycardia by 's note - treated with BB H/O colovesicular fistula d/t colon CA L ureteral stent - Dr. Alves following Plan: Complex management issue Systolic CHF of new onset of undetermined etiology - unable to treat with MONY or ARB d/t existing CKD stage III-IV - diuretics are being given as low dose at this point with some improvement in swelling Need to consider further cardiac work up with MPI at a later date We will give IV Lasix today Add ASA 81mg daily Follow lab closely LINDA GUERRERO Apr 25, 2017 10:40
[2017-04-25 11:26] LABS: MEAN PLATELET VOLUME 10.4 FL (7.4-10.4); RED BLOOD COUNT 3.69 10^6/uL (4.35-5.85); RED CELL DISTRIBUTION WIDTH 17.8 % (10.0-14.5); WHITE BLOOD COUNT 9.1 10^3/uL (4.3-11.0)
[2017-04-25] MEDS ORDERED: ASPIRIN E.C. 81 MG (ECOTRIN) TAB PO NR (11:45)
[2017-04-25] MEDS ORDERED: FUROSEMIDE 40 MG/4 ML INJ (LASIX) IVP NR (11:45)
[2017-04-25 11:47] LABS: CALCIUM 7.9 MG/DL (8.5-10.1); CREATININE SERUM 2.71 MG/DL (0.60-1.30); MAGNESIUM 1.4 MG/DL (1.8-2.4); POTASSIUM 4.4 MMOL/L (3.6-5.0)
--- NOTE | 2017-04-25 12:03 | Physical Therapy Daily Note ---
PT Daily Note-Current Subjective Pt. states he was indep before this incident and hopes to be again but is open to change if needed. No c/o pain this date Pain Numeric Pain Scale: 0-No Pain Mental Status Patient Orientation: Normal For Age Attachments: Mckeon Catheter urine cloudy and darker in color, bloody clots Transfers Functional [place] Measure 0=Not Assessed/NA 4=Minimal Assistance 1=Total Assistance 5=Supervision or Setup 2=Maximal Assistance 6=Modified [place] 3=Moderate Assistance 7=Complete IndependenceIRFPAI Quality Coding Scale 6 Independent with activity with or without an assistive device 5 Patient requires set up or clean up by helper. Patient completes activity by themselves 4 Supervision or touching assist (CGA). [place] provide cues , steadying assist 3 The helper provides less than half the effort to complete the activity 2 The helper provides more than half the effort to complete the activity 1 Dependent. The helper does all the effort to complete an activity 7 Patient refused to complete or attempt activity 9 The patient did not perform the activity before the current illness or injury 88 Not attempted due to Medical conditions or safety concerns Transfers (B, C, W/C) (FIM): 3 Scootin Rollin Supine to/from Sit: 3 Sit to/from Stand: 4 Weight Bearing Weight Bearing Restriction: Weight Bearing/Tolerated Location Restriction: R LE Gait Training Does the Patient Walk?: Yes Gait (FIM): 2 Distance (FIM): 4=381-38 ft (50,25,15) Gait Level of Assist: 3 Gait Persons Needed: 1 Gait Assistive Device: FWW narrow LISETH, T formation turns, lists to left Wheelchair Training Does the Pt Use a Wheelchair?: Yes Wheelchair (FIM): 4 Wheelchair Distance: 3=150 ft Wheelchair Level of Assist: 4 Type of Wheelchair: Manual Exercises Supine Ex: Ankle pumps, Quad Set, Rolling, Glut sets, Heel Slides, Short Arc Quads, Scooting, Straight leg raise (assist), Hip abd/add (assist) Supine Reps: 12 Seated Therapy Exercises: Ankle pumps, Sit to stand, Long arc quads Seated Reps: 12 Assessment Current Status: Good Progress balance deficit, at risk for falls PT Short Term Goals Short Term Goals Wheelchair Distance: 150' PT Assisted Goals Contribution Solicitor Goals PT Assisted Goals Time Frame: May 18, 2017 Transfers (B,C,W/C) (FIM): 5 Sit to Lying (QC): 5 Lying-Sitting on Side/Bed(QC): 5 Sit to Stand (QC): 5 Rollin Roll Left to Right (QC): 5 Chair/Jct-hm-[place] Xfer(QC): 5 Car Transfer (QC): 5 Does the Patient Walk: Yes Gait (FIM): 3 Gait distance (FIM): 3=150 ft Distance: 150' Walk 10 feet (QC): 5 Walk 10ft-Uneven Surface(QC): 5 Walk 50ft with 2 Turns (QC): 5 Walk 150 ft (QC): 5 Gait Level of Assist: 5 Gait Assistive Device: FWW Stairs (FIM): 2 # of Steps: 5 1 Step (curb) (QC): 4 4 Steps (QC): 4 12 Steps (QC): 88 Stairs Level Of Assist: 5 Picking up an Object (QC): 5 PT Plan Treatment/Plan Treatment Plan: Continue Plan of Care Treatment Plan: Bed Mobility, Education, Functional Activity [place], Functional Strength, Group Therapy, Gait, Safety, Therapeutic Exercise, Transfers Treatment Duration: May 18, 2017 Frequency: At least 5-7 days/Wk (IRF) Estimated Hrs Per Day: 1.5 hours per day Patient and/or Family Agrees t: Yes Safety Risks/Education Patient Education: Gait Training, Transfer Techniques, Correct Positioning, Disease Process, Safety Issues Teaching Recipient: Patient Teaching Methods: Demonstration, Discussion Response to Teaching: Verbalize Understanding, Return Demonstration, Reinforcement Needed Time/GCodes Time In: 1100 Time Out: 1200 Total Billed Treatment Time: 60 Total Billed Treatment 1,GT25m,FA20m,EX15m G Codes Necessary: CORNELL Pop [employer] ADMINISTRATOR Apr 25, 2017 12:03
--- NOTE | 2017-04-25 13:42 | Occupational Ther Daily Note ---
OT Current Status-Daily Note Subjective Pt sitting in chair, agrees to treatment. Pt denies pain at this time. Mental Status/Objective Functional [place] Measure 0=Not Assessed/NA 4=Minimal Assistance 1=Total Assistance 5=Supervision or Setup 2=Maximal Assistance 6=Modified [place] 3=Moderate Assistance 7=Complete [place] ADL-Treatment Reviewed use of adaptive equipment for LE dressing. Pt doffed socks with SBA and increased time using dressing stick. Skilled cues for technique. Pt donned left sock with minimal assistance using sock aid. Moderate assistance required to don right sock with sock aid. Pt requires increased time for task completion. Functional [place] Measure 0=Not Assessed/NA 4=Minimal Assistance 1=Total Assistance 5=Supervision or Setup 2=Maximal Assistance 6=Modified [place] 3=Moderate Assistance 7=Complete IndependenceIRFPAI Quality Coding Scale 6 Independent with activity with or without an assistive device 5 Patient requires set up or clean up by helper. Patient completes activity by themselves 4 Supervision or touching assist (CGA). [place] provide cues , steadying assist 3 The helper provides less than half the effort to complete the activity 2 The helper provides more than half the effort to complete the activity 1 Dependent. The helper does all the effort to complete an activity 7 Patient refused to complete or attempt activity 9 The patient did not perform the activity before the current illness or injury 88 Not attempted due to Medical conditions or safety concerns On/Off Footwear (QC): 3 Other Treatment Pt completed bilateral UE exercises to increase strength needed for ADLs and transfers. Pt completed shoulder flexion, forward press, biceps curls, and wrist flex/ext x10 reps with 1# dowel ria. Rest breaks between exercises. Pt sitting in chair with needs met after session. OT Short Term Goals Short Term Goals Time Frame: Apr 30, 2017 Grooming(FIM): 6 Lower Body Dressing(FIM): 3 Toilet/Commode Transfer(FIM): 3 Additional Short Term Goals: 1-Demonstrate ADL Tasks, 2-Verbalize Understanding , 3-ImproveStrength/Garrett 1=Demonstrate adherence to instructed precautions during ADL tasks. 2=Patient will verbalize/demonstrate understanding of assistive devices/ modifications for ADL. 3=Patient will improve strength/tolerance for activity to enable patient to perform ADL's. OT Custodial Goals Custodial Goals Time Frame: May 14, 2017 Eating (FIM): 7 Eating (QC): 6 Groomin Oral Hygiene (QC): 6 Bathing(FIM): 6 Shower/Bathe Self (QC): 6 Upper Body Dressing(FIM): 6 Upper Body Dressing (QC): 6 Lower Body Dressing(FIM): 6 Lower Body Dressing (QC): 6 On/Off Footwear (QC): 6 Toileting(FIM): 6 Toileting Hygiene (QC): 6 Toilet/Commode Transfer(FIM): 6 Toilet/Commode Transfer (QC): 6 Shower Transfer(FIM): 6 Additional Goals: 1-Demonstrate ADL Tasks, 2-Verbalize Understanding, 3- ImproveStrength/Garrett 1=Demonstrate adherence to instructed precautions during ADL tasks. 2=Patient will verbalize/demonstrate understanding of assistive devices/ modifications for ADL. 3=Patient will improve strength/tolerance for activity to enable patient to perform ADL's. OT Education/Plan Problem List/Assessment Pt would benefit from skilled OT to increase his independence in basic self care to allow him to safely return to his home. Discharge Recommendations Plan/Recommendations: Continue POC Treatment Plan/Plan of Care Patient would benefit from OT for education, treatment and training to promote independence in ADL's, mobility, safety and/or upper extremity function for ADL' s. Plan of Care: ADL Retraining, Functional Mobility, Group Exercise/Act as Ind ( education, exercise, funct mobility, activ tolerance, funct activities), UE Funct Exercise/Act, UE Neuromus Re-Ed/Coord Treatment Duration: May 14, 2017 Frequency: At least 5-7 days/Wk (IRF) (5-6 days a week) Estimated Hrs Per Day: 1.5 hours per day Agreement: Yes Rehab Potential: Good Time/GCodes Start Time: 13:15 Stop Time: 13:45 Total Time Billed (hr/min): 30 Billed Treatment Time 1 visit, ADL(15minutes), EX(15minutes) CHRISTIANNE THOMPSON OT Apr 25, 2017 13:42
--- NOTE | 2017-04-25 14:29 | Physical Therapy Daily Note ---
PT Daily Note-Current Subjective Pt. up in recliner asleep. somewhat difficult to awaken. c/o he is tired from the days activities. Agrees to Rx then wants in bed after Pain Numeric Pain Scale: 0-No Pain Mental Status Patient Orientation: Normal For Age Attachments: Mckeon Catheter Transfers Functional [place] Measure 0=Not Assessed/NA 4=Minimal Assistance 1=Total Assistance 5=Supervision or Setup 2=Maximal Assistance 6=Modified [place] 3=Moderate Assistance 7=Complete IndependenceIRFPAI Quality Coding Scale 6 Independent with activity with or without an assistive device 5 Patient requires set up or clean up by helper. Patient completes activity by themselves 4 Supervision or touching assist (CGA). [place] provide cues , steadying assist 3 The helper provides less than half the effort to complete the activity 2 The helper provides more than half the effort to complete the activity 1 Dependent. The helper does all the effort to complete an activity 7 Patient refused to complete or attempt activity 9 The patient did not perform the activity before the current illness or injury 88 Not attempted due to Medical conditions or safety concerns uses lift recline for sit to stand, TRFs sit to sup mod to min assist. Gait Training Gait Assistive Device: FWW gait improved this afternoon, 25ft FWW min to CGA Exercises Supine Ex: Ankle pumps, Quad Set, Rolling, Glut sets, Heel Slides, Scooting, Hip abd/add Supine Reps: 12 Assessment Current Status: Good Progress fatigued this pm PT Short Term Goals Short Term Goals Wheelchair Distance: 150' PT Group Home Goals Group Home Goals PT Group Home Goals Time Frame: May 18, 2017 Transfers (B,C,W/C) (FIM): 5 Sit to Lying (QC): 5 Lying-Sitting on Side/Bed(QC): 5 Sit to Stand (QC): 5 Rollin Roll Left to Right (QC): 5 Chair/Plv-bl-Fopes Xfer(QC): 5 Car Transfer (QC): 5 Does the Patient Walk: Yes Gait (FIM): 3 Gait distance (FIM): 3=150 ft Distance: 150' Walk 10 feet (QC): 5 Walk 10ft-Uneven Surface(QC): 5 Walk 50ft with 2 Turns (QC): 5 Walk 150 ft (QC): 5 Gait Level of Assist: 5 Gait Assistive Device: FWW Stairs (FIM): 2 # of Steps: 5 1 Step (curb) (QC): 4 4 Steps (QC): 4 12 Steps (QC): 88 Stairs Level Of Assist: 5 Picking up an Object (QC): 5 PT Plan Treatment/Plan Treatment Plan: Continue Plan of Care Treatment Plan: Bed Mobility, Education, Functional Activity [place], Functional Strength, Group Therapy, Gait, Safety, Therapeutic Exercise, Transfers Treatment Duration: May 18, 2017 Frequency: At least 5-7 days/Wk (IRF) Estimated Hrs Per Day: 1.5 hours per day Patient and/or Family Agrees t: Yes Safety Risks/Education Patient Education: Gait Training, Transfer Techniques Teaching Recipient: Patient Teaching Methods: Demonstration, Discussion Response to Teaching: Verbalize Understanding, Return Demonstration, Reinforcement Needed Time/GCodes Time In: 1400 Time Out: 1430 Total Billed Treatment Time: 30 Total Billed Treatment 1,GT20,EX10 G Codes Necessary: CORNELL Pop MANAGER PATIENT Apr 25, 2017 14:29
[2017-04-25] MEDS: MAGNESIUM 1 GM/100 ML IVPB 100 ML IV SCH ×2 (15:05→16:06)
[2017-04-25] MEDS: SIMvastatin 10 MG (ZOCOR) TAB PO SCH (17:32)
[2017-04-25 17:55] VITALS: BP 114/68
[2017-04-26] MEDS: CATHETER FLUSH 10 ML SYR IV SCH ×3 (05:35→19:35)
[2017-04-26 05:58] LABS: CALCIUM 7.8 MG/DL (8.5-10.1); CREATININE SERUM 2.42 MG/DL (0.60-1.30); MAGNESIUM 1.7 MG/DL (1.8-2.4); POTASSIUM 3.9 MMOL/L (3.6-5.0)
[2017-04-26 06:13] VITALS: BP 101/62
[2017-04-26] MEDS: RT-ALBUTEROL SULF 2.5 MG/3 ML PRE-MIX VIAL IH SCH ×4 (06:21→19:31)
[2017-04-26] MEDS: KCL 20 MEQ TAB (K-DUR) PO SCH (06:40)
[2017-04-26] MEDS: MULTIVIT W/MINERALS TAB (THERAGRAN M) PO SCH (06:40)
[2017-04-26] MEDS: ASCORBIC ACID (VIT C) 500 MG TABLET PO SCH (06:40)
--- NOTE | 2017-04-26 09:00 | PM & R (SOAP) Progress Note ---
Subjective Time Seen by Provider: 08:15 Subjective/Events-last exam Patient was seen in his room this AM Patient Min to mod assist for transfers Mckeon remains in for now for bladder management FLACO Alves reconsulted re this. Objective Exam Last Set of Vital Signs Vital Signs Date Time Temp Pulse Resp B/P (MAP) Pulse Ox O2 Delivery O2 Flow Rate FiO2 04/26/17 06:21 91 Room Air 04/26/17 06:13 99.0 102 22 101/62 04/24/17 08:24 1.00 Capillary Refill : I&O Intake and Output 04/26/17 00:00 Intake Total 1335 ml Output Total 2025 ml Balance -690 ml Intake Oral 1335 ml Output Urine Total 1775 ml Stool Total 250 ml General: Alert, Oriented X3, Cooperative, No Acute Distress HEENT: Atraumatic, PERRLA, EOMI, Mucous Memb Moist/[place] Neck: Supple, No JVD Lungs: Clear to Auscultation Heart: Regular Rate Abdomen: Normal Bowel Sounds, Soft, No Tenderness, Other (colovesicular ostomy funftioning) Extremities: Other (trace edema in ankles) Neuro: Other (Strength RLE 3-/5 groosly and Left LE 4/5) Other physical findings Mckeon catheter to DD Results Lab Laboratory Tests 04/24/17 07:00: White Blood Count 9.6, Red Blood Count 3.95L, Hemoglobin 11.4L, Hematocrit 36L, Mean Corpuscular Volume 92, Mean Corpuscular Hemoglobin 29, Mean Corpuscular Hemoglobin Concent 31L, Red Cell Distribution Width 17.6H, Platelet Count 405H, Mean Platelet Volume 10.9H, Neutrophils (%) (Auto) 75, Lymphocytes (%) (Auto) 10L, Monocytes (%) (Auto) 13H, Eosinophils (%) (Auto) 2, Basophils (%) (Auto) 0 , Neutrophils # (Auto) 7.2, Lymphocytes # (Auto) 1.0, Monocytes # (Auto) 1.2H, Eosinophils # (Auto) 0.2, Basophils # (Auto) 0.0, Sodium Level 138, Potassium Level 3.3L, Chloride Level 100, Carbon Dioxide Level 22, Anion Gap 16H, Blood Urea Nitrogen 63H, Creatinine 2.77H, Estimat Glomerular Filtration Rate 22, BUN/ Creatinine Ratio 23, Glucose Level 92, Calcium Level 8.0L, Total Bilirubin 0.4, Aspartate Amino Transf (AST/SGOT) 31, Alanine Aminotransferase (ALT/SGPT) 32, Alkaline Phosphatase 91, Total Protein 6.7, Albumin 2.9L 04/25/17 11:15: White Blood Count 9.1, Red Blood Count 3.69L, Hemoglobin 10.7L, Hematocrit 34L, Mean Corpuscular Volume 92, Mean Corpuscular Hemoglobin 29, Mean Corpuscular Hemoglobin Concent 31L, Red Cell Distribution Width 17.8H, Platelet Count 440H, Mean Platelet Volume 10.4, Sodium Level 140, Potassium Level 4.4, Chloride Level 102, Carbon Dioxide Level 29, Anion Gap 9, Blood Urea Nitrogen 60H, Creatinine 2.71H, Estimat Glomerular Filtration Rate 23, BUN/Creatinine Ratio 22 , Glucose Level 107H, Calcium Level 7.9L, Magnesium Level 1.4L 04/26/17 05:16: Sodium Level 141, Potassium Level 3.9, Chloride Level 105, Carbon Dioxide Level 21, Anion Gap 15H, Blood Urea Nitrogen 58H, Creatinine 2.42H, Estimat Glomerular Filtration Rate 26, BUN/Creatinine Ratio 24, Glucose Level 103, Calcium Level 7.8L, Magnesium Level 1.7L Assessment/Plan Assessment s/p repair rt displaced femoral neck frx s/p fall Dr Marie CRI s/p ureter stent secondary to stenosis s/p RT for Colon ca Colvesicular Ostomy Recurrent UTIS with Mckeon catheter in place to dependent drainage at this time Postop anemia Postop tachycardia follwed by Dr Biggs on metoprolol Acute on chronic Systolic CHF treated being treated by Dr Biggs Resp insufficiency on supplemental o2 Plan Continue PT/OT ST has signed off Team Conference held yesterday-See report for full funmctional update and POC and ELOS F/U with [facility],and Hospitalist and DR Alves as per their schedule F/U with DR Alves when Mckeon catheter can be d/cd SHAHIDA VANEGAS MD Apr 26, 2017 09:00
[2017-04-26] MEDS: meTOprolol TARTRATE 25 MG (LOPRESSOR) TABLET PO SCH ×2 (09:11→19:35)
[2017-04-26] MEDS: FUROSEMIDE 20 MG (LASIX) TAB PO SCH (09:11)
[2017-04-26] MEDS: SENNA W/DOCUSATE (SENOKOT S) TABLET PO SCH ×2 (09:11→19:35)
[2017-04-26] MEDS: FERROUS SULF 325 MG (IRON) TAB PO SCH (09:11)
[2017-04-26] MEDS: ENOXAPARIN 30 MG/0.3 ML (LOVENOX) SYR SC SCH (09:11)
[2017-04-26] MEDS: LACTOBACILLUS Acidoph/Bulgar (LACTINEX/FLORANEX) TAB PO SCH (09:12)
[2017-04-26 09:16] VITALS: BP 106/63
--- NOTE | 2017-04-26 10:34 | Physical Therapy Daily Note ---
PT Daily Note-Current Subjective Pt coming out of bathroom with OT after shower. Pt agrees to PT. Pain Location: No Pain Reported Mental Status Patient Orientation: Person, Place, Time, Situation Attachments: Colostomy/Ileostomy, Bear Catheter Telemetry was removed by nurse per Dr Gunter at end of tx. Bear has more bleeding since shower and nurse was notified. Pt reports no pain. Transfers Functional [place] Measure 0=Not Assessed/NA 4=Minimal Assistance 1=Total Assistance 5=Supervision or Setup 2=Maximal Assistance 6=Modified [place] 3=Moderate Assistance 7=Complete IndependenceIRFPAI Quality Coding Scale 6 Independent with activity with or without an assistive device 5 Patient requires set up or clean up by helper. Patient completes activity by themselves 4 Supervision or touching assist (CGA). [place] provide cues , steadying assist 3 The helper provides less than half the effort to complete the activity 2 The helper provides more than half the effort to complete the activity 1 Dependent. The helper does all the effort to complete an activity 7 Patient refused to complete or attempt activity 9 The patient did not perform the activity before the current illness or injury 88 Not attempted due to Medical conditions or safety concerns Scootin Rollin Roll Left to Right (QC): 4 Supine to/from Sit: 4 Sit to/from Stand: 4 Sit to Lying (QC): 4 Sit to Stand (QC): 4 Weight Bearing Weight Bearing Restriction: Full Weight Bearing Location Restriction: LE Bilateral Wheelchair Training Does the Pt Use a Wheelchair?: Yes Wheelchair Distance: 4=597-51 ft Distance: 150' Wheelchair Level of Assist: 5 Wheel 50 ft with 2 turns (QC): 5 Wheel 150 ft (QC): 5 Type of Wheelchair: Manual Exercises Supine Ex: Ankle pumps, Quad Set, Heel Slides, Straight leg raise, Hip abd/add Supine Reps: 15 Seated Therapy Exercises: Ankle pumps, Long arc quads, Hip flexion, Kicking activity Seated Reps: 10 Treatments PT assisted nurse with pt standing with donning shorts and bandages and telemetry were applied. Pt transferred from EOB to standing using FWW at Min A. Pt transferred to [facility] and propelled to Therapy Gym. Pt completed both Supine Ex on mat as well as Seated Ex in [facility]. Pt returned to room to rest at end of tx with all needs met. Assessment Current Status: Fair Progress Pt tolerated tx well although pt had blood in bear so nurse was notified. PT Short Term Goals Short Term Goals Wheelchair Distance: 150' PT Ammunition Specialist Goals [facility] Goals PT Ammunition Specialist Goals Time Frame: May 18, 2017 Transfers (B,C,W/C) (FIM): 5 Sit to Lying (QC): 5 Lying-Sitting on Side/Bed(QC): 5 Sit to Stand (QC): 5 Rollin Roll Left to Right (QC): 5 Chair/Thm-ws-Eznzl Xfer(QC): 5 Car Transfer (QC): 5 Does the Patient Walk: Yes Gait (FIM): 3 Gait distance (FIM): 3=150 ft Distance: 150' Walk 10 feet (QC): 5 Walk 10ft-Uneven Surface(QC): 5 Walk 50ft with 2 Turns (QC): 5 Walk 150 ft (QC): 5 Gait Level of Assist: 5 Gait Assistive Device: FWW Stairs (FIM): 2 # of Steps: 5 1 Step (curb) (QC): 4 4 Steps (QC): 4 12 Steps (QC): 88 Stairs Level Of Assist: 5 Picking up an Object (QC): 5 PT Plan Problem List Problem List: Activity Tolerance, Functional Strength, Safety, Balance, Gait, Transfer, Bed Mobility Treatment/Plan Treatment Plan: Continue Plan of Care Treatment Plan: Bed Mobility, Education, Functional Activity Garrett, Functional Strength, Group Therapy, Gait, Safety, Therapeutic Exercise, Transfers Treatment Duration: May 18, 2017 Frequency: At least 5-7 days/Wk (IRF) Estimated Hrs Per Day: 1.5 hours per day Patient and/or Family Agrees t: Yes Safety Risks/Education Patient Education: Correct Positioning, Safety Issues Teaching Recipient: Patient Teaching Methods: Discussion Response to Teaching: Verbalize Understanding Time/GCodes Time In: 900 Time Out: 1010 Total Billed Treatment Time: 70 Total Billed Treatment visit, FA x2 (30m), EX x2 (30m) & WCH (10m) YOLANDA KRAUSE PROJECT MGR Apr 26, 2017 10:34
--- NOTE | 2017-04-26 10:35 | Progress Note-Hospitalist ---
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 Will confer with Dr. Alves. Catheter in place. Patient Interview: Pt feels well today Physical exam stable. 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 Vásquez consulted Plan: Doing well IRU DC telemetry Scribed by Riya Casarez under the direct supervision of Dr. Gandhi. PAULA GANDHI DO Apr 26, 2017 10:35
--- NOTE | 2017-04-26 11:50 | Occupational Ther Daily Note ---
OT Current Status-Daily Note Subjective No pain reported. Appearance Pt. in bed. Noted that pt's bed soaked. OT questioned catheter leakage. Pt. having anal leakage. Nursing notified and able to change bandages on sacrum and coccyx after shower. Mental Status/Objective Patient Orientation: Person, Place Functional [place] Measure 0=Not Assessed/NA 4=Minimal Assistance 1=Total Assistance 5=Supervision or Setup 2=Maximal Assistance 6=Modified [place] 3=Moderate Assistance 7=Complete [place] Attachments: Colostomy/Ileostomy, Mckeon Catheter, IV ADL-Treatment Functional [place] Measure 0=Not Assessed/NA 4=Minimal Assistance 1=Total Assistance 5=Supervision or Setup 2=Maximal Assistance 6=Modified [place] 3=Moderate Assistance 7=Complete IndependenceIRFPAI Quality Coding Scale 6 Independent with activity with or without an assistive device 5 Patient requires set up or clean up by helper. Patient completes activity by themselves 4 Supervision or touching assist (CGA). [place] provide cues , steadying assist 3 The helper provides less than half the effort to complete the activity 2 The helper provides more than half the effort to complete the activity 1 Dependent. The helper does all the effort to complete an activity 7 Patient refused to complete or attempt activity 9 The patient did not perform the activity before the current illness or injury 88 Not attempted due to Medical conditions or safety concerns Grooming (FIM): 5 (SBA to comb hair.) Bathing (FIM): 4 (CGA in stance for balance to wash rear erin area. Pt. utilized LH sponge to wash bilateral feet.) Shower/Bathe Self (QC): 4 Upper Body (FIM): 5 Upper Body Dressing (QC): 5 Lower Body Dressing (FIM): 2 (Pt. had difficulty getting on socks with AE. Due to time constraints, and bandage changes, pt. required assistance of OT to don socks and shorts. OT donned AMINAH hose due to bilateral LE swelling. Nursing aware.) Lower Body Dressing (QC): 2 On/Off Footwear (QC): 2 Transfers (B, C, W/C) (FIM): 3 (Pt. required mod assistance for supine-sit. Min assist for sit-stand and transfer to chair.) Shower Transfer(FIM): 4 Other Treatment Pt. agreed to shower. Able to shower with close supervision and assist for balance. Nursing came in to assess wounds on bottom. OT assisted pt. in stance while nursing changed sacral dressings. PT came in and took over for pt. Education OT Patient Education: Correct positioning, Modified ADL techniques, Progress toward Goal/Update tx plan, Purpose of tx/functional activities, Reviewed precautions, Rehab process, Transfer techniques, Use of adapted equipment Teaching Recipient: Patient Teaching Methods: Demonstration, Discussion Response to Teaching: Verbalize Understanding, Return Demonstration OT Short Term Goals Short Term Goals Time Frame: Apr 30, 2017 Grooming(FIM): 6 Lower Body Dressing(FIM): 3 Toilet/Commode Transfer(FIM): 3 Additional Short Term Goals: 1-Demonstrate ADL Tasks, 2-Verbalize Understanding , 3-ImproveStrength/Garrett 1=Demonstrate adherence to instructed precautions during ADL tasks. 2=Patient will verbalize/demonstrate understanding of assistive devices/ modifications for ADL. 3=Patient will improve strength/tolerance for activity to enable patient to perform ADL's. OT Snf Goals Mirror Painter Goals Time Frame: May 14, 2017 Eating (FIM): 7 Eating (QC): 6 Groomin Oral Hygiene (QC): 6 Bathing(FIM): 6 Shower/Bathe Self (QC): 6 Upper Body Dressing(FIM): 6 Upper Body Dressing (QC): 6 Lower Body Dressing(FIM): 6 Lower Body Dressing (QC): 6 On/Off Footwear (QC): 6 Toileting(FIM): 6 Toileting Hygiene (QC): 6 Toilet/Commode Transfer(FIM): 6 Toilet/Commode Transfer (QC): 6 Shower Transfer(FIM): 6 Additional Goals: 1-Demonstrate ADL Tasks, 2-Verbalize Understanding, 3- ImproveStrength/Garrett 1=Demonstrate adherence to instructed precautions during ADL tasks. 2=Patient will verbalize/demonstrate understanding of assistive devices/ modifications for ADL. 3=Patient will improve strength/tolerance for activity to enable patient to perform ADL's. OT Education/Plan Problem List/Assessment Assessment: Decreased Activ Tolerance, Dependent Transfers, Impaired Bed Mobility, Impaired Funct Balance, Impaired I ADL's, Impaired Self-Care Skills Pt would benefit from skilled OT to increase his independence in basic self care to allow him to safely return to his home. Discharge Recommendations Plan/Recommendations: Continue POC Therapy D/C Recommendations: Assisted Living Equpiment Recommendations-D/C: Bath Chair, Hip Kit Treatment Plan/Plan of Care Treatment,Training & Education: Yes Patient would benefit from OT for education, treatment and training to promote independence in ADL's, mobility, safety and/or upper extremity function for ADL' s. Plan of Care: ADL Retraining, Functional Mobility, Group Exercise/Act as Ind ( education, exercise, funct mobility, activ tolerance, funct activities), UE Funct Exercise/Act, UE Neuromus Re-Ed/Coord Treatment Duration: May 14, 2017 Frequency: At least 5-7 days/Wk (IRF) (5-6 days a week) Estimated Hrs Per Day: 1.5 hours per day Agreement: Yes Rehab Potential: Good Time/GCodes Start Time: 08:15 Stop Time: 09:00 Total Time Billed (hr/min): 45 Billed Treatment Time 1, ADL x 3 LENA GUEVARA OT Apr 26, 2017 11:50
--- NOTE | 2017-04-26 11:56 | Occupational Ther Daily Note ---
OT Current Status-Daily Note Subjective No pain reported. However, pt. states that he is tired. Appearance Pt. is up in chair. Explains that he is tired. States that it has been a long time since he has been outside. OT asked if he would like to go out for fresh air. Pt. states that he would, and that this would make him feel better. Mental Status/Objective Patient Orientation: Person, Place Functional [place] Measure 0=Not Assessed/NA 4=Minimal Assistance 1=Total Assistance 5=Supervision or Setup 2=Maximal Assistance 6=Modified [place] 3=Moderate Assistance 7=Complete [place] ADL-Treatment Functional [place] Measure 0=Not Assessed/NA 4=Minimal Assistance 1=Total Assistance 5=Supervision or Setup 2=Maximal Assistance 6=Modified [place] 3=Moderate Assistance 7=Complete IndependenceIRFPAI Quality Coding Scale 6 Independent with activity with or without an assistive device 5 Patient requires set up or clean up by helper. Patient completes activity by themselves 4 Supervision or touching assist (CGA). [place] provide cues , steadying assist 3 The helper provides less than half the effort to complete the activity 2 The helper provides more than half the effort to complete the activity 1 Dependent. The helper does all the effort to complete an activity 7 Patient refused to complete or attempt activity 9 The patient did not perform the activity before the current illness or injury 88 Not attempted due to Medical conditions or safety concerns Other Treatment Spoke with pt. about lift chair at home. States that he does not have one, but might like one later. OT explained that since he did not have one now, that he could practice like it was a chair at home. Transferred sit-stand with min assistance and several tries for him to stand upright out of chair. Ambulated to wheelchair, about 10 feet with CGA. Transferred to wheelchair with CGA. Went outside for fresh air. Pt. states that he feels good outside, and likes to be outside. Talked about pt's home set up. Pt. lives in [facility]. Pt. states that his goal is to go back home if possible on his own. Pt. asked many appropriate questions, and was aware of all surroundings. Went back inside and pt. requested to see the Chapel. Pt. shown this. 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 Went back to room. Able to transfer back to chair with min assistance. All needs met. Pt. tolerated treatment well. Education OT Patient Education: Correct positioning, Energy conservation, Progress toward Goal/Update tx plan, Purpose of tx/functional activities, Reviewed precautions, Rehab process, Transfer techniques Teaching Recipient: Patient Teaching Methods: Demonstration, Discussion Response to Teaching: Verbalize Understanding, Return Demonstration OT Short Term Goals Short Term Goals Time Frame: Apr 30, 2017 Grooming(FIM): 6 Lower Body Dressing(FIM): 3 Toilet/Commode Transfer(FIM): 3 Additional Short Term Goals: 1-Demonstrate ADL Tasks, 2-Verbalize Understanding , 3-ImproveStrength/Garrett 1=Demonstrate adherence to instructed precautions during ADL tasks. 2=Patient will verbalize/demonstrate understanding of assistive devices/ modifications for ADL. 3=Patient will improve strength/tolerance for activity to enable patient to perform ADL's. OT Product Mgr Goals Residential Goals Time Frame: May 14, 2017 Eating (FIM): 7 Eating (QC): 6 Groomin Oral Hygiene (QC): 6 Bathing(FIM): 6 Shower/Bathe Self (QC): 6 Upper Body Dressing(FIM): 6 Upper Body Dressing (QC): 6 Lower Body Dressing(FIM): 6 Lower Body Dressing (QC): 6 On/Off Footwear (QC): 6 Toileting(FIM): 6 Toileting Hygiene (QC): 6 Toilet/Commode Transfer(FIM): 6 Toilet/Commode Transfer (QC): 6 Shower Transfer(FIM): 6 Additional Goals: 1-Demonstrate ADL Tasks, 2-Verbalize Understanding, 3- ImproveStrength/Garrett 1=Demonstrate adherence to instructed precautions during ADL tasks. 2=Patient will verbalize/demonstrate understanding of assistive devices/ modifications for ADL. 3=Patient will improve strength/tolerance for activity to enable patient to perform ADL's. OT Education/Plan Problem List/Assessment Assessment: Decreased Activ Tolerance, Impaired Funct Balance, Impaired I ADL's , Impaired Self-Care Skills Pt would benefit from skilled OT to increase his independence in basic self care to allow him to safely return to his home. Discharge Recommendations Plan/Recommendations: Continue POC Therapy D/C Recommendations: Assisted Living Equpiment Recommendations-D/C: Bath Chair, Hip Kit Treatment Plan/Plan of Care Treatment,Training & Education: Yes Patient would benefit from OT for education, treatment and training to promote independence in ADL's, mobility, safety and/or upper extremity function for ADL' s. Plan of Care: ADL Retraining, Functional Mobility, Group Exercise/Act as Ind ( education, exercise, funct mobility, activ tolerance, funct activities), UE Funct Exercise/Act, UE Neuromus Re-Ed/Coord Treatment Duration: May 14, 2017 Frequency: At least 5-7 days/Wk (IRF) (5-6 days a week) Estimated Hrs Per Day: 1.5 hours per day Agreement: Yes Rehab Potential: Good Time/GCodes Start Time: 10:30 Stop Time: 11:15 Total Time Billed (hr/min): 45 Billed Treatment Time 1, FA x 3 LENA GUEVARA OT Apr 26, 2017 11:56
--- NOTE | 2017-04-26 12:07 | Progress Note-Cardiology ---
Cardiology SOAP Progress Note Subjective: Sitting up in a chair at the bedside. States he feels his breathing is unchanged from yesterday. Feels swelling in his legs has improved. No c/o CP or palpitations. Objective: I&O/Vital Signs Vital Sign - Last 12Hours 04/26/17 04/26/17 04/26/17 04/26/17 07:43 09:16 09:35 10:15 Pulse 117 116 B/P (MAP) 106/63 Pulse Ox 95 90 O2 Delivery Room Air Room Air Room Air 04/26/17 04/26/17 15:29 15:36 Pulse 121 B/P (MAP) 126/79 Pulse Ox 94 91 O2 Delivery Nasal Cannula Nasal Cannula O2 Flow Rate 2.00 2.00 Intake and Output 04/26/17 00:00 Intake Total 875 ml Output Total 1550 ml Balance -675 ml Weight (Pounds): 151 Weight (Ounces): 3.0 Weight (Calculated Kilograms): [id number] Constitutional: AAO x 3 Respiratory: chest expansion is symmetric, chest is bilaterally symmetric, lungs clear to auscultation Cardiovascular: regular rate-rhythm Gastrointestional: tender, soft, audible bowel sounds Genital/Rectal: other (Urinary catheter to DD; faye red in color) Extremities: pedal edema, significant edema (bilat 3 (+) LE edema) Neurologic/Psychiatric: grossly intact Skin: No rash, No ulcerations Results/Procedures: Labs Laboratory Tests 04/26/17 05:16: Sodium Level 141, Potassium Level 3.9, Chloride Level 105, Carbon Dioxide Level 21, Anion Gap 15H, Blood Urea Nitrogen 58H, Creatinine 2.42H, Estimat Glomerular Filtration Rate 26, BUN/Creatinine Ratio 24, Glucose Level 103, Calcium Level 7.8L, Magnesium Level 1.7L A/P: Assessment: Acute systolic CHF Right hip fracture, - s/p surgery Echocardiogram of 04-19-[address] Biggs showed LVEF 20-25%. Hypokinesis of apical septal, apical lateral, apical myocardium. Mild MR. Mild to mod TR. PASP 65mmHg. Carried out during tachycardia. Not a suitable candidate for MONY (-) or ARB d/t existing stage III-IV CKD Mildly positive cardiac enzymes (04-19-17 to 04-21-17) : serial troponin shows same level of troponin. [place] to be unlikely d/t ACS. Since mild elevation of troponin can occur in CHF especially with CKD and in a patient with tachycardia. Per Dr. Biggs CKD stage III-IV Tachycardia vs a-fib per EKG of 04-19-17 - felt to be tachycardia by 's note - treated with BB H/O colovesicular fistula d/t colon CA L ureteral stent - Dr. Alves following Plan: Complex management issue Systolic CHF of new onset of undetermined etiology - unable to treat with MONY or ARB d/t existing CKD stage III-IV Continue IV diuretics Renal function somewhat improved Need to consider further cardiac work up with MPI at a later date Add ASA 81mg daily Follow lab closely Physician Assessment Physician Assessment Lungs: good air entry but somewhat diminished at the bases Cor: reg Legs: no edema A&R * As documented in our note above, that I updated at the time of this dictation , and as noted below * Complex management due to multiple comorbidities * Continue CHF management while monitoring labs closely * I spoke with him and discussed his cardiomyopathy. This will require further w /u following recovery from current issues. For now conservative therapy appears best LINDA GUERRERO Apr 26, 2017 12:07 NIKUNJ HOLM MD FACP FAC CCDS Apr 26, 2017 18:28
[2017-04-26] MEDS ORDERED: FUROSEMIDE 40 MG/4 ML INJ (LASIX) IVP NR (12:15)
[2017-04-26] MEDS: MAGNESIUM 1 GM/100 ML IVPB 100 ML IV SCH ×2 (12:59→14:15)
--- NOTE | 2017-04-26 15:25 | Physical Therapy Daily Note ---
PT Daily Note-Current Subjective He appears distressed. Wound care and RN present due to wound leaking. Pain Numeric Pain Scale: 5-Moderate Pain Location: Left Location Body Site: Hip Pain Description: Acute Mental Status Patient Orientation: Normal For Age Attachments: Oxygen (patient SAO2 85% on RA, O2 2L NC placed per RN), Mckeon Catheter, IV Transfers Functional [place] Measure 0=Not Assessed/NA 4=Minimal Assistance 1=Total Assistance 5=Supervision or Setup 2=Maximal Assistance 6=Modified [place] 3=Moderate Assistance 7=Complete IndependenceIRFPAI Quality Coding Scale 6 Independent with activity with or without an assistive device 5 Patient requires set up or clean up by helper. Patient completes activity by themselves 4 Supervision or touching assist (CGA). [place] provide cues , steadying assist 3 The helper provides less than half the effort to complete the activity 2 The helper provides more than half the effort to complete the activity 1 Dependent. The helper does all the effort to complete an activity 7 Patient refused to complete or attempt activity 9 The patient did not perform the activity before the current illness or injury 88 Not attempted due to Medical conditions or safety concerns Transfers (B, C, W/C) (FIM): 3 Scootin Rollin Roll Left to Right (QC): 3 Supine to/from Sit: 3 Sit to/from Stand: 3 Sit to Lying (QC): 3 Sit to Stand (QC): 3 Chair/Fzw-sl-Bkxij Xfer(QC): 3 Bed to/from Chair: 3 mod assist required due to patient's anxiety and weakness Assessment PT addressed transfer training and mobility while RN and wound care address patient's wound drainage. Noted blood in catheter and blood leaking out of rectum. Patient is in bed and RN and wound care to continue. PT Short Term Goals Short Term Goals Wheelchair Distance: 150' PT Roof Fitter Goals Roof Fitter Goals PT Roof Fitter Goals Time Frame: May 18, 2017 Transfers (B,C,W/C) (FIM): 5 Sit to Lying (QC): 5 Lying-Sitting on Side/Bed(QC): 5 Sit to Stand (QC): 5 Rollin Roll Left to Right (QC): 5 Chair/Atq-om-Hovtx Xfer(QC): 5 Car Transfer (QC): 5 Does the Patient Walk: Yes Gait (FIM): 3 Gait distance (FIM): 3=150 ft Distance: 150' Walk 10 feet (QC): 5 Walk 10ft-Uneven Surface(QC): 5 Walk 50ft with 2 Turns (QC): 5 Walk 150 ft (QC): 5 Gait Level of Assist: 5 Gait Assistive Device: FWW Stairs (FIM): 2 # of Steps: 5 1 Step (curb) (QC): 4 4 Steps (QC): 4 12 Steps (QC): 88 Stairs Level Of Assist: 5 Picking up an Object (QC): 5 PT Plan Treatment/Plan Treatment Plan: Continue Plan of Care Treatment Plan: Bed Mobility, Education, Functional Activity [place], Functional Strength, Group Therapy, Gait, Safety, Therapeutic Exercise, Transfers Treatment Duration: May 18, 2017 Frequency: At least 5-7 days/Wk (IRF) Estimated Hrs Per Day: 1.5 hours per day Patient and/or Family Agrees t: Yes Time/GCodes Time In: 1500 Time Out: 1520 Total Billed Treatment Time: 20 Total Billed Treatment 1 visit FA 20 min EDGAR KERNS PT Apr 26, 2017 15:25
[2017-04-26 15:36] VITALS: BP 126/79
[2017-04-26] MEDS: SIMvastatin 10 MG (ZOCOR) TAB PO SCH (17:01)
[2017-04-26 18:59] VITALS: BP 125/86
[2017-04-27 04:44] VITALS: BP 110/67
[2017-04-27 05:23] LABS: MEAN PLATELET VOLUME 10.8 FL (7.4-10.4); RED BLOOD COUNT 3.42 10^6/uL (4.35-5.85); RED CELL DISTRIBUTION WIDTH 17.5 % (10.0-14.5); WHITE BLOOD COUNT 8.3 10^3/uL (4.3-11.0)
[2017-04-27 05:39] LABS: CALCIUM 7.9 MG/DL (8.5-10.1); CREATININE SERUM 2.23 MG/DL (0.60-1.30); MAGNESIUM 1.9 MG/DL (1.8-2.4); POTASSIUM 4.2 MMOL/L (3.6-5.0)
[2017-04-27] MEDS: CATHETER FLUSH 10 ML SYR IV SCH (06:02)
[2017-04-27] MEDS: KCL 20 MEQ TAB (K-DUR) PO SCH (06:04)
[2017-04-27] MEDS: ASCORBIC ACID (VIT C) 500 MG TABLET PO SCH (06:04)
[2017-04-27] MEDS: MULTIVIT W/MINERALS TAB (THERAGRAN M) PO SCH (06:04)
[2017-04-27] MEDS: RT-ALBUTEROL SULF 2.5 MG/3 ML PRE-MIX VIAL IH SCH ×2 (06:17→10:35)
[2017-04-27 08:10] VITALS: BP 112/66
[2017-04-27] MEDS: meTOprolol TARTRATE 25 MG (LOPRESSOR) TABLET PO SCH (08:12)
[2017-04-27] MEDS: SENNA W/DOCUSATE (SENOKOT S) TABLET PO SCH (08:12)
[2017-04-27] MEDS: ENOXAPARIN 30 MG/0.3 ML (LOVENOX) SYR SC SCH (08:12)
[2017-04-27] MEDS: FERROUS SULF 325 MG (IRON) TAB PO SCH (08:12)
[2017-04-27] MEDS: LACTOBACILLUS Acidoph/Bulgar (LACTINEX/FLORANEX) TAB PO SCH (08:12)
[2017-04-27] MEDS ORDERED: FUROSEMIDE 40 MG/4 ML INJ (LASIX) IVP SCH (09:00)
--- NOTE | 2017-04-27 09:04 | Progress Note-Urology ---
Progress Note-Urology Progress Notes/Assess & Plan Progress/Assessment & Plan urine yellow and clear. we will see PRN Final Diagnosis gross hematuria AMERICA LUIS MD Apr 27, 2017 9:04 am
--- NOTE | 2017-04-27 09:08 | CONSULTATION REPORT ---
DATE OF CONSULTATION: 04/26/2017 ATTENDING PHYSICIAN: Dr. Randolph. SUMMARY: I was asked by Dr. Randolph again to see Father Beverley who is an 82-year-old white man recovering from hip fracture surgery. He has a Mckeon catheter in and a stent in the left ureter because of the stricture the ureter, history of vesicocolonic fistula. He had yanked a little bit on his catheter and has some of gross hematuria. I was asked to determine the fate of both tubes. I discussed with the patient what was discussed in [facility] along with his urologist and general surgeon and their decision was to repair the fistula out along with the urethral stricture, leave stent as it is. The patient had the Mckeon catheter following his surgery; however, he wants to keep the Mckeon catheter because of mucous coming out as well as drainage from of stool from the vesicocolonic fistula and he would rather leave the catheter in. I told him he needs to drink plenty of liquids to clear his urine. IMPRESSION: 1. Gross hematuria. 2. Left ureteral stricture. PLAN: 1. Leave the stent in until further surgery at [facility] in [place]. 2. Leave the Mckeon catheter in at the request of the patient, push fluids to clear the urine. Job ID: [id number] Dictated Date: 04/26/2017 11:49:08 Gas Well Pumper Date: 04/27/2017 09:01:48/emeli
--- NOTE | 2017-04-27 09:23 | Physical Therapy Daily Note ---
PT Daily Note-Current Subjective Pt. in bed with head of bed upright, easy to see pt. is having difficulty breathing, nursing present in and out. pt. states "it started this morning". States he would not be able to walk or exercise due to this SOB. Nursing states they are in contact with Physician Pain Numeric Pain Scale: 0-No Pain Appearance SOB, O2 insitu Mental Status Patient Orientation: Normal For Age Attachments: Oxygen, Mckeon Catheter Transfers Functional [place] Measure 0=Not Assessed/NA 4=Minimal Assistance 1=Total Assistance 5=Supervision or Setup 2=Maximal Assistance 6=Modified [place] 3=Moderate Assistance 7=Complete IndependenceIRFPAI Quality Coding Scale 6 Independent with activity with or without an assistive device 5 Patient requires set up or clean up by helper. Patient completes activity by themselves 4 Supervision or touching assist (CGA). Phyllis provide cues , steadying assist 3 The helper provides less than half the effort to complete the activity 2 The helper provides more than half the effort to complete the activity 1 Dependent. The helper does all the effort to complete an activity 7 Patient refused to complete or attempt activity 9 The patient did not perform the activity before the current illness or injury 88 Not attempted due to Medical conditions or safety concerns pt. upright in bed but slumped somewhat, Max assist of 2 to pull pt. up in bed higher for possible better breathing, pt. states no different Assessment Current Status: No Treatment/Other Tests BP 108/58, HR79, O2 98%, O2 at 2L, Resp 34 PT Short Term Goals Short Term Goals Wheelchair Distance: 150' PT Longterm Goals Outside Property Agent Goals PT Outside Property Agent Goals Time Frame: May 18, 2017 Transfers (B,C,W/C) (FIM): 5 Sit to Lying (QC): 5 Lying-Sitting on Side/Bed(QC): 5 Sit to Stand (QC): 5 Rollin Roll Left to Right (QC): 5 Chair/Zby-fi-Wptny Xfer(QC): 5 Car Transfer (QC): 5 Does the Patient Walk: Yes Gait (FIM): 3 Gait distance (FIM): 3=150 ft Distance: 150' Walk 10 feet (QC): 5 Walk 10ft-Uneven Surface(QC): 5 Walk 50ft with 2 Turns (QC): 5 Walk 150 ft (QC): 5 Gait Level of Assist: 5 Gait Assistive Device: FWW Stairs (FIM): 2 # of Steps: 5 1 Step (curb) (QC): 4 4 Steps (QC): 4 12 Steps (QC): 88 Stairs Level Of Assist: 5 Picking up an Object (QC): 5 PT Plan Treatment/Plan Treatment Plan: Continue Plan of Care (s tolerated) Treatment Plan: Bed Mobility, Education, Functional Activity Garrett, Functional Strength, Group Therapy, Gait, Safety, Therapeutic Exercise, Transfers Treatment Duration: May 18, 2017 Frequency: At least 5-7 days/Wk (IRF) Estimated Hrs Per Day: 1.5 hours per day Patient and/or Family Agrees t: Yes Time/GCodes Time In: 845 Time Out: 900 Total Billed Treatment Time: 15 Total Billed Treatment 1,FA15 G Codes Necessary: CORNELL Pop FANCY STITCHER Apr 27, 2017 09:23
[2017-04-27] MEDS ORDERED: ASPIRIN 81 MG CHEW (CHILDREN'S ASA) PO NR (10:00)
[2017-04-27] MEDS ORDERED: FUROSEMIDE 40 MG/4 ML INJ (LASIX) IVP NR (10:00)
[2017-04-27] MEDS ORDERED: meTOproloL SUCCINATE 50 MG (TOPROL XL) TAB PO NR (10:00)
[2017-04-27] MEDS ORDERED: ASPIRIN 325 MG (5 GR) TABLET PO ONE (10:15)
--- NOTE | 2017-04-27 11:42 | Occ Therapy Progress Note ---
Therapy Progress Note RN states pt complaining of shortness of breath this morning. Has had a breathing treatment and medication, states okay to attempt therapy if pt is agreeable. Attempted treatment at 1030. Pt in bed, short of breath, states he doesn't feel any better and is not up to therapy this morning. RN was notified. RT in room present for breathing treatment. 1, visit CHRISTIANNE THOMPSON OT Apr 27, 2017 11:42
--- NOTE | 2017-04-27 14:35 | PM & R (SOAP) Progress Note ---
Subjective Time Seen by Provider: 12:00 Subjective/Events-last exam Contacted by RN earlier toat patient going into CHF and DR Gunter has ordered transfer back to ICU Will f/u with staff on Sunday or sooner if and when patient may return to IRU Review of Systems Pulmonary: Dyspnea Objective Exam Last Set of Vital Signs Vital Signs Date Time Temp Pulse Resp B/P (MAP) Pulse Ox O2 Delivery O2 Flow Rate FiO2 04/27/17 10:36 93 Nasal Cannula 2.00 04/27/17 08:10 113 18 112/66 04/27/17 04:44 96.6 Capillary Refill : I&O Intake and Output 04/27/17 00:00 Intake Total 2070 ml Output Total 1270 ml Balance 800 ml Intake Oral 1870 ml IV Total 200 ml Output Urine Total 1250 ml Stool Total 20 ml General: Alert, Oriented X3, Cooperative, No Acute Distress HEENT: Atraumatic, PERRLA, EOMI, Mucous Memb Moist/[place] Neck: Supple, No JVD Lungs: Clear to Auscultation Heart: Regular Rate Abdomen: Normal Bowel Sounds, Soft, No Tenderness, Other (colovesicular ostomy funftioning) Extremities: Other (trace edema in ankles) Neuro: Other (Strength RLE 3-/5 groosly and Left LE 4/5) Results Lab Laboratory Tests 04/25/17 11:15: White Blood Count 9.1, Red Blood Count 3.69L, Hemoglobin 10.7L, Hematocrit 34L, Mean Corpuscular Volume 92, Mean Corpuscular Hemoglobin 29, Mean Corpuscular Hemoglobin Concent 31L, Red Cell Distribution Width 17.8H, Platelet Count 440H, Mean Platelet Volume 10.4, Sodium Level 140, Potassium Level 4.4, Chloride Level 102, Carbon Dioxide Level 29, Anion Gap 9, Blood Urea Nitrogen 60H, Creatinine 2.71H, Estimat Glomerular Filtration Rate 23, BUN/Creatinine Ratio 22 , Glucose Level 107H, Calcium Level 7.9L, Magnesium Level 1.4L 04/26/17 05:16: Sodium Level 141, Potassium Level 3.9, Chloride Level 105, Carbon Dioxide Level 21, Anion Gap 15H, Blood Urea Nitrogen 58H, Creatinine 2.42H, Estimat Glomerular Filtration Rate 26, BUN/Creatinine Ratio 24, Glucose Level 103, Calcium Level 7.8L, Magnesium Level 1.7L 04/27/17 04:58: White Blood Count 8.3, Red Blood Count 3.42L, Hemoglobin 9.9L, Hematocrit 32L, Mean Corpuscular Volume 93, Mean Corpuscular Hemoglobin 29, Mean Corpuscular Hemoglobin Concent 31L, Red Cell Distribution Width 17.5H, Platelet Count 408H, Mean Platelet Volume 10.8H, Sodium Level 139, Potassium Level 4.2, Chloride Level 103, Carbon Dioxide Level 27, Anion Gap 9, Blood Urea Nitrogen 53H, Creatinine 2.23H, Estimat Glomerular Filtration Rate 28, BUN/Creatinine Ratio 24 , Glucose Level 115H, Calcium Level 7.9L, Magnesium Level 1.9 04/27/17 11:33: B-Type Natriuretic Peptide 3901.0H Assessment/Plan Assessment s/p repair rt displaced femoral neck frx s/p fall Dr Marie CRI s/p ureter stent secondary to stenosis s/p RT for Colon ca Colvesicular Ostomy Recurrent UTIS with Mckeon catheter in place to dependent drainage at this time Postop anemia Postop tachycardia follwed by Dr Biggs on metoprolol Acute on chronic Systolic CHF treated being treated by Dr Biggs-recurrent Resp insufficiency on supplemental o2 Plan Patient transferred to ICU as per above Will f/u with Staff on Sunday04/30/17 re possibility of return to IRU in order to complete rehab program SHAHIDA VANEGAS MD Apr 27, 2017 14:35
[2017-04-28] MEDS ORDERED: ASPIRIN 325 MG (5 GR) TABLET PO SCH (09:00)
[2017-04-28] MEDS ORDERED: ASPIRIN 81 MG CHEW (CHILDREN'S ASA) PO SCH (09:00)
[2017-04-30] MEDS ORDERED: ENOX30DI4 SC ×2 (09:52)
[2017-04-30] MEDS ORDERED: ASPI-999 PO ×2 (09:52)
[2017-04-30] MEDS ORDERED: IPRA3AMP INH ×2 (09:52)
[2017-04-30] MEDS ORDERED: POTA20TA8 PO ×2 (09:52)
[2017-04-30] MEDS ORDERED: FURO80TA83 PO ×2 (09:52)
[2017-04-30] MEDS ORDERED: METO-272 PO ×2 (09:52)
[2017-04-30] MEDS ORDERED: MELA3TAB PO ×2 (09:52)
--- NOTE | 2017-04-30 15:27 | Therapy Team Discharge Summary ---
Therapy Discharge Summary Discharge Recommendations Date of Discharge Apr 27, 2017 at 12:00 Therapy D/C Recommendations: Assisted Living Occupational Therapy Pt was seen for skilled OT to increase his independence in basic self care to allow him to safely return home with support and to decrease caregiver burden. On admission he needed setup for grooming and upper body dressing, mod assist lower body dressing, min assist bathing and transfers. He was dependant with toileting because he had a colostomy and a Mckeon catheter. He declined medically and needed max assist for lower body dressing and mod assist with transfers prior to discharge to intensive care. See tx plan for goals met. DC OT. PT Custodial Goals Custodial Goals PT Chair Inspector And Leveler Goals Time Frame: May 18, 2017 Transfers (B,C,W/C) (FIM): 5 Roll Left to Right (QC): 5 Sit to Lying (QC): 5 Lying-Sitting on Side/Bed(QC): 5 Sit to Stand (QC): 5 Chair/Alj-ha-Wltpc Xfer(QC): 5 Car Transfer (QC): 5 Does the Patient Walk: Yes Gait (FIM): 3 Gait distance (FIM): 3=150 ft Distance: 150' Walk 10 feet (QC): 5 Walk 10ft-Uneven Surface(QC): 5 Walk 50ft with 2 Turns (QC): 5 Walk 150 ft (QC): 5 Gait Level of Assist: 5 Gait Assistive Device: FWW Stairs (FIM): 2 # of Steps: 5 1 Step (curb) (QC): 4 4 Steps (QC): 4 12 Steps (QC): 88 Stairs Level Of Assist: 5 Picking up an Object (QC): 5 OT Custodial Goals Chair Inspector And Leveler Goals Time Frame: May 14, 2017 Eating (FIM): 7 (met) Eating (QC): 6 (met) Oral Hygiene (QC): 6 (not met) Grooming(FIM): 6 (not met) Bathing(FIM): 6 (not met) Shower/Bathe Self (QC): 6 (not met) Upper Body Dressing(FIM): 6 (not met) Upper Body Dressing (QC): 6 (not met) Lower Body Dressing(FIM): 6 (not met) Lower Body Dressing (QC): 6 (not met) On/Off Footwear (QC): 6 (not met) Toileting(FIM): 6 (not met) Toileting Hygiene (QC): 6 (not met) Toilet/Commode Transfer(FIM): 6 (not met) Toilet/Commode Transfer (QC): 6 (not met) Shower Transfer(FIM): 6 (not met) Additional Goals: 1-Demonstrate ADL Tasks, 2-Verbalize Understanding, 3- ImproveStrength/Garrett 1=Demonstrate adherence to instructed precautions during ADL tasks. 2=Patient will verbalize/demonstrate understanding of assistive devices/ modifications for ADL. 3=Patient will improve strength/tolerance for activity to enable patient to perform ADL's. ELIO DELGADO OT Apr 30, 2017 15:27
--- NOTE | 2017-05-01 11:30 | Therapy Team Discharge Summary ---
Therapy Discharge Summary Discharge Recommendations Date of Discharge Apr 27, 2017 at 12:00 Therapy D/C Recommendations: Assisted Living Physical Therapy This patient was transferred to ARU post repair of right hip fracture. Upon admission, he required mod assist with transfers, was able to walk approx 40 ft with FWW with assist and scored a 1 on the stairs. During his stay on this unit , he began having medical issues that required him to be transferred to ICU. therefore, he was discharged from ARU with his goals remaining unmet. Treatment has consisted of functional transfers, gait and strengthening. Recommend continued therapy services once medical status allows. DC PT from ARU due to transfer to ICU. PT Air Twister Winder Goals Mcc Goals PT Mcc Goals Time Frame: May 18, 2017 Transfers (B,C,W/C) (FIM): 5 Roll Left to Right (QC): 5 Sit to Lying (QC): 5 Lying-Sitting on Side/Bed(QC): 5 Sit to Stand (QC): 5 Chair/Onc-yv-Ftjsv Xfer(QC): 5 Car Transfer (QC): 5 Does the Patient Walk: Yes Gait (FIM): 3 Gait distance (FIM): 3=150 ft Distance: 150' Walk 10 feet (QC): 5 Walk 10ft-Uneven Surface(QC): 5 Walk 50ft with 2 Turns (QC): 5 Walk 150 ft (QC): 5 Gait Level of Assist: 5 Gait Assistive Device: FWW Stairs (FIM): 2 # of Steps: 5 1 Step (curb) (QC): 4 4 Steps (QC): 4 12 Steps (QC): 88 Stairs Level Of Assist: 5 Picking up an Object (QC): 5 OT Air Twister Winder Goals Air Twister Winder Goals Time Frame: May 14, 2017 Eating (FIM): 7 (met) Eating (QC): 6 (met) Oral Hygiene (QC): 6 (not met) Grooming(FIM): 6 (not met) Bathing(FIM): 6 (not met) Shower/Bathe Self (QC): 6 (not met) Upper Body Dressing(FIM): 6 (not met) Upper Body Dressing (QC): 6 (not met) Lower Body Dressing(FIM): 6 (not met) Lower Body Dressing (QC): 6 (not met) On/Off Footwear (QC): 6 (not met) Toileting(FIM): 6 (not met) Toileting Hygiene (QC): 6 (not met) Toilet/Commode Transfer(FIM): 6 (not met) Toilet/Commode Transfer (QC): 6 (not met) Shower Transfer(FIM): 6 (not met) Additional Goals: 1-Demonstrate ADL Tasks, 2-Verbalize Understanding, 3- ImproveStrength/Garrett 1=Demonstrate adherence to instructed precautions during ADL tasks. 2=Patient will verbalize/demonstrate understanding of assistive devices/ modifications for ADL. 3=Patient will improve strength/tolerance for activity to enable patient to perform ADL's. MARY DAVIES PT May 01, 2017 11:30
--- NOTE | 2017-05-02 08:50 | DISCHARGE SUMMARY ---
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 He was seen by his physician in [place] who apparently recommended shelter setting for ongoing therapies and care. He went to [facility] in [place] for ongoing care and therapies. Unfortunately, the evening of this admission on 04/14, he fell and sustained a displaced femoral neck fracture of the right hip. 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 He underwent bipolar femoral hemiarthroplasty and repair of the abductor tendon, right hip with Dr. Marie on 04/28/2017. After being admitted to [facility], he was followed by cardiology and pulmonology and hospitalist service due to medical concerns including postoperative anemia, as well as acute systolic congestive heart failure, severe anemia, most likely due to chronic kidney disease with an exacerbation due to acute blood loss from hip fracture. Also noted was sinus tachycardia super superimposed with paroxysmal atrial fibrillation and acute on chronic UTI. He was placed on antibiotic empirically. He does have a colovesiculostomy status post surgery for colon cancer in the past and had stenosis of the ureter secondary to radiation therapy. Bladder is currently managed with indwelling Mckeon catheter. He was then referred to Inpatient Rehabilitation Unit for ongoing therapies with goal of maximizing level of functional independence prior to discharge to a alf setting for clergy or back to shelter unit. PAST MEDICAL HISTORY: 1. Chronic kidney disease. 2. Congestive heart failure. 3. Colon cancer, status post colovesiculostomy. 4. As per above. MEDICAL COURSE: The patient was followed by hospitalist service as well as Dr. Alves who recommended a Mckeon catheter to remain in for now. He completed a course of IV antibiotics for the UTI. He was being followed by cardiology and he was making some progress, unfortunately had an acute exacerbation of congestive heart failure which required transfer back to ICU. None of his rehabilitation goals were able to be fully achieved or maintained. His CBC on 04/27 showed a WBC 8.3, hemoglobin and hematocrit 9.9/32, platelet count 408,000. Chemistry on 04/27 showed BUN 53, creatinine 2.23 improved from 04/24 which was 63/2.77, glucose on 04/27 115, calcium 7.9, magnesium improved to 1.9 from 1.4 on 04/25. His BNP was elevated at 3901 on 04/27. He was afebrile during his stay. He was tachycardic on 04/27 with a pulse of 113. Blood pressure 112/66, respirations 18, O2 sat was 93% on 2 liters of O2. He complained of increased shortness of breath and inability to participate in therapies on that day and cardiology and hospitalist service decided upon transfer to ICU as per above. REHABILITATION COURSE: None of his goals were able to be achieved or maintained due to due to his medical decline. He was assessed by speech therapy upon admission and found to be cognitively intact and they signed off. OT notes upon admission, he needed set up for grooming, upper body dressing. Mod assist for lower body dressing. Min assist for bathing, and transfers. He was dependent with toileting because he had a colostomy and a Mckeon catheter. He decline medically and needed max assist for lower body dressing and mod assist for transfers prior to discharge back to ICU. PT notes a similar decline in functional status due to medical concerns. DISCHARGE INSTRUCTIONS: The patient is discharged back to ICU to the care of hospitalist service and cardiology. He may certainly be reassessed for ongoing rehabilitation at a later time; however, I believe he may be heading back to the shelter unit upon stabilization in the ICU. Continue current diet as tolerated. Therapies are on hold. DISCHARGE MEDICATIONS: 1. ASA 325 mg p.o. daily. 2. Furosemide 40 mg IV piggyback daily. 3. KCL 20 mEq p.o. daily. 4. Lovenox 30 mg subcutaneous daily. 5. Lactinex 2 tablets p.o. daily. 6. Feosol 325 mg p.o. daily. 7. Vitamin C 250 mg p.o. daily. 8. Multivitamins with minerals 1 tablet p.o. daily. 9. Senokot-S 1 tablet p.o. b.i.d. 10. Lopressor 25 mg p.o. b.i.d. 11. Zocor 5 mg p.o. evening. 12. Albuterol treatments q.i.d. 13. Xanax 0.25 mg p.o. q.8 hours p.r.n. anxiety. 14. Tylenol 500 mg p.o. q.4 hours p.r.n. mild pain. 15. Proventil respiratory treatments q.2 hours p.r.n. shortness of breath or wheezing. 16. Lortab 7.5, 1 tablet p.o. q.4 hours p.r.n. moderate pain. 17. Zofran 4 mg q.4 hours p.r.n. for IV piggyback p.r.n. nausea, vomiting. DISCHARGE DIAGNOSES: 1. Rehabilitation ambulatory dysfunction, secondary to fall, fracture, status post displaced femoral neck fracture, right hip with chronic abductor tendon tear right hip, status post bipolar femoral hemiarthroplasty right hip and repair abductor tendon tear, Dr. Marie, 04/18/2017 weight-bearing as tolerated. 2. Recurrent acute systolic congestive heart failure associated with severe left ventricular systolic dysfunction requiring transfer back to ICU. 3. Postoperative anemia on replacement. 4. Postop tachycardia multifactorial. 5. Chronic kidney disease, due to radiation due to stenosis of the ureter with baseline creatinine 3.4, stents in place with indwelling Mckeon catheter. 6. Acute on chronic UTI had a course of IV antibiotics. 7. Osteoarthritis of the hands. 8. Mild hypocalcemia. 9. Hypomagnesemia replaced. 10. Hypoalbuminemia. CONDITION AT DISCHARGE: Unimproved but stable. PROGNOSIS: Rehab prognosis appears fair once medically stabilized for ongoing improvement with therapies. Due to his age and multiple comorbidities, he may be able to tolerate shelter therapies at a less intense level more easily. Job ID: [id number] Dictated Date: 05/01/2017 07:50:55 Pickle Pumper Date: 05/02/2017 08:21:38/emeli
--- OUTSIDE RECORDS SUMMARY | 2017-05-03 19:33 | XMS REPORT | Referral Summary ---
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 Discharge Disposition: 01-Home or Self Care Attending Physician: Eron Escudero MD Vital Signs No data available for this section Problem List Condition Effective Dates Status Health Status Informant Acute Active pain(Confirmed) At risk for Active infection(Confirmed) 1 Bowel Active dysfunction(Confirme d)2 Cancer(Confirmed) Active Hypertension(Confirm Active ed) Impaired skin Active integrity(Confirmed) 3 MRSA(Confirmed) Active 1Problem added automatically by system based on initiation of At Risk for Infection in Nutrition Plan of Care 2Problem added automatically by system based on initiation of Bowel Dysfunction Plan of Care 3Problem added automatically by system based on initiation of Impaired Skin Integrity Plan of Care Allergies, Adverse Reactions, Alerts Substance Reaction Severity Status ibuprofen GI (gastrointestinal) complaints related to Active iodine cardiac arrest Active penicillin Eczema (rash) Active Medications Benadryl 0 Refill(s) Start Date: 03/09/14 Status: Ordered calcium carbonate 550 mg oral tablet, chewable 0 Refill(s) Start Date: 03/09/14 Status: Ordered ferrous sulfate 325 mg (65 mg elemental iron) oral delayed release tablet tabs, Oral, Daily, 0 Refill(s) Start Date: 03/09/14 Status: Ordered lovastatin 40 mg oral tablet 1 tabs, Oral, Daily, # 30 tabs, 0 Refill(s) Start Date: 03/09/14 Status: Ordered Milk of Magnesia Oral, Bedtime (once a day), 0 Refill(s) Start Date: 03/09/14 Status: Ordered MiraLax oral powder for reconstitution 17 g, Oral, Daily, dissolve in water before taking, # 527 g, 0 Refill(s) Start Date: 03/09/14 Status: Ordered multivitamins oral tablet 1 tabs, Oral, Daily, # 30 tabs, 0 Refill(s) Start Date: 03/09/14 Status: Ordered Norvasc 5 mg oral tablet 1 tabs, Oral, Daily, 0 Refill(s) Start Date: 03/11/14 Status: Ordered omeprazole 10 mg oral delayed release capsule 1 caps, Oral, Daily, # 30 caps, 0 Refill(s) Start Date: 03/09/14 Status: Ordered Probiotic Formula caps, Oral, Daily, 0 Refill(s) Start Date: 03/09/14 Status: Ordered VESIcare 5 mg oral tablet 1 tabs, Oral, Daily, # 30 tabs, 0 Refill(s) Start Date: 03/09/14 Status: Ordered Results No data available for this section Immunizations No data available for this section Procedures Procedure Date Related Diagnosis Body Site Repair Hernia Parastomal1 03/09/14 Bowel Ca Carotid endarterectomy Colostomy 1auto-populated from documented surgical case Social History Social History Type Response Smoking Status Never smoker Assessment and Plan No data available for this section
--- OUTSIDE RECORDS SUMMARY | 2017-05-03 19:33 | XMS REPORT | Continuity of Care Document ---
Author Author [facility] Organization [facility] Address Unknown Phone Unavailable Allergies Active Description Code Type Severity Reaction Onset Reported/Identified Relationship to Patient Clinical Status Yes IV Contrast Drug Allergy N/A Adverse Reaction / cardiac arrest 09/26/2011 Yes Penicillins Drug Allergy N/A Eczema (rash) 09/26/2011 Yes IV Contrast Drug Allergy N/A Anaphylaxis /cardiac arrest 09/11/2013 Yes Motrin Drug Allergy Mild GI UPSET 09/11/2013 Yes No Known Food Allergies Food Allergy N/A N/A 10/22/2013 Yes iodine NKMA N/A cardiac arrest 01/29/2014 Yes penicillin NKMA N/A Eczema (rash) 01/29/2014 Yes ibuprofen NKMA N/A [id number] 03/09/2014 Medications Problems Date Dx Coded Attending Type Code Diagnosis Diagnosed By 06/06/2013 Eron Escudero MD Final 560.9 INTESTINAL OBSTR NOS 06/06/2013 Eron Escudero MD Final 569.9 INTESTINAL DISORDER NOS 06/06/2013 Eron Escudero MD Final V10.06 HX RECTAL ANAL CA 06/07/2013 Eron Escudero MD Final 272.4 HYPERLIPIDEMIA NEC NOS 06/07/2013 Eron Escudero MD Final 401.9 HYPERTENSION NOS 06/07/2013 Eron Escudero MD Final 416.8 CHR PULMON HEART DIS NEC 06/07/2013 Eron Escudero MD Final 424.1 AORTIC VALVE DISORDER 06/07/2013 Eron Escudero MD Final 558.1 RADIATION GASTROENT 06/07/2013 Eron Escudero MD Admitting 560.89 INTESTINAL OBSTR NEC 06/07/2013 Eron Escudero MD Final 569.49 RECTAL ANAL DISORD NEC 06/07/2013 Eron Escudero MD Final 591 HYDRONEPHROSIS 06/07/2013 Eron Escudero MD Final 593.4 URETERIC OBSTRUCTION NEC 06/07/2013 Eron Escudero MD Final 596.89 BLADDER DISORDER NEC 06/07/2013 Eron Escudero MD Final 909.2 LATE EFFECT OF RADIATION 06/07/2013 Eron Escudero MD External E879.2 ABN RXN-RADIOTHERAPY 07/16/2013 Eron Escudero MD Final 288.60 LEUKOCYTOSIS NOS 07/16/2013 Eron Escudero MD Final 564.00 CONSTIPATION NOS 07/16/2013 Eron Escudero MD Final 780.96 GENERALIZED PAIN 07/16/2013 Eron Escudero MD Final 787.02 NAUSEA ALONE 07/16/2013 Eron Escudero MD Final 787.3 FLATUL/ERUCT GAS PAIN 07/16/2013 Eron Escudero MD Final V44.9 ARTIF OPENING STATUS NOS 07/16/2013 Eron Escudero MD Final 038.12 MRSA SEPTICEMIA 07/16/2013 Eron Escudero MD Final 272.4 HYPERLIPIDEMIA NEC NOS 07/16/2013 Eron Escudero MD Final 275.41 HYPOCALCEMIA 07/16/2013 Eron Escudero MD Final 276.1 HYPOSMOLALITY 07/16/2013 Eron Escudero MD Final 276.8 HYPOPOTASSEMIA 07/16/2013 Eron Escudero MD Final 285.9 ANEMIA NOS 07/16/2013 Eron Escudero MD Final 403.90 HTN CKD NOS I-IV/NOS 07/16/2013 Eron Escudero MD Final 424.1 AORTIC VALVE DISORDER 07/16/2013 Eron Escudero MD Final 560.1 PARALYTIC ILEUS 07/16/2013 Eron Escudero MD Final 560.9 INTESTINAL OBSTR NOS 07/16/2013 Eron Escudero MD Final 564.00 CONSTIPATION NOS 07/16/2013 Eron Escudero MD Final 584.9 ACUTE KIDNEY FAILURE NOS 07/16/2013 Eron Escudero MD Final 585.9 CHRONIC KIDNEY DIS NOS 07/16/2013 Eron Escudero MD Final 599.0 URINARY TRACT INF NOS 07/16/2013 Eron Escudero MD Admitting 787.01 NAUSEA W VOMITING 07/16/2013 Eron Escudero MD Final 995.91 SEPSIS 09/11/2013 Miguel Angel Stanley MD Final 272.4 HYPERLIPIDEMIA NEC NOS 09/11/2013 Miguel Angel Stanley MD Final 403.90 HTN CKD NOS I-IV/NOS 09/11/2013 Miguel Angel Stanley MD Final 416.8 CHR PULMON HEART DIS NEC 09/11/2013 Miguel Angel Stanley MD Final 424.1 AORTIC VALVE DISORDER 09/11/2013 Miguel Angel Stanley MD Final 585.9 CHRONIC KIDNEY DIS NOS 09/11/2013 Miguel Angel Stanley MD Final 593.4 URETERIC OBSTRUCTION NEC 09/11/2013 Miguel Angel Stanley MD Final V53.6 FITTING URINARY DEVICES 10/22/2013 Tang Harper MD Final 787.99 OTH GI SYSTEM SYMPTOMS 10/22/2013 Tang Harper MD Admitting 787.99 OTH GI SYSTEM SYMPTOMS 11/06/2013 Admitting 553.21 INCISIONAL HERNIA 11/10/2013 Miguel Angel Stanley MD Final 593.4 URETERIC OBSTRUCTION NEC 11/10/2013 Miguel Angel Stanley MD Final 593.9 RENAL/URETER DISORD NOS 11/10/2013 Miguel Angel Stanley MD Admitting 593.4 URETERIC OBSTRUCTION NEC 09/22/2014 Grabiel Moulton DO Reason 729.5 PAIN IN LIMB 09/22/2014 Grabiel Moulton DO Final 816.12 OPEN FRACTURE OF DISTAL PHALANX OR PHALANGES OF HAND 09/22/2014 Grabiel Moulton DO Final 883.0 OPEN WOUND OF FINGERS, WITHOUT MENTION OF COMPLICATION 07/26/2015 Eron Escudero MD Final K43.5 Parastomal hernia without obstruction or gangrene 07/26/2015 Eron Escudero MD Reason K94.03 Colostomy malfunction Procedures Code Description Performed By Performed On 48.62 ANT RECT RESECT W COLOST Eron Escudero MD 06/09/2013 57.32 CYSTOSCOPY NEC Eron Escudero MD 06/09/2013 59.8 URETERAL CATHETERIZATION Eron Escudero MD 06/09/2013 87.74 RETROGRADE PYELOGRAM Eron Escudero MD 06/09/2013 38.93 VENOUS CATHETER SEBASTIAN Moran MD, Sury[employer] 07/23/2013 88222 CYSTOSCOPY AND TREATMENT Miguel Angel Stanley MD 09/11/2013 Results Encounters ACCT No. Visit Date/Time Discharge Status Pt. Type Provider Facility Loc./Unit Complaint [id number] 12/24/2013 07:30:00 2013 23:59:59 CLS Outpatient Eron Escudero MD [facility] [id number] 11/10/2013 10:20:00 2013 23:59:59 CLS Outpatient Miguel Angel Stanley MD [facility] [id number] 10/22/2013 09:00:00 2013 23:59:59 CLS Outpatient Leroy KLEIN [facility] [id number] 10/22/2013 07:28:00 2013 23:59:59 CLS Outpatient Leroy KLEIN [facility] [id number] 09/11/2013 08:27:00 2012 13:40:00 DIS Outpatient Miguel Angel Stanley MD [facility] [id number] 07/16/2013 16:16:00 2012 18:04:00 DIS Inpatient Eron Escudero MD [facility] J5W [id number] 07/16/2013 14:26:00 2012 23:59:59 CLS Outpatient Eron Escudero MD [facility] [id number] 06/07/2013 08:52:00 2012 15:00:00 DIS Inpatient Eron Escudero MD [facility] F7N [id number] 06/06/2013 09:03:00 2012 23:59:59 CLS Outpatient Eron Escudero MD [facility] [id number] 11/06/2013 15:15:00 Document Registration [id number] 09/26/2013 12:06:00 Document Registration
== END 2017-04-27 12:00 | disposition short-term general hospital (02) | DRG 559 ==
PROVIDERS: ADMIT Physical Medicine & Rehabilitation; ATTEND Physical Medicine & Rehabilitation
DX: S72.001D Fracture of unspecified part of neck of right femur, subsequent encounter for closed fracture with routine healing (principal); S76.011D Strain of muscle, fascia and tendon of right hip, subsequent encounter; D62 Acute posthemorrhagic anemia; I50.23 Acute on chronic systolic (congestive) heart failure; N18.4 Chronic kidney disease, stage 4 (severe); N13.5 Crossing vessel and stricture of ureter without hydronephrosis; N39.0 Urinary tract infection, site not specified; M19.041 Primary osteoarthritis, right hand; M19.042 Primary osteoarthritis, left hand; I48.0 Paroxysmal atrial fibrillation; E87.6 Hypokalemia; Z85.038 Personal history of other malignant neoplasm of large intestine; Z93.3 Colostomy status; R06.89 Other abnormalities of breathing; E83.51 Hypocalcemia; E83.42 Hypomagnesemia; E88.09 Other disorders of plasma-protein metabolism, not elsewhere classified; Z99.81 Dependence on supplemental oxygen; Y84.2 Radiological procedure and radiotherapy as the cause of abnormal reaction of the patient, or of later complication, without mention of misadventure at the time of the procedure
CPT/HCPCS: 36415; 80048; 80053; 83735; 83880; 85025; 85027; 93005; 94640; 94760

== ENCOUNTER 2017-05-01 08:00 | Inpatient (IN) | payer MEDICARE, OTHER ==
[~2017-05-01] VITALS: Ht 167.6 cm; Wt 60.5 kg
[2017-05-01 08:00] VITALS: BP 112/48
[~2017-05-01 08:00] MED LIST changes: +ASPI-999 PO; +ENOX30DI4 SC; +FURO80TA83 PO; +IPRA3AMP INH; +MELA3TAB PO; +METO-272 PO; +POTA20TA8 PO
--- NOTE | 2017-05-01 09:10 | Physical Therapy Evaluation ---
PT Evaluation-General Medical Diagnosis Admission Date May 01, 2017 Medical Diagnosis: right hip fracture/CHF Onset Date: Apr 21, 2017 Therapy Diagnosis Therapy Diagnosis: general debility Height/Weight Height (Feet): 5 Height (Inches): 6.00 Weight (Pounds): 137 Weight (Ounces): 12.8 Precautions Precautions/Isolations: Fall Prevention, Standard Precautions Weight Bear Status Weight Bearing Restriction: Weight Bearing/Tolerated Location Restriction: R LE Referral Physician: Agustín Reason for Referral: Evaluation/Treatment Medical History Pertinent Medical History: Arthritis, Dementia, GERD, Heart Failure, HTN, Renal Insufficiency Additional Medical History fall at [facility] resulting in right hip fracture Current History patient had an episode of CHF resulting in transfer to ICU. Patient readmitted to ARU following stay. Reviewed History: Yes Social History Home: Longterm Prior/[facility] Prior Level of Function Functional [place] Measure 0=Not Assessed/NA 4=Minimal Assistance 1=Total Assistance 5=Supervision or Setup 2=Maximal Assistance 6=Modified [place] 3=Moderate Assistance 7=Complete [place] Bed Mobility: 4 Transfers (B,C,W/C) (FIM): 4 Gait: 4 NH PT Evaluation-Current Subjective Patient agrees to PT. Patient reports he plans to dismiss to [facility] after this ARU stay. He also reports, if he requires dialysis, he will transfer to [place] for continued care. Pain Numeric Pain Scale: 5-Moderate Pain Location: Right Location Body Site: Hip Pain Description: Ache Pt/Family Goals return to [facility] Objective Patient Orientation: Normal For Age Problem Solving: Good ROM/Strength ROM Lower Extremities right hip precautions left LE WNL noted bilateral foot pronation Strenght Lower Extremities left knee flexion/extension 3+/5; hip flexion 3-/5; ankle dorsi/plantarflexion 3 -/5 right knee flexion/extension 3-/5; hip flexion NT; ankle dorsi/plantarflexion 3- /5 Integumentary/Posture Integumentary refer to nursing notes Bowel Incontinence: No Bladder Incontinence: Mckeon Cath Posture kyphotic Neuromuscular (Tone, Coordination, Reflexes) slightly diminished coordination Sensory Vision: Wears Glasses Hearing: Hearing Aid/Aides Sensation Right Lower Extremit: Intact Sensation Left Lower Extremity: Intact Transfers Functional [place] Measure 0=Not Assessed/NA 4=Minimal Assistance 1=Total Assistance 5=Supervision or Setup 2=Maximal Assistance 6=Modified [place] 3=Moderate Assistance 7=Complete IndependenceIRFPAI Quality Coding Scale 6 Independent with activity with or without an assistive device 5 Patient requires set up or clean up by helper. Patient completes activity by themselves 4 Supervision or touching assist (CGA). [place] provide cues , steadying assist 3 The helper provides less than half the effort to complete the activity 2 The helper provides more than half the effort to complete the activity 1 Dependent. The helper does all the effort to complete an activity 7 Patient refused to complete or attempt activity 9 The patient did not perform the activity before the current illness or injury 88 Not attempted due to Medical conditions or safety concerns Transfers (B, C, W/C) (FIM): 4 Scootin Rollin Roll Left to Right (QC): 4 Supine to/from Sit: 5 Sit to/from Stand: 4 Sit to Lying (QC): 4 Lying to Sitting/Side of Bed(Q: 4 Sit to Stand (QC): 3 Chair/Dqm-in-Keygs Xfer(QC): 3 Car Transfer (QC): 3 Gait Does the Patient Walk?: Yes Mode of Locomotion: Walk Anticipated Mode of Locomotion: Walk Gait (FIM): 2 Distance (FIM): 4=045-63 ft Walk 10 feet (QC): 3 Walk 50 ft with 2 Turns(QC): 3 Walk 150 ft (QC): 88 Walking 10ft/uneven surface-QC: 3 Distance: 100' x 4 Gait Level of Assist: 4 Gait Persons Needed: 1 Gait Assistive Device: FWW Comments/Gait Description slow, antalgic gait sequence Stairs Stairs (FIM): 1 #of Steps: 2 Level of Assist: 4 1 Step (curb) (QC): 3 4 Steps (QC): 88 Assistive Device: Walker 12 Steps (QC): 9 Balance Sitting Static: Fair Sitting Dynamic: Fair Standing Static: Fair Standing Dynamic: Fair Picking up an Object (QC): 88 Treatment bilateral LE exercises in supine and sit 10 reps each of the following: AP, SAQ , QS, HS, ABD/ADD; LAQ Education with patient on hip precautions with patient reciting them correctly. Assessment/Needs 82 y.o. male, will benefit from skilled PT to address functional strength and mobility to improve current LOF and to safely return to [facility] for continued care. Rehab Potential: Fair PT Assisted Goals Parquet Floor Layer'S Helper Goals PT Assisted Goals Time Frame: May 18, 2017 Transfers (B,C,W/C) (FIM): 5 Sit to Lying (QC): 5 Lying-Sitting on Side/Bed(QC): 5 Sit to Stand (QC): 5 Rollin Roll Left to Right (QC): 5 Chair/Uqb-gd-Tjcms Xfer(QC): 5 Car Transfer (QC): 5 Does the Patient Walk: Yes Gait (FIM): 5 Gait distance (FIM): 3=150 ft Distance: 150' Walk 10 feet (QC): 5 Walk 10ft-Uneven Surface(QC): 5 Walk 50ft with 2 Turns (QC): 5 Walk 150 ft (QC): 5 Gait Level of Assist: 5 Gait Assistive Device: FWW Stairs (FIM): 2 # of Steps: 8 1 Step (curb) (QC): 5 4 Steps (QC): 5 12 Steps (QC): 88 Stairs Level Of Assist: 5 Picking up an Object (QC): 5 PT Plan Problem List Problem List: Activity Tolerance, Functional Strength, Balance, Gait, Transfer , Bed Mobility Treatment/Plan Treatment Plan: Continue Plan of Care Treatment Plan: Bed Mobility, Education, Functional Activity Garrett, Functional Strength, Group Therapy, Gait, Safety, Therapeutic Exercise, Transfers Treatment Duration: May 18, 2017 Frequency: At least 5-7 days/Wk (IRF) Estimated Hrs Per Day: 1.5 hours per day Patient and/or Family Agrees t: Yes Safety Risks/Education Patient Education: Reviewed Precautions, Safety Issues Teaching Recipient: Patient Teaching Methods: Discussion Response to Teaching: Verbalize Understanding Discharge Recommendations Therapy D/C Recommendations: Longterm Placement Time/GCodes Time In: 800 Time Out: 910 Total Billed Treatment Time: 70 Total Billed Treatment 1 visit EVModC 30 min EX x 2 23 min FA 17 min EDGAR KERNS PT May 01, 2017 09:10
--- NOTE | 2017-05-01 09:36 | ST Cognitive Linguistic Eval ---
Speech Evaluation-General Medical Diagnosis right hip fracture/CHF Onset Date: Apr 21, 2017 Therapy Diagnosis Therapy Diagnosis: Cognitive Linguistic Skills WNL Precautions Precautions/Isolations: Fall Prevention, Standard Precautions Referral Referring Physician: Dr. Jorge Randolph Reason for Referral: Evaluation/Treatment Cognitive Evaluation Medical History Pertinent Medical History: Arthritis, Dementia, GERD, Heart Failure, HTN, Renal Insufficiency Reviewed History: Yes Speech PLF-Current Status Prior Level of Function The patient denied challenges with cognition, speech, or language prior to admission. Subjective The patient was recently readmitted to the inpatient rehabilitation unit following a hip fracture. The patient greeted the clinician appropriately and was agreeable to participation in the cognitive evaluation. Language Eval: Auditory Comprehends Simple Yes/No Ques: Functional Indent/Objects Multiple [place]: Functional Ident/Pics in Multiple [place]: Functional Follows 1-Step Commands: Functional Follows Complex Directions: Functional Follows General Conversations: Functional Language Eval: Verbal Language Completes Spontaneous Greeting: Functional Produces Auto, Serial Info: Functional Imitates Simple Words/Phrases: Functional Word Finding: Functional Requests Basic Needs: Functional States Basic Personal Info: Functional Expresses Complex Ideas: Functional Cognitive Patient Orientation The patient was oriented to month, day of week, date, and year (independently). Objective Cognitive Domain Attention: WNL Memory: WNL Problem Solving: Functional Executive Functions: WNL Objective Impression The patient demonstrated adequate cognitive linguistic skills, which were appropriate for completion of ADL's. Communication/Social Cognition Comprehension: 6 Expression: 6 Social Interaction: 6 Problem Solvin Memory: 5 Speech Patient Assess Expression of Ideas/Wants: Expression (4) Understanding Vebal Content: Understands (4) Brief Interview-Mental Status: Yes Repetition of Three Words: Three (3) Temporal Orientation: Year: Correct (3) Temporal Orientation: Month: Accurate within 5 days(2) Temporal Orientation: Day: Correct (1) Recall : Wear to say "Sock": Yes, no cue required (2) Recall : Color: Yes, no cue required (2) Recall : Bed: Yes, no cue required (2) Speech-Plan Treatment Plan Speech Therapy Treatment Plan: Discontinue ST Evaluation, only. Frequency: Modified Program (IRF) Estimated Hrs Per Day: .25 hour per day (Evaluation, only.) Rehab Potential: Fair Safety Risks/Education Teaching Recipient: Patient Teaching Methods: Discussion Response to Teaching: Verbalize Understanding Education Topics Provided: Results, Recommendations, Plan of Care Time Speech Therapy Time In: 09:10 Speech Therapy Time Out: 09:25 Total Billed Time: 15 Billed Treatment Time 1, TRISTEN DOVE May 01, 2017 09:36
[2017-05-01] MEDS ORDERED: MELATONIN 3 MG TABLET PO PRN (10:15)
[2017-05-01] MEDS ORDERED: CATHETER FLUSH 10 ML SYR IV PRN (10:15)
[2017-05-01] MEDS ORDERED: RT-ALBUTEROL SULF 2.5 MG/3 ML PRE-MIX VIAL IH PRN ×2 (10:15)
--- NOTE | 2017-05-01 11:47 | PM&R Post Admission Assessment ---
Post Admission Physician Asses The preadmission screen agrees with the post admission assessment that the patient is a good candidate for inpatient rehabilitation. The patient will have a comprehensive program of inpatient rehabilitation with a goal of maximizing level of functional independence prior to discharge home hopefully to an EH. The patient will have PT/OT ninety minutes per day, each discipline, five days a week for gait, strengthening, conditioning, balance, ADLs, any patient/family/caregiver training as necessary. Speech therapy to do cognitive assessment and treat as indicated. Rehabilitation nursing to assist with bowel, bladder, skin, wound care, medication administration, pain management. Daycare Manager to assist with discharge planning, community reentry. SCD's for DVT prophylaxis.Respiratory to assist with monitoring O2 sats and administering Resp treatments He appears to be well motivated to participate in three hours of therapy a day. He should be able to tolerate three hours of therapy a day from a medical standpoint. He should benefit from the three hours of therapy a day. He has a reasonable discharge plan, reasonable discharge rehabilitation goals and a supportive clergy family. He has various comorbidities that need to be closely monitored with medications and treatments adjusted on a daily basis as needed. 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 Risks for this patient include: 1. Fall 2. Fracture 3. DVT 4. Pulmonary embolism 5. Wound infection 6. Skin breakdown 7. Contractures 8. Poorly controlled pain 9. Urinary retention if Mckeon catheter d/cd 10. recurrentUTI 11. Respiratory infection 12. Aspiration 13. recurrent bout of CHF 14. Worsening anemia 15. Worsening renal failure 16.recurrent respiratory failure 17. Recurrent tachycardia Estimated Length of Stay: 14 days Prognosis: Rehab prognosis appears good for goal of discharge to an EH modified independent to supervision for ADLs and mobility skills. SHAHIDA VANEGAS MD May 01, 2017 11:47
--- NOTE | 2017-05-01 12:24 | Progress Note-Cardiology ---
Cardiology SOAP Progress Note Subjective: Sitting up in a chair at the bedside. States he feels better today. No c/o CP , SOB, palpitations. Objective: I&O/Vital Signs Vital Sign - Last 12Hours 05/02/17 05/02/17 05/02/17 05/02/17 01:00 06:03 07:00 07:17 Temp 98.4 Pulse 110 97 108 Resp 18 B/P (MAP) 101/60 Pulse Ox 92 93 O2 Delivery Room Air Room Air 05/02/17 08:49 Pulse 92 Resp 18 B/P (MAP) 99/62 Pulse Ox 96 O2 Delivery Room Air Intake and Output 05/02/17 00:00 Intake Total 500 ml Output Total 4650 ml Balance -4150 ml Weight (Pounds): 137 Weight (Ounces): 12.8 Weight (Calculated Kilograms): 62.665128 Constitutional: AAO x 3 Cardiovascular: regular rate-rhythm, No JVD, S1 and S2, systolic murmur Gastrointestional: No tender, soft, audible bowel sounds Genital/Rectal: other (urinary catheter to DD with marj blood) Results/Procedures: Labs Laboratory Tests 05/02/17 08:35: White Blood Count 9.9, Red Blood Count 3.29L, Hemoglobin 9.6L, Hematocrit 31L, Mean Corpuscular Volume 94, Mean Corpuscular Hemoglobin 29, Mean Corpuscular Hemoglobin Concent 31L, Red Cell Distribution Width 17.1H, Platelet Count 487H, Mean Platelet Volume 10.8H, Sodium Level 138, Potassium Level 4.1, Chloride Level 98, Carbon Dioxide Level 27, Anion Gap 13, Blood Urea Nitrogen 46H, Creatinine 2.40H, Estimat Glomerular Filtration Rate 26, BUN/Creatinine Ratio 19 , Glucose Level 125H, Calcium Level 8.2L, Magnesium Level 1.7L, Total Bilirubin 0.4, Aspartate Amino Transf (AST/SGOT) 28, Alanine Aminotransferase (ALT/SGPT) 26, Alkaline Phosphatase 76, Total Protein 6.5, Albumin 2.7L A/P: Assessment: Acute systolic CHF, improving Sinus tach with PACs, improving CKD stage III-IV, stable/ improving Elec abn due to diuretic therapy Echocardiogram of 04-19-[address] Biggs showed LVEF 20-25%. Hypokinesis of apical septal, apical lateral, apical myocardium. Mild MR. Mild to mod TR. PASP 65mmHg. Carried out during tachycardia. Not a suitable candidate for MONY (-) or ARB d/t existing stage III-IV CKD Right hip fracture, s/p surgery Mildly positive cardiac enzymes (04-19-17 to 04-21-17) : serial troponin shows same level of troponin. [place] to be unlikely d/t ACS. Since mild elevation of troponin can occur in CHF especially with CKD and in a patient with tachycardia. Per Dr. 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 Alves following Plan: Management complex due to multiple comorbidities (see above) Renal function seems relatively stable Monitor lab Conservative management appears to be the best option at time Continue heart failure treatment and treatment for suspected CAD Has transferred to [facility] May 01, 2017 12:24
--- NOTE | 2017-05-01 13:30 | Physical Therapy Daily Note ---
PT Daily Note-Current Subjective Patient agrees to back to bed and exercises. Pain Numeric Pain Scale: 5-Moderate Pain Location: Right Location Body Site: Hip Pain Description: Acute Appearance copious amounts of blood in urine/catheter; RN is aware Mental Status Patient Orientation: Normal For Age Attachments: Colostomy/Ileostomy, Mckeon Catheter Transfers Functional [place] Measure 0=Not Assessed/NA 4=Minimal Assistance 1=Total Assistance 5=Supervision or Setup 2=Maximal Assistance 6=Modified [place] 3=Moderate Assistance 7=Complete IndependenceIRFPAI Quality Coding Scale 6 Independent with activity with or without an assistive device 5 Patient requires set up or clean up by helper. Patient completes activity by themselves 4 Supervision or touching assist (CGA). [place] provide cues , steadying assist 3 The helper provides less than half the effort to complete the activity 2 The helper provides more than half the effort to complete the activity 1 Dependent. The helper does all the effort to complete an activity 7 Patient refused to complete or attempt activity 9 The patient did not perform the activity before the current illness or injury 88 Not attempted due to Medical conditions or safety concerns Transfers (B, C, W/C) (FIM): 4 Scootin Rollin Roll Left to Right (QC): 3 Supine to/from Sit: 4 Sit to/from Stand: 4 Sit to Lying (QC): 3 Sit to Stand (QC): 3 Chair/Akn-dd-Rxpih Xfer(QC): 3 Bed to/from Chair: 4 Weight Bearing Weight Bearing Restriction: Weight Bearing/Tolerated Location Restriction: R LE Gait Training Does the Patient Walk?: Yes Gait (FIM): 1 Distance (FIM): 1=up to 49 ft Distance: 5' Gait Level of Assist: 4 Gait Persons Needed: 1 Gait Assistive Device: FWW antalgic Exercises Supine Ex: Ankle pumps, Quad Set, Heel Slides Supine Reps: 20 (AAROM bilateral LE) Seated Therapy Exercises: Long arc quads Seated Reps: 20 Assessment Patient requires time to complete all functional tasks due to weakness and fatigue. Patient is in bed and needs met and nursing to continue with addressing medical needs. PT Jail Goals Jail Goals PT Jail Goals Time Frame: May 18, 2017 Transfers (B,C,W/C) (FIM): 5 Sit to Lying (QC): 5 Lying-Sitting on Side/Bed(QC): 5 Sit to Stand (QC): 5 Rollin Roll Left to Right (QC): 5 Chair/Sng-nz-Vvnun Xfer(QC): 5 Car Transfer (QC): 5 Does the Patient Walk: Yes Gait (FIM): 5 Gait distance (FIM): 3=150 ft Distance: 150' Walk 10 feet (QC): 5 Walk 10ft-Uneven Surface(QC): 5 Walk 50ft with 2 Turns (QC): 5 Walk 150 ft (QC): 5 Gait Level of Assist: 5 Gait Assistive Device: FWW Stairs (FIM): 2 # of Steps: 8 1 Step (curb) (QC): 5 4 Steps (QC): 5 12 Steps (QC): 88 Stairs Level Of Assist: 5 Picking up an Object (QC): 5 PT Plan Treatment/Plan Treatment Plan: Continue Plan of Care Treatment Plan: Bed Mobility, Education, Functional Activity [place], Functional Strength, Group Therapy, Gait, Safety, Therapeutic Exercise, Transfers Treatment Duration: May 18, 2017 Frequency: At least 5-7 days/Wk (IRF) Estimated Hrs Per Day: 1.5 hours per day Patient and/or Family Agrees t: Yes Time/GCodes Time In: 1300 Time Out: 1320 Total Billed Treatment Time: 20 Total Billed Treatment 1 visit EX 20 min EDGAR KERNS PT May 01, 2017 13:30
[2017-05-01] MEDS ORDERED: RT-ALBUTEROL/IPRATROPIUM 3 ML (DUONEB) VIAL INH SCH ×2 (14:00→21:00)
[2017-05-01] MEDS ORDERED: LIDOCAINE UROJET 2% GEL 10 ML PKG ONE ×2 (14:02→18:24)
--- NOTE | 2017-05-01 14:34 | Occupational Therapy Eval ---
OT Evaluation-General/PLF Medical Diagnosis Admission Date May 01, 2017 at 08:00 Medical Diagnosis: right hip fracture/CHF Onset Date: Apr 21, 2017 Therapy Diagnosis Therapy Diagnosis: Weakness Height/Weight Height (Feet): 5 Height (Inches): 6.00 Weight (Pounds): 137 Weight (Ounces): 12.8 Precautions Precautions/Isolations: Fall Prevention, Standard Precautions Weight Bear Status Weight Bearing Restriction: Weight Bearing/Tolerated Location Restriction: R LE Referral Physician: Agustín Referral Reason: Activity Tolerance, Self Care, Evaluation/Treatment, Strengthening/ROM Medical History Pertinent Medical History: Arthritis, Dementia, GERD, Heart Failure, HTN, Renal Insufficiency Additional Medical History Colon CA. S/P colostomy Current History Pt. was pt. on rehab following a hip fx. Began to have heart complications and discharged to ICU. Re-admitted today to rehab. Reviewed History: Yes Social History Home: Single Level Current Living Status: Alone Entry Into Home: Stairs With Railing Steps Into Home: 5 Other Obstacles: Pt. states that he has 5 shallow steps on front and back porch of home. Pt. has railings on front and back porch. ADL-Prior Level of Function ADL PLOF Comments Pt. was independent with daily tasks previous to hip fx. DME/Equipment: Shower DME/Equipment Comments Pt. has a walker but does not use it. 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 Appearance Pt. up in chair. Agrees to work with OT. Mental Status/Objective Patient Orientation: Person, Place, Time, Situation Attachments: Colostomy/Ileostomy, Mckeon Catheter, IV Current Hearing Aids: Yes Hand Dominance: Right Upper Extremity ROM WFL Upper Extremity Strength 3/5 bilateral UE strength Pt. is kyphotic, and therefore, has difficulty fulling flexing shoulders. However, ROM is functional for what he needs to do. ADL-Treatment Functional [place] Measure 0=Not Assessed/NA 4=Minimal Assistance 1=Total Assistance 5=Supervision or Setup 2=Maximal Assistance 6=Modified [place] 3=Moderate Assistance 7=Complete IndependenceIRFPAI Quality Coding Scale 6 Independent with activity with or without an assistive device 5 Patient requires set up or clean up by helper. Patient completes activity by themselves 4 Supervision or touching assist (CGA). [place] provide cues , steadying assist 3 The helper provides less than half the effort to complete the activity 2 The helper provides more than half the effort to complete the activity 1 Dependent. The helper does all the effort to complete an activity 7 Patient refused to complete or attempt activity 9 The patient did not perform the activity before the current illness or injury 88 Not attempted due to Medical conditions or safety concerns Grooming (FIM): 5 (Pt. is able to comb hair at sink at wheelchair level.) Bathing (FIM): 3 (Pt. requires assistance to wash bilateral feet due to hip precautions.) Shower/Bathe Self (QC): 3 Upper Body Dressing (FIM): 5 Upper Body Dressing (QC): 4 Lower Body Dressing (FIM): 2 (Max assist for LE dressing due to hip precautions.) Lower Body Dressing (QC): 2 On/Off Footwear (QC): 1 Transfers (B, C, W/C) (FIM): 4 (Pt. requires min assistance to stand and ambulate at times.) Other Treatments After ADL treatment, pt. went to therapy gym via wheelchair. Completed armbike x 15 minutes with multiple rest breaks to increase overall strength with Ue and daily tasks. Pt. then donned 1 lb. wrist weights and completed peg activity with alternating arms to increase overall strength. Tolerated treatment well. Education OT Patient Education: Correct positioning, Exercise program, Modified ADL techniques, Progress toward Goal/Update tx plan, Purpose of tx/functional activities, Reviewed precautions, Rehab process, Transfer techniques Teaching Recipient: Patient Teaching Methods: Demonstration, Discussion Response to Teaching: Verbalize Understanding, Return Demonstration OT Short Term Goals Short Term Goals Time Frame: May 08, 2017 Eating(FIM): 6 Grooming(FIM): 5 Bathing(FIM): 5 Upper Body Dressing(FIM): 5 Lower Body Dressing(FIM): 4 Toileting(FIM): 4 Transfers (B,C,W/C) (FIM): 5 Toilet/Commode Transfer(FIM): 5 Shower Transfer(FIM): 5 Additional Short Term Goals: 1-Demonstrate ADL Tasks, 2-Verbalize Understanding , 3-ImproveStrength/Garrett 1=Demonstrate adherence to instructed precautions during ADL tasks. 2=Patient will verbalize/demonstrate understanding of assistive devices/ modifications for ADL. 3=Patient will improve strength/tolerance for activity to enable patient to perform ADL's. OT Halfway Goals Esol Instructor Goals Time Frame: May 22, 2017 Eating (FIM): 6 Eating (QC): 6 Groomin Oral Hygiene (QC): 6 Bathing(FIM): 5 Shower/Bathe Self (QC): 5 Upper Body Dressing(FIM): 6 Upper Body Dressing (QC): 6 Lower Body Dressing(FIM): 6 Lower Body Dressing (QC): 6 On/Off Footwear (QC): 6 Toileting(FIM): 6 Toileting Hygiene (QC): 6 Transfers (B,C,W/C) (FIM): 6 Toilet/Commode Transfer(FIM): 6 Toilet/Commode Transfer (QC): 6 Shower Transfer(FIM): 5 Additional Goals: 1-Demonstrate ADL Tasks, 2-Verbalize Understanding, 3- ImproveStrength/Garrett 1=Demonstrate adherence to instructed precautions during ADL tasks. 2=Patient will verbalize/demonstrate understanding of assistive devices/ modifications for ADL. 3=Patient will improve strength/tolerance for activity to enable patient to perform ADL's. OT Education/Plan Problem List/Assessment Assessment: Decreased Activ Tolerance, Decreased UE Strength, Dependent Transfers, Impaired Bed Mobility, Impaired Funct Balance, Impaired I ADL's, Impaired Self-Care Skills Discharge Recommendations Plan/Recommendations: Continue POC Therapy D/C Recommendations: Home Independently, Occupational Therapy Home Care Equpiment Recommendations-D/C: Bath Chair, Hip Kit Patient/Family Goals Pt's goal is to return home. Treatment Plan/Plan of Care Treatment,Training & Education: Yes Patient would benefit from OT for education, treatment and training to promote independence in ADL's, mobility, safety and/or upper extremity function for ADL' s. Plan of Care: ADL Retraining, Functional Mobility, UE Funct Exercise/Act Treatment Duration: May 22, 2017 Frequency: At least 5-7 days/Wk (IRF) Estimated Hrs Per Day: 1.5 hours per day Agreement: Yes Rehab Potential: Good Time/GCodes Start Time: 09:30 Stop Time: 11:00 Total Time Billed (hr/min): 90 Billed Treatment Time 1, EVM x 15minutes, ADL x 45minutes, EX x 30minutes LENA GUEVARA OT May 01, 2017 14:34
[2017-05-01] MEDS ORDERED: FURO20TA4 PO (15:14)
[2017-05-01] MEDS ORDERED: FERR-65 PO (15:14)
[2017-05-01] MEDS ORDERED: OMEP10CA4 PO (15:14)
[2017-05-01] MEDS ORDERED: LOVA10TA PO (15:14)
[2017-05-01] MEDS ORDERED: CARV3.122 PO (15:14)
[2017-05-01] MEDS ORDERED: PANT40TA2 PO (15:14)
[2017-05-01] MEDS ORDERED: MINO100C2 PO (15:14)
[2017-05-01] MEDS ORDERED: ONDANSETRON 4 MG (ZOFRAN) ORAL DISSOLVE TAB ONE (17:16)
[2017-05-01] MEDS: ONDANSETRON 4 MG (ZOFRAN) ORAL DISSOLVE TAB PO PRN (17:27)
[2017-05-01] MEDS: FUROSEMIDE 40 MG (LASIX) TAB PO SCH (17:29)
[2017-05-01 18:16] VITALS: BP 142/84
--- NOTE | 2017-05-01 18:33 | HISTORY AND PHYSICAL ---
DATE OF ADMISSION: 05/01/2017 CHIEF COMPLAINT: Difficulty with walking. 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 He was followed by hospitalist service and urology and cardiology services as well. The patient was transferred to rehabilitation unit for ongoing orthopedic rehabilitation but developed recurrent bout of congestive heart failure requiring transfer back to ICU on 04/27 to cardiology and hospitalist service care. The patient is now referred back to Inpatient Rehabilitation Unit to complete his course of comprehensive program orthopedic rehabilitation. Currently he requires assistance for his ADLs and mobility skills. Bladder is managed with indwelling Mckeon catheter. He had been modified independent prior to this until recently and living in his own home in [place], [place]. 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 He is currently min to mod assist for transfers. He has some dyspnea on exertion. He is currently off of O2. He is mod assist for ambulation with a walker. He is set up for eating and grooming. Mod to max assist for bathing and lower body dressing and toileting. Min assist for upper body dressing. PAST MEDICAL HISTORY: 1. Acute on chronic congestive heart failure with volume overload, tachypnea, and hypoxia. 2. Tachycardia with telemetry evidence of paroxysmal atrial fibrillation versus sinus tachycardia with PACs following hip surgery while in ICU. 3. 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 4. Colon cancer in remission for 10 years, status post revision and subsequent colostomy 4 years ago. 5. Acute on chronic of UTI, now managed with indwelling Mckeon catheter, completed a course of antibiotics. 6. Chronic lower extremity ischemia edema. 7. Anemia of chronic illness and kidney disease. 8. Anemia of acute blood loss, status post 2 units while in ICU following hip fracture surgery. PAST SURGICAL HISTORY: As per above. ALLERGIES: 1. Iodinated contrast. 2. Penicillin. 3. Ibuprofen. FAMILY HISTORY: Noncontributory. 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 REVIEW OF SYSTEMS: Ten-point review of systems significant for hip pain and shortness of breath. MEDICATIONS: 1. ASA 81 mg p.o. daily. 2. Lovenox 30 mg subcutaneous daily. 3. Toprol-XL 50 mg p.o. daily. 4. Vitamin C 250 mg p.o. daily. 5. Lactinex 2 tablets p.o. daily. 6. Senokot 1 tablet p.o. daily. 7. K-Dur 40 mEq p.o. daily. 8. Furosemide 80 mg p.o. b.i.d. 9. DuoNeb treatments q.4 hours and q.2 hours p.r.n. shortness of breath. 10. Melatonin 3 mg p.o. at bedtime p.r.n. insomnia. LABS: On 04/30 showed hemoglobin and hematocrit 9.6/. WBC 6.4, platelet 375,000. Chemistry showed potassium 3.3. BUN/creatinine 49/1.99, blood glucose 104. PHYSICAL EXAMINATION: Physical examination is significant for a pleasant, elderly male, appearing his stated age, alert and oriented no acute distress. VITAL SIGNS: Within normal limits. He is afebrile. HEENT: Vision, speech, hearing, grossly intact. No oral lesion is noted. NECK: Supple without mass. HEART: Regular rhythm. LUNGS: Clear. ABDOMEN: Soft, nontender. Bowel sounds present. Colostomy functioning. : Indwelling Mckeon catheter to dependent drainage in place. EXTREMITIES: Edema both ankles. MUSCULOSKELETAL: The patient has functional active range of motion in both upper extremities and left lower extremity. Right lower extremity not tested, his hip due to recent fracture and repair. NEUROLOGIC: The patient has functional strength and active range of motion in both upper extremities. Cognition is grossly intact to touch. Strength in the left lower extremity at the knee is 3+/5, hip 3-/5, ankle 3-/5. Right knee 3-/5. Hip flexion not tested. Ankle dorsi and plantar flexion 3-/5. IMPRESSION: 1. Ambulatory dysfunction secondary to right hip fracture, status post repair. 2. Acute on chronic congestive heart failure with volume overload, tachypnea and hypoxia, treated. 3. Chronic renal failure due to her ureter stenosis, status post stent placement complication from radiation treatment for colon cancer. 4. Colon cancer in remission 10 years ago with subsequent colostomy 4 years ago. 5. Chronic lower extremity edema. 6. Anemia of chronic disease and kidney disease. 7. Anemia of acute blood loss, status post 2 units while in ICU following hip fracture surgery. 8. DVT prophylaxis with Lovenox subcutaneous. PLAN: The patient is readmitted to Inpatient Rehabilitation Unit to complete his comprehensive course of inpatient orthopedic rehabilitation with goal of maximizing level of functional independence prior to placement. I am uncertain if he will be going to a long-term home for clergy in the [facility] or return to [facility] for ongoing therapies upon completion of therapy on IRU. The patient will have PT/OT 90 minutes per day, each discipline, 5 days a week for gait, strengthening, conditioning, ADLs, any patient/family/caregiver training necessary, any adaptive equipment training necessary. Therapy with cardiac and fall precautions. Speech therapy has done cognitive screen and found the patient to be functional and signed off at this time. Rehabilitation nursing assist with bowel, bladder, Mckeon catheter care skin care, wound care, medication administration, pain management. Respiratory therapy to assist with respiratory treatments, monitoring O2 sats. Social work to assist with discharge planning, community reentry. Follow-up with hospitalist service and cardiology and pulmonology as per their schedules. ESTIMATED LENGTH OF STAY: Two weeks. PROGNOSIS: Rehab prognosis appears good for goal of discharging to some form of assisted living unit hopefully modified independent to supervision for much of his ADLs and mobility skills. DIET: Heart healthy. CODE STATUS: Partial code. Job ID: [id number] Dictated Date: 05/01/2017 11:40:11 Clinical Research Associate Date: 05/01/2017 17:59:55/emeli MTDD
[2017-05-01] MEDS: RT-ALBUTEROL/IPRATROPIUM 3 ML (DUONEB) VIAL INH SCH (20:42)
[2017-05-02 06:03] VITALS: BP 101/60
[2017-05-02] MEDS: KCL 20 MEQ TAB (K-DUR) PO SCH (06:32)
[2017-05-02] MEDS: FUROSEMIDE 40 MG (LASIX) TAB PO SCH (06:32)
[2017-05-02] MEDS ORDERED: MULTIVIT W/MINERALS TAB (THERAGRAN M) PO SCH (07:00)
[2017-05-02] MEDS: RT-ALBUTEROL/IPRATROPIUM 3 ML (DUONEB) VIAL INH SCH ×2 (07:17→19:06)
--- NOTE | 2017-05-02 08:46 | Progress Note-Urology ---
Progress Note-Urology Progress Notes/Assess & Plan Progress/Assessment & Plan URINE GOT BLOODY YESTERDAY WITH SOME CLOTS. STARTED CBI TO CLEAR. BETTER TODAY. CONTINUE SAME Final Diagnosis GROSS HEMATURIA AMERICA LUIS MD May 02, 2017 8:46 am
[2017-05-02 08:48] LABS: MEAN PLATELET VOLUME 10.8 FL (7.4-10.4); RED BLOOD COUNT 3.29 10^6/uL (4.35-5.85); RED CELL DISTRIBUTION WIDTH 17.1 % (10.0-14.5); WHITE BLOOD COUNT 9.9 10^3/uL (4.3-11.0)
[2017-05-02 08:49] VITALS: BP 99/62
[2017-05-02] MEDS: SENNOSIDES 8.6 MG (SENOKOT) TAB PO SCH (08:52)
[2017-05-02] MEDS: ASPIRIN 81 MG CHEW (CHILDREN'S ASA) PO SCH (08:53)
[2017-05-02] MEDS: ASCORBIC ACID (VIT C) 500 MG TABLET PO SCH (08:53)
[2017-05-02] MEDS: LACTOBACILLUS Acidoph/Bulgar (LACTINEX/FLORANEX) TAB PO SCH (08:53)
[2017-05-02] MEDS ORDERED: meTOproloL SUCCINATE 50 MG (TOPROL XL) TAB PO SCH (09:00)
[2017-05-02] MEDS ORDERED: ENOXAPARIN 30 MG/0.3 ML (LOVENOX) SYR SC SCH (09:00)
[2017-05-02 09:06] LABS: ALBUMIN 2.7 GM/DL (3.2-4.5); BILIRUBIN,TOTAL 0.4 MG/DL (0.1-1.0); CALCIUM 8.2 MG/DL (8.5-10.1); CREATININE SERUM 2.4 MG/DL (0.60-1.30); MAGNESIUM 1.7 MG/DL (1.8-2.4); POTASSIUM 4.1 MMOL/L (3.6-5.0); TOTAL PROTEIN 6.5 GM/DL (6.4-8.2)
--- NOTE | 2017-05-02 09:37 | Progress Note-Cardiology ---
Cardiology SOAP Progress Note Subjective: Up with PT. No c/o dizziness, CP, dyspnea, palpitations, syncope or near syncope. No c/o LE edema Objective: I&O/Vital Signs Vital Sign - Last 12Hours 05/02/17 05/02/17 05/02/17 05/02/17 01:00 06:03 07:00 07:17 Temp 98.4 Pulse 110 97 108 Resp 18 B/P (MAP) 101/60 Pulse Ox 92 93 O2 Delivery Room Air Room Air 05/02/17 08:49 Pulse 92 Resp 18 B/P (MAP) 99/62 Pulse Ox 96 O2 Delivery Room Air Intake and Output 05/02/17 00:00 Intake Total 500 ml Output Total 4650 ml Balance -4150 ml Weight (Pounds): 133 Weight (Ounces): 4.8 Weight (Calculated Kilograms): 60.574704 Constitutional: AAO x 3 Cardiovascular: regular rate-rhythm, No JVD, S1 and S2, systolic murmur Gastrointestional: No tender, soft, audible bowel sounds Genital/Rectal: other (urinary catheter with CBI) Results/Procedures: Labs Laboratory Tests 05/02/17 08:35: White Blood Count 9.9, Red Blood Count 3.29L, Hemoglobin 9.6L, Hematocrit 31L, Mean Corpuscular Volume 94, Mean Corpuscular Hemoglobin 29, Mean Corpuscular Hemoglobin Concent 31L, Red Cell Distribution Width 17.1H, Platelet Count 487H, Mean Platelet Volume 10.8H, Sodium Level 138, Potassium Level 4.1, Chloride Level 98, Carbon Dioxide Level 27, Anion Gap 13, Blood Urea Nitrogen 46H, Creatinine 2.40H, Estimat Glomerular Filtration Rate 26, BUN/Creatinine Ratio 19 , Glucose Level 125H, Calcium Level 8.2L, Magnesium Level 1.7L, Total Bilirubin 0.4, Aspartate Amino Transf (AST/SGOT) 28, Alanine Aminotransferase (ALT/SGPT) 26, Alkaline Phosphatase 76, Total Protein 6.5, Albumin 2.7L Laboratory Tests 05/02/17 08:35 A/P: Assessment: Acute systolic CHF, clinically improving Sinus tach with PACs, improving CKD stage III-IV, stable/ improving Elec abn due to diuretic therapy Echocardiogram of 04-19-[address] Khalid showed LVEF 20-25%. Hypokinesis of apical septal, apical lateral, apical myocardium. Mild MR. Mild to mod TR. PASP 65mmHg. Carried out during tachycardia. Not a suitable candidate for MONY (-) or ARB d/t existing stage III-IV CKD Right hip fracture, s/p surgery Mildly positive cardiac enzymes (04-19-17 to 04-21-17) : serial troponin shows same level of troponin. [place] to be unlikely d/t ACS. Since mild elevation of troponin can occur in CHF especially with CKD and in a patient with tachycardia. Per Dr. 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 Alves following Plan: Management complex due to multiple comorbidities (see above) Somewhat low BP this morning, albeit asymptomatic - will change BB dosing CKD with some worsening of Cr - in some part likely d/t vascular depletion - reduce Lasix Monitor lab Conservative management appears to be the best option at time Continue heart failure treatment and treatment for suspected CAD LINDA GUERRERO May 02, 2017 09:37
--- NOTE | 2017-05-02 09:56 | Physical Therapy Daily Note ---
PT Daily Note-Current Subjective Pt. in bed, agrees to Rx and feels he can ambulate a good distance and exercise. No c/o pain. Pain Numeric Pain Scale: 0-No Pain Appearance blood in catheter very bloody Mental Status Patient Orientation: Normal For Age Attachments: Colostomy/Ileostomy, Other-See Comments (irrigation catheter) Transfers Functional [place] Measure 0=Not Assessed/NA 4=Minimal Assistance 1=Total Assistance 5=Supervision or Setup 2=Maximal Assistance 6=Modified [place] 3=Moderate Assistance 7=Complete IndependenceIRFPAI Quality Coding Scale 6 Independent with activity with or without an assistive device 5 Patient requires set up or clean up by helper. Patient completes activity by themselves 4 Supervision or touching assist (CGA). [place] provide cues , steadying assist 3 The helper provides less than half the effort to complete the activity 2 The helper provides more than half the effort to complete the activity 1 Dependent. The helper does all the effort to complete an activity 7 Patient refused to complete or attempt activity 9 The patient did not perform the activity before the current illness or injury 88 Not attempted due to Medical conditions or safety concerns Transfers (B, C, W/C) (FIM): 4 Scootin Rollin Supine to/from Sit: 4 Sit to/from Stand: 4 Gait Training Does the Patient Walk?: Yes Gait (FIM): 4 Distance (FIM): 3=150 ft (x2) Gait Level of Assist: 4 Gait Persons Needed: 1 Gait Assistive Device: FWW Exercises Supine Ex: Ankle pumps, Quad Set, Rolling, Glut sets, Heel Slides, Short Arc Quads, Scooting, Straight leg raise, Hip abd/add Supine Reps: 10 NuStep Minutes: 10 NuStep Workload: 1 Assessment Current Status: Good Progress PT Short Term Goals Short Term Goals Transfers (B,C,W/C) (FIM): 5 PT Art Historian Goals Art Historian Goals PT Skilled Nursing Goals Time Frame: May 18, 2017 Transfers (B,C,W/C) (FIM): 5 Sit to Lying (QC): 5 Lying-Sitting on Side/Bed(QC): 5 Sit to Stand (QC): 5 Rollin Roll Left to Right (QC): 5 Chair/Fwa-wp-Yhlfy Xfer(QC): 5 Car Transfer (QC): 5 Does the Patient Walk: Yes Gait (FIM): 5 Gait distance (FIM): 3=150 ft Distance: 150' Walk 10 feet (QC): 5 Walk 10ft-Uneven Surface(QC): 5 Walk 50ft with 2 Turns (QC): 5 Walk 150 ft (QC): 5 Gait Level of Assist: 5 Gait Assistive Device: FWW Stairs (FIM): 2 # of Steps: 8 1 Step (curb) (QC): 5 4 Steps (QC): 5 12 Steps (QC): 88 Stairs Level Of Assist: 5 Picking up an Object (QC): 5 PT Plan Treatment/Plan Treatment Plan: Continue Plan of Care Treatment Plan: Bed Mobility, Education, Functional Activity Garrett, Functional Strength, Group Therapy, Gait, Safety, Therapeutic Exercise, Transfers Treatment Duration: May 18, 2017 Frequency: At least 5-7 days/Wk (IRF) Estimated Hrs Per Day: 1.5 hours per day Patient and/or Family Agrees t: Yes Safety Risks/Education Patient Education: Gait Training, Transfer Techniques, Correct Positioning, Safety Issues Teaching Recipient: Patient Teaching Methods: Demonstration, Discussion Response to Teaching: Verbalize Understanding, Return Demonstration, Reinforcement Needed Time/GCodes Time In: 900 Time Out: 1000 Total Billed Treatment Time: 60 Total Billed Treatment 1,FA30m,GT15m,EX15m G Codes Necessary: CORNELL Pop PTA May 02, 2017 09:56
--- NOTE | 2017-05-02 11:01 | Progress Note-Hospitalist ---
Progress Note Progress Notes/Assess & Plan Date Seen 05/02/17 Time Seen by Provider: 10:45 Diagonsis/Assessment & Plan plate driller: Dr. Alves put in orders for continuous irrigation until bladder clears Still on Lovenox SCDs in Pt states that he is breathing better Pt is in good spirits Patient Interview: Pt would like to go outside. Pt states he is tired of sitting. Pt brought up the blood in his urine and this was discussed. Blood thinner discussed and I informed him that this was stopped. Pt also brought up his kidney/bladder infection and this was discussed; pt states that he has had it for a long time but was always light Physical exam stable. Lungs sound perfect Water pill discussed and I informed him that this was changed as well AFVSS, Ple[place], O x 3 RRR, CTAB no wheezing noted No acute edema Assessment: Right displaced femoral fracture due to [facility] after multiple x- ray was negative for fracture s/p surgery by Dr Marie uncomplicated s/p uncomplicated repair now with debility Acute hematuria due to stent in place holding Lovenox now with to continue the irrigation per Urology Respiratory failure requiring reintubation and maintained intubation night of surgery s/p extubated without difficulties by Dr. 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 and Flagyl empirically Hypokalemia and Hypomagnesemia Severe volume overload causing dyspnea and elevated BNP of 6100 received large dose of Lasix prior to surgery s/p ICU admission for volume overload now on Lasix 80mg daily and doing well since titrated down from BID dosing Colon cancer 10 years ago and resection 4 years ago currently in remission Chronic debility Severe anemia mostly due to chronic kidney disease and chronic illness but likely acute blood loss from hip fracture received 1 unit of transfusion preoperatively and 1 unit post operatively Sinus tachycardia superimposed with paroxysmal atrial fibrillation cardiology on board DC Tely since doing well now Acute on chronic UTI placed on antibiotics empirically while in ICU off now Abdominal pain in ICU highly suspicious for fistula infection mild episode general surgery Dr. Vásquez consulted and now stable Plan: DC Lovenox due to bleeding in urogenital system Continue SCDs for DVT Px Continue Lasix Scribed by Riya Casarez under the direct supervision of Dr. Gandhi. PAULA GANDHI DO May 02, 2017 11:01
--- NOTE | 2017-05-02 13:45 | Occupational Ther Daily Note ---
OT Current Status-Daily Note Subjective Pt. states, "I'm just ready to get out of here." "I have only been outside two times in over a month." Appearance Pt. up in chair. Declines to shower. Agrees to dress self. Mental Status/Objective Patient Orientation: Person, Place Functional [place] Measure 0=Not Assessed/NA 4=Minimal Assistance 1=Total Assistance 5=Supervision or Setup 2=Maximal Assistance 6=Modified [place] 3=Moderate Assistance 7=Complete [place] ADL-Treatment Functional [place] Measure 0=Not Assessed/NA 4=Minimal Assistance 1=Total Assistance 5=Supervision or Setup 2=Maximal Assistance 6=Modified [place] 3=Moderate Assistance 7=Complete IndependenceIRFPAI Quality Coding Scale 6 Independent with activity with or without an assistive device 5 Patient requires set up or clean up by helper. Patient completes activity by themselves 4 Supervision or touching assist (CGA). [place] provide cues , steadying assist 3 The helper provides less than half the effort to complete the activity 2 The helper provides more than half the effort to complete the activity 1 Dependent. The helper does all the effort to complete an activity 7 Patient refused to complete or attempt activity 9 The patient did not perform the activity before the current illness or injury 88 Not attempted due to Medical conditions or safety concerns Upper Body (FIM): 5 (Pt. is able to don shirt with SBA.) Upper Body Dressing (QC): 4 Lower Body Dressing (FIM): 3 (Overall, mod assist due to hip precautions and having bear tubing. Pt. is able to use AE but requires increased time to do so.) Lower Body Dressing (QC): 3 On/Off Footwear (QC): 3 Transfers (B, C, W/C) (FIM): 4 (CGA into/out of chair and to wheelchair.) Other Treatment After dressing training, pt. requests to go outside. States that he needs to get some fresh air. Pt. able to ambulate with CGA with walker to wheelchair. Went outside via wheelchair. Pt. states that the fresh air feels good. Spoke about home set up while outside. Pt. states that he would like to go back to [facility], to his home. States that he has neighbors that will check on him, and states that he would like as much home health as he can get. Pt. states that he would like a walker, and a tub transfer bench. Spoke with him in depth regarding his bathroom set up. Pt. states that he has a shower (small stall). He has a tub shower in guest room. OT showed pt. tub/transfer bench. Pt. states that he thinks that will work. After bathroom training, went into gym. Completed armbike at min resistance x 15 minutes with multiple rest breaks. Tolerated treatment well. Went back to room. Ambulated from door to chair with SBA with walker. All needs met. Pt. states that he plans to go home to [facility], but that if he has to go on dialysis due to kidney issues, he will go live in [place] at a [facility]. Education OT Patient Education: Correct positioning, Home exercise program, Modified ADL techniques, Progress toward Goal/Update tx plan, Purpose of tx/functional activities, Reviewed precautions, Rehab process, Transfer techniques, Use of adapted equipment Teaching Recipient: Patient Teaching Methods: Demonstration, Discussion Response to Teaching: Verbalize Understanding, Return Demonstration OT Short Term Goals Short Term Goals Time Frame: May 08, 2017 Eating(FIM): 6 Grooming(FIM): 5 Bathing(FIM): 5 Upper Body Dressing(FIM): 5 Lower Body Dressing(FIM): 4 Toileting(FIM): 4 Transfers (B,C,W/C) (FIM): 5 Toilet/Commode Transfer(FIM): 5 Shower Transfer(FIM): 5 Additional Short Term Goals: 1-Demonstrate ADL Tasks, 2-Verbalize Understanding , 3-ImproveStrength/Garrett 1=Demonstrate adherence to instructed precautions during ADL tasks. 2=Patient will verbalize/demonstrate understanding of assistive devices/ modifications for ADL. 3=Patient will improve strength/tolerance for activity to enable patient to perform ADL's. OT Fdc Goals Demolition Expert Goals Time Frame: May 22, 2017 Eating (FIM): 6 Eating (QC): 6 Groomin Oral Hygiene (QC): 6 Bathing(FIM): 5 Shower/Bathe Self (QC): 5 Upper Body Dressing(FIM): 6 Upper Body Dressing (QC): 6 Lower Body Dressing(FIM): 6 Lower Body Dressing (QC): 6 On/Off Footwear (QC): 6 Toileting(FIM): 6 Toileting Hygiene (QC): 6 Transfers (B,C,W/C) (FIM): 6 Toilet/Commode Transfer(FIM): 6 Toilet/Commode Transfer (QC): 6 Shower Transfer(FIM): 5 Additional Goals: 1-Demonstrate ADL Tasks, 2-Verbalize Understanding, 3- ImproveStrength/Garrett 1=Demonstrate adherence to instructed precautions during ADL tasks. 2=Patient will verbalize/demonstrate understanding of assistive devices/ modifications for ADL. 3=Patient will improve strength/tolerance for activity to enable patient to perform ADL's. OT Education/Plan Problem List/Assessment Assessment: Decreased Activ Tolerance, Impaired Funct Balance, Impaired I ADL's , Impaired Self-Care Skills Discharge Recommendations Plan/Recommendations: Continue POC Therapy D/C Recommendations: Home Independently, Occupational Therapy Home Care , Meals on Wheels, Scheduled Assistance Equpiment Recommendations-D/C: Extended Bath Bench, Hip Kit Comment Pt. needs a walker Treatment Plan/Plan of Care Treatment,Training & Education: Yes Patient would benefit from OT for education, treatment and training to promote independence in ADL's, mobility, safety and/or upper extremity function for ADL' s. Plan of Care: ADL Retraining, Functional Mobility, UE Funct Exercise/Act Treatment Duration: May 22, 2017 Frequency: At least 5-7 days/Wk (IRF) Estimated Hrs Per Day: 1.5 hours per day Agreement: Yes Rehab Potential: Good Time/GCodes Start Time: 10:30 Stop Time: 12:00 Total Time Billed (hr/min): 90 Billed Treatment Time 1, ADL x 30minutes, FA x 30minutes, Ex x 30minutes LENA GUEVARA OT May 02, 2017 13:45
--- NOTE | 2017-05-02 14:39 | Physical Therapy Daily Note ---
PT Daily Note-Current Subjective Agrees to Rx. Wants to go to bed after rx Pain Numeric Pain Scale: 0-No Pain Mental Status Patient Orientation: Normal For Age Attachments: Mckeon Catheter, Other-See Comments (irrigation) Transfers Functional [place] Measure 0=Not Assessed/NA 4=Minimal Assistance 1=Total Assistance 5=Supervision or Setup 2=Maximal Assistance 6=Modified [place] 3=Moderate Assistance 7=Complete IndependenceIRFPAI Quality Coding Scale 6 Independent with activity with or without an assistive device 5 Patient requires set up or clean up by helper. Patient completes activity by themselves 4 Supervision or touching assist (CGA). [place] provide cues , steadying assist 3 The helper provides less than half the effort to complete the activity 2 The helper provides more than half the effort to complete the activity 1 Dependent. The helper does all the effort to complete an activity 7 Patient refused to complete or attempt activity 9 The patient did not perform the activity before the current illness or injury 88 Not attempted due to Medical conditions or safety concerns in out bed and chair CGA to min assist Gait Training Gait Assistive Device: [id number] CGA narrow toe out LISETH Exercises Seated Therapy Exercises: Ankle pumps, Sit to stand, Long arc quads, Hip flexion Seated Reps: 15 Assessment Current Status: Good Progress PT Short Term Goals Short Term Goals Transfers (B,C,W/C) (FIM): 5 PT Spa Experience Coordinator Goals Jail Goals PT Jail Goals Time Frame: May 18, 2017 Transfers (B,C,W/C) (FIM): 5 Sit to Lying (QC): 5 Lying-Sitting on Side/Bed(QC): 5 Sit to Stand (QC): 5 Rollin Roll Left to Right (QC): 5 Chair/Clf-ef-Yypgq Xfer(QC): 5 Car Transfer (QC): 5 Does the Patient Walk: Yes Gait (FIM): 5 Gait distance (FIM): 3=150 ft Distance: 150' Walk 10 feet (QC): 5 Walk 10ft-Uneven Surface(QC): 5 Walk 50ft with 2 Turns (QC): 5 Walk 150 ft (QC): 5 Gait Level of Assist: 5 Gait Assistive Device: FWW Stairs (FIM): 2 # of Steps: 8 1 Step (curb) (QC): 5 4 Steps (QC): 5 12 Steps (QC): 88 Stairs Level Of Assist: 5 Picking up an Object (QC): 5 PT Plan Treatment/Plan Treatment Plan: Continue Plan of Care Treatment Plan: Bed Mobility, Education, Functional Activity Garrett, Functional Strength, Group Therapy, Gait, Safety, Therapeutic Exercise, Transfers Treatment Duration: May 18, 2017 Frequency: At least 5-7 days/Wk (IRF) Estimated Hrs Per Day: 1.5 hours per day Patient and/or Family Agrees t: Yes Safety Risks/Education Patient Education: Gait Training, Transfer Techniques, Correct Positioning, Safety Issues Teaching Recipient: Patient Teaching Methods: Demonstration, Discussion Response to Teaching: Verbalize Understanding, Return Demonstration, Reinforcement Needed Time/GCodes Time In: 1400 Time Out: 1430 Total Billed Treatment Time: 30 Total Billed Treatment 1,FA20m,EX10m G Codes Necessary: CORNELL Pop ROTARY PEEL OVEN TENDER May 02, 2017 14:39
[2017-05-02] MEDS: ONDANSETRON 4 MG (ZOFRAN) ORAL DISSOLVE TAB PO PRN (16:27)
[2017-05-02 18:19] VITALS: BP 120/69
[2017-05-02 18:57] VITALS: BP 102/64
--- NOTE | 2017-05-02 21:39 | PM & R (SOAP) Progress Note ---
Subjective Time Seen by Provider: 21:20 Subjective/Events-last exam Patient was seen in his room this evening Patient c/o persistent Nausea _zofran increased RN concerned about fluctuating HT rate Cardiology following Labs to be repeated Hypomagnesemia noted.Patient cga for Gait with FWW Objective Exam Last Set of Vital Signs Vital Signs Date Time Temp Pulse Resp B/P (MAP) Pulse Ox O2 Delivery O2 Flow Rate FiO2 05/02/17 19:06 94 Room Air 05/02/17 18:57 104 22 102/64 05/02/17 18:19 97.2 Capillary Refill : Less Than 3 Seconds I&O Bad tableGeneral: Alert, Oriented X3, Cooperative, No Acute Distress HEENT: Atraumatic, PERRLA, EOMI, Mucous Memb Moist/[place] Neck: Supple, No JVD Lungs: Clear to Auscultation Heart: Regular Rate Abdomen: Normal Bowel Sounds, Soft, No Tenderness, Other (colostomy functioning ) Extremities: Other (plus edema) Neuro: Other (Generalized weakness) Other physical findings Mckeon catheter to Dependent drainage Results Lab Laboratory Tests 05/02/17 08:35: White Blood Count 9.9, Red Blood Count 3.29L, Hemoglobin 9.6L, Hematocrit 31L, Mean Corpuscular Volume 94, Mean Corpuscular Hemoglobin 29, Mean Corpuscular Hemoglobin Concent 31L, Red Cell Distribution Width 17.1H, Platelet Count 487H, Mean Platelet Volume 10.8H, Sodium Level 138, Potassium Level 4.1, Chloride Level 98, Carbon Dioxide Level 27, Anion Gap 13, Blood Urea Nitrogen 46H, Creatinine 2.40H, Estimat Glomerular Filtration Rate 26, BUN/Creatinine Ratio 19 , Glucose Level 125H, Calcium Level 8.2L, Magnesium Level 1.7L, Total Bilirubin 0.4, Aspartate Amino Transf (AST/SGOT) 28, Alanine Aminotransferase (ALT/SGPT) 26, Alkaline Phosphatase 76, Total Protein 6.5, Albumin 2.7L Assessment/Plan Assessment RT hip frx s/p repair CHF compensated Postop nausea-zofran Hypomagnesemia-Recheck labs Postop anemia Gross hematuria DR Alves following with bladder irrigation 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
[2017-05-02] MEDS ORDERED: ONDANSETRON 4 MG (ZOFRAN) ORAL DISSOLVE TAB PO PRN (23:30)
[2017-05-03 01:06] LABS: MEAN PLATELET VOLUME 10.8 FL (7.4-10.4); RED BLOOD COUNT 3.31 10^6/uL (4.35-5.85); WHITE BLOOD COUNT 12.7 10^3/uL (4.3-11.0)
[2017-05-03 01:24] LABS: CALCIUM 8.4 MG/DL (8.5-10.1); CREATININE SERUM 2.59 MG/DL (0.60-1.30); MAGNESIUM 1.8 MG/DL (1.8-2.4); POTASSIUM 4.1 MMOL/L (3.6-5.0)
[2017-05-03 05:17] VITALS: BP 106/61
[2017-05-03] MEDS: KCL 20 MEQ TAB (K-DUR) PO SCH (05:20)
[2017-05-03] MEDS: RT-ALBUTEROL/IPRATROPIUM 3 ML (DUONEB) VIAL INH SCH (07:07)
[2017-05-03] MEDS ORDERED: NS IV 1000 ML 1,000 ML ONE (07:20)
--- NOTE | 2017-05-03 07:44 | PM & R (SOAP) Progress Note ---
Subjective Time Seen by Provider: 07:25 Subjective/Events-last exam Patient was seen in his room this AM Case discussed with RN Patient had nausea and emesis last night DR Monzon consulted General Surgery-NG TUBE placed to suction.DR Monzon will see later today,Patient feels better with NG tube in for decompression Mckeon catheter to DD with gross hematuria noted. Objective Exam Last Set of Vital Signs Vital Signs Date Time Temp Pulse Resp B/P (MAP) Pulse Ox O2 Delivery O2 Flow Rate FiO2 05/03/17 07:09 94 Room Air 05/03/17 05:17 98.0 115 19 106/61 Capillary Refill : Less Than 3 Seconds I&O Intake and Output 05/03/17 00:00 Intake Total 7500 ml Output Total 65593 ml Balance -55027 ml Intake Oral 1500 ml Other 6000 ml Output Urine Total 1075 ml Other 54401 ml # Bowel Movements 50 # [place] 1 General: Alert, Oriented X3, Cooperative, No Acute Distress HEENT: Atraumatic, PERRLA, EOMI, Mucous Memb Moist/[place], Other (NG tube to DD in place) Neck: Supple, No JVD Lungs: Clear to Auscultation Heart: Regular Rate Abdomen: Normal Bowel Sounds, Soft, No Tenderness, Other (colostomy functioning ) Extremities: Other (plus edema) Neuro: Other (Generalized weakness) Other physical findings Mckeon catheter to DD Results Lab Laboratory Tests 05/02/17 08:35: White Blood Count 9.9, Red Blood Count 3.29L, Hemoglobin 9.6L, Hematocrit 31L, Mean Corpuscular Volume 94, Mean Corpuscular Hemoglobin 29, Mean Corpuscular Hemoglobin Concent 31L, Red Cell Distribution Width 17.1H, Platelet Count 487H, Mean Platelet Volume 10.8H, Sodium Level 138, Potassium Level 4.1, Chloride Level 98, Carbon Dioxide Level 27, Anion Gap 13, Blood Urea Nitrogen 46H, Creatinine 2.40H, Estimat Glomerular Filtration Rate 26, BUN/Creatinine Ratio 19 , Glucose Level 125H, Calcium Level 8.2L, Magnesium Level 1.7L, Total Bilirubin 0.4, Aspartate Amino Transf (AST/SGOT) 28, Alanine Aminotransferase (ALT/SGPT) 26, Alkaline Phosphatase 76, Total Protein 6.5, Albumin 2.7L 05/03/17 01:00: White Blood Count 12.7H, Red Blood Count 3.31L, Hemoglobin 9.7L, Hematocrit 31L , Mean Corpuscular Volume 93, Mean Corpuscular Hemoglobin 29, Mean Corpuscular Hemoglobin Concent 32, Red Cell Distribution Width 17.0H, Platelet Count 426H, Mean Platelet Volume 10.8H, Sodium Level 137, Potassium Level 4.1, Chloride Level 94L, Carbon Dioxide Level 27, Anion Gap 16H, Blood Urea Nitrogen 48H, Creatinine 2.59H, Estimat Glomerular Filtration Rate 24, BUN/Creatinine Ratio 19 , Glucose Level 124H, Calcium Level 8.4L, Magnesium Level 1.8 Assessment/Plan Assessment RT hip frx s/p repair CHF compensated Postop nausea-zofran Hypomagnesemia-Recheck labs Postop anemia Gross hematuria DR Alves following with bladder irrigation 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 SHAHIDA VANEGAS MD May 03, 2017 07:44
[2017-05-03] MEDS ORDERED: MAGNESIUM OXIDE (MAG-OX)400 MG TAB PO SCH (08:00)
[2017-05-03] MEDS: SENNOSIDES 8.6 MG (SENOKOT) TAB PO SCH (08:44)
[2017-05-03] MEDS: LACTOBACILLUS Acidoph/Bulgar (LACTINEX/FLORANEX) TAB PO SCH (08:44)
[2017-05-03] MEDS: ASCORBIC ACID (VIT C) 500 MG TABLET PO SCH (08:45)
[2017-05-03] MEDS: ASPIRIN 81 MG CHEW (CHILDREN'S ASA) PO SCH (08:45)
[2017-05-03] MEDS ORDERED: FUROSEMIDE 40 MG (LASIX) TAB PO SCH (09:00)
--- NOTE | 2017-05-03 10:11 | Therapy Team Discharge Summary ---
Therapy Discharge Summary Discharge Recommendations Date of Discharge May 03, 2017 at 09:10 Therapy D/C Recommendations: Home Independently, Occupational Therapy Home Care , Meals on Wheels, Scheduled Assistance Occupational Therapy Pt. has been seen by occupational therapy to increase overall strength and endurance. Pt. discharged from rehab to 4th floor acute due to change in medical status. At discharge, pt. required min/mod assist with ADLs. No goals met at this time due to change in medical status. PT Penitentiary Goals Penitentiary Goals PT Penitentiary Goals Time Frame: May 18, 2017 Transfers (B,C,W/C) (FIM): 5 Roll Left to Right (QC): 5 Sit to Lying (QC): 5 Lying-Sitting on Side/Bed(QC): 5 Sit to Stand (QC): 5 Chair/Mgl-yq-Isbpr Xfer(QC): 5 Car Transfer (QC): 5 Does the Patient Walk: Yes Gait (FIM): 5 Gait distance (FIM): 3=150 ft Distance: 150' Walk 10 feet (QC): 5 Walk 10ft-Uneven Surface(QC): 5 Walk 50ft with 2 Turns (QC): 5 Walk 150 ft (QC): 5 Gait Level of Assist: 5 Gait Assistive Device: FWW Stairs (FIM): 2 # of Steps: 8 1 Step (curb) (QC): 5 4 Steps (QC): 5 12 Steps (QC): 88 Stairs Level Of Assist: 5 Picking up an Object (QC): 5 OT Talent Acquisition Partner Goals Penitentiary Goals Time Frame: May 22, 2017 Eating (FIM): 6 (not met) Eating (QC): 6 (not met) Oral Hygiene (QC): 6 (not met) Grooming(FIM): 6 (not met) Bathing(FIM): 5 (not met) Shower/Bathe Self (QC): 5 (not met) Upper Body Dressing(FIM): 6 (not met) Upper Body Dressing (QC): 6 (not met) Lower Body Dressing(FIM): 6 (not met) Lower Body Dressing (QC): 6 (not met) On/Off Footwear (QC): 6 (not met) Toileting(FIM): 6 (not met) Toileting Hygiene (QC): 6 (not met) Transfers (B,C,W/C) (FIM): 6 (not met) Toilet/Commode Transfer(FIM): 6 (not met) Toilet/Commode Transfer (QC): 6 (not met) Shower Transfer(FIM): 5 (not met) Additional Goals: 1-Demonstrate ADL Tasks, 2-Verbalize Understanding, 3- ImproveStrength/Garrett 1=Demonstrate adherence to instructed precautions during ADL tasks. 2=Patient will verbalize/demonstrate understanding of assistive devices/ modifications for ADL. 3=Patient will improve strength/tolerance for activity to enable patient to perform ADL's. LENA GUEVARA OT May 03, 2017 10:11
--- NOTE | 2017-05-03 18:09 | Individualized Plan of Care ---
Individualized Plan of Care Rehab Nursing IPOC Order Admission Date May 01, 2017 at 08:00 Current Orders Orders Magnesium Oxide Tablet (Mag Ox Tablet) (05/03/17 08:00) Ondansetron Oral Dissolve Tab (Zofran (05/02/17 23:30) Consult Physician (05/03/17 01:01) Ng Tube Insert & Assessment (05/03/17 02:08) Ng Tube To Low Wall Suction (05/03/17 02:08) Ns Iv 1000 Ml (Sodium Chloride 0.9%) (05/03/17 07:20) Nursing Communication (Patient (05/03/17 07:44) Rehab Nursing Orders: Diseage Management, Edu in Press Rel Techn, Hydration Management, Nutrition Management, Pain Management Other Nursing Orders: Bladder irrigation for gross hematuria being followed by DR Alves PT IPOC Problem List: Activity Tolerance, Functional Strength, Balance, Gait, Transfer , Bed Mobility Treatment Plan: Continue Plan of Care Bed Mobility, Education, Functional Activity Garrett, Functional Strength, Group Therapy, Gait, Safety, Therapeutic Exercise, Transfers Treatment Duration: May 18, 2017 Frequency: At least 5-7 days/Wk (IRF) Estimated Hrs Per Day: 1.5 hours per day OT IPOC Problems: Decreased Activ Tolerance, Impaired Funct Balance, Impaired I ADL's, Impaired Self-Care Skills Plan of Care: ADL Retraining, Functional Mobility, UE Funct Exercise/Act Treatment Duration: May 22, 2017 Frequency: At least 5-7 days/Wk (IRF) Estimated Hrs Per Day: 1.[address] IPOC Speech Therapy Treatment Plan: Discontinue ST Frequency: Modified Program (IRF) Estimated Hrs Per Day: .25 hour per day (Evaluation, only.) Physician IPOC Medical Issues being managed closely and that require the 24 hour availability of a physician:Nausea/emesis managed with NGTube for decompression.Gross hematuria being managed with Bladder irrigation and indwelling Mckeon catheter DR Alves CHF being managed by Cardiology DVT prophylaxis Lovenox d/cd due to gross hematuria and scds ordered. 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 [facility] with a resulting rt hip frx referred to IRU and then to ICU due to acute bout of CHF Stabilizied and then referred back to rehab unit to complete course of orthopedic rehab.Unfortunately then developed Nausea and emesis requiring a NG tube for decompression as ordered by DR Monzon General Surgery.Gross hematuria being managed by DR Alves Urology with bladder irrigation and with Lovenox d/cd.Had been Independent and living alone in [facility] until recently Medical Prognosis: Guarded Anticipated Length of Stay: Transferred back to Med/surg floor today for ongoing care Rehab Goals Not able to be achieved or maintained due to ongoing medical issues as per above Anticipated discharge destinat: Probably to a SNU once medically stabilized SHAHIDA VANEGAS MD May 03, 2017 18:08
== END 2017-05-03 09:10 | disposition short-term general hospital (02) | DRG 559 ==
PROVIDERS: ADMIT Physical Medicine & Rehabilitation; ATTEND Physical Medicine & Rehabilitation
DX: S72.001D Fracture of unspecified part of neck of right femur, subsequent encounter for closed fracture with routine healing (principal); I50.23 Acute on chronic systolic (congestive) heart failure; D62 Acute posthemorrhagic anemia; N18.4 Chronic kidney disease, stage 4 (severe); N13.5 Crossing vessel and stricture of ureter without hydronephrosis; E87.6 Hypokalemia; R31.0 Gross hematuria; Z85.038 Personal history of other malignant neoplasm of large intestine; Z93.3 Colostomy status; E83.42 Hypomagnesemia; T50.2X5A Adverse effect of carbonic-anhydrase inhibitors, benzothiadiazides and other diuretics, initial encounter; Y84.2 Radiological procedure and radiotherapy as the cause of abnormal reaction of the patient, or of later complication, without mention of misadventure at the time of the procedure
CPT/HCPCS: 36415; 80048; 80053; 83735; 85027; 94640; 94760

== ENCOUNTER 2017-05-03 08:20 | Inpatient (IN) | payer MEDICARE, OTHER ==
[~2017-05-03] VITALS: Ht 167.6 cm; Wt 54.3 kg
[~2017-05-03 08:20] MED LIST changes: +FERR-65 PO
[2017-05-03 09:11] VITALS: BP 132/68
[2017-05-03] MEDS ORDERED: FUROSEMIDE 40 MG/4 ML INJ (LASIX) IVP ONE (10:15)
[2017-05-03] MEDS ORDERED: NS IV 1000 ML 1,000 ML IV SCH (10:15)
[2017-05-03] MEDS ORDERED: RT-ALBUTEROL SULF 2.5 MG/3 ML PRE-MIX VIAL IH PRN (10:15)
[2017-05-03] MEDS ORDERED: meTOprolol 5 MG/5 ML (LOPRESSOR) VIAL IV ONE (10:15)
--- NOTE | 2017-05-03 10:15 | Progress Note-Cardiology ---
Cardiology SOAP Progress Note Subjective: Transferred to room 426 from IRU d/t suspected SBO. NG tube currently in place. He reports he became increasingly nauseated yesterday with emesis. He states he is feeling better today. No c/o SOB, CP or palpitations. Objective: I&O/Vital Signs Vital Sign - Last 12Hours 05/03/17 05/03/17 05/03/17 09:11 09:11 11:36 Temp 97.6 97.9 Pulse 98 84 Resp 20 20 B/P (MAP) 132/68 93/52 Pulse Ox 93 96 O2 Delivery Room Air Room Air Room Air Weight (Pounds): 119 Weight (Ounces): 12.0 Weight (Calculated Kilograms): 54.340782 Constitutional: AAO x 3 Respiratory: No accessory muscle use, No respiratory distress, lungs clear to auscultation Cardiovascular: irregularly irregular, No JVD, S1 and S2 Gastrointestional: No tender, other (colostomy ) Genital/Rectal: other (urinary catheter with CBI; faye red urine) Extremities: No pedal edema Neurologic/Psychiatric: oriented x 3 Skin: pallor A/P: Assessment: Suspected SBO - Dr. Monzon managing Acute systolic CHF, difficult to treat, currently appears under better control Sinus tach with PACs CKD stage III-IV, stable Elec abn due to diuretic therapy - replace Echocardiogram of 04-19-[address] Biggs showed LVEF 20-25%. Hypokinesis of apical septal, apical lateral, apical myocardium. Mild MR. Mild to mod TR. PASP 65mmHg. Carried out during tachycardia. Not a suitable candidate for MONY (-) or ARB d/t existing stage III-IV CKD Right hip fracture, s/p surgery Mildly positive cardiac enzymes (04-19-17 to 04-21-17) : serial troponin shows same level of troponin. [place] to be unlikely d/t ACS. Since mild elevation of troponin can occur in CHF especially with CKD and in a patient with tachycardia. Per Dr. 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 Alves following Plan: Plan: Management complex due to multiple comorbidities (see above) SBO - NG tube in place Change oral medications to IV d/t NPO status CKD with some worsening of Cr - in some part likely d/t vascular depletion - reduce Lasix Monitor lab Conservative management appears to be the best option at time Continue heart failure treatment and treatment for suspected CAD Physician Assessment Physician Assessment Lungs: fair to good air entry Cor: reg Ext: No c/c/e A&R * As documented in our note above that I updated (italics) and as noted below * There has again been a deterioration in clinical condition * Complex management due to multiple comorbidities * Change bb to iv because pt currently NPO * Resume aspirin when oral intake allowed * Follow closely, including labs LINDA GUERRERO SODA FOUNTAIN CLERK May 03, 2017 10:15 NIKUNJ HOLM MD FAC FAC CCDS May 03, 2017 11:58
--- NOTE | 2017-05-03 10:40 | History & Physical-Hospitalist ---
HPI History of Present Illness: HPI/Chief Complaint CC: Acute small bowel obstruction HPI: This is a 82 yoWM who was moved from inpatient rehab to med-surg due to acute small bowel obstruction Dr. Monzon Review: Pt was seen this morning. Nurse asked if he could be moved to the floor Pt has a small bowel obstruction [place]: Not had Lopressor yet today Had Lasix PO this am. Everything was given PO this am Pt has NG tube SW Review: Pt has Medicare, unsure of how many days hes had Patient Interview: Pt asked what his issue is today. There is a small blockage in his bowel and this was discussed. I informed him that the NG tube will help this and that 1500 ml of fluid was removed. We will try to DC NG tube tomorrow Labs discussed and are looking okay Pt does not appear to be in pain, but he has pain around the tube Physical exam stable. Lungs sound perfect IV meds were discussed and will be maintained Pt's urine is looking better. Pt was encouraged to use IS Scribed by Riya Casarez under the direct supervision of Dr. Gunter. Source: patient Exam Limitations: no limitations Date Seen 05/03/17 Time Seen by Provider: 09:30 Attending Physician Rosi Gunter DO PCP Rosi Gunter DO Referring Physician Date of Admission May 03, 2017 at 09:11 Home Medications & Allergies Home Medications Reviewed patient Home Medication Reconciliation Form Allergies Allergies Coded Allergies Iodinated Contrast- Oral and IV Dye (Verified Allergy, Severe, ANAPHYLAXIS, 05/03/17) patient reports throat became swollen, and code blue was called Penicillins (Verified Allergy, Mild, RASH, 05/03/17) ibuprofen (Verified Allergy, Mild, rash, 05/03/17) Past Picaqkj-Uoxzle-Mcivlm Hx Patient Social History Marrital Status: single 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) Alcohol Use: Occasionally Uses Recreational Drug Use: No Physical Abuse Screen: No Sexual Abuse: No Recent Foreign Travel: No Contact w/other who traveled: No Recent Hopitalizations: Yes Recent Infectious Disease Expo: No Immunizations Up To Date Date of Pneumonia Vaccine: Apr 18, 2016 Seasonal Allergies Seasonal Allergies: No Surgeries HX Surgeries: Yes Surgeries: Abdominal Respiratory Hx Respiratory Disorders: No Cardiovascular Hx Cardiovascular Disorders: Yes Cardiac Disorders: Chronic Edema/Swelling, High Cholesterol, Hypertension Neurological Hx Neurological Disorders: Yes Neurological Disorders: Dementia Genitourinary Hx Genitourinary Disorders: Yes Genitourinary Disorders: Bladder Infection, Renal Failure, UTI-Chronic Gastrointestinal Hx Gastrointestinal Disorders: Yes Gastrointestinal Disorders: Gastroesophageal Reflux, Obstructive Bowel Musculoskeletal Hx Musculoskeletal Disorders: Yes Musculoskeletal Disorders: Arthritis, Fractures Endocrine Hx Endocrine Disorders: No HEENT HX ENT Disorders: No Loss of Vision: Denies Hearing Impairment: Hard of Hearing Cancer Hx Cancer: Yes Cancer: Colon Psychosocial Hx Psychiatric Problems: No Blood Transfusions Adverse Reaction to a Blood Tr: No Family Medical History Family Hx: Patient reports no known family medical history. Review of Systems Constitutional: see HPI, weakness EENTM: no symptoms reported Respiratory: no symptoms reported Cardiovascular: no symptoms reported Gastrointestinal: abdominal pain (LLQ), loss of appetite, nausea, vomiting Genitourinary: no symptoms reported Musculoskeletal: no symptoms reported Skin: no symptoms reported Psychiatric/Neurological: No Symptoms Reported All Other Systems Reviewed Negative Unless Noted: Yes Physical Exam Physical Exam Vital Signs Vital Sign - Last 12Hours Capillary Refill : General Appearance: No Apparent Distress, WD/WN, Chronically ill, Thin, Other ( NGT in place) Eyes: Bilateral Eye Normal Inspection, Bilateral Eye PERRL HEENT: PERRL/EOMI, Normal ENT Inspection, Pharynx Normal Neck: Full Range of Motion, Normal Inspection, Non Tender, Supple, Carotid Bruit Respiratory: Chest Non Tender, Lungs Clear, No Accessory Muscle Use, No Respiratory Distress, Crackles, Decreased Breath Sounds Cardiovascular: Regular Rate, Rhythm, No Edema, No Gallop, No JVD, No Murmur, Normal Peripheral Pulses Gastrointestinal: Normal Bowel Sounds, No Organomegaly, No Pulsatile Mass, Soft , Distended Back: Normal Inspection, No CVA Tenderness, No Vertebral Tenderness Extremity: Normal Capillary Refill, Normal Inspection, Normal Range of Motion, Non Tender, No Calf Tenderness, No Pedal Edema Neurologic/Psychiatric: Alert, Oriented x3, No Motor/Sensory Deficits, Normal Mood/Affect Skin: Normal Color, Warm/Dry Lymphatic: No Adenopathy Assessment/Plan Admission Diagnosis Assessment: Acute small bowel obstruction requiring nasogastric tube placement in general surgery consultation Systolic dysfunction congestive heart failure ejection fraction of 25 percent with frequent volume overload's recently Recent hip fracture repair 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 Acute hematuria requiring urology consultation and bladder wash History of colon cancer 10 years ago Diverting colostomy Severe anemia due to hip fracture from acute blood loss status post 2 units of packed red blood cell transfusion 2 weeks ago Mild dementia Assessment and Plan Plan: Palliative care consult b/c prognosis becomes poorer as the days pass IS Possible DC NG tube tomorrow if small bowel follow through is successful Hold Lovenox due to hematuria Clinical Quality Measures DVT/VTE Risk/Contraindication: Risk Factor Score Per Nursin RFS Level Per Nursing on Admit: 4+=Very High ROSI GUNTER DO May 03, 2017 10:40
[2017-05-03] MEDS: NS IV 1000 ML 1,000 ML IV SCH (11:15)
[2017-05-03] MEDS: meTOprolol 5 MG/5 ML (LOPRESSOR) VIAL IV SCH ×2 (11:15→17:01)
[2017-05-03 11:36] VITALS: BP 93/52
--- NOTE | 2017-05-03 12:15 | Consultation ---
History of Present Illness History of Present Illness Patient Consulted On(david/time) 05/03/17 12:12 Date Seen by Provider: May 03, 2017 Time Seen by Provider: 07:14 Reason for Visit: patient is currently undergoing rehabilitation services following the History of Present Illness colicky abdominal pain, nausea and decreased output from the pre-existing colostomy. Allergies and Home Medications Allergies Coded Allergies: Iodinated Contrast- Oral and IV Dye (Verified Allergy, Severe, ANAPHYLAXIS , 05/03/17) patient reports throat became swollen, and code blue was called Penicillins (Verified Allergy, Mild, RASH, 05/03/17) ibuprofen (Verified Allergy, Mild, rash, 05/03/17) Home Medications Ascorbic Acid 250 Mg Tab, 500 MG PO DAILY, (Reported) TAKES 2 (250MG) TABLETS Carvedilol 3.125 Mg Tablet, 3.125 MG PO DAILY, (Reported) Ferrous Sulfate 325 Mg Tablet, 325 MG PO DAILY, (Reported) Furosemide 20 Mg Tablet, 20 MG PO DAILY, (Reported) L. Acidophilus/Bulgaricus 1 Each Tablet, 2 TAB PO DAILY, (Reported) Lovastatin 10 Mg Tablet, 10 MG PO 1800, (Reported) Minocycline HCl 100 Mg Capsule, 100 MG PO DAILY, (Reported) Multivitamin 1 Each Tablet, 1 TAB PO DAILY, (Reported) Omeprazole 10 Mg Capsule.dr, 10 MG PO DAILY, (Reported) Pantoprazole Sodium 40 Mg Tablet.dr, 40 MG PO DAILY, (Reported) Sennosides/Docusate Sodium 1 Each Tablet, 8.6 MG PO BID, (Reported) Past Rukozjn-Vdjnkp-Tprsmj Hx Patient Social History Alcohol Use: Occasionally Uses Recreational Drug Use: No Smoking Status: Never a Smoker Recent Foreign Travel: No Contact w/Someone Who Travel: No Recent Infectious Disease Expo: No Recent Hopitalizations: Yes Physical Abuse Screen: No Sexual Abuse: No Immunizations Up To Date Date of Pneumonia Vaccine: Apr 18, 2016 Seasonal Allergies Seasonal Allergies: No Surgeries HX Surgeries: Yes Surgeries: Abdominal Respiratory Hx Respiratory Disorders: No Cardiovascular Hx Cardiac Disorders: Yes Cardiac Disorders: Chronic Edema/Swelling, High Cholesterol, Hypertension Neurological Hx Neurological Disorders: Yes Neurological Disorders: Dementia Genitourinary Hx Genitourinary Disorders: Yes Genitourinary Disorders: Bladder Infection, Renal Failure, UTI-Chronic Gastrointestinal Hx Gastrointestinal Disorders: Yes Gastrointestinal Disorders: Gastroesophageal Reflux, Obstructive Bowel Musculoskeletal Hx Musculoskeletal Disorders: Yes Musculoskeletal Disorders: Arthritis, Fractures Endocrine Hx Endocrine Disorders: No HEENT HX ENT Disorders: No Loss of Vision: Denies Hearing Impairment: Hard of Hearing Cancer Hx Cancer: Yes Cancer: Colon Psychosocial Hx Psychiatric Problems: No Blood Transfusions Adverse Reaction to a Blood Tr: No Family Medical History Family Medial History: Patient reports no known family medical history. Physical Exam-General Problems Physical Exam Vital Signs Vital Sign - Last 12Hours Capillary Refill : Less Than 3 Seconds General Appearance: mild distress HEENT: normal ENT inspection Neck: full range of motion Respiratory: lungs clear Cardiovascular: normal peripheral pulses Gastrointestinal: soft, other Rectal: deferred Neurologic/Psychiatric: alert, oriented x 3 Skin: warm/dry Comments colostomy with liquid stool output. No abdominal distention. No tenderness. Assessment/Plan Assessment/Plan Admission Diagnosis/Plan gentleman recovering from a femoral neck fracture. Possible early partial small bowel obstruction. We'll continue nasogastric decompression and obtain a water soluble contrast study Clinical Quality Measures DVT/VTE Risk/Contraindication: Risk Factor Score Per Nursin RFS Level Per Nursing on Admit: 4+=Very High WILMA PELLETIER MD May 03, 2017 12:15 pm
[2017-05-03 16:00] VITALS: BP 132/58
[2017-05-03 19:28] VITALS: BP 96/52
[2017-05-03] MEDS: RT-ALBUTEROL/IPRATROPIUM 3 ML (DUONEB) VIAL INH SCH (19:40)
[2017-05-03 23:45] VITALS: BP 125/55
[2017-05-04] VITALS (7 sets, daily range): BP systolic 20–128; BP diastolic 49–120
[2017-05-04] MEDS: meTOprolol 5 MG/5 ML (LOPRESSOR) VIAL IV SCH ×4 (00:25→18:03)
[2017-05-04] MEDS: NS IV 1000 ML 1,000 ML IV SCH (06:28)
[2017-05-04 06:59] LABS: MEAN PLATELET VOLUME 10.9 FL (7.4-10.4); RED CELL DISTRIBUTION WIDTH 17.1 % (10.0-14.5); WHITE BLOOD COUNT 12.3 10^3/uL (4.3-11.0)
[2017-05-04 07:13] LABS: ALBUMIN 2.9 GM/DL (3.2-4.5); BILIRUBIN,TOTAL 0.4 MG/DL (0.1-1.0); CREATININE SERUM 2.53 MG/DL (0.60-1.30); TOTAL PROTEIN 6.9 GM/DL (6.4-8.2)
[2017-05-04] MEDS: RT-ALBUTEROL/IPRATROPIUM 3 ML (DUONEB) VIAL INH SCH ×2 (08:33→20:10)
[2017-05-04] MEDS ORDERED: FUROSEMIDE 40 MG/4 ML INJ (LASIX) IVP SCH (09:00)
--- NOTE | 2017-05-04 10:35 | Diagnostic Imaging Report ---
PROCEDURE: CT abdomen and pelvis without contrast. TECHNIQUE: Multiple contiguous axial images were obtained through the abdomen and pelvis without the use of intravenous contrast. INDICATION: Small bowel obstruction. FINDINGS: The lung bases demonstrate moderate to large pleural effusions and bibasilar pulmonary consolidation, likely related to atelectasis. There is an NG tube seen in the stomach. There is wall thickening seen in the pylorus and the proximal duodenum. Consider possibility of gastritis/duodenitis. No dilated small or large bowel loops to suggest obstruction. There is a Mckeon catheter in place and there is a left ureteric stent with the proximal loop in the lower aspect of the left renal pelvis. There is mild left hydronephrosis. There is air in the urinary bladder. This is perhaps related to the recent insertion of the Mckeon catheter. Correlate clinically. Evaluation in the pelvis is limited with significant beam hardening artifacts from the right hip. In the upper aspect of the pelvis posteriorly there is a fluid containing lesion that has some dense internal contents which could be from hemorrhage or debris. This is 4.1 x 4.6 CM in size. Etiology is uncertain. There is evidence of prior surgery in this region and scarring. It is uncertain if this represents a postsurgical colonic pouch near the site of anastomosis or a Viky's pouch potentially. Correlate with surgical history. Study with rectal and oral contrast could help in this evaluation. If the patient is presenting with clinical picture of a infection and pelvic pain, then possibility of an abscess could be considered. There is a colostomy in the left lower quadrant with a parastomal hernia containing the nonobstructed small bowel loops. The abdominal aorta demonstrates an aneurysm measuring 3.5 CM in the distal abdominal aorta. No para-aortic significantly enlarged lymph nodes seen. The liver and the spleen demonstrate punctate calcifications from prior granulomatous process. No calcified gallstones seen. The pancreas and adrenal glands appear unremarkable. There is a 1 cm right para-aortic lymph node near the thoracolumbar junction region, of uncertain significance. The osseous structures demonstrate prominent degenerative changes of the lumbar spine. IMPRESSION: 1. Bilateral large pleural effusions with lower lobe consolidation likely related to atelectasis rather than pneumonia. Correlate clinically. 2. There is thickening in the pylorus and proximal duodenum which may relate to gastritis/duodenitis. No obvious underlying masses seen. Correlate clinically and consider endoscopic evaluation. 3. No bowel obstruction. 4. There is a pocket of air and fluid seen in the upper pelvis. It is perhaps connected to the rectum representing Viky's or other post surgical pouch. Correlate clinically. If there is clinical suspicion of abscess in this location, then evaluation with a CT study with rectal and oral contrast would be helpful. 5. 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 6. There is a colostomy with a small bowel containing parastomal hernia with no evidence of obstruction. Dictated by: Dictated on workstation # [id number]
[2017-05-04] MEDS: POTASSIUM CL 10MEQ/50ML IVPB 50 ML IV SCH ×4 (11:49→15:29)
--- NOTE | 2017-05-04 12:51 | Progress Note-Hospitalist ---
Progress Note HPI/CC on Admission CC: Acute small bowel obstruction HPI: This is a 82 yoWM who was moved from inpatient rehab to med-surg due to acute small bowel obstruction Dr. Monzon Review: Pt was seen this morning. 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 Everything was given PO this am Pt has NG tube SW Review: Pt has Medicare, unsure of how many days hes had Patient Interview: Pt asked what his issue is today. There is a small blockage in his bowel and this was discussed. I informed him that the NG tube will help this and that 1500 ml of fluid was removed. We will try to DC NG tube tomorrow Labs discussed and are looking okay Pt does not appear to be in pain, but he has pain around the tube Physical exam stable. Lungs sound perfect IV meds were discussed and will be maintained Pt's urine is looking better. Pt was encouraged to use IS Scribed by Riya Casarez under the direct supervision of Dr. Gandhi. 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 Acute hematuria requiring urology consultation and bladder wash History of colon cancer 10 years ago Diverting colostomy Severe anemia due to hip fracture from acute blood loss status post 2 units of packed red blood cell transfusion 2 weeks ago Mild dementia Diagonsis/Assessment & Plan Patient doing as well as expected with NGT in place Conferred with Dr Alves and he suggests may need to transfer back to [facility] for tertiary care 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 Dr Monzon will see the pt and provide plan Checked meds and labs Potassium 3.0 so will replace AFVSS, Pleasant, O x 3 RRR, CTAB diminished in the bases No edema Laboratory Tests 05/04/17 06:05 Assessment: Acute small bowel obstruction requiring nasogastric tube placement in general surgery consultation CT completed and awaiting plan from Dr Monzon Systolic dysfunction congestive heart failure ejection fraction of 25% with frequent volume overload's recently Recent hip fracture repair 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
[2017-05-04] MEDS ORDERED: MAGNESIUM CITRATE 300 ML BTL PO NR (13:30)
--- NOTE | 2017-05-04 13:41 | Diagnostic Imaging Report ---
Supine view of the abdomen. INDICATION: Vomiting. FINDINGS: There is an NG tube in the stomach. A ureteric stent on the left side is seen. There is a right hip replacement. No significantly dilated bowel loops are noted. IMPRESSION: No acute process. Dictated by: Dictated on workstation # [id number]
--- NOTE | 2017-05-04 15:05 | Progress Note-Standard ---
Standard Progress Note Progress Notes/Assess & Plan Date Seen by Provider: May 04, 2017 Time Seen by Provider: 15:04 Progress/Assessment & Plan No mechanical obstruction on CT. Will try liquids Final Diagnosis Gastritis WILMA PELLETIER MD May 04, 2017 3:04 pm
--- NOTE | 2017-05-04 15:41 | Progress Note-Cardiology ---
Cardiology SOAP Progress Note Subjective: No new c/o. Just starting taking clear liquids this afternoon. No c/o CP, dyspnea. Objective: I&O/Vital Signs Vital Sign - Last 12Hours 05/04/17 05/04/17 05/04/17 05/04/17 08:00 08:34 09:00 12:00 Temp 96.1 98.6 Pulse 64 66 Resp 20 20 B/P (MAP) 125/75 120/75 Pulse Ox 96 96 94 O2 Delivery Room Air Room Air Room Air Room Air 05/04/17 05/04/17 15:49 16:23 Temp 98.6 Pulse 103 103 Resp 20 B/P (MAP) 98/58 Pulse Ox 98 75 O2 Delivery Room Air FiO2 98 Intake and Output 05/04/17 00:00 Intake Total 0 ml Output Total 7700 ml Balance -7700 ml Weight (Pounds): 119 Weight (Ounces): 12.0 Weight (Calculated Kilograms): 54.720238 Constitutional: AAO x 3 Respiratory: No accessory muscle use, No respiratory distress, lungs clear to auscultation Cardiovascular: irregularly irregular, No JVD, S1 and S2 Gastrointestional: No tender, other (colostomy ) Genital/Rectal: other (urinary catheter with CBI; faye red urine) Extremities: No pedal edema Neurologic/Psychiatric: oriented x 3 Skin: pallor Results/Procedures: Labs Laboratory Tests 05/04/17 06:05: White Blood Count 12.3H, Red Blood Count 3.00L, Hemoglobin 8.6L, Hematocrit 29L , Mean Corpuscular Volume 96, Mean Corpuscular Hemoglobin 29, Mean Corpuscular Hemoglobin Concent 30L, Red Cell Distribution Width 17.1H, Platelet Count 509H, Mean Platelet Volume 10.9H, Sodium Level 147H, Potassium Level 3.0L, Chloride Level 90L, Carbon Dioxide Level 33H, Anion Gap 24H, Blood Urea Nitrogen 49H, Creatinine 2.53H, Estimat Glomerular Filtration Rate 24, BUN/Creatinine Ratio 19 , Glucose Level 66L, Calcium Level 9.0, Magnesium Level 2.0, Total Bilirubin 0.4 , Aspartate Amino Transf (AST/SGOT) 23, Alanine Aminotransferase (ALT/SGPT) 17, Alkaline Phosphatase 78, Total Protein 6.9, Albumin 2.9L A/P: Assessment: Suspected SBO - Dr. Monzon managing Acute systolic CHF, difficult to treat, currently appears under better control Sinus tach with PACs CKD stage III-IV, stable Elec abn due to diuretic therapy - replace Echocardiogram of 04-19-[address] Biggs showed LVEF 20-25%. Hypokinesis of apical septal, apical lateral, apical myocardium. Mild MR. Mild to mod TR. PASP 65mmHg. Carried out during tachycardia. Not a suitable candidate for MONY (-) or ARB d/t existing stage III-IV CKD Right hip fracture, s/p surgery Mildly positive cardiac enzymes (04-19-17 to 04-21-17) : serial troponin shows same level of troponin. [place] to be unlikely d/t ACS. Since mild elevation of troponin can occur in CHF especially with CKD and in a patient with tachycardia. Per Dr. 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 Alves following Plan: Management complex due to multiple comorbidities (see above) CKD with some worsening of Cr and electrolyte abnormalities - in some part likely d/t vascular depletion - reduce Lasix and replace electrolytes Monitor lab Conservative management appears to be the best option at time Continue heart failure treatment and treatment for suspected CAD Replace electrolytes Physician Assessment Physician Assessment NGT out Lungs: good bilat air entry Cor: reg Ext: no c/c/e A&R * As documented in our note above that I updated (italics) and as noted below * Resume oral aspirin, if allowed by the Surgical Service * Reduce diuretics * Monitor labs * I spoke with him and answered questions LINDA GUERRERO LEISURE STUDIES PROFESSOR May 04, 2017 15:40 NIKUNJ HOLM MD FACP [facility] May 04, 2017 17:43
[2017-05-04] MEDS ORDERED: POTASSIUM CL 10MEQ/50ML IVPB 50 ML IV SCH (15:45)
[2017-05-04] MEDS ORDERED: CATHETER FLUSH 10 ML SYR IV PRN (16:00)
[2017-05-04] MEDS ORDERED: ASPIRIN 81 MG CHEW (CHILDREN'S ASA) PO NR (18:15)
[2017-05-05] VITALS (12 sets, daily range): BP systolic 89–111; BP diastolic 52–70
[2017-05-05] MEDS: meTOprolol 5 MG/5 ML (LOPRESSOR) VIAL IV SCH ×5 (00:01→23:15)
[2017-05-05] MEDS: NS IV 1000 ML 1,000 ML IV SCH (01:36)
[2017-05-05 06:06] LABS: BASOPHILS % (AUTO) 0 % (0-10); EOSINOPHILS # (AUTO) 0.1 10^3/uL (0.0-0.3); EOSINOPHILS % (AUTO) 1 % (0-10); LYMPHOCYTES # (AUTO) 0.7 X 10^3 (1.0-4.0); LYMPHOCYTES % (AUTO) 11 % (12-44); MEAN CORPUSCULAR HEMOGLOBIN 30 PG (25-34); MEAN CORPUSCULAR HGB CONC 31 G/DL (32-36); MEAN CORPUSCULAR VOLUME 95 FL (80-99); MEAN PLATELET VOLUME 10.8 FL (7.4-10.4); MONOCYTES # (AUTO) 0.9 X 10^3 (0.0-1.0); MONOCYTES % (AUTO) 14 % (0-12); NEUTROPHILS # (AUTO) 4.8 X 10^3 (1.8-7.8); NEUTROPHILS % (AUTO) 74 % (42-75); PLATELET COUNT 378 10^3/uL (130-400); RED BLOOD COUNT 2.54 10^6/uL (4.35-5.85); RED CELL DISTRIBUTION WIDTH 16.9 % (10.0-14.5); WHITE BLOOD COUNT 6.5 10^3/uL (4.3-11.0)
[2017-05-05 06:28] LABS: ALBUMIN 2.4 GM/DL (3.2-4.5); BILIRUBIN,TOTAL 0.4 MG/DL (0.1-1.0); CALCIUM 7.6 MG/DL (8.5-10.1); CREATININE SERUM 2.28 MG/DL (0.60-1.30); MAGNESIUM 1.6 MG/DL (1.8-2.4); TOTAL PROTEIN 5.6 GM/DL (6.4-8.2)
[2017-05-05] MEDS: RT-ALBUTEROL/IPRATROPIUM 3 ML (DUONEB) VIAL INH SCH ×2 (07:34→20:36)
[2017-05-05] MEDS: ASPIRIN 81 MG CHEW (CHILDREN'S ASA) PO SCH (08:43)
[2017-05-05] MEDS: PANTOPRAZOLE 40 MG/10 ML (PROTONIX) VIAL IV SCH (08:43)
[2017-05-05] MEDS ORDERED: FUROSEMIDE 40 MG/4 ML INJ (LASIX) IVP SCH (09:00)
--- NOTE | 2017-05-05 09:50 | Progress Note-Urology ---
Progress Note-Urology Progress Notes/Assess & Plan Progress/Assessment & Plan TODAY HIS URINE IS GARTH AND CLEAR. PLAN CBI PRN Final Diagnosis GROSS HEMATURIA AMERICA LUIS MD May 05, 2017 9:50 am
--- NOTE | 2017-05-05 10:07 | Progress Note (SOAP) ---
Subjective Date Seen by Provider: May 05, 2017 Time Seen by Provider: 09:50 Subjective/Events-last exam Patient reports continues to do well. No nausea/vomiting. no fever/chills. Denies any pain. tolerating liquid diet. colostomy functioning with gas in the colostomy bag. Review of Systems General: No Chills, No Night Sweats Gastrointestinal: No: Abdominal Pain, Nausea, Vomiting Objective Exam Vital Signs Date Time Temp Pulse Resp B/P (MAP) Pulse Ox O2 Delivery O2 Flow Rate FiO2 05/05/17 08:00 99.3 97 16 94/53 97 Room Air 05/05/17 07:35 96 Room Air 05/05/17 07:00 118 05/05/17 04:18 98.6 101 18 90/53 96 Room Air 05/05/17 01:00 90 05/05/17 00:40 98.1 92 16 100/56 97 Room Air 05/04/17 20:45 Room Air 05/04/17 20:12 94 Room Air 05/04/17 19:41 Room Air 05/04/17 19:27 97.7 103 20 119/49 95 Room Air 05/04/17 19:00 106 05/04/17 16:23 103 75 98 05/04/17 15:49 98.6 103 20 98/58 98 Room Air 05/04/17 12:00 98.6 66 20 120/75 94 Room Air I & O 05/05/17 06:59 Intake Total 2850 ml Output Total 74049 ml Balance -59656 ml Capillary Refill : Less Than 3 Seconds General Appearance: No Apparent Distress, WD/WN HEENT: PERRL/EOMI Neck: Full Range of Motion, Normal Inspection, Non Tender, Supple Respiratory: Lungs Clear, Normal Breath Sounds, No Accessory Muscle Use, No Respiratory Distress Cardiovascular: Regular Rate, Rhythm Gastrointestinal: normal bowel sounds, non tender, soft, other (Colostomy with good function. Colostomy bag full of gas.) Extremity: Normal Capillary Refill, Normal Inspection, Normal Range of Motion, Non Tender, No Calf Tenderness, No Pedal Edema Neurologic/Psychiatric: Alert, Oriented x3, Normal Mood/Affect Skin: Normal Color, Warm/Dry Lymphatic: No Adenopathy Results Lab Laboratory Tests 05/05/17 05:35: White Blood Count 6.5, Red Blood Count 2.54L, Hemoglobin 7.5L, Hematocrit 24L, Mean Corpuscular Volume 95, Mean Corpuscular Hemoglobin 30, Mean Corpuscular Hemoglobin Concent 31L, Red Cell Distribution Width 16.9H, Platelet Count 378, Mean Platelet Volume 10.8H, Neutrophils (%) (Auto) 74, Lymphocytes (%) (Auto) 11L, Monocytes (%) (Auto) 14H, Eosinophils (%) (Auto) 1, Basophils (%) (Auto) 0 , Neutrophils # (Auto) 4.8, Lymphocytes # (Auto) 0.7L, Monocytes # (Auto) 0.9, Eosinophils # (Auto) 0.1, Basophils # (Auto) 0.0, Sodium Level 138, Potassium Level 3.0L, Chloride Level 90L, Carbon Dioxide Level 35H, Anion Gap 13, Blood Urea Nitrogen 51H, Creatinine 2.28H, Estimat Glomerular Filtration Rate 28, BUN/ Creatinine Ratio 22, Glucose Level 91, Calcium Level 7.6L, Magnesium Level 1.6L , Total Bilirubin 0.4, Aspartate Amino Transf (AST/SGOT) 22, Alanine Aminotransferase (ALT/SGPT) 13, Alkaline Phosphatase 62, Total Protein 5.6L, Albumin 2.4L Assessment/Plan Assessment/Plan Assess & Plan/Chief Complaint An 82 year old male with small bowel obstruction which is resolving. This gentleman has multiple medical issues. VSS. HgB dropped and patient to receive 2 units PRBCs. Continue medical management IV fluids and pain medication Will advance diet. Clinical Quality Measures DVT/VTE Risk/Contraindication: Risk Factor Score Per Nursin RFS Level Per Nursing on Admit: 4+=Very High ERIN GIBBONS TRANSITION LEAD May 05, 2017 10:07
[2017-05-05] MEDS: POTASSIUM CL 10MEQ/50ML IVPB 50 ML IV SCH ×8 (10:42→20:21)
[2017-05-05] MEDS: MAGNESIUM 1 GM/100 ML IVPB 100 ML IV SCH ×2 (10:47→12:03)
[2017-05-05] MEDS ORDERED: NS IV 500 ML 500 ML ONE (10:57)
--- NOTE | 2017-05-05 11:24 | Progress Note-Hospitalist ---
Progress Note HPI/CC on Admission CC: Acute small bowel obstruction HPI: This is a 82 yoWM who was moved from inpatient rehab to med-surg due to acute small bowel obstruction Dr. Monzon Review: Pt was seen this morning. 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 Everything was given PO this am Pt has NG tube SW Review: Pt has Medicare, unsure of how many days hes had Patient Interview: Pt asked what his issue is today. There is a small blockage in his bowel and this was discussed. I informed him that the NG tube will help this and that 1500 ml of fluid was removed. We will try to DC NG tube tomorrow Labs discussed and are looking okay Pt does not appear to be in pain, but he has pain around the tube Physical exam stable. Lungs sound perfect IV meds were discussed and will be maintained Pt's urine is looking better. Pt was encouraged to use IS Scribed by Riya Casarez under the direct supervision of Dr. Gandhi. 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 Acute hematuria requiring urology consultation and bladder wash History of colon cancer 10 years ago Diverting colostomy Severe anemia due to hip fracture from acute blood loss status post 2 units of packed red blood cell transfusion 2 weeks ago Mild dementia Diagonsis/Assessment & Plan Patient doing well since NGT DC yesterday and tolerating Jello PO Conferred with Dr Vásquez service that he likely will require transfer back to [facility] for tertiary care 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 now that his hip fracture has been managed and return back to surgeon who performed the original surgeries Checked meds and labs Potassium 3.0 so will replace once again today Giving high dose of Lasix before blood ASA started AFVSS, Pleasant, O x 3 RRR, CTAB diminished in the bases No edema Laboratory Tests 05/05/17 05:35 Assessment: Acute small bowel obstruction requiring nasogastric tube placement and general surgery consultation with CT completion and now DC NGT and tolerating CLD Systolic dysfunction congestive heart failure ejection fraction of 25% with frequent volume overload's Recent hip fracture repair 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 Acute hematuria requiring urology consultation and bladder wash History of colon cancer 10 years ago Diverting colostomy performed at [facility] Severe anemia due to hip fracture from acute blood loss status post 2 units of packed red blood cell transfusion 2 weeks ago and now requiring 2 more units today Mild dementia Plan: Likely transfer back to [facility] Sunday for fistula modification by surgeons who performed the original surgery IS CLD and advance slowly Hold Lovenox due to hematuria 2 units of blood to be given today SCD's ASA restarted per Cardiology PAULA GANDHI DO May 05, 2017 11:24
--- NOTE | 2017-05-05 12:44 | Cardiology Progress Note ---
Cardiology SOAP Progress Note Subjective: No cardiac complaints Objective: I&O/Vital Signs Vital Sign - Last 12Hours 05/05/17 05/05/17 05/05/17 05/05/17 01:00 04:18 07:00 07:35 Temp 98.6 Pulse 90 101 118 Resp 18 B/P (MAP) 90/53 Pulse Ox 96 96 O2 Delivery Room Air Room Air 05/05/17 05/05/17 05/05/17 05/05/17 08:00 08:00 11:19 11:35 Temp 99.3 97.1 98.4 Pulse 97 95 97 Resp 16 18 20 B/P (MAP) 94/53 98/53 98/52 Pulse Ox 97 92 O2 Delivery Room Air Room Air Room Air Room Air Intake and Output 05/05/17 00:00 Intake Total 2450 ml Output Total 5250 ml Balance -2800 ml Weight (Pounds): 119 Weight (Ounces): 12.0 Weight (Calculated Kilograms): 54.065035 Constitutional: AAO x 3 Respiratory: No accessory muscle use, No respiratory distress, lungs clear to auscultation Cardiovascular: irregularly irregular, No JVD, S1 and S2 Gastrointestional: No tender, other (colostomy ) Genital/Rectal: other (urinary catheter with CBI; faye red urine) Extremities: No pedal edema Neurologic/Psychiatric: oriented x 3 Skin: pallor Results/Procedures: Labs Laboratory Tests 05/05/17 05:35: White Blood Count 6.5, Red Blood Count 2.54L, Hemoglobin 7.5L, Hematocrit 24L, Mean Corpuscular Volume 95, Mean Corpuscular Hemoglobin 30, Mean Corpuscular Hemoglobin Concent 31L, Red Cell Distribution Width 16.9H, Platelet Count 378, Mean Platelet Volume 10.8H, Neutrophils (%) (Auto) 74, Lymphocytes (%) (Auto) 11L, Monocytes (%) (Auto) 14H, Eosinophils (%) (Auto) 1, Basophils (%) (Auto) 0 , Neutrophils # (Auto) 4.8, Lymphocytes # (Auto) 0.7L, Monocytes # (Auto) 0.9, Eosinophils # (Auto) 0.1, Basophils # (Auto) 0.0, Sodium Level 138, Potassium Level 3.0L, Chloride Level 90L, Carbon Dioxide Level 35H, Anion Gap 13, Blood Urea Nitrogen 51H, Creatinine 2.28H, Estimat Glomerular Filtration Rate 28, BUN/ Creatinine Ratio 22, Glucose Level 91, Calcium Level 7.6L, Magnesium Level 1.6L , Total Bilirubin 0.4, Aspartate Amino Transf (AST/SGOT) 22, Alanine Aminotransferase (ALT/SGPT) 13, Alkaline Phosphatase 62, Total Protein 5.6L, Albumin 2.4L A/P: Assessment/Dx: Suspected SBO - Dr. Monzon managing Acute systolic CHF, difficult to treat, currently appears under better control Sinus tach with PACs CKD stage III-IV, stable Elec abn due to diuretic therapy - replace Echocardiogram of 04-19-17 LVEF 20-25%. Hypokinesis of apical septal, apical lateral, apical myocardium. Mild MR. Mild to mod TR. PASP 65mmHg. Carried out during tachycardia. Not a suitable candidate for MONY (-) or ARB d/t existing stage III-IV CKD Right hip fracture, s/p surgery Mildly positive cardiac enzymes (04-19-17 to 04-21-17) : serial troponin shows same level of troponin. [place] to be unlikely d/t ACS. Since mild elevation of troponin can occur in CHF especially with CKD and in a patient with tachycardia. Tachycardia vs a-fib per EKG of 04-19-17 - felt to be tachycardia - treated with BB H/O colovesical fistula d/t colon CA L ureteral stent - Dr. Alves following Plan: Management complex due to multiple comorbidities (see above) CKD with some worsening of Cr and electrolyte abnormalities - in some part likely d/t vascular depletion - reduce Lasix and replace electrolytes Monitor lab Conservative management appears to be the best option at time Continue heart failure treatment and treatment for suspected CAD; aspirin started. Replace electrolytes Thank you for your consultation. Please call me if you have any questions. Ramírez Biggs MD, FACP, FACC, FSCAI, FHRS, CCDS Interventional Cardiology Cardiac Electrophysiology Vascular Medicine and Endovascular Interventions Cyndee BIGGS MD May 05, 2017 12:44 pm
--- NOTE | 2017-05-05 13:18 | Physical Therapy Evaluation ---
PT Evaluation-General Medical Diagnosis Admission Date May 03, 2017 at 09:11 Medical Diagnosis: acute bowel obstruction Onset Date: May 03, 2017 Therapy Diagnosis Therapy Diagnosis: limited mobility Height/Weight Height (Feet): 5 Height (Inches): 6.00 Weight (Pounds): 119 Weight (Ounces): 12.0 Precautions Precautions/Isolations: Fall Prevention, Standard Precautions Weight Bear Status Location Restriction: R LE Referral Physician: Lyric Reason for Referral: Evaluation/Treatment Medical History Pertinent Medical History: Arthritis, Dementia, GERD, Heart Failure, HTN, Renal Insufficiency Additional Medical History Recent (R) hip repair Current History Pt was hospitalized post (R) hip repair, but developed a small bowel obstruction which required surgical intervention. Reviewed History: Yes Social History Home: Single Level Current Living Status: Other Family Entry Into Home: Stairs With Railing PT Steps Into Home: 5 PT Steps Inside Home: 0 Prior/Core FIM Prior Level of Function Functional [place] Measure 0=Not Assessed/NA 4=Minimal Assistance 1=Total Assistance 5=Supervision or Setup 2=Maximal Assistance 6=Modified [place] 3=Moderate Assistance 7=Complete [place] Bed Mobility: 6 Transfers (B,C,W/C) (FIM): 6 Gait: 6 Locomotion: 6 PT Evaluation-Current Subjective Pt reports that he is feeling better than he had been feeling. Pain Numeric Pain Scale: 6 Location: Right Location Body Site: Hip Pain Description: Ache, Dull Pt/Family Goals Return home. Objective Patient Orientation: Person, Place, Time, Situation Problem Solving: Good Comprehension: 6 Expression: 6 Social Interaction: 7 Attachments: Drains, Mckeon Catheter, IV ROM/Strength ROM Upper Extremities WFL ROM Lower Extremities Limited tolerance to (R) hip ROM. Strength Upper Extremities WFL Strenght Lower Extremities 4-/5 (B) LE strength. Pt able to provide good assist during transfer and stand pivot transfer. Neuromuscular (Tone, Coordination, Reflexes) Intact Sensory Vision: Wears Glasses Hearing: Functional Sensation Right Upper Extremit: Intact Sensation Left Upper Extremity: Intact Sensation Right Lower Extremit: Intact Sensation Left Lower Extremity: Intact Transfers Functional [place] Measure 0=Not Assessed/NA 4=Minimal Assistance 1=Total Assistance 5=Supervision or Setup 2=Maximal Assistance 6=Modified [place] 3=Moderate Assistance 7=Complete [place] Transfers (B, C, W/C) (FIM): 3 Scootin Rollin Supine to/from Sit: 3 Sit to/from Stand: 3 Performed stand pivot transfer. Unable to attempt ambulation due to multiple lines currently attached. Gait Mode of Locomotion: Walk Anticipated Mode of Locomotion: Walk Distance (FIM): 0=does not occure Comments/Gait Description Pt had been ambulation prior to the bowel surgery. Balance Sitting Static: Normal Sitting Dynamic: Normal Standing Static: Good Standing Dynamic: Good Assessment/Needs Pt was able to assist with bed mobility and transfers. Good leg strength and stability during stand pivot transfer to the chair. Rehab Potential: Good PT Short Term Goals Short Term Goals Time Frame: May 19, 2017 Transfers (B,C,W/C) (FIM): 6 Gait (FIM): 6 Distance (FIM): 3=150 ft Gait Assistive Device: FWW PT Plan Problem List Problem List: Activity Tolerance, Functional Strength, Safety, Balance, Gait, Transfer, Bed Mobility, ROM Treatment/Plan Treatment Plan: Continue Plan of Care Treatment Plan: Bed Mobility, Functional Activity Garrett, Functional Strength, Gait, Safety, Therapeutic Exercise, Transfers Treatment Duration: May 19, 2017 Frequency: At least 5-7 days/Wk (IRF) Estimated Hrs Per Day: .5 hour per day Patient and/or Family Agrees t: Yes Time/GCodes Time In: 1135 Time Out: 1200 Total Billed Treatment Time: 25 Total Billed Treatment 1, BECKIE Lorenz PT May 05, 2017 13:18
[2017-05-05] MEDS: FUROSEMIDE 40 MG/4 ML INJ (LASIX) IVP SCH (14:34)
[2017-05-06 00:20] VITALS: BP 96/58
[2017-05-06 04:50] VITALS: BP 129/70
[2017-05-06] MEDS: meTOprolol 5 MG/5 ML (LOPRESSOR) VIAL IV SCH ×3 (05:15→18:11)
[2017-05-06 06:20] LABS: BASOPHILS % (AUTO) 0 % (0-10); EOSINOPHILS # (AUTO) 0.1 10^3/uL (0.0-0.3); EOSINOPHILS % (AUTO) 1 % (0-10); LYMPHOCYTES # (AUTO) 0.8 X 10^3 (1.0-4.0); LYMPHOCYTES % (AUTO) 10 % (12-44); MEAN CORPUSCULAR HGB CONC 32 G/DL (32-36); MEAN CORPUSCULAR VOLUME 93 FL (80-99); MONOCYTES % (AUTO) 13 % (0-12); NEUTROPHILS # (AUTO) 6.3 X 10^3 (1.8-7.8); NEUTROPHILS % (AUTO) 77 % (42-75); PLATELET COUNT 363 10^3/uL (130-400); RED BLOOD COUNT 3.36 10^6/uL (4.35-5.85); RED CELL DISTRIBUTION WIDTH 16.5 % (10.0-14.5); WHITE BLOOD COUNT 8.3 10^3/uL (4.3-11.0)
[2017-05-06 06:22] LABS: MEAN CORPUSCULAR HEMOGLOBIN 29 PG (25-34)
[2017-05-06 06:40] LABS: ALBUMIN 2.5 GM/DL (3.2-4.5); BILIRUBIN,TOTAL 0.5 MG/DL (0.1-1.0); CALCIUM 7.7 MG/DL (8.5-10.1); CREATININE SERUM 2.06 MG/DL (0.60-1.30); POTASSIUM 3.5 MMOL/L (3.6-5.0); TOTAL PROTEIN 5.9 GM/DL (6.4-8.2)
[2017-05-06] MEDS: RT-ALBUTEROL/IPRATROPIUM 3 ML (DUONEB) VIAL INH SCH ×2 (07:47→18:58)
[2017-05-06 08:00] VITALS: BP 100/51
[2017-05-06] MEDS: FUROSEMIDE 40 MG/4 ML INJ (LASIX) IVP SCH (09:00)
[2017-05-06] MEDS: ASPIRIN 81 MG CHEW (CHILDREN'S ASA) PO SCH (09:00)
[2017-05-06] MEDS: PANTOPRAZOLE 40 MG/10 ML (PROTONIX) VIAL IV SCH (09:00)
[2017-05-06] MEDS ORDERED: FUROSEMIDE 40 MG/4 ML INJ (LASIX) IVP SCH (09:00)
--- NOTE | 2017-05-06 10:11 | Progress Note (SOAP) ---
Subjective Date Seen by Provider: May 06, 2017 Time Seen by Provider: 10:00 Subjective/Events-last exam Patient reports doing well. Lying in bed resting. Denies any N/V. No fever/ chills. Colostomy functioning. Denies any pain. Tolerating diet. Review of Systems Gastrointestinal: No: Abdominal Pain, Nausea Objective Exam Vital Signs Date Time Temp Pulse Resp B/P (MAP) Pulse Ox O2 Delivery O2 Flow Rate FiO2 05/06/17 08:00 99.3 108 16 100/51 95 Room Air 05/06/17 07:48 94 Room Air 05/06/17 04:50 99.3 101 20 129/70 93 Room Air 05/06/17 01:00 103 05/06/17 00:20 98.3 103 18 96/58 92 Room Air 05/05/17 20:38 92 Room Air 05/05/17 20:20 Room Air 05/05/17 19:43 99.3 102 20 111/59 92 Room Air 05/05/17 19:13 97.8 100 20 105/63 92 Room Air 05/05/17 19:00 105 05/05/17 16:47 98.6 97 20 110/70 98 Room Air 05/05/17 16:28 98.4 102 22 101/65 98 Room Air 05/05/17 16:00 98.4 101 20 98/55 97 Room Air 05/05/17 14:25 98.1 100 18 105/60 95 Room Air 05/05/17 13:00 100 05/05/17 12:00 98.2 81 16 89/56 90 Room Air 05/05/17 11:35 98.4 97 20 98/52 92 Room Air 05/05/17 11:19 97.1 95 18 98/53 Room Air I & O 05/06/17 07:00 Intake Total 3280 ml Output Total 40108 ml Balance -9245 ml Capillary Refill : Less Than 3 Seconds General Appearance: No Apparent Distress, WD/WN HEENT: PERRL/EOMI Neck: Full Range of Motion, Normal Inspection, Non Tender, Supple Respiratory: Chest Non Tender, Lungs Clear, Normal Breath Sounds, No Accessory Muscle Use, No Respiratory Distress Cardiovascular: Regular Rate, Rhythm Gastrointestinal: normal bowel sounds, non tender, soft, other (Colostomy pink , moist, functioning.) Extremity: Normal Capillary Refill, Normal Inspection, Normal Range of Motion, Non Tender, No Calf Tenderness, No Pedal Edema Neurologic/Psychiatric: Alert, Oriented x3, Normal Mood/Affect Skin: Normal Color, Warm/Dry Results Lab Laboratory Tests 05/06/17 05:58: White Blood Count 8.3, Red Blood Count 3.36L, Hemoglobin 9.9#L, Hematocrit 31L, Mean Corpuscular Volume 93, Mean Corpuscular Hemoglobin 29, Mean Corpuscular Hemoglobin Concent 32, Red Cell Distribution Width 16.5H, Platelet Count 363, Mean Platelet Volume 11.0H, Neutrophils (%) (Auto) 77H, Lymphocytes (%) (Auto) 10L, Monocytes (%) (Auto) 13H, Eosinophils (%) (Auto) 1, Basophils (%) (Auto) 0 , Neutrophils # (Auto) 6.3, Lymphocytes # (Auto) 0.8L, Monocytes # (Auto) 1.0, Eosinophils # (Auto) 0.1, Basophils # (Auto) 0.0, Sodium Level 138, Potassium Level 3.5L, Chloride Level 94L, Carbon Dioxide Level 30, Anion Gap 14, Blood Urea Nitrogen 50H, Creatinine 2.06H, Estimat Glomerular Filtration Rate 31, BUN/ Creatinine Ratio 24, Glucose Level 91, Calcium Level 7.7L, Total Bilirubin 0.5, Aspartate Amino Transf (AST/SGOT) 28, Alanine Aminotransferase (ALT/SGPT) 15, Alkaline Phosphatase 77, Total Protein 5.9L, Albumin 2.5L Assessment/Plan Assessment/Plan Assess & Plan/Chief Complaint An 82 year old male with small bowel obstruction which is resolving. He also has a left ureteral stent, as well as colovesicular fistula. This gentleman has multiple medical issues. VSS. Labs stable. Continue medical management IV fluids and pain medication Continue diet. Plan to transfer back to [facility] where he has surgeons to fix fistula and remove stent from ureter tomorrow. Clinical Quality Measures DVT/VTE Risk/Contraindication: Risk Factor Score Per Nursin RFS Level Per Nursing on Admit: 4+=Very High ERIN GIBBONS SHANK FAKER May 06, 2017 10:11
--- NOTE | 2017-05-06 11:25 | Cardiology Progress Note ---
Cardiology SOAP Progress Note Subjective: No cardiac complaints Objective: I&O/Vital Signs Vital Sign - Last 12Hours 05/06/17 05/06/17 05/06/17 05/06/17 00:20 01:00 04:50 07:13 Temp 98.3 99.3 Pulse 103 103 101 110 Resp 18 20 B/P (MAP) 96/58 129/70 Pulse Ox 92 93 O2 Delivery Room Air Room Air 05/06/17 05/06/17 05/06/17 07:48 07:50 08:00 Temp 99.3 Pulse 108 Resp 16 B/P (MAP) 100/51 Pulse Ox 94 95 O2 Delivery Room Air Room Air Room Air Intake and Output 05/06/17 00:00 Intake Total 1160 ml Output Total 51248 ml Balance -85030 ml Weight (Pounds): 119 Weight (Ounces): 12.0 Weight (Calculated Kilograms): 54.248010 Constitutional: AAO x 3 Respiratory: No accessory muscle use, No respiratory distress, lungs clear to auscultation Cardiovascular: irregularly irregular, No JVD, S1 and S2 Gastrointestional: No tender, other (colostomy ) Genital/Rectal: other (urinary catheter with CBI; faye red urine) Extremities: No pedal edema Neurologic/Psychiatric: oriented x 3 Skin: pallor Results/Procedures: Labs Laboratory Tests 05/06/17 05:58: White Blood Count 8.3, Red Blood Count 3.36L, Hemoglobin 9.9#L, Hematocrit 31L, Mean Corpuscular Volume 93, Mean Corpuscular Hemoglobin 29, Mean Corpuscular Hemoglobin Concent 32, Red Cell Distribution Width 16.5H, Platelet Count 363, Mean Platelet Volume 11.0H, Neutrophils (%) (Auto) 77H, Lymphocytes (%) (Auto) 10L, Monocytes (%) (Auto) 13H, Eosinophils (%) (Auto) 1, Basophils (%) (Auto) 0 , Neutrophils # (Auto) 6.3, Lymphocytes # (Auto) 0.8L, Monocytes # (Auto) 1.0, Eosinophils # (Auto) 0.1, Basophils # (Auto) 0.0, Sodium Level 138, Potassium Level 3.5L, Chloride Level 94L, Carbon Dioxide Level 30, Anion Gap 14, Blood Urea Nitrogen 50H, Creatinine 2.06H, Estimat Glomerular Filtration Rate 31, BUN/ Creatinine Ratio 24, Glucose Level 91, Calcium Level 7.7L, Total Bilirubin 0.5, Aspartate Amino Transf (AST/SGOT) 28, Alanine Aminotransferase (ALT/SGPT) 15, Alkaline Phosphatase 77, Total Protein 5.9L, Albumin 2.5L A/P: Assessment/Dx: Suspected SBO - Dr. Monzon managing Acute systolic CHF, difficult to treat, currently appears under better control Sinus tach with PACs CKD stage III-IV, stable Elec abn due to diuretic therapy - replace Echocardiogram of 04-19-17 LVEF 20-25%. Hypokinesis of apical septal, apical lateral, apical myocardium. Mild MR. Mild to mod TR. PASP 65mmHg. Carried out during tachycardia. Not a suitable candidate for MONY (-) or ARB d/t existing stage III-IV CKD Right hip fracture, s/p surgery Mildly positive cardiac enzymes (04-19-17 to 04-21-17) : serial troponin shows same level of troponin. [place] to be unlikely d/t ACS. Since mild elevation of troponin can occur in CHF especially with CKD and in a patient with tachycardia. Tachycardia vs a-fib per EKG of 04-19-17 - felt to be tachycardia - treated with BB H/O colovesical fistula d/t colon CA L ureteral stent - Dr. Alves following Plan: Management complex due to multiple comorbidities (see above) CKD with some worsening of Cr and electrolyte abnormalities - in some part likely d/t vascular depletion - reduce Lasix and replace electrolytes Monitor lab Conservative management appears to be the best option at time Continue heart failure treatment and treatment for suspected CAD; aspirin started. Replace electrolytes Thank you for your consultation. Please call me if you have any questions. Ramírez Biggs MD, FACP, FACC, FSCAI, FHRS, CCDS Interventional Cardiology Cardiac Electrophysiology Vascular Medicine and Endovascular Interventions Cyndee BIGGS MD May 06, 2017 11:25 am
--- NOTE | 2017-05-06 11:52 | Progress Note-Hospitalist ---
Progress Note HPI/CC on Admission CC: Acute small bowel obstruction HPI: This is a 82 yoWM who was moved from inpatient rehab to med-surg due to acute small bowel obstruction Dr. Monzon Review: Pt was seen this morning. 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 Everything was given PO this am Pt has NG tube SW Review: Pt has Medicare, unsure of how many days hes had Patient Interview: Pt asked what his issue is today. There is a small blockage in his bowel and this was discussed. I informed him that the NG tube will help this and that 1500 ml of fluid was removed. We will try to DC NG tube tomorrow Labs discussed and are looking okay Pt does not appear to be in pain, but he has pain around the tube Physical exam stable. Lungs sound perfect IV meds were discussed and will be maintained Pt's urine is looking better. Pt was encouraged to use IS Scribed by Riya Casarez under the direct supervision of Dr. Gandhi. 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 Acute hematuria requiring urology consultation and bladder wash History of colon cancer 10 years ago Diverting colostomy Severe anemia due to hip fracture from acute blood loss status post 2 units of packed red blood cell transfusion 2 weeks ago Mild dementia Diagonsis/Assessment & Plan Patient doing well since receiving 2 units of blood yesterday Conferred with Dr Vásquez and he will begin the process of transferring back to [facility] for tertiary care tomorrow 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 now that his hip fracture has been managed and return back to surgeon who performed the original surgeries Checked meds and labs Potassium 3.5 since 40meq IV supplemented yesterday but will replace once again today Giving high dose of Lasix before blood yesterday and worked well ASA started AFVSS, Pleasant, O x 3 RRR, CTAB diminished in the bases No edema Laboratory Tests 05/06/17 05:58 Assessment: Acute small bowel obstruction requiring nasogastric tube placement and general surgery consultation with CT completion and s/p NGT and tolerating diet Systolic dysfunction congestive heart failure ejection fraction of 25% with frequent volume overload's Recent hip fracture repair 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 Acute hematuria requiring urology consultation and bladder wash History of colon cancer 10 years ago Diverting colostomy now with fistula performed at [facility] Severe anemia due to hip fracture from acute blood loss status post 2 units of packed red blood cell transfusion 2 weeks ago and s/p 2 more units yesterday Mild dementia Plan: Transfer back to [facility] Sunday for fistula modification by surgeons who performed the original surgery, Dr Vásquez will help facilitate IS Diet Hold Lovenox due to hematuria Check labs in am SCD's ASA restarted per Cardiology PAULA GANDHI DO May 06, 2017 11:52
[2017-05-06 12:00] VITALS: BP 89/70
[2017-05-06] MEDS: POTASSIUM CL 10MEQ/50ML IVPB 50 ML IV SCH ×4 (12:56→15:14)
[2017-05-06] MEDS ORDERED: NS IV 500 ML 500 ML ONE (13:02)
[2017-05-06 16:12] VITALS: BP 114/55
[2017-05-06 20:11] VITALS: BP 135/84
[2017-05-07] VITALS: BP 127/82
[2017-05-07] MEDS: meTOprolol 5 MG/5 ML (LOPRESSOR) VIAL IV SCH ×3 (00:16→12:00)
[2017-05-07 03:35] VITALS: BP 101/59
[2017-05-07 05:30] LABS: BASOPHILS % (AUTO) 0 % (0-10); EOSINOPHILS # (AUTO) 0.1 10^3/uL (0.0-0.3); EOSINOPHILS % (AUTO) 2 % (0-10); LYMPHOCYTES # (AUTO) 0.8 X 10^3 (1.0-4.0); LYMPHOCYTES % (AUTO) 12 % (12-44); MEAN CORPUSCULAR HEMOGLOBIN 30 PG (25-34); MEAN CORPUSCULAR HGB CONC 32 G/DL (32-36); MEAN CORPUSCULAR VOLUME 94 FL (80-99); MEAN PLATELET VOLUME 11.1 FL (7.4-10.4); MONOCYTES # (AUTO) 0.8 X 10^3 (0.0-1.0); MONOCYTES % (AUTO) 14 % (0-12); NEUTROPHILS # (AUTO) 4.5 X 10^3 (1.8-7.8); NEUTROPHILS % (AUTO) 73 % (42-75); PLATELET COUNT 350 10^3/uL (130-400); RED BLOOD COUNT 2.95 10^6/uL (4.35-5.85); RED CELL DISTRIBUTION WIDTH 15.8 % (10.0-14.5); WHITE BLOOD COUNT 6.2 10^3/uL (4.3-11.0)
[2017-05-07 06:02] LABS: ALBUMIN 2.4 GM/DL (3.2-4.5); BILIRUBIN,TOTAL 0.3 MG/DL (0.1-1.0); CALCIUM 7.6 MG/DL (8.5-10.1); CREATININE SERUM 2.04 MG/DL (0.60-1.30); POTASSIUM 3.6 MMOL/L (3.6-5.0); TOTAL PROTEIN 5.7 GM/DL (6.4-8.2)
[2017-05-07 08:00] VITALS: BP 122/56
[2017-05-07] MEDS: ASPIRIN 81 MG CHEW (CHILDREN'S ASA) PO SCH (09:02)
[2017-05-07] MEDS: PANTOPRAZOLE 40 MG/10 ML (PROTONIX) VIAL IV SCH (09:02)
[2017-05-07] MEDS: FUROSEMIDE 40 MG/4 ML INJ (LASIX) IVP SCH (09:02)
--- NOTE | 2017-05-07 09:10 | Cardiology Progress Note ---
Cardiology SOAP Progress Note Subjective: Improved shortness of breath Objective: I&O/Vital Signs Vital Sign - Last 12Hours 05/07/17 05/07/17 05/07/17 05/07/17 00:00 01:00 03:35 08:00 Temp 98.8 97.3 97.5 Pulse 101 102 113 98 Resp 20 18 16 B/P (MAP) 127/82 101/59 122/56 Pulse Ox 94 95 96 O2 Delivery Room Air Room Air Room Air Intake and Output 05/07/17 00:00 Intake Total 1680 ml Output Total 3075 ml Balance -1395 ml Weight (Pounds): 119 Weight (Ounces): 12.0 Weight (Calculated Kilograms): 54.678736 Constitutional: AAO x 3 Respiratory: No accessory muscle use, No respiratory distress, lungs clear to auscultation Cardiovascular: irregularly irregular, No JVD, S1 and S2 Gastrointestional: No tender, other (colostomy ) Genital/Rectal: other (urinary catheter with CBI; faye red urine) Extremities: No pedal edema Neurologic/Psychiatric: oriented x 3 Skin: pallor Results/Procedures: Labs Laboratory Tests 05/07/17 04:47: White Blood Count 6.2, Red Blood Count 2.95L, Hemoglobin 8.9L, Hematocrit 28L, Mean Corpuscular Volume 94, Mean Corpuscular Hemoglobin 30, Mean Corpuscular Hemoglobin Concent 32, Red Cell Distribution Width 15.8H, Platelet Count 350, Mean Platelet Volume 11.1H, Neutrophils (%) (Auto) 73, Lymphocytes (%) (Auto) 12 , Monocytes (%) (Auto) 14H, Eosinophils (%) (Auto) 2, Basophils (%) (Auto) 0, Neutrophils # (Auto) 4.5, Lymphocytes # (Auto) 0.8L, Monocytes # (Auto) 0.8, Eosinophils # (Auto) 0.1, Basophils # (Auto) 0.0, Sodium Level 138, Potassium Level 3.6, Chloride Level 96L, Carbon Dioxide Level 30, Anion Gap 12, Blood Urea Nitrogen 49H, Creatinine 2.04H, Estimat Glomerular Filtration Rate 31, BUN/ Creatinine Ratio 24, Glucose Level 96, Calcium Level 7.6L, Total Bilirubin 0.3, Aspartate Amino Transf (AST/SGOT) 24, Alanine Aminotransferase (ALT/SGPT) 15, Alkaline Phosphatase 79, Total Protein 5.7L, Albumin 2.4L A/P: Assessment/Dx: Suspected SBO - Dr. Monzon managing Acute systolic CHF, difficult to treat, currently appears under better control Sinus tach with PACs CKD stage III-IV, stable Elec abn due to diuretic therapy - replace Echocardiogram of 04-19-17 LVEF 20-25%. Hypokinesis of apical septal, apical lateral, apical myocardium. Mild MR. Mild to mod TR. PASP 65mmHg. Carried out during tachycardia. Not a suitable candidate for MONY (-) or ARB d/t existing stage III-IV CKD Right hip fracture, s/p surgery Mildly positive cardiac enzymes (04-19-17 to 04-21-17) : serial troponin shows same level of troponin. [place] to be unlikely d/t ACS. Since mild elevation of troponin can occur in CHF especially with CKD and in a patient with tachycardia. Tachycardia vs a-fib per EKG of 04-19-17 - felt to be tachycardia - treated with BB H/O colovesical fistula d/t colon CA L ureteral stent - Dr. Alves following Plan: Management complex due to multiple comorbidities (see above) CKD with some worsening of Cr and electrolyte abnormalities - in some part likely d/t vascular depletion Monitor lab Conservative management appears to be the best option at time Continue heart failure treatment and treatment for suspected CAD; aspirin started. Replace electrolytes Thank you for your consultation. Please call me if you have any questions. Ramírez Biggs MD, FACP, FACC, FSCAI, FHRS, CCDS Interventional Cardiology Cardiac Electrophysiology Vascular Medicine and Endovascular Interventions Cyndee BIGGS MD May 07, 2017 9:10 am
--- NOTE | 2017-05-07 09:29 | Physical Therapy Daily Note ---
PT Daily Note-Current Subjective Patient agrees to PT. No c/o at this time. Pain Numeric Pain Scale: 0-No Pain Location: No Pain Reported Mental Status Patient Orientation: Normal For Age Attachments: Mckeon Catheter Transfers Functional [place] Measure 0=Not Assessed/NA 4=Minimal Assistance 1=Total Assistance 5=Supervision or Setup 2=Maximal Assistance 6=Modified [place] 3=Moderate Assistance 7=Complete IndependenceIRFPAI Quality Coding Scale 6 Independent with activity with or without an assistive device 5 Patient requires set up or clean up by helper. Patient completes activity by themselves 4 Supervision or touching assist (CGA). [place] provide cues , steadying assist 3 The helper provides less than half the effort to complete the activity 2 The helper provides more than half the effort to complete the activity 1 Dependent. The helper does all the effort to complete an activity 7 Patient refused to complete or attempt activity 9 The patient did not perform the activity before the current illness or injury 88 Not attempted due to Medical conditions or safety concerns Transfers (B, C, W/C) (FIM): 4 Scootin Rollin Supine to/from Sit: 5 Sit to/from Stand: 4 CGA for safety Gait Training Gait (FIM): 4 Distance (FIM): 3=150 ft Distance: 150' Gait Level of Assist: 4 Gait Persons Needed: 1 Gait Assistive Device: FWW bilateral ER (PLOF) Assessment Patient is up in recliner with needs met. Patient is compliant with independent exercise program. PT Short Term Goals Short Term Goals Time Frame: May 19, 2017 Transfers (B,C,W/C) (FIM): 6 Gait (FIM): 6 Distance (FIM): 3=150 ft Gait Assistive Device: FWW PT Plan Treatment/Plan Treatment Plan: Continue Plan of Care Treatment Plan: Bed Mobility, Functional Activity [place], Functional Strength, Gait, Safety, Therapeutic Exercise, Transfers Treatment Duration: May 19, 2017 Frequency: At least 5-7 days/Wk (IRF) Estimated Hrs Per Day: .5 hour per day Patient and/or Family Agrees t: Yes Time/GCodes Time In: 910 Time Out: 920 Total Billed Treatment Time: 10 Total Billed Treatment 1 visit GT 10 min EDGAR KERNS PT May 07, 2017 09:29
[2017-05-07 09:57] VITALS: BP 101/59
[2017-05-07] MEDS: RT-ALBUTEROL/IPRATROPIUM 3 ML (DUONEB) VIAL INH SCH (09:57)
--- NOTE | 2017-05-07 11:59 | Progress Note-Hospitalist ---
Progress Note HPI/CC on Admission CC: Acute small bowel obstruction HPI: This is a 82 yoWM who was moved from inpatient rehab to med-surg due to acute small bowel obstruction Dr. Monzon Review: Pt was seen this morning. 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 Everything was given PO this am Pt has NG tube SW Review: Pt has Medicare, unsure of how many days hes had Patient Interview: Pt asked what his issue is today. There is a small blockage in his bowel and this was discussed. I informed him that the NG tube will help this and that 1500 ml of fluid was removed. We will try to DC NG tube tomorrow Labs discussed and are looking okay Pt does not appear to be in pain, but he has pain around the tube Physical exam stable. Lungs sound perfect IV meds were discussed and will be maintained Pt's urine is looking better. Pt was encouraged to use IS Scribed by Riya Casarez under the direct supervision of Dr. Gandhi. 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 Acute hematuria requiring urology consultation and bladder wash History of colon cancer 10 years ago Diverting colostomy Severe anemia due to hip fracture from acute blood loss status post 2 units of packed red blood cell transfusion 2 weeks ago Mild dementia Diagonsis/Assessment & Plan Patient doing well since receiving 2 units of blood 2 days ago Conferred with Dr Vásquez yesterday and he will begin the process of transferring back to [facility] for tertiary care tomorrow 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 now that his hip fracture has been managed and return back to surgeon who performed the original surgeries Checked meds and labs Potassium 3.5 since 40meq IV supplemented yesterday and 2 days ago and now 3.6 ASA started Will need to go to [place] in ambulance due to bladder issue that continues to bleed and if continuous bladder wash is not continued he produces large clots AFVSS, Pleasant, O x 3 RRR, CTAB diminished in the bases No edema Laboratory Tests 05/07/17 04:47 Assessment: Acute small bowel obstruction requiring nasogastric tube placement and general surgery consultation with CT completion and s/p NGT and tolerating diet and will advance to regular diet now Systolic dysfunction congestive heart failure ejection fraction of 25% with frequent volume overload's Recent hip fracture repair 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 Acute hematuria requiring urology consultation and bladder wash History of colon cancer 10 years ago Diverting colostomy now with fistula performed at [facility] Severe anemia due to hip fracture from acute blood loss status post 2 units of packed red blood cell transfusion 2 weeks ago and s/p 2 more units 2 days ago Mild dementia Plan: Transfer back to [facility] Sunday for fistula modification by surgeons who performed the original surgery, Dr Vásquez will help facilitate IS Diet Hold Lovenox due to hematuria Check labs in am SCD's ASA restarted per Cardiology PAULA GANDHI DO May 07, 2017 11:59
[2017-05-07 12:00] VITALS: BP 89/54
[2017-05-07] MEDS ORDERED: IPRA3AMP INH (14:01)
[2017-05-07] MEDS ORDERED: FURO10VI IVP (14:01)
[2017-05-07] MEDS ORDERED: ASPI-999 PO (14:01)
--- NOTE | 2017-05-07 14:02 | Discharge Summary-Hospitalist ---
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 Acute hematuria requiring urology consultation and bladder wash History of colon cancer 10 years ago Diverting colostomy Severe anemia due to hip fracture from acute blood loss status post 2 units of packed red blood cell transfusion 2 weeks ago Mild dementia Discharge Diagnosis Assessment: Acute small bowel obstruction requiring nasogastric tube placement and general surgery consultation with CT completion and s/p NGT and tolerating diet and will advance to regular diet now Systolic dysfunction congestive heart failure ejection fraction of 25% with frequent volume overload's Recent hip fracture repair 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 Acute hematuria requiring urology consultation and bladder wash History of colon cancer 10 years ago Diverting colostomy now with fistula performed at [facility] Severe anemia due to hip fracture from acute blood loss status post 2 units of packed red blood cell transfusion 2 weeks ago and s/p 2 more units 2 days ago Mild dementia Plan: Transfer back to [facility] Sunday for fistula modification by surgeons who performed the original surgery, Dr Vásquez will help facilitate IS Diet Hold Lovenox due to hematuria Check labs in am SCD's ASA restarted per Cardiology Discharge Summary Discharge Physical Examination Allergies: Coded Allergies: Iodinated Contrast- Oral and IV Dye (Verified Allergy, Severe, ANAPHYLAXIS , 05/03/17) patient reports throat became swollen, and code blue was called Penicillins (Verified Allergy, Mild, RASH, 05/03/17) ibuprofen (Verified Allergy, Mild, rash, 05/03/17) Vitals & I&Os Vital Signs Date Time Temp Pulse Resp B/P (MAP) Pulse Ox O2 Delivery O2 Flow Rate FiO2 05/07/17 15:50 121 16 89/54 94 Room Air 05/07/17 12:00 99.5 05/04/17 16:23 98 Hospital Course Hospital course: patient had a relatively brief acute med-surg hospital course when SBO was dx which required NGT placement and transfer out of IRU back up to 4th floor. Dr Monzon was corporation pilot for Dr Vásquez and he placed patient on NPO status and maintained NGT. CT scan showed no evidence of any recurrent mechanical obstruction so the NGT was DC and he was able to tolerate PO intake. CBI was maintained during this entire hospital course per Urology Dr Alves since once it was DC he would produce large clots and outlet obstruction. I did transfuse 2 units of blood on 05/05/17 due to hgb 7.6 to help recovery and maintain stability. 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 His labs were normal baseline for the patient at [facility] and vitals were stable and creat was 2.0 and hgb 9.6 and he was agreeable to return back to [facility] for Urology and general surgery management. Labs (last 24 hrs) Laboratory Tests 05/07/17 04:47: White Blood Count 6.2, Red Blood Count 2.95L, Hemoglobin 8.9L, Hematocrit 28L, Mean Corpuscular Volume 94, Mean Corpuscular Hemoglobin 30, Mean Corpuscular Hemoglobin Concent 32, Red Cell Distribution Width 15.8H, Platelet Count 350, Mean Platelet Volume 11.1H, Neutrophils (%) (Auto) 73, Lymphocytes (%) (Auto) 12 , Monocytes (%) (Auto) 14H, Eosinophils (%) (Auto) 2, Basophils (%) (Auto) 0, Neutrophils # (Auto) 4.5, Lymphocytes # (Auto) 0.8L, Monocytes # (Auto) 0.8, Eosinophils # (Auto) 0.1, Basophils # (Auto) 0.0, Sodium Level 138, Potassium Level 3.6, Chloride Level 96L, Carbon Dioxide Level 30, Anion Gap 12, Blood Urea Nitrogen 49H, Creatinine 2.04H, Estimat Glomerular Filtration Rate 31, BUN/ Creatinine Ratio 24, Glucose Level 96, Calcium Level 7.6L, Total Bilirubin 0.3, Aspartate Amino Transf (AST/SGOT) 24, Alanine Aminotransferase (ALT/SGPT) 15, Alkaline Phosphatase 79, Total Protein 5.7L, Albumin 2.4L 05/07/17 12:45: Lab Scanned Report Transfusion Reaction Form Pending Labs Laboratory Tests 05/07/17 12:45: Lab Scanned Report Transfusion Reaction Form Discharge Home Medications: Active Scripts Active Furosemide 10 Mg/1 Ml Vial 80 Mg IVP DAILY 30 Days Aspirin 81 Mg Tab.chew 81 Mg PO DAILY 30 Days Iprat-Albut 0.5-3(2.5) mg/3 ml (Ipratropium/Albuterol Sulfate) 3 Ml Ampul.neb 3 Ml INH RTBID 30 Days Reported Lovastatin 10 Mg Tablet 10 Mg PO 1800 Feosol (Ferrous Sulfate) 325 Mg Tablet 325 Mg PO DAILY Carvedilol 3.125 Mg Tablet 3.125 Mg PO DAILY Protonix (Pantoprazole Sodium) 40 Mg Tablet.dr 40 Mg PO DAILY Multivitamins (Multivitamin) 1 Each Tablet 1 Tab PO DAILY Floranex Tablet (L. Acidophilus/Bulgaricus) 1 Each Tablet 2 Tab PO DAILY Vitamin C (Ascorbic Acid) 250 Mg Tab 500 Mg PO DAILY TAKES 2 (250MG) TABLETS Senokot-S Tablet (Sennosides/Docusate Sodium) 1 Each Tablet 8.6 Mg PO BID Instructions to patient/family Please see electonic discharge instructions given to patient. Clinical Quality Measures DVT/VTE Risk/Contraindication: Risk Factor Score Per Nursin RFS Level Per Nursing on Admit: 4+=Very High PAULA GANDHI DO May 07, 2017 14:02
[2017-05-07 15:50] VITALS: BP 89/54
== END 2017-05-07 15:45 | disposition short-term general hospital (02) | DRG 388 ==
LOC: 4TH 09:11
PROVIDERS: ADMIT Internal Medicine; ATTEND Internal Medicine
PROC: 0D9 Gastrointestinal System, Drainage (ICD-10-PCS; principal; 2017-05-03)
DX: K56.69 Other intestinal obstruction (principal); I13.0 Hypertensive heart and chronic kidney disease with heart failure and stage 1 through stage 4 chronic kidney disease, or unspecified chronic kidney disease; I50.21 Acute systolic (congestive) heart failure; N18.4 Chronic kidney disease, stage 4 (severe); D62 Acute posthemorrhagic anemia; N32.1 Vesicointestinal fistula; I25.10 Atherosclerotic heart disease of native coronary artery without angina pectoris; I49.1 Atrial premature depolarization; R31.0 Gross hematuria; T50.2X5A Adverse effect of carbonic-anhydrase inhibitors, benzothiadiazides and other diuretics, initial encounter; Y84.2 Radiological procedure and radiotherapy as the cause of abnormal reaction of the patient, or of later complication, without mention of misadventure at the time of the procedure; I08.1 Rheumatic disorders of both mitral and tricuspid valves; F03.90 Unspecified dementia, unspecified severity, without behavioral disturbance, psychotic disturbance, mood disturbance, and anxiety; K21.9 Gastro-esophageal reflux disease without esophagitis; M19.91 Primary osteoarthritis, unspecified site; H91.90 Unspecified hearing loss, unspecified ear; E78.00 Pure hypercholesterolemia, unspecified; W88.1XXS Exposure to radioactive isotopes, sequela; S72.001D Fracture of unspecified part of neck of right femur, subsequent encounter for closed fracture with routine healing; Z85.038 Personal history of other malignant neoplasm of large intestine; Z93.3 Colostomy status
CPT/HCPCS: 36415; 74000; 74176; 80053; 83735; 85025; 85027; 86850; 86900; 86901; 86920; 94010; 94640; 94760